=== PATIENT | male | born 1960 | race Caucasian/White ===

== ENCOUNTER 2020-03-27 08:25 | Outpatient (REF) | payer OTHER, SELFPAY ==
[2020-03-27 11:36] LABS: Estimated Average Glucose 154 mg/dL
[2020-03-27 12:06] LABS: Alanine Aminotransferase 20 U/L (0-40); Anion Gap 11 (12-20); Aspartate Amino Transferase 17 U/L (5-37); Blood Urea Nitrogen 12 mg/dL (9-16); Calcium 8.5 mg/dL (8.4-10.2); Carbon Dioxide 27 mmol/L (22-29); Chloride 106 mmol/L (96-108); Cholesterol 132 mg/dL; Estimated Glomerular Filt Rate > 60; Glucose Fasting 147 mg/dL (60-99); HDL Cholesterol 41 mg/dL; LDL Cholesterol Calculated 68 mg/dl; Potassium 4.3 mmol/l (3.3-5.1); Sodium 140 mmol/L (135-145); Triglycerides 119 mg/dL
== END 2020-03-27 08:26 | disposition home or self-care (01) ==
LOC: HO.HMGCLDS 08:25
PROVIDERS: PCP Internal Medicine; Visit Provider Internal Medicine
DX: E11.65 Type 2 diabetes mellitus with hyperglycemia (principal); E78.5 Hyperlipidemia, unspecified; I10 Essential (primary) hypertension
CPT/HCPCS: 80048; 80061; 83036; 84450; 84460

== ENCOUNTER 2020-11-11 09:07 | Outpatient (REF) | payer OTHER, SELFPAY ==
[2020-11-11 11:54] LABS: Alanine Aminotransferase 19 U/L (0-40); Anion Gap 13 (12-20); Aspartate Amino Transferase 18 U/L (5-37); Blood Urea Nitrogen 14 mg/dL (9-16); Calcium 8.2 mg/dL (8.4-10.2); Carbon Dioxide 24 mmol/L (22-29); Chloride 106 mmol/L (96-108); Cholesterol 118 mg/dL; Estimated Glomerular Filt Rate > 60; Glucose Fasting 118 mg/dL (60-99); HDL Cholesterol 41 mg/dL; LDL Cholesterol Calculated 63 mg/dl; Potassium 3.9 mmol/L (3.3-5.1); Sodium 139 mmol/L (135-145); Triglycerides 72 mg/dL
[2020-11-11 12:20] LABS: Estimated Average Glucose 151 mg/dL; Hemoglobin A1c % 6.9 %
== END 2020-11-11 09:08 | disposition home or self-care (01) ==
LOC: HO.HMGCLDS 09:07
PROVIDERS: PCP Internal Medicine; Visit Provider Internal Medicine
DX: E11.65 Type 2 diabetes mellitus with hyperglycemia (principal); E66.01 Morbid (severe) obesity due to excess calories; E78.5 Hyperlipidemia, unspecified; G47.33 Obstructive sleep apnea (adult) (pediatric); I10 Essential (primary) hypertension; I42.9 Cardiomyopathy, unspecified; M17.0 Bilateral primary osteoarthritis of knee; Z86.39 Personal history of other endocrine, nutritional and metabolic disease; Z99.89 Dependence on other enabling machines and devices
CPT/HCPCS: 36415; 80048; 80061; 83036; 84450; 84460

== ENCOUNTER 2020-11-22 11:16 | Outpatient (REF) | payer OTHER, SELFPAY ==
[2020-11-22 13:37] LABS: Prostate Specific Antigen 2.09 ng/mL (<0.05-4.0)
== END 2020-11-22 11:17 | disposition home or self-care (01) ==
LOC: HO.LAB 11:16
PROVIDERS: PCP Internal Medicine; Visit Provider Urology
DX: Z12.5 Encounter for screening for malignant neoplasm of prostate (principal); N40.1 Benign prostatic hyperplasia with lower urinary tract symptoms
CPT/HCPCS: 36415; 84153

== ENCOUNTER 2021-02-27 09:42 | Outpatient (REF) | payer OTHER, SELFPAY ==
[2021-02-27 11:40] LABS: Alanine Aminotransferase 15 U/L (0-40); Anion Gap 14 (12-20); Aspartate Amino Transferase 18 U/L (5-37); Blood Urea Nitrogen 12 mg/dL (9-16); Carbon Dioxide 25 mmol/L (22-29); Chloride 107 mmol/L (96-108); Cholesterol 132 mg/dL; Estimated Glomerular Filt Rate > 60; Glucose Fasting 115 mg/dL (60-99); HDL Cholesterol 41 mg/dL; LDL Cholesterol Calculated 72 mg/dl; Potassium 4.4 mmol/L (3.3-5.1); Sodium 142 mmol/L (135-145); Triglycerides 97 mg/dL
[2021-02-27 12:00] LABS: Estimated Average Glucose 148 mg/dL; Hemoglobin A1c % 6.8 %
[2021-02-27 12:02] LABS: Vitamin D 25-OH Total 16.6 ng/mL (>30)
== END 2021-02-27 09:43 | disposition home or self-care (01) ==
LOC: HO.HMGCLDS 09:42
PROVIDERS: PCP Internal Medicine; Visit Provider Internal Medicine
DX: E11.9 Type 2 diabetes mellitus without complications (principal); I10 Essential (primary) hypertension; I42.9 Cardiomyopathy, unspecified; E78.5 Hyperlipidemia, unspecified
CPT/HCPCS: 36415; 80048; 80061; 82306; 83036; 84450; 84460

== ENCOUNTER → 2021-07-24 08:42 | Outpatient (BNVA) | payer OTHER, SELFPAY | PROVIDERS: PCP Internal Medicine; Visit Provider Urology | DX: N40.1 Benign prostatic hyperplasia with lower urinary tract symptoms (principal); R97.20 Elevated prostate specific antigen [PSA] | CPT/HCPCS: 51798 ==

== ENCOUNTER 2021-11-24 08:43 | Outpatient (REF) | payer OTHER, SELFPAY ==
[2021-11-24 11:48] LABS: Alanine Aminotransferase 17 U/L (0-40); Anion Gap 14 (12-20); Aspartate Amino Transferase 13 U/L (5-37); Blood Urea Nitrogen 12 mg/dL (9-16); Calcium 8.8 mg/dL (8.4-10.2); Carbon Dioxide 25 mmol/L (22-29); Chloride 106 mmol/L (96-108); Cholesterol 115 mg/dL; Estimated Glomerular Filt Rate > 60; Glucose Fasting 155 mg/dL (60-99); HDL Cholesterol 34 mg/dL; LDL Cholesterol Calculated 64 mg/dl; Potassium 4.3 mmol/L (3.3-5.1); Sodium 141 mmol/L (135-145); Triglycerides 89 mg/dL
[2021-11-24 12:09] LABS: Creatinine Urine 171.42 mg/dL; Microalbum/Creatinine Ratio Ur 75.8 ug/mg cr
[2021-11-24 12:10] LABS: TSH reflex Free T4 2.29 uIU/mL (0.32-4.0); Vitamin D 25-OH Total 13.9 ng/mL (>30)
== END 2021-11-24 08:44 | disposition home or self-care (01) ==
LOC: HO.HMGCLDS 08:43
PROVIDERS: PCP Internal Medicine; Visit Provider Internal Medicine
DX: E66.01 Morbid (severe) obesity due to excess calories (principal); E78.5 Hyperlipidemia, unspecified; I10 Essential (primary) hypertension; E11.65 Type 2 diabetes mellitus with hyperglycemia
CPT/HCPCS: 36415; 80048; 80061; 82043; 82306; 84443; 84450; 84460

== ENCOUNTER 2021-12-26 06:40 | Day surgery (SDC) | payer OTHER, SELFPAY ==
[2021-11-10 09:52] VITALS: BMI 42.5
--- NOTE | 2021-12-24 12:41 | P.CONAN_ITS ---
Documented by User: Demi Alejo NP 12/25/21 12:01 HPI - Anesthesia Eval Consult details Narrative: 61yo M for Colonoscopy Follows [facility] - last seen 08/2020 without concerning symptoms and was cleared for orthopedic surgery [facility] Active Problems Active Problems: All Active Problems (Updated 12/05/21 @ 09:38 by Lakshmi Wyman MD) Elevated PSA (Acute) Trigger finger, right middle finger (Acute) Osteoarthritis of knees, bilateral (Acute) Cardiomyopathy (Acute) Dyslipidemia (Acute) GIN on CPAP (Acute) Essential hypertension (Acute) Morbid obesity (Acute) Diabetes mellitus with hyperglycemia, without long-term current use of insulin (Acute) Past Medical History Medical History Benign non-nodular prostatic hyperplasia with lower urinary tract symptoms History of COVID-19 Hx of thyroid nodule Nocturia Type 2 diabetes mellitus without complication, with no history of insulin use Family History Family History Father Diabetes mellitus Cancer of prostate Myocardial infarction Mother HTN (hypertension) Diabetes mellitus CAD (coronary artery disease) Paternal Grandfather Cancer of prostate Brother No problems noted. Brother No problems noted. Sister No problems noted. Sister No problems noted. Surgical History Surgical History History of lobectomy of thyroid Hx of colonoscopy Status post lateral meniscus repair Social History Social History Housing: House Alcohol intake: never Patient Tobacco Use Status: Never used Tobacco e-Cigarette/Vaping Use: Never Used Second Hand Smoke Exposure: No Use of substances other than those prescribed or required for medical reasons: No Are you DNR?: No Advance Directives: No Advance Directives Information Provided: Yes service: No Current occupational status: employed Current occupation: [employer] Current occupational exposures/hazards: Yes Cognitive needs: No Hearing needs: No Vision needs: No Meds Allergies Allergy/AdvReac Type Severity Reaction Status Date / Time erythromycin base Allergy Unknown DIARRHEA Verified 12/05/21 09:04 [ERYTHROMYCIN BASE] spironolactone [Aldactone] Allergy Unknown stomach Verified 12/05/21 09:04 upset dust, mold, grass Allergy Unknown sneezing Uncoded 12/05/21 09:04 Home Medications Medication Instructions Recorded Confirmed Last Taken Type carvedilol 25 mg tablet 25 mg PO BID 08/16/20 12/05/21 12/26/21 History sacubitril 97 mg-valsartan 103 mg 1 tab PO BID 08/16/20 12/05/21 12/26/21 History tablet aspirin 81 mg tablet,delayed 81 mg PO DAILY 11/14/20 12/05/21 12/19/21 History release (Adult Low Dose Aspirin) fexofenadine 60 mg capsule 180 mg PO DAILY 03/03/21 12/05/21 Unknown History dulaglutide 0.75 mg/0.5 mL 0.5 ml subcut QWEEK 12/26/21 12/26/21 12/20/21 History subcutaneous pen injector (Trulicity) Exam Exam Date and Time: December 24, 2021 1241 Height,Weight and Vital Signs: Height 5 ft 6.75 in Weight 122.47 kg Narrative Narrative: ECHO 09/2015 Upper normal LV size with mild conc LVH Moderate upper septal thickening LVEF 50-55% No regional WMA No doppler evidence of increased filling pressures Mild dilated LA Mild dilated RV with preserved systolic function No valvular dysfunction Assessment and Plan Assessment Anesthesia Assessment: Chart Reviewed Documented by User: Eren Rice MD 12/26/21 07:56 [facility] Past Medical History Medical History Benign non-nodular prostatic hyperplasia with lower urinary tract symptoms History of COVID-19 Hx of thyroid nodule Nocturia Type 2 diabetes mellitus without complication, with no history of insulin use Family History Family History Father Diabetes mellitus Cancer of prostate Myocardial infarction Mother HTN (hypertension) Diabetes mellitus CAD (coronary artery disease) Paternal Grandfather Cancer of prostate Brother No problems noted. Brother No problems noted. Sister No problems noted. Sister No problems noted. Family history of problems with anesthesia: No Surgical History Surgical History History of lobectomy of thyroid Hx of colonoscopy Status post lateral meniscus repair History of Problems with Anesthesia: No Social History Social History Housing: House Alcohol intake: never Patient Tobacco Use Status: Never used Tobacco e-Cigarette/Vaping Use: Never Used Second Hand Smoke Exposure: No Use of substances other than those prescribed or required for medical reasons: No Are you DNR?: No Advance Directives: No Advance Directives Information Provided: Yes service: No Current occupational status: employed Current occupation: [employer] Current occupational exposures/hazards: Yes Cognitive needs: No Hearing needs: No Vision needs: No Meds Allergies Allergy/AdvReac Type Severity Reaction Status Date / Time erythromycin base Allergy Unknown DIARRHEA Verified 12/05/21 09:04 [ERYTHROMYCIN BASE] spironolactone [Aldactone] Allergy Unknown stomach Verified 12/05/21 09:04 upset dust, mold, grass Allergy Unknown sneezing Uncoded 12/05/21 09:04 Home Medications Medication Instructions Recorded Confirmed Last Taken Type carvedilol 25 mg tablet 25 mg PO BID 08/16/20 12/05/21 12/26/21 History sacubitril 97 mg-valsartan 103 mg 1 tab PO BID 08/16/20 12/05/21 12/26/21 History tablet aspirin 81 mg tablet,delayed 81 mg PO DAILY 11/14/20 12/05/21 12/19/21 History release (Adult Low Dose Aspirin) fexofenadine 60 mg capsule 180 mg PO DAILY 03/03/21 12/05/21 Unknown History dulaglutide 0.75 mg/0.5 mL 0.5 ml subcut QWEEK 12/26/21 12/26/21 12/20/21 History subcutaneous pen injector (Trulicity) Exam Airway Mallampati Class: III TM Dist: >3cm Neck ROM: Full Assessment and Plan Assessment Anesthesia Assessment: Anesthesia Plan Discussed Final Anesthetic Review Family History of Problems with Anesthesia: No History of Problems with Anesthesia: No NPO: Yes ASA Class: III Final Preanesthetic Review: No Changes in Pt Med Stat, Meds/Allgs Chart Reviewed, Consent Obtained/Reviewed and Anes Risks/Benef Reviewed Patient Risk: Intermediate Procedure Risk: Low Anesthetic Plan Anesthetic Plan: MAC: Disposition: Standard PACU
[2021-12-26 07:00] VITALS: BP 161/92; PULSE 83; RESP 19; TEMP 36.4; O2SAT 95
[2021-12-26 07:10] LABS: Glucose, Whole Blood 119 mg/dL (60-115)
[2021-12-26] MEDS: Lactated Ringers 1,000 ML 50 ML IVCONT (07:23)
--- NOTE | 2021-12-26 08:11 | MHC.SHP ---
Pre-Procedural Eval Section A Date of Service: 12/26/21 Section B Chief Complaint: screening Details of Present Illness: see h&p no changes Relevant Family History (Specify if Yes): No Relevant Social History: None Present Medications: see Short Stay Collaborative assessment Medical History: No relevant PMH History of Previous Operations: No relevant previous surgery Allergies: Allergies Allergy/AdvReac Type Severity Reaction Status Date / Time erythromycin base Allergy Unknown DIARRHEA Verified 12/05/21 09:04 [ERYTHROMYCIN BASE] spironolactone [Aldactone] Allergy Unknown stomach Verified 12/05/21 09:04 upset dust, mold, grass Allergy Unknown sneezing Uncoded 12/05/21 09:04 Review of Systems Sugical H&P ROS: Negative: Constitution, Cardiovascular, Respiratory, Neurological, Psychiatric, Hem-Onc, Allergic/Immunologic, Gastrointestinal, Genitourinary, Musculoskeletal, Integumentary, Endocrine and Eyes/Ears/Nose/Throat Exam Surgical H&P Exam: Normal: HEENT, Normal: Heart, Normal: Lungs, Normal: Extremities, Normal: Abdomen, Normal: Skin and Normal: Neurological Plan I have reviewed the history and physical and performed a pertinent physical examination on my patient. No changes have occurred unless specified.
--- NOTE | 2021-12-26 08:48 | P.BOP_ITS ---
Brief Operative Note Date of Service: 12/26/21 Pre-op diagnosis: colonoscopy Post-op diagnosis: same (colon polyp) Procedure: colonoscopy Surgeon: Dirk Sylvester Anesthesia: MAC Was an Clinical Laboratory Service Teacher used for this Procedure?: No Estimated blood loss (mL): 2 Pathology: other Condition: stable Disposition: PACU
[2021-12-26 08:49] VITALS: BP 90/63; PULSE 84; RESP 14; TEMP 37.3; O2SAT 96
[2021-12-26 09:04] VITALS: BP 121/72; PULSE 78; RESP 18; TEMP 36.7; O2SAT 96
--- NOTE | 2021-12-26 11:06 | OP_ITS ---
SURGEON: Dirk Sylvester MD INDICATIONS: Colon cancer screening. PREOPERATIVE DIAGNOSIS: POSTOPERATIVE DIAGNOSIS: PROCEDURE PERFORMED: Colonoscopy to the terminal ileum with snare polypectomy. ESTIMATED BLOOD LOSS: COMPLICATIONS: ANESTHESIA: Monitored anesthesia care. ASSISTANTS: SPECIMENS: DESCRIPTION OF PROCEDURE: History and physical performed the risks and benefits of the procedure were explained to the patient. Informed consent was obtained. The patient was placed in the left lateral decubitus position. A digital rectal exam was performed and was found to be normal. The Olympus pediatric video colonoscope was introduced into the rectum and advanced to the cecum without difficulty. The cecum was identified by transillumination, palpation, and identification of the ileocecal valve. Examination was performed. The scope was removed. He tolerated the procedure well and was taken to recovery room in stable condition. FINDINGS: The terminal ileum was examined and appeared normal. The visualized colonic mucosa was normal. The quality of prep was good. At the proximal transverse colon, was a 6 mm polyp, which was removed with a snare and recovered via suction. No other polyps were identified. There was mild sigmoid diverticulosis. Retroflexed examination showed small internal hemorrhoids. IMPRESSION: Colon polyp. RECOMMENDATION: Follow up the biopsy results. MD APARNA Pastor/ACOSTA / [phone]
== END 2021-12-26 09:51 | disposition home or self-care (01) ==
PROVIDERS: PCP Internal Medicine; Visit Provider Internal Medicine Gastroenterology
PROC: 0DJD8ZZ Inspection of Lower Intestinal Tract, Via Natural or Artificial Opening Endoscopic (ICD-10-PCS; CPT 45378; principal; 2021-12-26 08:10)
DX: Z12.11 Encounter for screening for malignant neoplasm of colon (principal); D12.3 Benign neoplasm of transverse colon; K57.30 Diverticulosis of large intestine without perforation or abscess without bleeding; K64.8 Other hemorrhoids; I11.0 Hypertensive heart disease with heart failure; I50.9 Heart failure, unspecified; E78.00 Pure hypercholesterolemia, unspecified; M19.90 Unspecified osteoarthritis, unspecified site; G47.33 Obstructive sleep apnea (adult) (pediatric); E11.9 Type 2 diabetes mellitus without complications; E66.01 Morbid (severe) obesity due to excess calories; Z68.41 Body mass index [BMI] 40.0-44.9, adult; Z79.84 Long term (current) use of oral hypoglycemic drugs; Z79.82 Long term (current) use of aspirin; Z79.899 Other long term (current) drug therapy; Z88.1 Allergy status to other antibiotic agents; Z88.8 Allergy status to other drugs, medicaments and biological substances
CPT/HCPCS: 45385; 82947; 88305; J2370

== ENCOUNTER 2022-01-20 12:15 | Outpatient (REF) | payer OTHER, SELFPAY ==
[2022-01-20 14:30] LABS: Prostate Specific Antigen 1.71 ng/mL (<0.05-4.0)
== END 2022-01-20 12:16 | disposition home or self-care (01) ==
LOC: HO.HMGCLDS 12:15
PROVIDERS: PCP Internal Medicine; Visit Provider Urology
DX: Z12.5 Encounter for screening for malignant neoplasm of prostate (principal); N13.8 Other obstructive and reflux uropathy; N40.1 Benign prostatic hyperplasia with lower urinary tract symptoms
CPT/HCPCS: 36415; 84153

== ENCOUNTER 2022-03-07 09:17 | Outpatient (REF) | payer OTHER, SELFPAY ==
[2022-03-07 11:28] LABS: Estimated Average Glucose 157 mg/dL; Hemoglobin A1c % 7.1 %
[2022-03-07 11:46] LABS: Alanine Aminotransferase 23 U/L (0-40); Anion Gap 16 (12-20); Aspartate Amino Transferase 17 U/L (5-37); Blood Urea Nitrogen 14 mg/dL (9-16); Calcium 8.8 mg/dL (8.4-10.2); Carbon Dioxide 24 mmol/L (22-29); Chloride 106 mmol/L (96-108); Cholesterol 110 mg/dL; Estimated Glomerular Filt Rate > 60; Glucose Fasting 141 mg/dL (60-99); HDL Cholesterol 34 mg/dL; LDL Cholesterol Calculated 57 mg/dl; Potassium 4.1 mmol/L (3.3-5.1); Sodium 142 mmol/L (135-145); Triglycerides 99 mg/dL
== END 2022-03-07 09:18 | disposition home or self-care (01) ==
LOC: HO.HMGCLDS 09:17
PROVIDERS: PCP Internal Medicine; Visit Provider Internal Medicine
DX: E66.01 Morbid (severe) obesity due to excess calories (principal); E11.65 Type 2 diabetes mellitus with hyperglycemia; E78.5 Hyperlipidemia, unspecified; I10 Essential (primary) hypertension; I42.9 Cardiomyopathy, unspecified
CPT/HCPCS: 36415; 80048; 80061; 83036; 84450; 84460

== ENCOUNTER 2022-07-02 09:41 | Outpatient (REF) | payer OTHER, SELFPAY ==
[2022-07-02 11:43] LABS: Estimated Average Glucose 148 mg/dL; Hemoglobin A1c % 6.8 %
[2022-07-02 13:05] LABS: Alanine Aminotransferase 18 U/L (0-40); Anion Gap 12 (12-20); Aspartate Amino Transferase 16 U/L (5-37); Blood Urea Nitrogen 12 mg/dL (9-16); Calcium 9.1 mg/dL (8.4-10.2); Carbon Dioxide 27 mmol/L (22-29); Chloride 106 mmol/L (96-108); Cholesterol 117 mg/dL; Estimated Glomerular Filt Rate > 60; Glucose Fasting 129 mg/dL (60-99); HDL Cholesterol 38 mg/dL; LDL Cholesterol Calculated 60 mg/dl; Potassium 4.3 mmol/L (3.3-5.1); Sodium 141 mmol/L (135-145); Triglycerides 96 mg/dL
[2022-07-02 13:24] LABS: Vitamin D 25-OH Total 69.1 ng/mL (>30)
== END 2022-07-02 09:42 | disposition home or self-care (01) ==
LOC: HO.HMGCLDS 09:41
PROVIDERS: PCP Internal Medicine; Visit Provider Internal Medicine
DX: E11.65 Type 2 diabetes mellitus with hyperglycemia (principal); I10 Essential (primary) hypertension; E78.5 Hyperlipidemia, unspecified; E66.01 Morbid (severe) obesity due to excess calories; E55.9 Vitamin D deficiency, unspecified
CPT/HCPCS: 36415; 80048; 80061; 82306; 83036; 84450; 84460

== ENCOUNTER 2022-07-09 13:35 | Outpatient (AMB) | payer OTHER, SELFPAY ==
--- NOTE | 2022-07-09 13:38 | A.OFFPC_ITS ---
Vital Signs 07/09/22 13:39 Height 5 ft 6.75 in Weight 266 lb 6 oz BMI 42.0 BP 130/75 Blood Pressure Location Lt brachial Position Sitting Pulse 68 Pulse Source Pulse Oximeter Pulse Oximetry (%) 98 Oxygen Delivery Method Room Air Intake Visit Reasons: 4 month follow up Allergies erythromycin base [ERYTHROMYCIN BASE] Allergy (Unknown, Verified 03/10/23 13:00) DIARRHEA spironolactone [Aldactone] Allergy (Unknown, Verified 03/10/23 13:00) stomach upset dust, mold, grass Allergy (Unknown, Uncoded 03/10/23 13:00) sneezing Medication List - Last Reconciled 03/14/23 by Lakshmi Wyman MD amlodipine 10 mg PO DAILY aspirin (Adult Low Dose Aspirin) 81 mg PO DAILY atorvastatin 20 mg PO DAILY blood sugar diagnostic (FreeStyle Lite Strips) Check blood sugar twice a day before meals blood sugar diagnostic (FreeStyle Lite Strips) Check fasting glucose once a day before meals carvedilol 25 mg PO BID cyanocobalamin (vitamin B-12) Inject 1000 micrograms/mL intramuscularly every week for 4 weeks, then once a month thereafter dapagliflozin propanediol (Farxiga) 10 mg PO DAILY dulaglutide (Trulicity) 1.5 mg (0.5 mL) subcut QWEEK 3 months fexofenadine 180 mg PO DAILY finasteride 5 mg PO DAILY 90 days lancets check blood sugar twice a day AC metformin 1,000 mg PO BID sacubitril-valsartan 97-103 mg 1 tab PO BID tadalafil 5 mg PO DAILY 90 days Tobacco use date assessed: 07/09/22 Fall risk assessment: No Falls in past year HPI 4 month follow up HPI Details [age] type 2 diabetes mellitus, cardiomyopathy, hypertension, morbid obesity, dyslipidemia with obstructive sleep apnea on CPAP, here today for his follow-up. He has been compliant with taking his medications, with recent fasting labs showing good control of diabetes mellitus and cholesterol, blood pressure stable and controlled on present treatment. Patient however has been noticing tremors in his left hand about 8-12 mths ago which has been progressively getting worse, accompanied withoccasional difficulty with hand coordination, and states that his left hand tires easily .He denies any handwriting changes, dressing , eating, showering, no change in speech or drooling. [facility] Medical History (Updated 03/14/23 @ 18:42 by Lakshmi Wyman MD) Vitamin B12 deficiency Gait abnormality Tremor of left hand Type 2 diabetes mellitus without complication, with no history of insulin use Vitamin D deficiency History of COVID-19 Nocturia Benign non-nodular prostatic hyperplasia with lower urinary tract symptoms Elevated PSA Trigger finger, right middle finger Type 2 diabetes mellitus without complication, with no history of insulin use Osteoarthritis of knees, bilateral Cardiomyopathy Hx of thyroid nodule Dyslipidemia GIN on CPAP Essential hypertension Morbid obesity Diabetes mellitus with hyperglycemia, without long-term current use of insulin Surgical History Hx of colonoscopy History of lobectomy of thyroid Status post lateral meniscus repair Family History Father Diabetes mellitus Cancer of prostate Myocardial infarction Mother HTN (hypertension) Diabetes mellitus CAD (coronary artery disease) Paternal Grandfather Cancer of prostate Brother No problems noted. Brother No problems noted. Sister No problems noted. Sister No problems noted. Social History Housing: House Alcohol intake: never Patient Tobacco Use Status: Never used Tobacco e-Cigarette/Vaping Use: Never Used Second Hand Smoke Exposure: No service: Yes Current occupational status: employed Current occupation: [employer] Current occupational exposures/hazards: Yes Cognitive needs: No Hearing needs: No Vision needs: Yes Questionnaire PHQ-9 Over the last 2 weeks, how often have you been bothered by any of the following problems? 1. Little interest or pleasure in doing things: not at all 2. Feeling down, depressed, or hopeless: not at all 3. Trouble falling or staying asleep, or sleeping too much: not at all 4. Feeling tired or having little energy: several days 5. Poor appetite or overeating: not at all 6. Feeling bad about yourself - or that you are a failure or have let yourself or your family down: not at all 7. Trouble concentrating on things, such as reading the newspaper or watching television: not at all 8. Moving or speaking so slowly that other people could have noticed. Or the opposite - being so fidgety or restless that you have been moving around a lot more than usual: not at all 9. Thoughts that you would be better off or of hurting yourself in some way: not at all Total score: 1 Depression Screening Interpretation: Negative Source: Developed by Drs. Teo Smith, Mario Spain and colleagues, with an educational dion from [employer]. Thrive Questionnaire Date Thrive assessed: 07/09/22 I am a: Patient What is your living situation today?: I have a steady place to live Within the past 12 months, did the food you bought not last and you didn't have the money to get more?: Never true Within the past 12 months, did you worry whether your food would run out before you got money to buy more?: Never true Do you have trouble paying for medicines?: No Do you have trouble getting transportation to medical appointments?: No Do you have trouble paying your heating and electricity bill?: No Do you have trouble taking care of your child, family member or friend?: No Do you have trouble with day-to-day activities such as bathing, preparing meals, shopping, managing finances, etc.?: No Are you currently unemployed and looking for a job?: No Are you interested in more education?: No AUDIT C Alcohol Use Questionnaire (AUDIT-C) 1. How often do you have a drink containing alcohol?: Never 3. How often do you have six or more drinks on one occasion?: Never Total Score: 0 GM-7 AMB Questionnaire GM-7 Date GM - 7 assessed: 12/05/21 Source: Developed by Drs. Teo Smith, Mario Spain and colleagues, with an educational dion from [employer]. Review of Systems Const Reports as per HPI Eyes Details: Goes to [facility] eye care Denies change in vision ENT Details: Occasional difficulty with swallowing Reports hearing loss Card Denies chest pain, Denies rapid heart rate, Denies leg edema, Denies lightheadedness, Denies dyspnea and Reports dyspnea on exertion Resp Denies cough, Denies dyspnea and Reports dyspnea on exertion GI Reports as per HPI and Reports no additional complaints Reports urinary urgency Musc Reports arthralgias Neuro Reports as per HPI, Denies Sensory deficit (Neuro) and Reports tremor(s) Psych Reports no additional complaints Endo Reports no additional complaints Mick/Lymph Reports no additional complaints Physical exam (Primary Care) Vital Signs: Last Vital Signs Pulse 68 07/09/22 13:39 BP 130/75 07/09/22 13:39 Pulse Ox 98 07/09/22 13:39 Oxygen Delivery Method Room Air 07/09/22 13:39 BMI result Body Mass Index 42.0 Tobacco/Smoking Status: Tobacco use Status Tobacco use date assessed 07/09/22 07/09/22 13:43 Patient Tobacco Use Status Never used Tobacco 07/09/22 13:43 e-Cigarette/Vaping Use Never Used 07/09/22 13:43 PHQ-9: PHQ-9 Score PHQ-9: Total score 1 07/09/22 14:19 Depression Screening Interpretation: Negative Thrive Assessment: Date of Thrive Assessment Date Thrive assessed 07/09/22 07/09/22 13:45 Const General: comfortable, no acute distress and alert Nutritional Appearance: obese morbidly obese Orientation/consciousness: patient oriented x3 HENMT Face and sinus: Yes normal facial exam and Yes face symmetric Mouth: Normal oral and palatal mucosa present, oropharynx normal and moist mucous membranes Eyes General: appearance normal, both eyes and all related structures Neck Neck: Yes full ROM and Yes no lymphadenopathy Resp Effort & Inspection: normal respiratory effort and able to speak in complete sentences Auscultation: clear to auscultation bilaterally Cardio Rate: regular rate Rhythm: regular rhythm Heart sounds: S1 normal heart sound present and S2 normal heart sound present GI Inspection: Yes obesity Palpation (GI): Soft to palpation, nontender, no guarding and no pulsatile masses Auscultation: normal bowel sounds Skin General skin exam: no rashes or lesions noted Neuro General: patient oriented x3 Cognition (Neuro): normal cognition Gait exam (Neuro): Other gait observations present (Slow gait) Motor exam (neuro): 5/5 motor strength present throughout Sensory Exam: No Sensory deficit (Neuro) Extrem General: Yes normal to inspection, Yes full ROM and Yes no pedal edema Psych Appearance: well kempt Mental Status: mental status grossly normal Speech and movement: Normal speech and movement present Affect: normal affect Thought process: Normal thought process present Results Reviewed Results Reviewed: Laboratory Tests 07/02/22 09:45 Estimat Average Glucose 148 Hemoglobin A1c % 6.8 ENTERED: 07/02/[address]: ORDERED: Met Prof Fast, AST, ALT, Lipid Panel, Vitamin D 25-OH Test Result Flag Reference Site Sodium 141 135-145 mmol/L Potassium 4.3 3.3-5.1 mmol/L CL 106 96-108 mmol/L CO2 27 22-29 mmol/L Gap 12 12-20 BUN 12 9-16 mg/dL Creat 1.00 0.5-1.4 mg/dL EGFR > 60 NOTE: For -Palestinian individuals, multiply the result by 1.210. Chronic Kidney Disease: Estimated GFR < 60 mL/min/1.73m2 Severe Kidney Disease: Estimated GFR < 15 mL/min/1.73m2 FBS 129 H 60-99 mg/dL A fasting glucose of 126 mg/dl or greater on more than one occasion is considered diagnostic of diabetes. CA 9.1 8.4-10.2 mg/dL AST (GOT) 16 5-37 U/L ALT (GPT) 18 0-40 U/L Triglyceride 96 mg/dL Desirable Triglyceride: less than 150 mg/dL Borderline High Triglyceride 150-199 mg/dL High Triglyceride: 200-499 mg/dL Very High Triglyceride: greater than or equal to 5OO mg/dL Chol 117 mg/dL Desirable Cholesterol: less than 200 mg/dL Borderline High Cholesterol: 200-239 mg/dL High Cholesterol: greater than 239 mg/dL LDL Calculated 60 mg/dl Desirable LDL: less than 100 mg/dL Near Optimal/Above Optimal LDL: 110-129 mg/dL Borderline High LDL: 130-159 mg/dL High LDL: 160-189 mg/dL Very High LDL: greater than or equal to 190 mg/dL HDL 38 mg/dL Desirable HDL: greater than 40 mg/dL Note: This HDL assay may give artificially low results in patients with liver disease. Vit D 25-OH Tot 69.1 >30 ng/mL Health Based Reference Values* < 20 ng/mL Deficient 20-30 ng/mL Insufficient > 30 ng/mL Sufficient Assessment and Plan Assessment & Plan (1) Tremor of left hand: Code(s): R25.1 - Tremor, unspecified Plan: Neurology consult ordered (2) Dyslipidemia: Code(s): E78.5 - Hyperlipidemia, unspecified Plan: Reviewed recent fasting lipid profile with patient with levels within normal limits . Continue with atorvastatin 20 mg daily , in addition to adherence to low-cholesterol diet and regular exercise, at least 30 minutes 3 to 4 times a week. Advised patient to make healthy food choices, eat more fruits, vegetables, whole grains, wild caught fish and low-fat dairy. Limit amount of meat and fried or fatty food products, as well as processed foods and fast foods. Follow-up scheduled with repeat fasting lipid panel in 4 months. (3) Essential hypertension: Code(s): I10 - Essential (primary) hypertension Plan: Blood pressure at goal of less than 130/80. Continue with current medication. Reinforced importance of following a low sodium diet, getting regular exercise, and lowering stress levels. (4) Type 2 diabetes mellitus without complication, with no history of insulin use: Code(s): E11.9 - Type 2 diabetes mellitus without complications Plan: Recent lab results reviewed with patient, with sugar and hemoglobin A1c stable and at goal . Continue with metformin 1000 mg 1 tablet twice a day and Trulicity 1.5 mg weekly as well as Farxiga 10 mg daily continue to check fasting blood sugar at home, maintain log and bring to next appointment for review. Reinforced diabetic diet and regular exercise with patient. Counseled regarding importance of yearly diabetes retinopathy screening. Patient advised to inspect feet daily, for any signs of injury, callus or infection. Compliance with diet and regular exercise again stressed. Blood pressure goal is less than 130/80, goal LDL is less than 100 and goal hemoglobin A1c is less than 7% follow-up appointment made in---months, after fasting labs done. (5) Cardiomyopathy: Comment: Ff'd by [facility] Cardiology Code(s): I42.9 - Cardiomyopathy, unspecified Qualifiers: Cardiomyopathy type: unspecified Qualified Code(s): I42.9 - Cardiomyopathy, unspecified Plan: Continue on Entresto and carvedilol, followed by Cardiology at [facility] (6) GIN on CPAP: Code(s): G47.33 - Obstructive sleep apnea (adult) (pediatric); Z99.89 - Dependence on other enabling machines and devices Plan: Currently on CPAP Orders: Orders Basic Metabolic Panel Fasting 10/19/22 E55.9 - Vitamin D deficiency, unspecified, I42.9 - Cardiomyopathy, unspecified, E78.5 - Hyperlipidemia, unspecified, I10 - Essential (primary) hypertension, E66.01 - Morbid (severe) obesity due to excess calories, E11.9 - Type 2 diabetes mellitus without complications, R25.1 - Tremor, unspecified Aspartate Amino Transferase 10/19/22 E55.9 - Vitamin D deficiency, unspecified, I42.9 - Cardiomyopathy, unspecified, E78.5 - Hyperlipidemia, unspecified, I10 - Essential (primary) hypertension, E66.01 - Morbid (severe) obesity due to excess calories, E11.9 - Type 2 diabetes mellitus without complications, R25.1 - Tremor, unspecified Alanine Aminotransferase 10/19/22 E55.9 - Vitamin D deficiency, unspecified, I42.9 - Cardiomyopathy, unspecified, E78.5 - Hyperlipidemia, unspecified, I10 - Essential (primary) hypertension, E66.01 - Morbid (severe) obesity due to excess calories, E11.9 - Type 2 diabetes mellitus without complications, R25.1 - Tremor, unspecified Microalbumin, Random (w Creat) 10/19/22 E55.9 - Vitamin D deficiency, unspecified, I42.9 - Cardiomyopathy, unspecified, E78.5 - Hyperlipidemia, unspecified, I10 - Essential (primary) hypertension, E66.01 - Morbid (severe) obesity due to excess calories, E11.9 - Type 2 diabetes mellitus without complications, R25.1 - Tremor, unspecified TSH reflex Free T4 10/19/22 E55.9 - Vitamin D deficiency, unspecified, I42.9 - Cardiomyopathy, unspecified, E78.5 - Hyperlipidemia, unspecified, I10 - Essential (primary) hypertension, E66.01 - Morbid (severe) obesity due to excess calories, E11.9 - Type 2 diabetes mellitus without complications, R25.1 - Tremor, unspecified Vitamin D 25-OH Total 10/19/22 E55.9 - Vitamin D deficiency, unspecified, I42.9 - Cardiomyopathy, unspecified, E78.5 - Hyperlipidemia, unspecified, I10 - Essential (primary) hypertension, E66.01 - Morbid (severe) obesity due to excess calories, E11.9 - Type 2 diabetes mellitus without complications, R25.1 - Tremor, unspecified Hemoglobin A1c 10/19/22 E55.9 - Vitamin D deficiency, unspecified, I42.9 - Cardiomyopathy, unspecified, E78.5 - Hyperlipidemia, unspecified, I10 - Essential (primary) hypertension, E66.01 - Morbid (severe) obesity due to excess calories, E11.9 - Type 2 diabetes mellitus without complications, R25.1 - Tremor, unspecified Lipid Panel 10/19/22 E55.9 - Vitamin D deficiency, unspecified, I42.9 - Cardiomyopathy, unspecified, E78.5 - Hyperlipidemia, unspecified, I10 - Essential (primary) hypertension, E66.01 - Morbid (severe) obesity due to excess calories, E11.9 - Type 2 diabetes mellitus without complications, R25.1 - Tremor, unspecified Vitamin B12 and Folate 10/19/22 E55.9 - Vitamin D deficiency, unspecified, I42.9 - Cardiomyopathy, unspecified, E78.5 - Hyperlipidemia, unspecified, I10 - Essential (primary) hypertension, E66.01 - Morbid (severe) obesity due to excess calories, E11.9 - Type 2 diabetes mellitus without complications, R25.1 - Tremor, unspecified Referrals Neurology Referral R25.1 - Tremor, unspecified Coding Level of Care Code Est Pt Level 4 (03653) Diagnoses Tremor of left hand R25.1 Dyslipidemia E78.5 Essential hypertension I10 Type 2 diabetes mellitus without complication, with no history of insulin use E11.9 Cardiomyopathy, unspecified type I42.9 Cardiomyopathy type: unspecified GIN on CPAP G47.33; Z99.89
[2022-07-09 13:39] VITALS: BP 130/75; PULSE 68; O2SAT 98; BMI 42.0
== END 2022-07-09 14:35 | disposition home or self-care (01) ==
LOC: HO.HMGC 13:35
PROVIDERS: PCP Internal Medicine; Visit Provider Internal Medicine
DX: I10 Essential (primary) hypertension (principal); E11.9 Type 2 diabetes mellitus without complications; I42.9 Cardiomyopathy, unspecified; R25.1 Tremor, unspecified; E78.5 Hyperlipidemia, unspecified; G47.33 Obstructive sleep apnea (adult) (pediatric); Z99.89 Dependence on other enabling machines and devices
CPT/HCPCS: 99214

== ENCOUNTER → 2022-07-31 10:49 | Outpatient (BNVA) | payer OTHER, SELFPAY | PROVIDERS: PCP Internal Medicine; Visit Provider Psychiatry & Neurology Neurology | DX: Z13.89 Encounter for screening for other disorder (principal) ==

== ENCOUNTER 2022-08-20 18:43 | Outpatient (REF) | payer OTHER, SELFPAY ==
--- NOTE | ~2022-08-20 | MR_ITS ---
EXAMINATION: MR BRAIN WITHOUT CONTRAST CLINICAL INFORMATION: Left hand weakness, headaches, decreased hearing, balance issues COMPARISON: None. TECHNIQUE: MRI of the brain was obtained using routine sequences without contrast. FINDINGS: No acute infarct. No acute intracranial hemorrhage or extra-axial fluid collection. Mild generalized parenchymal volume loss. Scattered T2 hyperintense foci in the subcortical and periventricular white matter are nonspecific but most suggestive of mild chronic microangiopathy. No mass lesion, mass effect, or herniation pattern. Normal intracranial arterial and dural venous sinus flow voids. Normal appearance of the midline structures. The orbits are grossly unremarkable. Trace mucosal disease within the ethmoid air cells and left maxillary alveolar recess. Small left and trace right mastoid effusions. Normal marrow signal. Retrodental ligamentous thickening. MR/MR head/brain wo con IMPRESSION: 1. No acute intracranial findings. 2. Mild chronic microangiopathy and generalized parenchymal volume loss.
== END 2022-08-20 18:44 | disposition home or self-care (01) ==
LOC: HO.MRI 18:43
PROVIDERS: PCP Internal Medicine; Visit Provider Psychiatry & Neurology Neurology
DX: R29.898 Other symptoms and signs involving the musculoskeletal system (principal); R25.8 Other abnormal involuntary movements; R25.1 Tremor, unspecified
CPT/HCPCS: 70551

== ENCOUNTER 2022-09-15 10:30 | Outpatient (RCR) | payer OTHER, SELFPAY ==
--- NOTE | 2022-08-27 14:55 | MHC.OT.EP ---
[address] [phone] Occupational Therapy Plan of Care Patient Name: Albert Becerra Date of Evaluation: 08/27/22 Diagnosis: Tremor of left hand Pain Location: None reported Assessment: Albert is a 62 y/o male newly diagnosed with Parkinsons disorder, referred to OT for management of L hand tremor and decreased coordination. Pt. reports gradual worsening of L hand function, with it reportedly feeling lazy or not working correctly . He reports decreased initiation and is having difficulty with fine motor tasks at work. Pt was educated in role of OT, POC, and goals. Due to work schedule, pt. is requesting 1x/wk. Treatment will focus on education, gross/fine motor exercises for improving left hand tremor to increase ease and IND with daily tasks. Frequency and Duration: The patient will be seen 1x/wk for 6 weeks Short Term Goals: IND with gross/fine motor HEP Improve L hand FMC as evidenced by 5 sec improvement on FDT IND with necessary modifications to increase IND for woodworking Pt will independently utilize tremor reduction strategies for improvement in work tasks Blade Balancer Goals: Same as above Treatment Plan: Therapeutic Exercise Therapeutic Activity Home Exercise Program Neuro Re-ed Patient Education ADL Training Electronically Signed By: Cortney Chi MS OTR/L Please Sign and return to therapist. Thank you once again for your referral.
--- NOTE | 2022-09-15 11:24 | MHC.OT.DC ---
[address] [phone] F: [phone] Occupational Therapy Discharge Note Patient Name: Albert Becerra Provider: Amirah Tompkins Diagnosis: Tremor of left hand Date of Evaluation: 08/27/22 Date of Discharge: 09/15/22 Treatments to Date: 4 Discharge Status: Achieved Goals Improved Function Independent with HEP Discharge Summary: Albert has done very well in OT and met all goals set on admission. Pt. reports a noticeable reduction in intention tremors (especially after completing hand/digit exercises prior to activity) and has been able to be more mindful of L UE movements. He reports incorporating the left hand more into daily tasks as well. 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 Pt demonstrates understanding of fine motor coordination exercises for home as well as t-band exercises for general posture and UE strengthening. At time, pt. is IND with HEP and in agreement with discharge. Electronically Signed By: Cortney Chi MS OTR/L Reviewed/agree with student documentation: Therapist: Please Sign and return to therapist, thank you for your referral.
== END 2022-09-16 15:36 | disposition home or self-care (01) ==
LOC: HO.OT 10:30
PROVIDERS: PCP Internal Medicine; Visit Provider Psychiatry & Neurology Neurology
DX: R25.8 Other abnormal involuntary movements (principal); R25.1 Tremor, unspecified; R29.898 Other symptoms and signs involving the musculoskeletal system
CPT/HCPCS: 97110; 97165

== ENCOUNTER 2022-10-12 06:57 | Outpatient (REF) | payer OTHER, SELFPAY ==
[2022-10-12 11:46] LABS: Estimated Average Glucose 146 mg/dL; Hemoglobin A1c % 6.7 %
[2022-10-12 12:19] LABS: Creatinine Urine 138.24 mg/dL; Microalbum/Creatinine Ratio Ur 66.5 ug/mg cr
[2022-10-12 12:25] LABS: Alanine Aminotransferase 18 U/L (0-40); Anion Gap 13 (12-20); Aspartate Amino Transferase 16 U/L (5-37); Blood Urea Nitrogen 14 mg/dL (9-16); Carbon Dioxide 26 mmol/L (22-29); Chloride 109 mmol/L (96-108); Cholesterol 111 mg/dL; Estimated Glomerular Filt Rate > 60; Glucose Fasting 126 mg/dL (60-99); HDL Cholesterol 34 mg/dL; LDL Cholesterol Calculated 53 mg/dl; Potassium 4.3 mmol/L (3.3-5.1); Sodium 144 mmol/L (135-145); Triglycerides 124 mg/dL
[2022-10-12 12:48] LABS: Folate 10.8 ng/mL (> or = 4.0); TSH reflex Free T4 2.66 uIU/mL (0.32-4.0); Vitamin B12 < 148 pg/mL (200-900); Vitamin D 25-OH Total 52.9 ng/mL (>30)
== END 2022-10-12 06:58 | disposition home or self-care (01) ==
LOC: HO.HMGCLDS 06:57
PROVIDERS: PCP Internal Medicine; Visit Provider Internal Medicine
DX: E11.9 Type 2 diabetes mellitus without complications (principal); E55.9 Vitamin D deficiency, unspecified; I42.9 Cardiomyopathy, unspecified; E78.5 Hyperlipidemia, unspecified; I10 Essential (primary) hypertension; E66.01 Morbid (severe) obesity due to excess calories; R25.1 Tremor, unspecified
CPT/HCPCS: 36415; 80048; 80061; 82043; 82306; 82607; 82746; 83036; 84443; 84450; 84460

== ENCOUNTER → 2022-10-26 07:21 | Outpatient (BNVA) | payer OTHER, SELFPAY | PROVIDERS: PCP Internal Medicine; Visit Provider Psychiatry & Neurology Neurology ==

== ENCOUNTER 2022-11-11 17:00 | Outpatient (RCR) | payer OTHER, SELFPAY ==
--- NOTE | 2022-10-19 16:04 | MHC.PT.EP ---
[facility] [place] Office [place] Office [place] Office [address] Clyde Martinez [address] [phone] F: [phone] F: [phone] F: [phone] F: [phone] Physical Therapy Plan of Care Date of Evaluation: Date of Surgery: n/a Diagnosis: gait abnormality, cogwheel rigidity Assessment: Patient is a 62 year old male presenting to PT with gait abnormality and cogwheel rigidity. Pt reports onset of pain began about 2 years ago due to insidious onset but contribution from athritis. He presents today with impairments in pain, balance, gait mechanics, LE strength. 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 Clinical presentation today is most consistent with signs and sx associated with balance and gait impairments and pt will benefit from skilled PT 2 week x 4 weeks to address the following problems and impairments noted upon evaluation: pain, balance, gait mechanics, LE strength. These problems limit the patient with the following functional activities: ambulating, stair negotiation, work, transfers, ADLs. The prescribed treatment plan of care is medically necessary. Co-morbidities of DM, cardiomyopathy, HTN, L hand tremor were identified and taken into considerations of plan of care. Pt was educated on HEP, role of PT, prognosis, POC. Frequency and Duration: The patient will be seen 2 x week x 4 weeks Short Term Goals: Pt will demonstrate improved LE strength to 5/5 in 2 weeks. 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 Pt will demonstrate ability to ambulate with improved awareness of eccentric DF control and arm swing in 2 weeks. Photograph Printer Goals: Pt will demonstrate improved LEFI score by 9 points in 4 weeks for improved functional mobility. Pt will demonstrate improved TUG score by 3 seconds in 4 weeks for decreased risk of falls. Pt will demonstrate improved DGI score by 2 points in 4 weeks for decreased risk of falls. Treatment Plan: Modalities to reduce pain, spasms and effusion. Manual therapy to restore motion and function. Therapeutic exercise to improve strength and flexibility. Neuromuscular re-education for posture and balance. Therapeutic activities to return to functional activities of daily living. Electronically signed by: Michelle Renteria, PT, DPT, ATC Please sign and return to therapist. Thank you for your referral.
--- NOTE | 2022-11-11 17:53 | MHC.PT.DC ---
[facility] [place] Office [place] Office [place] Office [address] Clyde Martinez [address] [phone] F: [phone] F: [phone] F: [phone] F: [phone] Physical Therapy Discharge Report Diagnosis: gait abnormality, cogwheel rigidity Date of Surgery: n/a Date of Evaluation: 10/19/22 Date of Discharge: 11/11/22 Treatments to Date: 8 Cancellations to Date: 0 No Shows to Date: 0 Discharge Status: Achieved Goals Improved Function Independent with HEP Discharge Summary: : Pt has made good progress since start of care. He states he is noticing improvements in his function allowing him to have improved gait. He does still however lack some foot clearance on L vs R which he is aware of and knows to focus on. He has made good progress towards his goals at this time as well. At this point we have maximized benefits of PT. He is independent and compliant with his HEP and understands he should continue with this. He is getting a knee replacement in the fall as well. Electronically signed by: Michelle Renteria, PT, DPT, ATC Please sign and return to therapist. Thank you for your referral.
== END 2022-11-11 17:54 | disposition home or self-care (01) ==
LOC: HO.PTCHIC 17:00
PROVIDERS: PCP Internal Medicine; Visit Provider Psychiatry & Neurology Neurology
DX: R25.8 Other abnormal involuntary movements (principal); R26.9 Unspecified abnormalities of gait and mobility; R29.898 Other symptoms and signs involving the musculoskeletal system
CPT/HCPCS: 97110; 97162; 97530

== ENCOUNTER 2023-01-15 07:49 | Outpatient (REF) | payer OTHER, SELFPAY ==
[2023-01-15 11:27] LABS: MANUAL DIFF FLAG NO
[2023-01-15 11:35] LABS: Basophils Percent Auto 0.4 % (0-2); Eosinophils Absolute Auto 0.3 X10*3/uL (0.0-0.4); Eosinophils Percent Auto 4.3 % (0-4); Hematocrit 43.8 % (42.0-52.0); Hemoglobin 14.1 g/dl (14.0-18.0); Imm Gran Abs Auto 0.03 X10*3/uL (0.00-0.03); Imm Gran Pct Auto 0.4 % (0.0-0.4); Lymphocytes Absolute Auto 1.9 X10*3/uL (1.2-4.9); Lymphocytes Percent Auto 25.9 % (20-40); Mean Corpuscular HGB Conc 32.2 g/dl (31.0-36.0); Mean Corpuscular Hemoglobin 27.5 pg (27.0-33.0); Mean Corpuscular Volume 85.4 fL (80.0-98.0); Mean Platelet Volume 8.8 fL (9.4-12.4); Monocytes Absolute Auto 0.6 X10*3/uL (0.1-1.2); Monocytes Percent Auto 8.6 % (2-11); Neutrophils Absolute Auto 4.4 x10*3/uL (2.0-8.3); Neutrophils Percent Auto 60.4 % (45-73); Platelet Count 270 X10*3/uL (160-400); Red Blood Count 5.13 X10*6/uL (4.60-5.80); Red Cell Distribution Width 13.2 % (11.0-16.0); White Blood Count 7.3 X10*3/uL (4.8-10.8)
[2023-01-15 11:39] LABS: Estimated Average Glucose 128 mg/dL; Hemoglobin A1c % 6.1 %
[2023-01-15 12:11] LABS: Prostate Specific Antigen 1.29 ng/mL (<0.05-4.0)
[2023-01-15 12:12] LABS: Alanine Aminotransferase 18 U/L (0-40); Anion Gap 17 (12-20); Aspartate Amino Transferase 15 U/L (5-37); Blood Urea Nitrogen 15 mg/dL (9-16); Calcium 9.2 mg/dL (8.4-10.2); Carbon Dioxide 20 mmol/L (22-29); Chloride 107 mmol/L (96-108); Cholesterol 111 mg/dL; Estimated Glomerular Filt Rate > 60; Glucose Fasting 120 mg/dL (60-99); HDL Cholesterol 36 mg/dL; LDL Cholesterol Calculated 57 mg/dl; Potassium 3.8 mmol/L (3.3-5.1); Sodium 140 mmol/L (135-145); Triglycerides 91 mg/dL
[2023-01-15 12:24] LABS: Folate 8.8 ng/mL (> or = 4.0); Vitamin B12 597 pg/mL (200-900)
== END 2023-01-15 07:50 | disposition home or self-care (01) ==
LOC: HO.HMGCLDS 07:49
PROVIDERS: Absent Provider Urology; PCP Internal Medicine; Visit Provider Internal Medicine
DX: E11.9 Type 2 diabetes mellitus without complications (principal); E78.5 Hyperlipidemia, unspecified; I10 Essential (primary) hypertension; E66.01 Morbid (severe) obesity due to excess calories; E53.8 Deficiency of other specified B group vitamins; N13.8 Other obstructive and reflux uropathy; N40.1 Benign prostatic hyperplasia with lower urinary tract symptoms; R97.20 Elevated prostate specific antigen [PSA]; Z12.5 Encounter for screening for malignant neoplasm of prostate
CPT/HCPCS: 36415; 80048; 80061; 82607; 82746; 83036; 84153; 84450; 84460; 85025

== ENCOUNTER 2023-01-22 09:14 | Outpatient (AMB) | payer OTHER, SELFPAY ==
--- NOTE | 2023-01-22 09:22 | A.OFFPC_ITS ---
Vital Signs 01/22/23 09:26 Height 5 ft 6 in Weight 256 lb BMI 41.3 BP 138/70 Blood Pressure Location Lt brachial Position Sitting Pulse 80 Pulse Source Pulse Oximeter Pulse Oximetry (%) 94 Oxygen Delivery Method Room Air Intake Visit Reasons: Annual PE Intake Note: Pt is here today for his PE Allergies erythromycin base [ERYTHROMYCIN BASE] Allergy (Unknown, Verified 01/24/23 23:23) DIARRHEA spironolactone [Aldactone] Allergy (Unknown, Verified 01/24/23 23:23) stomach upset dust, mold, grass Allergy (Unknown, Uncoded 01/24/23 23:23) sneezing Medication List - Last Reconciled 01/24/23 by Lakshmi Wyman MD amlodipine 10 mg PO DAILY aspirin (Adult Low Dose Aspirin) 81 mg PO DAILY atorvastatin 20 mg PO DAILY blood sugar diagnostic (FreeStyle Lite Strips) Check blood sugar twice a day before meals blood sugar diagnostic (FreeStyle Lite Strips) Check fasting glucose once a day before meals carvedilol 25 mg PO BID cyanocobalamin (vitamin B-12) Inject 1000 micrograms/mL intramuscularly every week for 4 weeks, then once a month thereafter dapagliflozin propanediol (Farxiga) 10 mg PO DAILY dulaglutide (Trulicity) 1.5 mg (0.5 mL) subcut QWEEK 3 months fexofenadine 180 mg PO DAILY finasteride 5 mg PO DAILY 90 days lancets check blood sugar twice a day AC metformin 1,000 mg PO BID sacubitril-valsartan 97-103 mg 1 tab PO BID Tobacco use date assessed: 01/22/23 Dental Screening Dental Screen Date: 01/22/23 Did you have a dental visit in the last 12 months?: Yes Did you have a dental problem in the last 6 months where you did not have access to dental care?: Yes Was dental information given to patient?: Patient has dentist HPI Annual PE HPI Details 62-year-old male with 80s mellitus, benign prostatic hyperplasia, dyslipidemia, hypertension, with history of cardiomyopathy followed by [facility] cardiology, has obstructive sleep apnea on CPAP, and early Parkinson's disease, osteoarthritis in both knees and morbid obesity, here today for his physical exam. 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 He is scheduled to have total knee arthroplasty later this year with [facility]. He is up-to-date with all his vaccinations and his screening colonoscopy , and sees urology for his BPH. [facility] Medical History (Updated 01/22/23 @ 10:17 by Lakshmi Wyman MD) Benign non-nodular prostatic hyperplasia with lower urinary tract symptoms Cardiomyopathy Diabetes mellitus with hyperglycemia, without long-term current use of insulin Dyslipidemia Elevated PSA Essential hypertension Gait abnormality History of COVID-19 Hx of thyroid nodule Morbid obesity Nocturia GIN on CPAP Osteoarthritis of knees, bilateral Parkinsons disease Tremor of left hand Trigger finger, right middle finger Type 2 diabetes mellitus without complication, with no history of insulin use Type 2 diabetes mellitus without complication, with no history of insulin use Vitamin B12 deficiency Vitamin D deficiency Surgical History History of lobectomy of thyroid Hx of colonoscopy Status post lateral meniscus repair Family History Father Diabetes mellitus Cancer of prostate Myocardial infarction Mother HTN (hypertension) Diabetes mellitus CAD (coronary artery disease) Paternal Grandfather Cancer of prostate Brother No problems noted. Brother No problems noted. Sister No problems noted. Sister No problems noted. Social History Housing: House Alcohol intake: never Patient Tobacco Use Status: Never used Tobacco e-Cigarette/Vaping Use: Never Used Second Hand Smoke Exposure: No service: Yes Current occupational status: employed Current occupation: [employer] Current occupational exposures/hazards: Yes Cognitive needs: No Hearing needs: No Vision needs: Yes Questionnaire PHQ-9 Over the last 2 weeks, how often have you been bothered by any of the following problems? 1. Little interest or pleasure in doing things: several days 2. Feeling down, depressed, or hopeless: not at all 3. Trouble falling or staying asleep, or sleeping too much: several days 4. Feeling tired or having little energy: several days 5. Poor appetite or overeating: not at all 6. Feeling bad about yourself - or that you are a failure or have let yourself or your family down: not at all 7. Trouble concentrating on things, such as reading the newspaper or watching television: not at all 8. Moving or speaking so slowly that other people could have noticed. Or the opposite - being so fidgety or restless that you have been moving around a lot more than usual: not at all 9. Thoughts that you would be better off or of hurting yourself in some way: not at all Total score: 3 Depression Screening Interpretation: Negative 42911 - PHQ-9 Billing: Yes Source: Developed by Drs. Teo Smith, Parris Verdugo, Mario Shipley and colleagues, with an educational dion from [employer]. Thrive Questionnaire Date Thrive assessed: 01/22/23 I am a: Patient What is your living situation today?: I have a steady place to live Within the past 12 months, did the food you bought not last and you didn't have the money to get more?: Never true Within the past 12 months, did you worry whether your food would run out before you got money to buy more?: Never true Do you have trouble paying for medicines?: No Do you have trouble getting transportation to medical appointments?: No Do you have trouble paying your heating and electricity bill?: No Do you have trouble taking care of your child, family member or friend?: No Do you have trouble with day-to-day activities such as bathing, preparing meals, shopping, managing finances, etc.?: No Are you currently unemployed and looking for a job?: No Are you interested in more education?: No AUDIT C Alcohol Use Questionnaire (AUDIT-C) 1. How often do you have a drink containing alcohol?: Never Total Score: 0 GM-7 AMB Questionnaire GM-7 Date GM - 7 assessed: 01/22/23 Feeling nervous, anxious, or on edge: 0 = Not at all Not being able to stop or control worryin = Not at all Worrying too much about different things: 0 = Not at all Trouble relaxin = Not at all Being so restless that it is hard to sit still: 0 = Not at all Becoming easily annoyed or irritable: 1 = Several days Feeling afraid as if something awful might happen: 0 = Not at all Total GM-7 score (0-4 normal; 5-9 mild; 10-14 moderate; 15-21 severe): 1 Source: Developed by Drs. Teo Smith, Parris Verdugo, Mario Shipley and colleagues, with an educational dion from [employer] GM-7 Assessment Billing GM-7 Assessment Tool: GM-7 Assessment 90360 Review of Systems Const Reports snoring and Reports weight loss Eyes Reports blurry vision ENT Details: Decrease in hearing Denies dizziness Card Denies chest pain, Denies rapid heart rate, Denies irregular heart rhythm, Denies leg edema, Denies lightheadedness, Denies dyspnea and Reports dyspnea on exertion (With moderate exertion, unchanged) Resp Denies cough, Denies dyspnea, Reports dyspnea on exertion (With moderate exertion, unchanged) and Reports snoring GI Reports no additional complaints Reports urinary urgency Musc Reports abnormal gait and Reports arthralgias Skin/Breast Denies pruritus, Denies lesions and Denies rash Neuro Reports abnormal gait, Denies dizziness, Denies convulsions, Denies Sensory deficit (Neuro) and Reports tremor(s) Psych Reports no additional complaints Endo Reports no additional complaints Mick/Lymph Reports no additional complaints Aller/Immun Reports no additional complaints Physical exam (Primary Care) Vital Signs: Last Vital Signs Pulse 80 01/22/23 09:26 BP 138/70 01/22/23 09:26 Pulse Ox 94 01/22/23 09:26 Oxygen Delivery Method Room Air 01/22/23 09:26 BMI result Body Mass Index 41.3 BMI Assessment/Plan discussion: High BMI High, discussed plan: lifestyle, weight reduction, dietary and physical activity Tobacco/Smoking Status: Tobacco use Status Tobacco use date assessed 01/22/23 01/22/23 09:25 Patient Tobacco Use Status Never used Tobacco 01/22/23 09:25 e-Cigarette/Vaping Use Never Used 01/22/23 09:25 PHQ-9: PHQ-9 Score PHQ-9: Total score 3 01/24/23 23:35 Depression Screening Interpretation: Negative Thrive Assessment: Date of Thrive Assessment Date Thrive assessed 01/22/23 01/22/23 10:37 Advance Care Planning discussion: Completed/Scanned Date of discussion: 01/22/23 Who was present: Patient Forms completed: Health Care Proxy (Form given to patient will complete once discussed with chosen healthcare proxy) and MOLST Time spent: 16-45 minutes Actual minutes spent: 16 Const General: comfortable, no acute distress, awake and Physically active Nutritional Appearance: obese morbidly obese Orientation/consciousness: patient oriented x3 HENMT Face and sinus: Yes normal facial exam and Yes face symmetric Mouth: Normal oral and palatal mucosa present, oropharynx normal and moist mucous membranes Eyes General: appearance normal, both eyes and all related structures Neck Neck: Yes full ROM and Yes no lymphadenopathy Resp Effort & Inspection: normal respiratory effort and able to speak in complete sentences Auscultation: clear to auscultation bilaterally Cardio Rate: regular rate Rhythm: regular rhythm Heart sounds: S1 normal heart sound present and S2 normal heart sound present GI Inspection: Yes obesity Palpation (GI): Soft to palpation, nontender, no guarding and no pulsatile masses Auscultation: normal bowel sounds General: Yes no CVA tenderness Back/Spine/Pelvis Back: no CVA tenderness and No back tenderness Skin General skin exam: no rashes or lesions noted Neuro General: patient oriented x3 Cognition (Neuro): normal cognition Gait exam (Neuro): Shuffling gait present Motor exam (neuro): 5/5 motor strength present throughout Sensory Exam: No Sensory deficit (Neuro) Extrem General: Yes normal to inspection, Yes full ROM, Yes no pedal edema and Yes normal gait Psych Appearance: grossly normal and well kempt Mental Status: mental status grossly normal Speech and movement: Normal speech and movement present Affect: normal affect Attitude: cooperative Results Reviewed Results Reviewed: RUN: 01/24/23 4344 PAGE 1 [facility] [address] [place] [id number] Occupational Therapist'S Assistant: Rangel Gallegos M.D. Specimen Inquiry Name: HernanAlbert Age/Sex: 62/M : 1960 Unit#: [id number] Attend Dr: Lakshmi Wyman MD Re01/15/23 Status: DEP REF Location: [facility] Disch: SPEC : [id number] ROCHELLE: 01/15/23 STATUS: COMP REQ : [id number] RECD: 01/15/[address] [facility] [address]: Lakshmi Wyman MD COMP: 01/15/23 ENTERED: 01/15/[address] [facility] [address]: ORDERED: CBC Auto Diff Test Result Flag Reference Site WBC 7.3 4.8-10.8 X10*3/uL RBC 5.13 4.60-5.80 X10*6/uL HGB 14.1 14.0-18.0 g/dl HCT 43.8 42.0-52.0 % MCV 85.4 80.0-98.0 fL MCH 27.5 27.0-33.0 pg MCHC 32.2 31.0-36.0 g/dl RDW 13.2 11.0-16.0 % PLT 270 160-400 X10*3/uL ENTERED: 01/15/[address] [facility] [address]: ORDERED: Met Prof Fast, AST, ALT, Lipid Panel Test Result Flag Reference Site Sodium 140 135-145 mmol/L Potassium 3.8 3.3-5.1 mmol/L CL 107 96-108 mmol/L CO2 20 L 22-29 mmol/L Gap 17 12-20 BUN 15 9-16 mg/dL Creat 0.99 0.5-1.4 mg/dL EGFR > 60 NOTE: For -[place] individuals, multiply the result by 1.210. Chronic Kidney Disease: Estimated GFR < 60 mL/min/1.73m2 Severe Kidney Disease: Estimated GFR < 15 mL/min/1.73m2 FBS 120 H 60-99 mg/dL A fasting glucose from 100-125 mg/dl is considered impaired (pre-diabetes). CA 9.2 8.4-10.2 mg/dL AST (GOT) 15 5-37 U/L ALT (GPT) 18 0-40 U/L Triglyceride 91 mg/dL Desirable Triglyceride: less than 150 mg/dL Borderline High Triglyceride 150-199 mg/dL High Triglyceride: 200-499 mg/dL Very High Triglyceride: greater than or equal to 5OO mg/dL Chol 111 mg/dL Desirable Cholesterol: less than 200 mg/dL Borderline High Cholesterol: 200-239 mg/dL High Cholesterol: greater than 239 mg/dL LDL Calculated 57 mg/dl Desirable LDL: less than 100 mg/dL Near Optimal/Above Optimal LDL: 110-129 mg/dL Borderline High LDL: 130-159 mg/dL High LDL: 160-189 mg/dL Very High LDL: greater than or equal to 190 mg/dL HDL 36 mg/dL Desirable HDL: greater than 40 mg/dL Laboratory Tests 01/15/23 08:00 Estimat Average Glucose 128 Hemoglobin A1c % 6.1 Assessment and Plan Assessment & Plan (1) Type 2 diabetes mellitus without complication, with no history of insulin use: Code(s): E11.9 - Type 2 diabetes mellitus without complications Plan: controlled on present medications , continued on metformin , Trulicity and Farxiga. Due for his his diabetes retinopathy screening, and up-to-date with his vaccinations (2) Screening for diabetic retinopathy: Code(s): Z13.5 - Encounter for screening for eye and ear disorders Plan: Ophthalmology consult ordered (3) Dyslipidemia: Code(s): E78.5 - Hyperlipidemia, unspecified Plan: Reviewed recent fasting lipid profile with patient with levels within normal limits . Continue with atorvastatin 20 mg daily , in addition to adherence to low-cholesterol diet and regular exercise, at least 30 minutes 3 to 4 times a week. Advised patient to make healthy food choices, eat more fruits, vegetables, whole grains, wild caught fish and low-fat dairy. Limit amount of meat and fried or fatty food products, as well as processed foods and fast foods. Follow-up scheduled with repeat fasting lipid panel in 05/10/2023 (4) Essential hypertension: Code(s): I10 - Essential (primary) hypertension Plan: Blood pressure at goal of less than 130/80. Continue with current medication. Reinforced importance of following a low sodium diet, getting regular exercise, and lowering stress levels. (5) Morbid obesity: Code(s): E66.01 - Morbid (severe) obesity due to excess calories Plan: Discussed need to increase activity and wt reduction. Recommended focusing on improving your health instead of dieting. : Eat Mediterranean diet, limit foods high in fat, sugar, and calories, eat slowly, pay attention to portion sizes, plan your meals ahead of time, start regular physical activity 150 minutes of moderate intensity exercise or 90 minutes/week of vigorous exercise and increase water intake. (6) Parkinsons disease: Comment: sees dr Amirah Tompkins, going to therapy , helping Code(s): G20 - Parkinson's disease Plan Currently receiving physical therapy followed by Neurology Orders: Orders Hemoglobin A1c 04/21/23 E11.9 - Type 2 diabetes mellitus without complications, E66.01 - Morbid (severe) obesity due to excess calories, E78.5 - Hyperlipidemia, unspecified, I10 - Essential (primary) hypertension Lipid Panel 04/21/23 E11.9 - Type 2 diabetes mellitus without complications, E66.01 - Morbid (severe) obesity due to excess calories, E78.5 - Hyperlipidemia, unspecified, I10 - Essential (primary) hypertension Aspartate Amino Transferase 04/21/23 E11.9 - Type 2 diabetes mellitus without complications, E66.01 - Morbid (severe) obesity due to excess calories, E78.5 - Hyperlipidemia, unspecified, I10 - Essential (primary) hypertension Alanine Aminotransferase 04/21/23 E11.9 - Type 2 diabetes mellitus without complications, E66.01 - Morbid (severe) obesity due to excess calories, E78.5 - Hyperlipidemia, unspecified, I10 - Essential (primary) hypertension Basic Metabolic Panel Fasting 04/21/23 E11.9 - Type 2 diabetes mellitus without complications, E66.01 - Morbid (severe) obesity due to excess calories, E78.5 - Hyperlipidemia, unspecified, I10 - Essential (primary) hypertension Referrals Ophthalmology Referral E11.9 - Type 2 diabetes mellitus without complications, Z13.5 - Encounter for screening for eye and ear disorders Coding Level of Care Code Est Pt Prev Care 40-64y(33985) Diagnoses Type 2 diabetes mellitus without complication, with no history of insulin use E11.9 Screening for diabetic retinopathy Z13.5 Dyslipidemia E78.5 Essential hypertension I10 Morbid obesity E66.01 Parkinsons disease G20 Additional Codes GM-7 Assessment Billing - GM-7 Assessment Tool: GM-7 Assessment 00506 ([id number]) Vital Signs *Quality* - Advance Care Planning discussion: Completed/Scanned ([id number]) Vital Signs *Quality* - Time spent: 16-45 minutes ([id number])
[2023-01-22 09:26] VITALS: BP 138/70; PULSE 80; O2SAT 94; BMI 41.3
== END 2023-01-22 13:14 | disposition home or self-care (01) ==
PROVIDERS: Visit Provider Internal Medicine
DX: Z00.00 Encounter for general adult medical examination without abnormal findings (principal); E11.69 Type 2 diabetes mellitus with other specified complication; I10 Essential (primary) hypertension; E66.01 Morbid (severe) obesity due to excess calories; G20 Parkinson's disease; Z68.41 Body mass index [BMI] 40.0-44.9, adult; Z13.5 Encounter for screening for eye and ear disorders; E78.5 Hyperlipidemia, unspecified
CPT/HCPCS: 99396; 99497

== ENCOUNTER 2023-02-02 10:33 | Outpatient (AMB) | payer OTHER, SELFPAY ==
--- NOTE | 2023-02-02 10:55 | A.OFFVIS_ITS ---
Intake Intake Visit Reasons: 1Y PSA/PVR(set) Intake Note: Patient is present for Follow Up PSA/PVR Urology Med: Finasteride, Antibiotic Allergy: Erythromycin Blood Thinner: Aspirin [facility]: [facility] PVR: 55ML Allergies erythromycin base [ERYTHROMYCIN BASE] Allergy (Unknown, Verified 02/02/23 10:56) DIARRHEA spironolactone [Aldactone] Allergy (Unknown, Verified 02/02/23 10:56) stomach upset dust, mold, grass Allergy (Unknown, Uncoded 02/02/23 10:56) sneezing Medication List - Last Reconciled 02/02/23 by Suhail Chacko MD amlodipine 10 mg PO DAILY aspirin (Adult Low Dose Aspirin) 81 mg PO DAILY atorvastatin 20 mg PO DAILY blood sugar diagnostic (FreeStyle Lite Strips) Check blood sugar twice a day before meals blood sugar diagnostic (FreeStyle Lite Strips) Check fasting glucose once a day before meals carvedilol 25 mg PO BID cyanocobalamin (vitamin B-12) Inject 1000 micrograms/mL intramuscularly every week for 4 weeks, then once a month thereafter dapagliflozin propanediol (Farxiga) 10 mg PO DAILY dulaglutide (Trulicity) 1.5 mg (0.5 mL) subcut QWEEK 3 months fexofenadine 180 mg PO DAILY finasteride 5 mg PO DAILY 90 days lancets check blood sugar twice a day AC metformin 1,000 mg PO BID sacubitril-valsartan 97-103 mg 1 tab PO BID tadalafil 5 mg PO DAILY 90 days HPI HPI Comments History of Present Illness Details Mr Becerra is a very pleasant male. He is a patient of Dr Wyman. He is seen in the office today for the following urologic conditions. - lower urinary tract symptoms Telemedicine evaluation 15 minute consultation [employer] shonda [employer] attempted PSA down to 1.3 - may cut back to every other day Improved HbA1c 6.1 with Trulicity New onset Parkinson's Urinary urge Discussed tadalafil Trial 5 mg daily Elevated PSA/Abnormal ANTONIO:? Currently stable PSA Continue good response to finasteride He presents for ?further evaluation of elevated PSA ?- biopsy negative 2015 - PSA responded well to finasteride..? Current management is?medication with 5AR.? Laboratory investigations include?a total PSA evaluation ?December 2011 2.1, ?Jan 2016 5.4, ?August 2016 4.4 ?05/07 4.2/14%, 11/05 4.7 11%, 06/07 3.6,?12/07 3.0,?12/08 1.7, 12/09 2.1, 02/09 1.7, 01/10 1.3 ? Imaging investigations include? a transrectal ultrasound ?Yes ? Date ?03/2016 ? Prostate Volume ?50 ? Individualized Prostate Cancer Risk Calculator?Family history of CaP ?Father and Grandfather - father in 60's ?5-10% high risk on PCPT 12/06.? A TRUS biopsy? has ?been performed and is negative 05/06 ? PSA at biopsy ?5 ? His current IPSS? IPSS Score ?0 ? Overall symptoms are?mild.? Associated conditions? diabetes ?Yes ? dyslipidemia ?Yes ? dysuria ?No ? erectile dysfunction ?Yes ? Therapeutic plan will be?continue finasteride [facility] Medical History Benign non-nodular prostatic hyperplasia with lower urinary tract symptoms Cardiomyopathy Diabetes mellitus with hyperglycemia, without long-term current use of insulin Dyslipidemia Elevated PSA Essential hypertension Gait abnormality History of COVID-19 Hx of thyroid nodule Morbid obesity Nocturia GIN on CPAP Osteoarthritis of knees, bilateral Parkinsons disease Tremor of left hand Trigger finger, right middle finger Type 2 diabetes mellitus without complication, with no history of insulin use Type 2 diabetes mellitus without complication, with no history of insulin use Vitamin B12 deficiency Vitamin D deficiency Surgical History History of lobectomy of thyroid Hx of colonoscopy Status post lateral meniscus repair Family History Father Diabetes mellitus Cancer of prostate Myocardial infarction Mother HTN (hypertension) Diabetes mellitus CAD (coronary artery disease) Paternal Grandfather Cancer of prostate Brother No problems noted. Brother No problems noted. Sister No problems noted. Sister No problems noted. Social History Housing: House Alcohol intake: never Patient Tobacco Use Status: Never used Tobacco e-Cigarette/Vaping Use: Never Used Second Hand Smoke Exposure: No service: Yes Current occupational status: employed Current occupation: [employer] Current occupational exposures/hazards: Yes Cognitive needs: No Hearing needs: No Vision needs: Yes Review of Systems Const Denies chills and Denies fever(s) Card Reports no additional complaints and Denies syncope Resp Denies cough GI Denies abdominal pain and Denies heartburn Reports as per HPI and Denies change in libido Neuro Denies syncope Psych Denies change in libido Endo Denies change in libido Physical Exam Const General: cooperative, healthy appearing, comfortable and no acute distress Orientation/consciousness: patient oriented x3 HEENT Face and sinus: Yes normal facial exam Mouth: moist mucous membranes Neck Neck: Yes normal visual inspection, Yes full ROM and Yes trachea midline Chest Chest palpation & inspection: normal inspection of the chest Resp Effort & Inspection: normal respiratory effort, able to speak in complete sentences and no respiratory distress GI Inspection: Yes normal to inspection Back/Spine/Pelvis Cervical Spine: normal cervical lordosis Thoracic/Lumbar Spine: thoracic and lumbar spine normal to inspection Skin General skin exam: no rashes or lesions noted Neuro General: patient oriented x3, gait normal, tone normal and moves all extremities Extrem General: Yes normal to inspection and Yes capillary refill normal Office Procedures Post Void Residual Post Residual Void Post Void Residual (PVR): 55 [id number] Void Residual by ultrasound Results AMB Urinalysis, Automated UA Leukoctes 0 Darell/uL Last Edit by SOPHIE Nur on 02/02/23 11:03 UA Nitrite Negative Last Edit by SOPHIE Nur on 02/02/23 11:03 UA Urobilinogen 0.2 mg/dL Last Edit by Magdalena Jensen, RMA on 02/02/23 11:0 3 UA Protein 0 mg/dL Last Edit by Magdalena Jensen, RMA on 02/02/23 11:03 UA pH 6.0 Last Edit by Magdalena Jensen, RMA on 02/02/23 11:03 UA Blood 0 Eliel/uL Last Edit by Magdalena Jensen, RMA on 02/02/23 11:03 UA Specific [place] 1.010 Last Edit by Magdalena Jensen, RMA on 02/02/23 11: 03 UA Ketone Negative Last Edit by Magdalena Jensen, RMA on 02/02/23 11:03 UA Bilirubin 0 mg/dL Last Edit by Magdalena Jensen, RMA on 02/02/23 11:03 UA Glucose 500 mg/dL Last Edit by Magdalena Jensen, RMA on 02/02/23 11:03 Results Reviewed Results Reviewed: Laboratory Last Values Urine pH (Auto) 6.0 02/02/23 10:35 Specific [place] (Auto) 1.010 02/02/23 10:35 Urine Protein (Auto) 0 mg/dL 02/02/23 10:35 Glucose (UA)(Auto) 500 mg/dL 02/02/23 10:35 Urine Ketones (Auto) Negative 02/02/23 10:35 Urine Blood (Auto) 0 Eliel/uL 02/02/23 10:35 Urine Nitrite (Auto) Negative 02/02/23 10:35 Urine Bilirubin (Auto) 0 mg/dL 02/02/23 10:35 Urine Urobilinogen (Auto) 0.2 mg/dL 02/02/23 10:35 Leukocyte Esterase (Auto) 0 Darell/uL 02/02/23 10:35 Assessment & Plan Assessment & Plan (1) Urinary urgency: Code(s): R39.15 - Urgency of urination (2) Elevated PSA: Code(s): R97.20 - Elevated prostate specific antigen [PSA] (3) Bladder outlet obstruction: Code(s): N32.0 - Bladder-neck obstruction Plan Start tadalafil Orders: Orders AMB Urinalysis Automated Today Z13.9 - Encounter for screening, unspecified AMB Post Void Residual by ultrasound Today N40.1 - Benign prostatic hyperplasia with lower urinary tract symptoms Medications: New tadalafil Daily medication 5 mg PO DAILY 90 tabs 0RF Urinary urge 90 days R39.15 - Urgency of urination Patient Instructions: Imaging studies, laboratory and physical exam results were discussed and revie wed in detail. No major barriers to patient understanding were identified. An opportunity to ask questions regarding the treatment plan was provided. All questions were answered. The patient expressed understanding and agreement with the above treatment plan. The patient is aware they should contact our office by phone for worsening of their current condition or the appearance of new urologic symptoms. Compliance is encouraged with any medications and followup testing that is ordered. It is a privilege to participate in the urologic care of your patient. If you have any questions or concerns regarding treatment for the above conditions, or other urologic issues, please do not hesitate to contact me. The office telephone contact is [phone]. This note is constructed using voice recognition software. While every effort has been made to ensure accuracy residential designer errors may have been included. Yours sincerely, Dr Suhail Chacko MD, [facility] - Urology Providers of Expert, Compassionate Care for the Genitourinary System Coding Level of Care Code Est Pt Level 4 (01374) Diagnoses Urinary urgency R39.15 Elevated PSA R97.20 Bladder outlet obstruction N32.0 CPT Codes Post Residual Void - PVR CPT Code: 92925-[id number] Void Residual by ultrasound ([id number])
== END 2023-02-02 11:14 | disposition home or self-care (01) ==
PROVIDERS: Visit Provider Urology
DX: R39.15 Urgency of urination (principal); R97.20 Elevated prostate specific antigen [PSA]; N32.0 Bladder-neck obstruction
CPT/HCPCS: 99214

== ENCOUNTER → 2023-02-02 10:33 | Outpatient (BNVA) | payer OTHER, SELFPAY | PROVIDERS: Visit Provider Urology | DX: N40.1 Benign prostatic hyperplasia with lower urinary tract symptoms (principal); N13.8 Other obstructive and reflux uropathy; R39.15 Urgency of urination; R97.20 Elevated prostate specific antigen [PSA]; Z79.82 Long term (current) use of aspirin; Z79.85 Long-term (current) use of injectable non-insulin antidiabetic drugs; Z79.899 Other long term (current) drug therapy | CPT/HCPCS: 51798; 81003 ==

== ENCOUNTER 2023-03-10 11:47 | Outpatient (AMB) | payer OTHER, SELFPAY ==
--- NOTE | 2023-03-10 12:27 | A.OFFPC_ITS ---
Vital Signs 03/10/23 12:34 Height 56 ft Weight 259 lb BMI 0.4 BP 136/70 Blood Pressure Location Rt brachial Position Sitting Pulse 76 Pulse Source Pulse Oximeter Pulse Oximetry (%) 98 Oxygen Delivery Method Room Air Intake Visit Reasons: Right total Knee replacement-03/24 Intake Note: Pt is here today for his pre-op Rt knee replacement 03/24/23 Dr. Abarca Allergies erythromycin base [ERYTHROMYCIN BASE] Allergy (Unknown, Verified 03/10/23 13:00) DIARRHEA spironolactone [Aldactone] Allergy (Unknown, Verified 03/10/23 13:00) stomach upset dust, mold, grass Allergy (Unknown, Uncoded 03/10/23 13:00) sneezing Medication List - Last Reconciled 03/10/23 by Lakshmi Wyman MD amlodipine 10 mg PO DAILY aspirin (Adult Low Dose Aspirin) 81 mg PO DAILY atorvastatin 20 mg PO DAILY blood sugar diagnostic (FreeStyle Lite Strips) Check blood sugar twice a day before meals blood sugar diagnostic (FreeStyle Lite Strips) Check fasting glucose once a day before meals carvedilol 25 mg PO BID cyanocobalamin (vitamin B-12) Inject 1000 micrograms/mL intramuscularly every week for 4 weeks, then once a month thereafter dapagliflozin propanediol (Farxiga) 10 mg PO DAILY dulaglutide (Trulicity) 1.5 mg (0.5 mL) subcut QWEEK 3 months fexofenadine 180 mg PO DAILY finasteride 5 mg PO DAILY 90 days lancets check blood sugar twice a day AC metformin 1,000 mg PO BID sacubitril-valsartan 97-103 mg 1 tab PO BID tadalafil 5 mg PO DAILY 90 days Tobacco use date assessed: 03/10/23 Dental Screening Dental Screen Date: 03/10/23 Did you have a dental visit in the last 12 months?: Yes Did you have a dental problem in the last 6 months where you did not have access to dental care?: Yes Was dental information given to patient?: Patient has dentist HPI Right total Knee replacement-03/24 HPI Details 62-year-old male with diabetes mellitus, hypertension, dyslipidemia, obstructive sleep apnea on CPAP, morbid obesity and osteoarthritis in both knees, Parkinson's disease, with history of cardiomyopathy, followed by [facility] cardiology, here today for preoperative evaluation for right total knee replacement scheduled for 03/24/[address] Pastrana. He has been feeling well, with no new complaints at present time. His blood sugar, lipids and blood pressure are stable and controlled on present treatment. [facility] Medical History (Updated 03/15/23 @ 02:26 by Lakshmi Wyman MD) Parkinsons disease Vitamin B12 deficiency Gait abnormality Tremor of left hand Type 2 diabetes mellitus without complication, with no history of insulin use Vitamin D deficiency History of COVID-19 Nocturia Benign non-nodular prostatic hyperplasia with lower urinary tract symptoms Elevated PSA Trigger finger, right middle finger Type 2 diabetes mellitus without complication, with no history of insulin use Osteoarthritis of knees, bilateral Cardiomyopathy Hx of thyroid nodule Dyslipidemia GIN on CPAP Essential hypertension Morbid obesity Diabetes mellitus with hyperglycemia, without long-term current use of insulin Surgical History Hx of colonoscopy History of lobectomy of thyroid Status post lateral meniscus repair Family History Father Diabetes mellitus Cancer of prostate Myocardial infarction Mother HTN (hypertension) Diabetes mellitus CAD (coronary artery disease) Paternal Grandfather Cancer of prostate Brother No problems noted. Brother No problems noted. Sister No problems noted. Sister No problems noted. Social History Housing: House Alcohol intake: never Patient Tobacco Use Status: Never used Tobacco e-Cigarette/Vaping Use: Never Used Second Hand Smoke Exposure: No service: Yes Current occupational status: employed Current occupation: [employer] Current occupational exposures/hazards: Yes Cognitive needs: No Hearing needs: No Vision needs: Yes Questionnaire Thrive Questionnaire Date Thrive assessed: 01/22/23 GM-7 AMB Questionnaire GM-7 Date GM - 7 assessed: 01/22/23 Source: Developed by Drs. Teo Smith, Parris Verdugo, Mario Shipley and colleagues, with an educational dion from [employer]. Review of Systems Const Reports no additional complaints and Denies fatigue Eyes Denies change in vision ENT Details: Decrease in hearing Reports no additional complaints Card Denies chest pain, Denies rapid heart rate, Denies irregular heart rhythm, Denies leg edema, Denies lightheadedness, Denies dyspnea and Denies dyspnea on exertion Resp Denies cough, Denies excessive phlegm production, Denies dyspnea and Denies dysp mukul on exertion GI Denies abdominal pain, Denies melena, Denies hematochezia, Denies change in bowel habits and Denies heartburn Reports no additional complaints Musc Reports abnormal gait and Reports arthralgias (In knees, right more than the left) Skin/Breast Denies pruritus, Denies lesions and Denies rash Neuro Reports abnormal gait, Denies convulsions, Denies Sensory deficit (Neuro) and Reports tremor(s) Psych Reports no additional complaints Endo Reports no additional complaints and Denies fatigue Mick/Lymph Reports no additional complaints Aller/Immun Reports no additional complaints Physical exam (Primary Care) Vital Signs: Last Vital Signs Pulse 76 03/10/23 12:34 BP 136/70 03/10/23 12:34 Pulse Ox 98 03/10/23 12:34 Oxygen Delivery Method Room Air 03/10/23 12:34 BMI result Body Mass Index 0.4 BMI Assessment/Plan discussion: High BMI High, discussed plan: lifestyle, weight reduction, dietary and physical activity Tobacco/Smoking Status: Tobacco use Status Tobacco use date assessed 03/10/23 03/10/23 12:43 Patient Tobacco Use Status Never used Tobacco 03/10/23 12:29 e-Cigarette/Vaping Use Never Used 03/10/23 12:29 Thrive Assessment: Date of Thrive Assessment Date Thrive assessed 01/22/23 03/10/23 12:29 Const General: comfortable, no acute distress, awake and Physically active Nutritional Appearance: obese morbidly obese Orientation/consciousness: patient oriented x3 HENMT Face and sinus: Yes normal facial exam and Yes face symmetric Mouth: Normal oral and palatal mucosa present, oropharynx normal and moist mucous membranes Eyes General: appearance normal, both eyes and all related structures Neck Neck: Yes full ROM and Yes no lymphadenopathy Resp Effort & Inspection: normal respiratory effort and able to speak in complete sentences Auscultation: clear to auscultation bilaterally Cardio Rate: regular rate Rhythm: regular rhythm Heart sounds: S1 normal heart sound present and S2 normal heart sound present GI Inspection: Yes obesity Palpation (GI): Soft to palpation, nontender, no guarding and no pulsatile masses Auscultation: normal bowel sounds General: Yes no CVA tenderness Back/Spine/Pelvis Back: no CVA tenderness and No back tenderness Skin General skin exam: no rashes or lesions noted Neuro General: patient oriented x3 Cognition (Neuro): normal cognition Gait exam (Neuro): Shuffling gait present Motor exam (neuro): 5/5 motor strength present throughout Sensory Exam: No Sensory deficit (Neuro) Extrem General: Yes normal to inspection, Yes full ROM and Yes no pedal edema Psych Appearance: grossly normal and well kempt Mental Status: mental status grossly normal Speech and movement: Normal speech and movement present Affect: normal affect Attitude: cooperative Results Reviewed Results Reviewed: Laboratory Tests 03/11/23 09:27 Estimat Average Glucose 134 Hemoglobin A1c % 6.3 H Name: Albert Becerra Age/Sex: 62/M : 1960 Unit#: [id number] Attend Dr: Lakshmi Wyman MD Re03/11/23 Status: DEP REF Location: [facility] Disch: SPEC : [id number] ROCHELLE: 03/11/23 STATUS: COMP REQ : [id number] RECD: 03/11/[address]: Lakshmi Wyman MD COMP: 03/11/234 ENTERED: 03/11/[address]: ORDERED: Met Prof Fast, AST, ALT, Lipid Panel Test Result Flag Reference Site Sodium 142 135-145 mmol/L Potassium 4.1 3.3-5.1 mmol/L CL 108 96-108 mmol/L CO2 25 22-29 mmol/L Gap 13 12-20 BUN 11 9-16 mg/dL Creat 1.07 0.5-1.4 mg/dL EGFR > 60 NOTE: For -Slovak individuals, multiply the result by 1.210. Chronic Kidney Disease: Estimated GFR < 60 mL /min/1.73m2 Severe Kidney Disease: Estimated GFR < 15 mL/min/1.73m2 FBS 108 H 60-99 mg/dL A fasting glucose from 100-125 mg/dl is considered impaired (pre-diabetes). CA 9.0 8.4-10.2 mg/dL AST (GOT) 13 5-37 U/L ALT (GPT) 16 0-40 U/L Triglyceride 119 <150 mg/dL Desirable Triglyceride: less than 150 mg/dL Borderline High Triglyceride 150-199 mg/dL High Triglyceride: 200-499 mg/dL Very High Triglyceride: greater than or equal to 5OO mg/dL Cholesterol 113 <200 mg/dL Desirable Cholesterol: less than 200 mg/dL Borderline High Cholesterol: 200-239 mg/dL High Cholesterol: greater than 239 mg/dL LDL Calculated 50 <100 mg/dL Desirable LDL: less than 100 mg/dL Near Optimal/Above Optimal LDL: 110-129 mg/dL Borderline High LDL: 130-159 mg/dL High LDL: 160-189 mg/dL Very High LDL: greater than or equal to 190 mg/dL HDL 40 L >40 mg/dL Desirable HDL: greater than 40 mg/dL Assessment and Plan Assessment & Plan (1) Preoperative examination: Code(s): Z01.818 - Encounter for other preprocedural examination Plan: 62 year old male here for pre-op clearance for right total knee replacement scheduled for 03/24/[address] Pastrana . He has diabetes mellitus, dyslipidemia, obstructive sleep apnea on CPAP, cardiomyopathy, currently stable and controlled on present treatment. He was recently diagnosed with Parkinson's disease. He has no cardiac or pulmonary complaints, physical exam today was unremarkable . Patient to obtain cardiology clearance for proposed surgery from [facility] cardiology. Patient to hod aspirin and metformin at least 5 days prior to surgery. (2) Type 2 diabetes mellitus without complication, with no history of insulin use: Code(s): E11.9 - Type 2 diabetes mellitus without complications Plan: Recent lab results reviewed with patient, with sugar and hemoglobin A1c stable and at goal . Patient advised to hold metformin at least 5 days prior to proposed surgery, and hold Farxiga on day of surgery, (3) Cardiomyopathy: Comment: Ff'd by [facility] Cardiology Code(s): I42.9 - Cardiomyopathy, unspecified Qualifiers: Cardiomyopathy type: unspecified Qualified Code(s): I42.9 - Cardiomyopathy, unspecified Plan: Patient to obtain clearance from Cardiology for upcoming right total knee replacement scheduled for March 24 (4) Dyslipidemia: Code(s): E78.5 - Hyperlipidemia, unspecified Plan: Lipids stable controlled on current atorvastatin 20 mg daily (5) GIN on CPAP: Code(s): G47.33 - Obstructive sleep apnea (adult) (pediatric); Z99.89 - Dependence on other enabling machines and devices Plan: Compliant with CPAP (6) Benign non-nodular prostatic hyperplasia with lower urinary tract symptoms: Code(s): N40.1 - Benign prostatic hyperplasia with lower urinary tract symptoms Plan: Currently on finasteride 5 mg daily, to hold on day of surgery (7) Parkinsons disease: Comment: sees dr Amirah Tompkins, going to therapy , helping Code(s): G20 - Parkinson's disease (8) Osteoarthritis of knees, bilateral: Comment: sees Dr Pastrana in [place] scheduled for TKR in 03/2023 Code(s): M17.0 - Bilateral primary osteoarthritis of knee Qualifiers: Osteoarthritis type: primary Qualified Code(s): M17.0 - Bilateral primary osteoarthritis of knee (9) Essential hypertension: Code(s): I10 - Essential (primary) hypertension Plan: Continue with current medication. Reinforced importance of following a low sodium diet, getting regular exercise, and lowering stress levels. (10) Morbid obesity: Code(s): E66.01 - Morbid (severe) obesity due to excess calories Plan: Continue adherence to healthy eating habits, portion control, stay active get regular exercise. (11) Parkinsons disease: Code(s): G20 - Parkinson's disease Plan: Followed by Neurology Coding Level of Care Code Est Pt Level 4 (08398) Diagnoses Preoperative examination Z01.818 Type 2 diabetes mellitus without complication, with no history of insulin use E11.9 Cardiomyopathy, unspecified type I42.9 Cardiomyopathy type: unspecified Dyslipidemia E78.5 GIN on CPAP G47.33; Z99.89 Benign non-nodular prostatic hyperplasia with lower urinary tract symptoms N40.1 Parkinsons disease G20 Primary osteoarthritis of both knees M17.0 Osteoarthritis type: primary Essential hypertension I10 Morbid obesity E66.01
[2023-03-10 12:34] VITALS: BP 136/70; PULSE 76; O2SAT 98
== END 2023-03-10 14:01 | disposition home or self-care (01) ==
PROVIDERS: Visit Provider Internal Medicine
DX: E11.9 Type 2 diabetes mellitus without complications (principal); I10 Essential (primary) hypertension; I42.9 Cardiomyopathy, unspecified; Z01.818 Encounter for other preprocedural examination; G20 Parkinson's disease; E66.01 Morbid (severe) obesity due to excess calories; E78.5 Hyperlipidemia, unspecified; G47.33 Obstructive sleep apnea (adult) (pediatric); Z99.89 Dependence on other enabling machines and devices; N40.1 Benign prostatic hyperplasia with lower urinary tract symptoms; M17.0 Bilateral primary osteoarthritis of knee
CPT/HCPCS: 99214

== ENCOUNTER 2023-03-11 09:16 | Outpatient (REF) | payer OTHER, SELFPAY ==
[2023-03-11 12:20] LABS: Estimated Average Glucose 134 mg/dL; Hemoglobin A1c % 6.3 % (<6.0)
[2023-03-11 12:44] LABS: Alanine Aminotransferase 16 U/L (0-40); Anion Gap 13 (12-20); Aspartate Amino Transferase 13 U/L (5-37); Blood Urea Nitrogen 11 mg/dL (9-16); Carbon Dioxide 25 mmol/L (22-29); Chloride 108 mmol/L (96-108); Cholesterol 113 mg/dL (<200); Estimated Glomerular Filt Rate > 60; Glucose Fasting 108 mg/dL (60-99); HDL Cholesterol 40 mg/dL (>40); LDL Cholesterol Calculated 50 mg/dL (<100); Potassium 4.1 mmol/L (3.3-5.1); Sodium 142 mmol/L (135-145); Triglycerides 119 mg/dL (<150)
== END 2023-03-11 09:17 | disposition home or self-care (01) ==
LOC: HO.HMGCLDS 09:16
PROVIDERS: PCP Internal Medicine; Visit Provider Internal Medicine
DX: E11.9 Type 2 diabetes mellitus without complications (principal); E78.5 Hyperlipidemia, unspecified; I10 Essential (primary) hypertension; E66.01 Morbid (severe) obesity due to excess calories
CPT/HCPCS: 36415; 80048; 80061; 83036; 84450; 84460

== ENCOUNTER 2023-04-28 07:19 | Outpatient (AMB) | payer OTHER, SELFPAY ==
--- NOTE | 2023-04-28 07:30 | MHC.OFFVIS ---
Intake Vital Signs 04/28/23 07:36 Weight 251 lb BP 138/82 Blood Pressure Location Rt brachial Position Sitting Pulse 86 Pulse Source Pulse Oximeter Pulse Oximetry (%) 96 Oxygen Delivery Method Room Air Intake Visit Reasons: 6m fup Tremors -Conf t/ CW Intake Note: F/U Tremors [employer] Required: No Allergies erythromycin base [ERYTHROMYCIN BASE] Allergy (Unknown, Verified 04/28/23 07:30) DIARRHEA spironolactone [Aldactone] Allergy (Unknown, Verified 04/28/23 07:30) stomach upset dust, mold, grass Allergy (Unknown, Uncoded 04/28/23 07:30) sneezing HPI HPI Comments History of Present Illness Details 62y/o right handed male comes here for follow up of Parkinsons. His FELIX scan was abnormal with bilateral decreased uptake .He feels hsi tremors are the same .he had right knee replacement 5 weeks ago and is on PT. He also has Vit B 12 deficiency and was started on that. Past Histor-He started noticing tremors in his left hand in 2020 He denies any handwriting changes, dressing , eating, showering but feels his left hand tires quickly.He reports poor balance for 2-3 years.He had 2 falls - when he stands and bends forward he feels like his body cannot stop shifting forward. No change in speech or drooling. He has occasional swallowing issues.He has sleep apnea on CPAP.No sleep talking or acting out in his sleep. No memory issues. He denies depression or anxiety. No family history of tremors He denies head or neck injury. No exposure to neuroleptics. He denies constipation. [facility] Medical History (Updated 04/28/23 @ 08:02 by Amirah Tompkins MD) Parkinson's disease without dyskinesia or fluctuating manifestations Parkinsons disease Vitamin B12 deficiency Gait abnormality Tremor of left hand Type 2 diabetes mellitus without complication, with no history of insulin use Vitamin D deficiency History of COVID-19 Nocturia Benign non-nodular prostatic hyperplasia with lower urinary tract symptoms Elevated PSA Trigger finger, right middle finger Type 2 diabetes mellitus without complication, with no history of insulin use Osteoarthritis of knees, bilateral Cardiomyopathy Hx of thyroid nodule Dyslipidemia GIN on CPAP Essential hypertension Morbid obesity Diabetes mellitus with hyperglycemia, without long-term current use of insulin Surgical History H/O total knee replacement Hx of colonoscopy History of lobectomy of thyroid Status post lateral meniscus repair Family History Father Diabetes mellitus Cancer of prostate Myocardial infarction Mother HTN (hypertension) Diabetes mellitus CAD (coronary artery disease) Paternal Grandfather Cancer of prostate Brother No problems noted. Brother No problems noted. Sister No problems noted. Sister No problems noted. Social History Housing: House Alcohol intake: never Patient Tobacco Use Status: Never used Tobacco e-Cigarette/Vaping Use: Never Used Second Hand Smoke Exposure: No Use of substances other than those prescribed or required for medical reasons: No service: Yes Current occupational status: employed Current occupation: [employer] Current occupational exposures/hazards: Yes Cognitive needs: No Hearing needs: No Vision needs: Yes Physical Exam Vital Signs: Last Vital Signs Pulse 86 04/28/23 07:36 BP 138/82 04/28/23 07:36 Pulse Ox 96 04/28/23 07:36 Oxygen Delivery Method Room Air 04/28/23 07:36 Const General: cooperative, healthy appearing and comfortable Nutritional Appearance: obese Orientation/consciousness: patient oriented x3 HEENT Head: Yes normal to inspection and Yes normocephalic Eyes Pupils: Equal, round and reactive pupils present Neuro Other: decreased facial expression and blink No tremors today Gait - slow , mild decreased arm swings L>R Left UE cogwheel rigidity 1 + FFM and foot taps decreased eloisa L>R General: patient oriented x3 and moves all extremities Cranial nerves: Yes Facial sensation intact/muscles of mastication intact, Yes Equal, round and reactive pupils present, Yes Bilaterally intact EOM present, Yes Nystagmus not present, Yes Normal facial strength present, Yes Midline tongue present and Yes Symmetric palate elevation present Cognition (Neuro): normal cognition Motor exam (neuro): 5/5 motor strength present throughout Psych Appearance: grossly normal Assessment & Plan Assessment & Plan (1) Parkinson's disease without dyskinesia or fluctuating manifestations: Code(s): G20.A1 - Parkinson's disease without dyskinesia, without mention of fluctuations (2) Vitamin B12 deficiency: Code(s): E53.8 - Deficiency of other specified B group vitamins (3) Gait abnormality: Code(s): R26.9 - Unspecified abnormalities of gait and mobility Plan Discussed FELIX scan results and various medications available for parkinsons disease. Declines medications for now Continue aspirin 81mg qd Vit B 12 supplementation Coding Level of Care Code Est Pt Level 4 (17774) Diagnoses Parkinson's disease without dyskinesia or fluctuating manifestations G20.A1 Vitamin B12 deficiency E53.8 Gait abnormality R26.9
[2023-04-28 07:36] VITALS: BP 138/82; PULSE 86; O2SAT 96
== END 2023-04-28 08:06 | disposition home or self-care (01) ==
PROVIDERS: Visit Provider Psychiatry & Neurology Neurology
DX: G20.A1 Parkinson's disease without dyskinesia, without mention of fluctuations (principal); E53.8 Deficiency of other specified B group vitamins; R26.9 Unspecified abnormalities of gait and mobility
CPT/HCPCS: 99214

== ENCOUNTER → 2023-04-28 07:19 | Outpatient (BNVA) | payer OTHER, SELFPAY | PROVIDERS: Visit Provider Psychiatry & Neurology Neurology | DX: E53.8 Deficiency of other specified B group vitamins (principal); R26.9 Unspecified abnormalities of gait and mobility ==

== ENCOUNTER 2023-05-04 13:42 | Outpatient (AMB) | payer OTHER, SELFPAY ==
--- NOTE | 2023-05-04 14:40 | MHC.OFFVIS ---
Intake Intake Visit Reasons: Med review- follow up Allergies erythromycin base [ERYTHROMYCIN BASE] Allergy (Unknown, Verified 05/04/23 13:41) DIARRHEA spironolactone [Aldactone] Allergy (Unknown, Verified 05/04/23 13:41) stomach upset dust, mold, grass Allergy (Unknown, Uncoded 05/04/23 13:41) sneezing Medication List - Last Reconciled 05/04/23 by Suhail Chacko MD amlodipine 10 mg PO DAILY aspirin (Adult Low Dose Aspirin) 81 mg PO DAILY atorvastatin 20 mg PO DAILY blood sugar diagnostic (FreeStyle Lite Strips) Check blood sugar twice a day before meals blood sugar diagnostic (FreeStyle Lite Strips) Check fasting glucose once a day before meals blood-glucose meter (Accu-Chek Guide Glucose Meter) As directed carvedilol 25 mg PO BID cyanocobalamin (vitamin B-12) Inject 1000 micrograms/mL intramuscularly every week for 4 weeks, then once a month thereafter dapagliflozin propanediol (Farxiga) 10 mg PO DAILY dulaglutide (Trulicity) 1.5 mg (0.5 mL) subcut QWEEK 3 months fexofenadine 180 mg PO DAILY finasteride 5 mg PO DAILY 90 days lancets check blood sugar twice a day AC metformin 1,000 mg PO BID sacubitril-valsartan 97-103 mg 1 tab PO BID tadalafil 5 mg PO DAILY 90 days HPI HPI Comments History of Present Illness Details Mr Becerra is a very pleasant male. He is a patient of Dr Wyman. He is seen in the office today for the following urologic conditions. - lower urinary tract symptoms - elevated PSA Telemedicine evaluation 15 minute consultation [employer] Video attempted Significant improvement with urgency and frequency using tadalafil Medication refilled Six month follow-up with PVR Elevated PSA/Abnormal ANTONIO:? Currently stable PSA Continue good response to finasteride He presents for ?further evaluation of elevated PSA ?- biopsy negative 2015 - PSA responded well to finasteride..? Current management is?medication with 5AR.? Laboratory investigations include?a total PSA evaluation ?December 2011 2.1, ?Jan 2016 5.4, ?August 2016 4.4 ?05/07 4.2/14%, 11/05 4.7 11%, 06/07 3.6,?12/07 3.0,?12/08 1.7, 12/09 2.1, 02/09 1.7, 01/10 1.3 ? Imaging investigations include? a transrectal ultrasound ?Yes ? Date ?03/2016 ? Prostate Volume ?50 ? Individualized Prostate Cancer Risk Calculator?Family history of CaP ?Father and Grandfather - father in 60's ?5-10% high risk on PCPT 12/06.? A TRUS biopsy? has ?been performed and is negative 05/06 ? PSA at biopsy ?5 ? His current IPSS? IPSS Score ?0 ? Overall symptoms are?mild.? Associated conditions? diabetes ?Yes ? dyslipidemia ?Yes ? dysuria ?No ? erectile dysfunction ?Yes ? Therapeutic plan will be?continue finasteride [facility] Medical History (Updated 05/04/23 @ 14:45 by Suhail Chacko MD) Parkinson's disease without dyskinesia or fluctuating manifestations Parkinsons disease Vitamin B12 deficiency Gait abnormality Tremor of left hand Type 2 diabetes mellitus without complication, with no history of insulin use Vitamin D deficiency History of COVID-19 Nocturia Benign non-nodular prostatic hyperplasia with lower urinary tract symptoms Elevated PSA Trigger finger, right middle finger Type 2 diabetes mellitus without complication, with no history of insulin use Osteoarthritis of knees, bilateral Cardiomyopathy Hx of thyroid nodule Dyslipidemia GIN on CPAP Essential hypertension Morbid obesity Diabetes mellitus with hyperglycemia, without long-term current use of insulin Surgical History H/O total knee replacement Hx of colonoscopy History of lobectomy of thyroid Status post lateral meniscus repair Family History Father Diabetes mellitus Cancer of prostate Myocardial infarction Mother HTN (hypertension) Diabetes mellitus CAD (coronary artery disease) Paternal Grandfather Cancer of prostate Brother No problems noted. Brother No problems noted. Sister No problems noted. Sister No problems noted. Social History Housing: House Alcohol intake: never Patient Tobacco Use Status: Never used Tobacco e-Cigarette/Vaping Use: Never Used Second Hand Smoke Exposure: No service: Yes Current occupational status: employed Current occupation: [employer] Current occupational exposures/hazards: Yes Cognitive needs: No Hearing needs: No Vision needs: Yes Review of Systems Const All systems reviewed & are unremarkable except as noted in HPI and below Reports no additional complaints Resp Reports no additional complaints GI Reports no additional complaints Reports as per HPI Musc Reports no additional complaints Physical Exam Telemedicine evaluation Appropriate responses Regular breathing rate and rhythm HEENT Head: Yes normal to inspection Ears: hearing grossly normal bilaterally Eyes General: appearance normal, both eyes and all related structures Neck Neck: Yes normal visual inspection Chest Chest palpation & inspection: normal inspection of the chest Resp Effort & Inspection: normal respiratory effort and able to speak in complete sentences Assessment & Plan Assessment & Plan (1) Overactive bladder: Code(s): N32.81 - Overactive bladder Plan Six month follow-up Medications: Refilled tadalafil Daily medication 5 mg PO DAILY 90 tabs 1RF Urinary urge 90 days R39.15 - Urgency of urination Patient Instructions: Imaging studies, laboratory and physical exam results were discussed and reviewed in detail. No major barriers to patient understanding were identified. An opportunity to ask questions regarding the treatment plan was provided. All questions were answered. The patient expressed understanding and agreement with the above treatment plan. The patient is aware they should contact our office by phone for worsening of their current condition or the appearance of new urologic symptoms. Compliance is encouraged with any medications and followup testing that is ordered. It is a privilege to participate in the urologic care of your patient. If you have any questions or concerns regarding treatment for the above conditions, or other urologic issues, please do not hesitate to contact me. The office telephone contact is [phone]. This note is constructed using voice recognition software. While every effort has been made to ensure accuracy serology technician errors may have been included. Yours sincerely, Dr Suhail Chacko MD, [facility] - Urology Providers of Expert, Compassionate Care for the Genitourinary System Telehealth Telehealth Location of provider rendering services: practice address Location of patient: address on file Patient Identification confirmed using: Name, : Yes Telehealth method: video Patient verbally consented to treatment: Yes Patient verbally consented to billing insurance company: Yes Patient informed of any privacy concerns related to visit: Yes Coding Level of Care Code Tele Est Pt Level 3 (28726) Diagnoses Overactive bladder N32.81
== END 2023-05-04 14:45 ==
LOC: HO.HUSH 13:42
PROVIDERS: PCP Internal Medicine; Visit Provider Urology
DX: N32.81 Overactive bladder (principal)
CPT/HCPCS: 99213

== ENCOUNTER → 2023-05-04 13:42 | Outpatient (BNVA) | payer OTHER, SELFPAY | PROVIDERS: PCP Internal Medicine; Visit Provider Urology ==

== ENCOUNTER 2023-05-25 08:05 | Outpatient (REF) | payer OTHER, SELFPAY ==
[2023-05-25 11:46] LABS: Estimated Average Glucose 120 mg/dL; Hemoglobin A1c % 5.8 % (<6.0)
[2023-05-25 12:17] LABS: Alanine Aminotransferase 17 U/L (0-40); Albumin Level 4.3 g/dL (3.5-5.0); Alkaline Phosphatase 49 U/L (39-117); Anion Gap 14 (12-20); Aspartate Amino Transferase 16 U/L (5-37); Bilirubin Total 0.5 mg/dL (0.0-1.0); Blood Urea Nitrogen 15 mg/dL (9-16); Calcium 9.1 mg/dL (8.4-10.2); Carbon Dioxide 24 mmol/L (22-29); Chloride 106 mmol/L (96-108); Cholesterol 120 mg/dL (<200); Estimated Glomerular Filt Rate > 60; Glucose Fasting 103 mg/dL (60-99); HDL Cholesterol 37 mg/dL (>40); LDL Cholesterol Calculated 47 mg/dL (<100); Potassium 3.9 mmol/L (3.3-5.1); Sodium 140 mmol/L (135-145); Total Protein 6.7 g/dL (6.5-8.0); Triglycerides 182 mg/dL (<150)
== END 2023-05-25 08:06 | disposition home or self-care (01) ==
LOC: HO.HMGCLDS 08:05
PROVIDERS: PCP Internal Medicine; Visit Provider Internal Medicine
DX: E11.9 Type 2 diabetes mellitus without complications (principal); I42.9 Cardiomyopathy, unspecified; E78.5 Hyperlipidemia, unspecified; I10 Essential (primary) hypertension; E66.01 Morbid (severe) obesity due to excess calories
CPT/HCPCS: 36415; 80053; 80061; 83036

== ENCOUNTER 2023-05-27 11:00 | Outpatient (RCR) | payer OTHER, SELFPAY | END 2023-05-27 11:59 | disposition home or self-care (01) | LOC: HO.PTCHIC 11:00 | PROVIDERS: PCP Internal Medicine; Visit Provider Orthopaedic Surgery | DX: M17.31 Unilateral post-traumatic osteoarthritis, right knee (principal) | CPT/HCPCS: 97110; 97140; 97161; 97530 ==

== ENCOUNTER 2023-05-27 14:32 | Outpatient (AMB) | payer OTHER, SELFPAY ==
[2023-05-27 14:34] VITALS: BP 124/72; PULSE 83; O2SAT 97; BMI 41.8
--- NOTE | 2023-05-27 14:34 | MHC.PC.OV ---
Vital Signs 05/27/23 14:34 Height 5 ft 6 in Weight 259 lb 2 oz BMI 41.8 BP 124/72 Blood Pressure Location Rt brachial Position Sitting Pulse 83 Pulse Source Pulse Oximeter Pulse Oximetry (%) 97 Oxygen Delivery Method Room Air Intake Visit Reasons: 4 mo follow up Intake Note: Patient is here today for 4 month follow up Allergies erythromycin base [ERYTHROMYCIN BASE] Allergy (Unknown, Verified 05/28/23 04:36) DIARRHEA spironolactone [Aldactone] Allergy (Unknown, Verified 05/28/23 04:36) stomach upset dust, mold, grass Allergy (Unknown, Uncoded 05/28/23 04:36) sneezing Medication List - Last Reconciled 05/28/23 by Lakshmi Wyman MD amlodipine 10 mg PO DAILY aspirin (Adult Low Dose Aspirin) 81 mg PO DAILY atorvastatin 20 mg PO DAILY blood sugar diagnostic (FreeStyle Lite Strips) Check blood sugar twice a day before meals blood sugar diagnostic (FreeStyle Lite Strips) Check fasting glucose once a day before meals blood-glucose meter (Accu-Chek Guide Glucose Meter) As directed carvedilol 25 mg PO BID celecoxib mg PO BID cyanocobalamin (vitamin B-12) Inject 1000 micrograms/mL intramuscularly every week for 4 weeks, then once a month thereafter dapagliflozin propanediol (Farxiga) 10 mg PO DAILY dulaglutide (Trulicity) 1.5 mg (0.5 mL) subcut QWEEK 3 months fexofenadine 180 mg PO DAILY finasteride 5 mg PO DAILY 90 days lancets check blood sugar twice a day AC metformin 1,000 mg PO BID sacubitril-valsartan 97-103 mg 1 tab PO BID tadalafil 5 mg PO DAILY 90 days Tobacco use date assessed: 05/27/23 Fall risk assessment: No Falls in past year Last assessed Fall Risk: 05/27/23 Dental Screening Dental Screen Date: 05/27/23 Did you have a dental visit in the last 12 months?: Yes Did you have a dental problem in the last 6 months where you did not have access to dental care?: No Was dental information given to patient?: Patient has dentist HPI 4 mo follow up HPI Details Old male with diabetes mellitus, dyslipidemia, hypertension, Parkinson's disease, osteoarthritis knees, history of cardiomyopathy, obstructive sleep apnea on CPAP and morbid obesity, here today for his follow-up. He had the right total knee arthroplasty done 03/24/2023 with good results. He has been compliant with taking his medications and has been getting home PT for his right knee, now ambulatory without assistance. Diabetes mellitus well controlled with a hemoglobin A1c at 5.8 and lipids are also stable and at goal with an LDL cholesterol at 47. [facility] History Vitamin B12 deficiency Parkinson's disease without dyskinesia or fluctuating manifestations Parkinsons disease Gait abnormality Tremor of left hand Type 2 diabetes mellitus without complication, with no history of insulin use Vitamin D deficiency History of COVID-19 Nocturia Benign non-nodular prostatic hyperplasia with lower urinary tract symptoms Elevated PSA Trigger finger, right middle finger Type 2 diabetes mellitus without complication, with no history of insulin use Osteoarthritis of knees, bilateral Cardiomyopathy Hx of thyroid nodule Dyslipidemia GIN on CPAP Essential hypertension Morbid obesity Diabetes mellitus with hyperglycemia, without long-term current use of insulin Surgical History H/O total knee replacement Hx of colonoscopy History of lobectomy of thyroid Status post lateral meniscus repair Family History Father Diabetes mellitus Cancer of prostate Myocardial infarction Mother HTN (hypertension) Diabetes mellitus CAD (coronary artery disease) Paternal Grandfather Cancer of prostate Brother No problems noted. Brother No problems noted. Sister No problems noted. Sister No problems noted. Social History Housing: House Alcohol intake: never Patient Tobacco Use Status: Never used Tobacco e-Cigarette/Vaping Use: Never Used Second Hand Smoke Exposure: No service: Yes Current occupational status: employed Current occupation: formerly [employer] Current occupational exposures/hazards: Yes Cognitive needs: No Hearing needs: No Vision needs: Yes Questionnaire Thrive Questionnaire Date Thrive assessed: 01/22/23 AUDIT C Alcohol Use Questionnaire (AUDIT-C) 1. How often do you have a drink containing alcohol?: Never 3. How often do you have six or more drinks on one occasion?: Never Total Score: 0 Score Reviewed/Action Taken: Yes GM-7 AMB Questionnaire GM-7 Date GM - 7 assessed: 01/22/23 Source: Developed by Drs. Teo Smith, Parris Verdugo, Mario Shipley and colleagues, with an educational dion from [employer]. Review of Systems Const Reports no additional complaints and Denies fatigue Eyes Denies change in vision ENT Details: Decrease in hearing Reports no additional complaints, Reports nasal congestion and Reports post nasal drip Card Denies chest pain, Denies rapid heart rate, Denies irregular heart rhythm, Denies leg edema, Denies lightheadedness, Denies dyspnea and Denies dyspnea on exertion Resp Denies cough, Denies excessive phlegm production, Denies dyspnea and Denies dyspnea on exertion GI Denies abdominal pain, Denies melena, Denies hematochezia, Denies change in bowel habits and Denies heartburn Reports no additional complaints Musc Reports abnormal gait (Slow gait), Denies arthralgias, Denies joint swelling, Denies limited range of motion and Denies stiffness Skin/Breast Denies pruritus, Denies lesions and Denies rash Neuro Reports abnormal gait (Slow gait), Denies convulsions, Denies Sensory deficit (Neuro) and Reports tremor(s) Psych Reports no additional complaints Endo Reports no additional complaints and Denies fatigue Mick/Lymph Reports no additional complaints Aller/Immun Reports no additional complaints Physical exam (Primary Care) Vital Signs: Last Vital Signs Pulse 83 05/27/23 14:34 BP 124/72 05/27/23 14:34 Pulse Ox 97 05/27/23 14:34 Oxygen Delivery Method Room Air 05/27/23 14:34 BMI result Body Mass Index 41.8 BMI Assessment/Plan discussion: High BMI High, discussed plan: lifestyle, weight reduction, dietary and physical activity Tobacco/Smoking Status: Tobacco use Status Tobacco use date assessed 05/27/23 05/27/23 14:39 Patient Tobacco Use Status Never used Tobacco 05/27/23 14:39 e-Cigarette/Vaping Use Never Used 05/27/23 14:39 Thrive Assessment: Date of Thrive Assessment Date Thrive assessed 01/22/23 05/27/23 14:39 Const General: comfortable, no acute distress, awake and Physically active Nutritional Appearance: obese morbidly obese Orientation/consciousness: patient oriented x3 HENMT Face and sinus: Yes normal facial exam and Yes face symmetric Mouth: Normal oral and palatal mucosa present, oropharynx normal and moist mucous membranes Eyes General: appearance normal, both eyes and all related structures Neck Neck: Yes full ROM and Yes no lymphadenopathy Resp Effort & Inspection: normal respiratory effort and able to speak in complete sentences Auscultation: clear to auscultation bilaterally Cardio Rate: regular rate Rhythm: regular rhythm Heart sounds: S1 normal heart sound present and S2 normal heart sound present GI Inspection: Yes obesity Palpation (GI): Soft to palpation, nontender, no guarding and no pulsatile masses Auscultation: normal bowel sounds General: Yes no CVA tenderness Back/Spine/Pelvis Back: no CVA tenderness and No back tenderness Skin General skin exam: no rashes or lesions noted Neuro General: patient oriented x3 Cognition (Neuro): normal cognition Gait exam (Neuro): Other gait observations present (Slow gait) Motor exam (neuro): 5/5 motor strength present throughout Sensory Exam: No Sensory deficit (Neuro) Extrem General: Yes normal to inspection, Yes full ROM and Yes no pedal edema Psych Appearance: grossly normal and well kempt Mental Status: mental status grossly normal Speech and movement: Normal speech and movement present Affect: normal affect Attitude: cooperative Results Reviewed Results Reviewed: Name: Albert Becerra Age/Sex: 63/M : 1960 Unit#: [id number] Attend Dr: Lakshmi Wyman MD Re05/25/23 Status: DEP REF Location: [facility] Disch: SPEC : [id number] [place]: 05/25/23 STATUS: COMP REQ : [id number] RECD: 05/25/[address]: Lakshmi Wyman MD COMP: 05/25/23 ENTERED: 05/25/[address]: ORDERED: CMP Fast, Lipid Panel Test Result Flag Reference Site Sodium 140 135-145 mmol/L Potassium 3.9 3.3-5.1 mmol/L CL 106 96-108 mmol/L CO2 24 22-29 mmol/L Gap 14 12-20 BUN 15 9-16 mg/dL Creat 0.94 0.5-1.4 mg/dL EGFR > 60 NOTE: For -[place] individuals, multiply the result by 1.210. Chronic Kidney Disease: Estimated GFR < 60 mL/min/1.73m2 Severe Kidney Disease: Estimated GFR < 15 mL/min/1.73m2 FBS 103 H 60-99 mg/dL A fasting glucose from 100-125 mg/dl is considered impaired (pre-diabetes). CA 9.1 8.4-10.2 mg/dL Total Bili 0.5 0.0-1.0 mg/dL AST (GOT) 16 5-37 U/L ALT (GPT) 17 0-40 U/L Protein, Total 6.7 6.5-8.0 g/dL Alb 4.3 3.5-5.0 g/dL Triglyceride 182 H <150 mg/dL Desirable Triglyceride: less than 150 mg/dL Borderline High Triglyceride 150-199 mg/dL High Triglyceride: 200-499 mg/dL Very High Triglyceride: greater than or equal to 5OO mg/dL Cholesterol 120 <200 mg/dL Desirable Cholesterol: less than 200 mg/dL Borderline High Cholesterol: 200-239 mg/dL High Cholesterol: greater than 239 mg/dL LDL Calculated 47 <100 mg/dL Desirable LDL: less than 100 mg/dL Near Optimal/Above Optimal LDL: 110-129 mg/dL Borderline High LDL: 130-159 mg/dL High LDL: 160-189 mg/dL Very High LDL: greater than or equal to 190 mg/dL HDL 37 L >40 mg/dL Desirable HDL: greater than 40 mg/dL Note: This HDL assay may give artificially low results in patients with liver disease. Alk Phos 49 39-117 U/L Laboratory Tests 05/25/23 08:13 Estimat Average Glucose 120 Hemoglobin A1c % 5.8 Assessment and Plan Assessment & Plan (1) Type 2 diabetes mellitus without complication, with no history of insulin use: Code(s): E11.9 - Type 2 diabetes mellitus without complications Plan: Recent lab results reviewed with patient, with sugar and hemoglobin A1c stable and at goal. Continue with Farxiga 10 mg daily, Trulicity 1.5 mg weekly, and metformin a 1000 mg twice a day, continue to check fasting blood sugar at home, maintain log and bring to next appointment for review. Reinforced diabetic diet and regular exercise with patient. Counseled regarding importance of yearly diabetes retinopathy screening, currently up-to-date. Patient advised to inspect feet daily, for any signs of injury, callus or infection. Compliance with diet and regular exercise again stressed. Blood pressure goal is less than 130/80, goal LDL is less than 100 and goal hemoglobin A1c is less than 7% follow-up appointment made in-4--months, after fasting labs done. (2) Dyslipidemia: Code(s): E78.5 - Hyperlipidemia, unspecified Plan: Reviewed recent fasting lipid profile with patient with levels at goal except for low HDL cholesterol . Continue with atorvastatin 20 mg daily , in addition to adherence to low-cholesterol diet and regular exercise, at least 30 minutes 3 to 4 times a week. Advised patient to make healthy food choices, eat more fruits, vegetables, whole grains, wild caught fish and low-fat dairy. Limit amount of meat and fried or fatty food products, as well as processed foods and fast foods. Follow-up scheduled with repeat fasting lipid panel in 4 months. (3) Essential hypertension: Code(s): I10 - Essential (primary) hypertension Plan: Blood pressure at goal of less than 130/80. Continue with current medication. Reinforced importance of following a low sodium diet, getting regular exercise, and lowering stress levels. (4) Vitamin B12 deficiency: Code(s): E53.8 - Deficiency of other specified B group vitamins (5) Post-nasal drainage: Code(s): R09.82 - Postnasal drip Plan: Try taking Claritin or Zyrtec at night. (6) Parkinson's disease without dyskinesia or fluctuating manifestations: Code(s): G20.A1 - Parkinson's disease without dyskinesia, without mention of fluctuations Plan: Currently followed by Dr. Tompkins, minimal symptoms, patient declines starting any medication at present time Orders: Orders Lipid Panel 09/20/23 E11.9 - Type 2 diabetes mellitus without complications, E53.8 - Deficiency of other specified B group vitamins, E66.01 - Morbid (severe) obesity due to excess calories, E78.5 - Hyperlipidemia, unspecified, I10 - Essential (primary) hypertension Vitamin D 25-OH Total 09/20/23 E11.9 - Type 2 diabetes mellitus without complications, E53.8 - Deficiency of other specified B group vitamins, E66.01 - Morbid (severe) obesity due to excess calories, E78.5 - Hyperlipidemia, unspecified, I10 - Essential (primary) hypertension Vitamin B12 and Folate 09/20/23 E11.9 - Type 2 diabetes mellitus without complications, E53.8 - Deficiency of other specified B group vitamins, E66.01 - Morbid (severe) obesity due to excess calories, E78.5 - Hyperlipidemia, unspecified, I10 - Essential (primary) hypertension Complete Blood Count Auto Diff 09/20/23 E11.9 - Type 2 diabetes mellitus without complications, E53.8 - Deficiency of other specified B group vitamins, E66.01 - Morbid (severe) obesity due to excess calories, E78.5 - Hyperlipidemia, unspecified, I10 - Essential (primary) hypertension Comprehensive [place]. Panel Fast 09/20/23 E11.9 - Type 2 diabetes mellitus without complications, E53.8 - Deficiency of other specified B group vitamins, E66.01 - Morbid (severe) obesity due to excess calories, E78.5 - Hyperlipidemia, unspecified, I10 - Essential (primary) hypertension Hemoglobin A1c 09/20/23 E11.9 - Type 2 diabetes mellitus without complications, E53.8 - Deficiency of other specified B group vitamins, E66.01 - Morbid (severe) obesity due to excess calories, E78.5 - Hyperlipidemia, unspecified, I10 - Essential (primary) hypertension Microalbumin, Random (w Creat) 09/20/23 E11.9 - Type 2 diabetes mellitus without complications, E53.8 - Deficiency of other specified B group vitamins, E66.01 - Morbid (severe) obesity due to excess calories, E78.5 - Hyperlipidemia, unspecified, I10 - Essential (primary) hypertension Coding Level of Care Code Est Pt Level 4 (12284) Diagnoses Type 2 diabetes mellitus without complication, with no history of insulin use E11.9 Dyslipidemia E78.5 Essential hypertension I10 Vitamin B12 deficiency E53.8 Post-nasal drainage R09.82 Parkinson's disease without dyskinesia or fluctuating manifestations G20.A1
== END 2023-05-27 15:27 | disposition home or self-care (01) ==
PROVIDERS: PCP Internal Medicine; Visit Provider Internal Medicine
DX: E11.9 Type 2 diabetes mellitus without complications (principal); E78.5 Hyperlipidemia, unspecified; I10 Essential (primary) hypertension; E53.8 Deficiency of other specified B group vitamins; R09.82 Postnasal drip; G20.A1 Parkinson's disease without dyskinesia, without mention of fluctuations
CPT/HCPCS: 99214

== ENCOUNTER 2023-09-22 10:30 | Outpatient (REF) | payer MEDICARE, SELFPAY ==
[2023-09-22 13:26] LABS: MANUAL DIFF FLAG NO
[2023-09-22 13:39] LABS: Basophils Absolute Auto 0.1 X10*3/uL (0.0-0.2); Basophils Percent Auto 0.8 % (0-2); Eosinophils Absolute Auto 0.2 X10*3/uL (0.0-0.4); Eosinophils Percent Auto 3.6 % (0-4); Hematocrit 46.1 % (42.0-52.0); Hemoglobin 15.1 g/dl (14.0-18.0); Imm Gran Abs Auto 0.03 X10*3/uL (0.00-0.03); Imm Gran Pct Auto 0.5 % (0.0-0.4); Lymphocytes Absolute Auto 1.8 X10*3/uL (1.2-4.9); Lymphocytes Percent Auto 26.9 % (20-40); Mean Corpuscular HGB Conc 32.8 g/dl (31.0-36.0); Mean Corpuscular Hemoglobin 27.7 pg (27.0-33.0); Mean Corpuscular Volume 84.4 fL (80.0-98.0); Mean Platelet Volume 8.8 fL (9.4-12.4); Monocytes Absolute Auto 0.7 X10*3/uL (0.1-1.2); Monocytes Percent Auto 9.9 % (2-11); Neutrophils Absolute Auto 3.8 x10*3/uL (2.0-8.3); Neutrophils Percent Auto 58.3 % (45-73); Platelet Count 258 X10*3/uL (160-400); Red Blood Count 5.46 X10*6/uL (4.60-5.80); Red Cell Distribution Width 14.6 % (11.0-16.0); White Blood Count 6.6 X10*3/uL (4.8-10.8)
[2023-09-22 13:52] LABS: Estimated Average Glucose 128 mg/dL; Hemoglobin A1c % 6.1 % (<6.0)
[2023-09-22 14:24] LABS: Folate 6.9 ng/mL (> or = 4.0); Vitamin B12 166 pg/mL (200-900)
[2023-09-22 14:24] LABS: Creatinine Urine 75.01 mg/dL; Microalbum/Creatinine Ratio Ur 39.9 ug/mg cr (<30)
[2023-09-22 14:31] LABS: Alanine Aminotransferase 14 U/L (0-40); Albumin Level 4.3 g/dL (3.5-5.0); Alkaline Phosphatase 56 U/L (39-117); Anion Gap 12 (12-20); Aspartate Amino Transferase 15 U/L (5-37); Bilirubin Total 0.6 mg/dL (0.0-1.0); Blood Urea Nitrogen 13 mg/dL (9-16); Calcium 9.2 mg/dL (8.4-10.2); Carbon Dioxide 26 mmol/L (22-29); Chloride 109 mmol/L (96-108); Cholesterol 111 mg/dL (<200); Estimated Glomerular Filt Rate > 60; Glucose Fasting 113 mg/dL (60-99); HDL Cholesterol 39 mg/dL (>40); LDL Cholesterol Calculated 39 mg/dL (<100); Potassium 4.1 mmol/L (3.3-5.1); Sodium 143 mmol/L (135-145); Total Protein 6.9 g/dL (6.5-8.0); Triglycerides 167 mg/dL (<150)
[2023-09-22 14:35] LABS: Vitamin D 25-OH Total 61.6 ng/mL (>30)
== END 2023-09-22 10:31 | disposition home or self-care (01) ==
LOC: HO.HMGCLDS 10:30
PROVIDERS: PCP Internal Medicine; Visit Provider Internal Medicine
DX: E11.9 Type 2 diabetes mellitus without complications (principal); E78.5 Hyperlipidemia, unspecified; I10 Essential (primary) hypertension; E66.01 Morbid (severe) obesity due to excess calories; E53.9 Vitamin B deficiency, unspecified
CPT/HCPCS: 36415; 80053; 80061; 82043; 82306; 82570; 82607; 82746; 83036; 85025

== ENCOUNTER 2023-09-27 11:37 | Outpatient (AMB) | payer OTHER, SELFPAY ==
--- NOTE | 2023-09-27 11:52 | MHC.PC.OV ---
Vital Signs 09/27/23 11:54 Height 5 ft 6 in Weight 267 lb BMI 43.1 BP 114/60 Blood Pressure Location Lt brachial Position Sitting Pulse 86 Pulse Source Pulse Oximeter Pulse Oximetry (%) 95 Oxygen Delivery Method Room Air Intake Visit Reasons: 4 mo follow up DM, Lipids, HTN Intake Note: Pt is here today for his 4 mo. f/u DM , lipids and HTN Allergies erythromycin base [ERYTHROMYCIN BASE] Allergy (Unknown, Verified 09/27/23 12:53) DIARRHEA spironolactone [Aldactone] Allergy (Unknown, Verified 09/27/23 12:53) stomach upset dust, mold, grass Allergy (Unknown, Uncoded 09/27/23 12:53) sneezing Medication List - Last Reconciled 09/27/23 by Lakshmi Wyman MD amlodipine 10 mg PO DAILY aspirin (Adult Low Dose Aspirin) 81 mg PO DAILY atorvastatin 20 mg PO DAILY carvedilol 25 mg PO BID celecoxib mg PO BID cyanocobalamin (vitamin B-12) Inject 1000 micrograms/mL intramuscularly every week for 4 weeks, then once a month thereafter dapagliflozin propanediol (Farxiga) 10 mg PO DAILY dulaglutide (Trulicity) 1.5 mg (0.5 mL) subcut QWEEK 3 months finasteride 5 mg PO DAILY 90 days mecobalamin (vitamin B12) 1,000 mcg PO DAILY metformin 1,000 mg PO BID OneTouch Delica Plus Lancet (lancets) Test blood sugar once a day NS OneTouch Verio Flex meter (blood-glucose meter) As directed NS OneTouch Verio test strips (blood sugar diagnostic) test blood sugar once a day NS sacubitril-valsartan 97-103 mg 1 tab PO BID tadalafil 5 mg PO DAILY 90 days Tobacco use date assessed: 09/27/23 Fall risk assessment: 1 Fall in past year Last assessed Fall Risk: 09/27/23 Dental Screening Dental Screen Date: 09/27/23 Did you have a dental visit in the last 12 months?: Yes Did you have a dental problem in the last 6 months where you did not have access to dental care?: Yes Was dental information given to patient?: Patient has dentist HPI 4 mo follow up DM, Lipids, HTN HPI Details 63-year-old male with history of diabetes mellitus, hypertension, hyperlipidemia, history of Parkinson's disease and cardiomyopathy, obstructive sleep apnea on CPAP, here today for his follow-up. He has been feeling well, compliant with his medications and diet, but admits to not getting as much exercise as he was doing in the past, as he is now retired. He is up-to-date with his diabetes retinopathy screening, sees [facility], and sees Dr. Rizzo for his yearly diabetes foot exam. [facility] Medical History Vitamin B12 deficiency Parkinson's disease without dyskinesia or fluctuating manifestations Parkinsons disease Gait abnormality Tremor of left hand Type 2 diabetes mellitus without complication, with no history of insulin use Vitamin D deficiency History of COVID-19 Nocturia Benign non-nodular prostatic hyperplasia with lower urinary tract symptoms Elevated PSA Trigger finger, right middle finger Type 2 diabetes mellitus without complication, with no history of insulin use Osteoarthritis of knees, bilateral Cardiomyopathy Hx of thyroid nodule Dyslipidemia GIN on CPAP Essential hypertension Morbid obesity Diabetes mellitus with hyperglycemia, without long-term current use of insulin Surgical History H/O total knee replacement Hx of colonoscopy History of lobectomy of thyroid Status post lateral meniscus repair Family History Father Diabetes mellitus Cancer of prostate Myocardial infarction Mother HTN (hypertension) Diabetes mellitus CAD (coronary artery disease) Paternal Grandfather Cancer of prostate Brother No problems noted. Brother No problems noted. Sister No problems noted. Sister No problems noted. Social History Housing: House Alcohol intake: never Patient Tobacco Use Status: Never used Tobacco e-Cigarette/Vaping Use: Never Used Second Hand Smoke Exposure: No service: Yes Current occupational status: retired Current occupation: [employer] Current occupational exposures/hazards: Yes Cognitive needs: No Hearing needs: No Vision needs: Yes Questionnaire PHQ-9 Over the last 2 weeks, how often have you been bothered by any of the following problems? 1. Little interest or pleasure in doing things: not at all 2. Feeling down, depressed, or hopeless: not at all 3. Trouble falling or staying asleep, or sleeping too much: not at all 4. Feeling tired or having little energy: several days 5. Poor appetite or overeating: not at all 6. Feeling bad about yourself - or that you are a failure or have let yourself or your family down: not at all 7. Trouble concentrating on things, such as reading the newspaper or watching television: not at all 8. Moving or speaking so slowly that other people could have noticed. Or the opposite - being so fidgety or restless that you have been moving around a lot more than usual: not at all 9. Thoughts that you would be better off or of hurting yourself in some way: not at all Total score: 1 Depression Screening Interpretation: Negative Depression Screening Done: Yes 54606 - PHQ-9 Billing: Yes Source: Developed by Drs. Teo Smith, Parris Verdugo, Mario Shipley and colleagues, with an educational dion from [employer]. Thrive Questionnaire Date Thrive assessed: 09/27/23 I am a: Patient What is your living situation today?: I have a steady place to live Within the past 12 months, did the food you bought not last and you didn't have the money to get more?: Never true Within the past 12 months, did you worry whether your food would run out before you got money to buy more?: Never true Do you have trouble paying for medicines?: No Do you have trouble getting transportation to medical appointments?: No Do you have trouble paying your heating and electricity bill?: No Do you have trouble taking care of your child, family member or friend?: No Do you have trouble with day-to-day activities such as bathing, preparing meals, shopping, managing finances, etc.?: No Are you currently unemployed and looking for a job?: No Are you interested in more education?: No THRIVE Score: 0 AUDIT C Alcohol Use Questionnaire (AUDIT-C) 1. How often do you have a drink containing alcohol?: Monthly or less 2. How many drinks containing alcohol do you have on a typical day when you are drinking?: 1 or 2 3. How often do you have six or more drinks on one occasion?: Never Total Score: 1 GM-7 AMB Questionnaire GM-7 Date GM - 7 assessed: 09/27/23 Feeling nervous, anxious, or on edge: 0 = Not at all Not being able to stop or control worryin = Not at all Worrying too much about different things: 0 = Not at all Trouble relaxin = Not at all Being so restless that it is hard to sit still: 0 = Not at all Becoming easily annoyed or irritable: 1 = Several days Feeling afraid as if something awful might happen: 0 = Not at all Total GM-7 score (0-4 normal; 5-9 mild; 10-14 moderate; 15-21 severe): 1 Source: Developed by Drs. Teo Smith, Parris Verdugo, Mario Shipley and colleagues, with an educational dion from [employer]. GM-7 Assessment Billing GM-7 Assessment Tool: GM-7 Assessment 11126 Review of Systems Const Reports no additional complaints Eyes Denies change in vision ENT Details: Decrease in hearing Reports no additional complaints Card Denies chest pain, Denies rapid heart rate, Denies irregular heart rhythm, Denies leg edema, Denies lightheadedness, Denies dyspnea and Denies dyspnea on exertion Resp Denies cough, Denies excessive phlegm production, Denies dyspnea and Denies dyspnea on exertion GI Denies abdominal pain, Denies melena, Denies hematochezia, Denies change in bowel habits and Denies heartburn Reports no additional complaints Musc Reports abnormal gait (Slow gait), Denies arthralgias, Denies joint swelling, Denies limited range of motion and Denies stiffness Skin/Breast Denies pruritus, Denies lesions and Denies rash Neuro Reports abnormal gait (Slow gait), Denies convulsions, Denies Sensory deficit (Neuro) and Reports tremor(s) Psych Reports no additional complaints Endo Reports no additional complaints Mick/Lymph Reports no additional complaints Aller/Immun Reports no additional complaints Physical exam (Primary Care) Vital Signs: Last Vital Signs Pulse 86 09/27/23 11:54 BP 114/60 09/27/23 11:54 Pulse Ox 95 09/27/23 11:54 Oxygen Delivery Method Room Air 09/27/23 11:54 BMI result Body Mass Index 43.1 BMI Assessment/Plan discussion: High BMI High, discussed plan: lifestyle, weight reduction, dietary and physical activity Tobacco/Smoking Status: Tobacco use Status Tobacco use date assessed 09/27/23 09/27/23 11:58 Patient Tobacco Use Status Never used Tobacco 09/27/23 11:53 e-Cigarette/Vaping Use Never Used 09/27/23 11:53 PHQ-9: PHQ-9 Score PHQ-9: Total score 1 09/27/23 12:23 Depression Screening Interpretation: Negative Thrive Assessment: Date of Thrive Assessment Date Thrive assessed 01/22/23 09/27/23 11:53 Const General: comfortable, no acute distress and Physically active Nutritional Appearance: obese morbidly obese Orientation/consciousness: patient oriented x3 HENMT Face and sinus: Yes normal facial exam and Yes face symmetric Mouth: Normal oral and palatal mucosa present, oropharynx normal and moist mucous membranes Eyes General: appearance normal, both eyes and all related structures Neck Neck: Yes full ROM and Yes no lymphadenopathy Resp Effort & Inspection: normal respiratory effort and able to speak in complete sentences Auscultation: clear to auscultation bilaterally Cardio Rate: regular rate Rhythm: regular rhythm Heart sounds: S1 normal heart sound present and S2 normal heart sound present GI Inspection: Yes obesity Palpation (GI): Soft to palpation, nontender, no guarding and no pulsatile masses Auscultation: normal bowel sounds General: Yes no CVA tenderness Back/Spine/Pelvis Back: no CVA tenderness and No back tenderness Skin General skin exam: no rashes or lesions noted Neuro General: patient oriented x3 Cognition (Neuro): normal cognition Gait exam (Neuro): Other gait observations present (Slow gait) Motor exam (neuro): 5/5 motor strength present throughout Sensory Exam: No Sensory deficit (Neuro) Extrem General: Yes normal to inspection, Yes full ROM and Yes no pedal edema Psych Appearance: grossly normal and well kempt Mental Status: mental status grossly normal Speech and movement: Normal speech and movement present Affect: normal affect Attitude: cooperative Immunizations pneumoc 20-ángel conj-dip cr(PF) 0.5 mL IM syringe Performing Provider: Lakshmi Wyman MD Performing Location: [facility] [place] [facility] Administered by: SOPHIE Juárez on 09/27/23 12:54 Dose Route Admin Location Dispensed Lot Number Expiration Date NDC Rn Anesthetist 0.5 mL IM Right Deltoid 0.5 mL [id number] 09/18/24 4114-3797-16 WYETH/PFIZER VIS Given Date VIS Provided VIS Publication Date 09/27/23 Single Vaccine 21 Eligibility Eligibility Date Funding Source Not VFC Eligible 09/27/23 Private Results Reviewed Results Reviewed: cct#: [id number] Unit#: [id number] Attend Dr: Lakshmi Wyman MD Re09/22/23 Status: DEP REF Location: [facility] Disch: SPEC : [id number] ROCHELLE: 09/22/23 STATUS: COMP REQ : [id number] RECD: 09/22/23-[address]: Lakshmi Wyman MD COMP: 09/22/23 ENTERED: 09/22/[address] [facility] [address]: ORDERED: CBC Auto Diff Test Result Flag Reference WBC 6.6 4.8-10.8 X10*3/uL RBC 5.46 4.60-5.80 X10*6/uL HGB 15.1 14.0-18.0 g/dl HCT 46.1 42.0-52.0 % MCV 84.4 80.0-98.0 fL MCH 27.7 27.0-33.0 pg MCHC 32.8 31.0-36.0 g/dl RDW 14.6 11.0-16.0 % PLT 258 160-400 X10*3/uL MPV 8.8 L 9.4-12.4 fL Neut Pct Auto 58.3 45-73 % ImGran Pct Auto 0.5 H 0.0-0.4 % Lymp Pct Auto 26.9 20-40 % [place] Pct Auto 9.9 2-11 % Eos Pct Auto 3.6 0-4 % Baso Pct Auto 0.8 0-2 % NRBC Pct Auto 0.0 0.0-0.2 /100WBC ANC Neut Abs # 3.8 2.0-8.3 x10*3/uL ImGran Abs Auto 0.03 0.00-0.03 X10*3/uL Lymph Abs Auto 1.8 1.2-4.9 X10*3/uL [place] Abs Auto 0.7 0.1-1.2 X10*3/uL Eos Abs Auto 0.2 0.0-0.4 X10*3/uL Baso Abs Auto 0.1 0.0-0.2 X10*3/uL NRBC Abs Auto 0.000 0.0-0.012 X10*3/uL Name: Albert Becerra Age/Sex: 63/M : 1960 Unit#: [id number] Attend Dr: Lakshmi Wyman MD Re09/22/23 Status: DEP REF Location: [facility] Disch: SPEC : [id number] ROCHELLE: 09/22/23 STATUS: COMP REQ : [id number] RECD: 09/22/[address]: Lakshmi Wyman MD COMP: 09/22/23 ENTERED: 09/22/[address]: ORDERED: CMP Fast, Lipid Panel, Vitamin D 25-OH Test Result Flag Reference Sodium 143 135-145 mmol/L Potassium 4.1 3.3-5.1 mmol/L CL 109 H 96-108 mmol/L CO2 26 22-29 mmol/L Gap 12 12-20 BUN 13 9-16 mg/dL Creat 1.10 0.5-1.4 mg/dL EGFR > 60 NOTE: For -[place] individuals, multiply the result by 1.210. Chronic Kidney Disease: Estimated GFR < 60 mL/min/1.73m2 Severe Kidney Disease: Estimated GFR < 15 mL/min/1.73m2 FBS 113 H 60-99 mg/dL A fasting glucose from 100-125 mg/dl is considered impaired (pre-diabetes). CA 9.2 8.4-10.2 mg/dL Total Bili 0.6 0.0-1.0 mg/dL AST (GOT) 15 5-37 U/L ALT (GPT) 14 0-40 U/L Protein, Total 6.9 6.5-8.0 g/dL Alb 4.3 3.5-5.0 g/dL Triglyceride 167 H <150 mg/dL Desirable Triglyceride: less than 150 mg/dL Borderline High Triglyceride 150-199 mg/dL High Triglyceride: 200-499 mg/dL Very High Triglyceride: greater than or equal to 5OO mg/dL Cholesterol 111 <200 mg/dL Desirable Cholesterol: less than 200 mg/dL Borderline High Cholesterol: 200-239 mg/dL High Cholesterol: greater than 239 mg/dL LDL Calculated 39 <100 mg/dL Desirable LDL: less than 100 mg/dL Near Optimal/Above Optimal LDL: 110-129 mg/dL Borderline High LDL: 130-159 mg/dL High LDL: 160-189 mg/dL Very High LDL: greater than or equal to 190 mg/dL HDL 39 L >40 mg/dL Desirable HDL: greater than 40 mg/dL Note: This HDL assay may give artificially low results in patients with liver disease. Alk Phos 56 39-117 U/L Vit D 25-OH Tot 61.6 >30 ng/mL Health Based Reference Values* < 20 ng/mL Deficient 20-30 ng/mL Insufficient > 30 ng/mL Sufficient SPEC : [id number] ROCHELLE: 09/22/23 STATUS: COMP REQ : [id number] RECD: 09/22/[address]: Lakshmi Wyman MD COMP: 09/22/23 ENTERED: 09/22/[address] [facility] [address]: ORDERED: Hgb A1c Test Result Flag Reference A1c % 6.1 H <6.0 % Hemoglobin A1C Reference Range Adults: 4.8 - 6.0 % Non diabetic: < 6.0 % Goal: < 7.0 % Additional Action Suggested: > 8.0 % Assessment and Plan Assessment & Plan (1) Essential hypertension: Code(s): I10 - Essential (primary) hypertension Plan: Blood pressure at goal of less than 130/80. Continue with current medication. Reinforced importance of following a low sodium diet, getting regular exercise, and lowering stress levels. (2) Dyslipidemia: Code(s): E78.5 - Hyperlipidemia, unspecified Plan: Reviewed recent fasting lipid profile with patient with levels at goal except for slightly elevated triglycerides . Continue atorvastatin 20 mg daily , in addition to adherence to low-cholesterol diet and regular exercise, at least 30 minutes 3 to 4 times a week. Advised patient to make healthy food choices, eat more fruits, vegetables, whole grains, wild caught fish and low-fat dairy. Limit amount of meat and fried or fatty food products, as well as processed foods and fast foods. Follow-up scheduled with repeat fasting lipid panel in January 2024 (3) Type 2 diabetes mellitus without complication, with no history of insulin use: Code(s): E11.9 - Type 2 diabetes mellitus without complications Plan: Recent lab results reviewed with patient, with sugar and hemoglobin A1c stable and at goal . Continue with metformin, Trulicity and Farxiga, continue to check fasting blood sugar at home, maintain log and bring to next appointment for review. Reinforced diabetic diet and regular exercise with patient. He is up-to-date with his yearly diabetes retinopathy screening, sees [facility]. Up-to-date with his diabetes foot exam, sees Dr. Rizzo. . Patient advised to inspect feet daily, for any signs of injury, callus or infection. Compliance with diet and regular exercise again stressed. Blood pressure goal is less than 130/80, goal LDL is less than 100 and goal hemoglobin A1c is less than 7% follow-up appointment made in--01/2024, after fasting labs done. Prevnar 20 given, reminded to get his Shingrix vaccination (4) Vitamin B12 deficiency: Code(s): E53.8 - Deficiency of other specified B group vitamins Plan: Vitamin B12 level again deficient as noted on recent labs done. Will try him 1st on oral vitamin B12 supplements at least a 1000 mcg once a day, recheck another vitamin B12 level in January 2024 Orders: Orders Vitamin D 25-OH Total 01/20/24 E11.9 - Type 2 diabetes mellitus without complications, E53.8 - Deficiency of other specified B group vitamins, E66.01 - Morbid (severe) obesity due to excess calories, E78.5 - Hyperlipidemia, unspecified, I10 - Essential (primary) hypertension Vitamin B12 and Folate 01/20/24 E11.9 - Type 2 diabetes mellitus without complications, E53.8 - Deficiency of other specified B group vitamins, E66.01 - Morbid (severe) obesity due to excess calories, E78.5 - Hyperlipidemia, unspecified, I10 - Essential (primary) hypertension Alanine Aminotransferase 01/20/24 E11.9 - Type 2 diabetes mellitus without complications, E53.8 - Deficiency of other specified B group vitamins, E66.01 - Morbid (severe) obesity due to excess calories, E78.5 - Hyperlipidemia, unspecified, I10 - Essential (primary) hypertension Aspartate Amino Transferase 01/20/24 E11.9 - Type 2 diabetes mellitus without complications, E53.8 - Deficiency of other specified B group vitamins, E66.01 - Morbid (severe) obesity due to excess calories, E78.5 - Hyperlipidemia, unspecified, I10 - Essential (primary) hypertension Basic Metabolic Panel Fasting 01/20/24 E11.9 - Type 2 diabetes mellitus without complications, E53.8 - Deficiency of other specified B group vitamins, E66.01 - Morbid (severe) obesity due to excess calories, E78.5 - Hyperlipidemia, unspecified, I10 - Essential (primary) hypertension Pneumococcal 20 Immunization Today Z23 - Encounter for immunization Lipid Panel 01/20/24 E11.9 - Type 2 diabetes mellitus without complications, E53.8 - Deficiency of other specified B group vitamins, E66.01 - Morbid (severe) obesity due to excess calories, E78.5 - Hyperlipidemia, unspecified, I10 - Essential (primary) hypertension Hemoglobin A1c 01/20/24 E11.9 - Type 2 diabetes mellitus without complications, E53.8 - Deficiency of other specified B group vitamins, E66.01 - Morbid (severe) obesity due to excess calories, E78.5 - Hyperlipidemia, unspecified, I10 - Essential (primary) hypertension Medications: New mecobalamin (vitamin B12) 1,000 mcg PO DAILY 90 tabs 0RF E53.8 - Deficiency of other specified B group vitamins Refilled atorvastatin 20 mg PO DAILY 90 tabs 3RF dulaglutide (Trulicity) 1.5 mg (0.5 mL) subcut QWEEK 3 months 6 mL 1RF E11.65 - Type 2 diabetes mellitus with hyperglycemia metformin 1,000 mg PO BID 180 tabs 3RF Coding Level of Care Code Est Pt Level 4 (28596) Diagnoses Essential hypertension I10 Dyslipidemia E78.5 Type 2 diabetes mellitus without complication, with no history of insulin use E11.9 Vitamin B12 deficiency E53.8 Additional Codes GM-7 Assessment Billing - GM-7 Assessment Tool: GM-7 Assessment 31529 ([id number])
[2023-09-27 11:54] VITALS: BP 114/60; PULSE 86; O2SAT 95; BMI 43.1
== END 2023-09-27 16:06 | disposition home or self-care (01) ==
PROVIDERS: PCP Internal Medicine; Visit Provider Internal Medicine
DX: I10 Essential (primary) hypertension (principal); E78.5 Hyperlipidemia, unspecified; E11.9 Type 2 diabetes mellitus without complications; E53.8 Deficiency of other specified B group vitamins; Z23 Encounter for immunization
CPT/HCPCS: 90471; 90677; 99214

== ENCOUNTER 2023-10-27 07:22 | Outpatient (AMB) | payer MEDICARE, SELFPAY ==
--- NOTE | 2023-10-27 07:29 | MHC.OFFVIS ---
Vital Signs 10/27/23 07:30 Height 5 ft 6 in Weight 267 lb BMI 43.1 BP 142/76 H Blood Pressure Location Rt brachial Position Sitting Respiration 16 Pulse 88 Pulse Source Pulse Oximeter Pulse Oximetry (%) 98 Oxygen Delivery Method Room Air Intake Visit Reasons: 6m fup Tremors LVM w/address Intake Note: Pt presents for a 6 month follow up for gait abnormality. Pt reports sx are worsening. Tube Cleaning Operator Required: No Allergies erythromycin base [ERYTHROMYCIN BASE] Allergy (Unknown, Verified 10/27/23 07:30) DIARRHEA spironolactone [Aldactone] Allergy (Unknown, Verified 10/27/23 07:30) stomach upset dust, mold, grass Allergy (Unknown, Uncoded 10/27/23 07:30) sneezing Medication List - Last Reconciled 10/27/23 by Amirah Tompkins MD amlodipine 10 mg PO DAILY aspirin (Adult Low Dose Aspirin) 81 mg PO DAILY atorvastatin 20 mg PO DAILY carvedilol 25 mg PO BID celecoxib mg PO BID cyanocobalamin (vitamin B-12) Inject 1000 micrograms/mL intramuscularly every week for 4 weeks, then once a month thereafter dapagliflozin propanediol (Farxiga) 10 mg PO DAILY dulaglutide (Trulicity) 1.5 mg (0.5 mL) subcut QWEEK 3 months finasteride 5 mg PO DAILY 90 days mecobalamin (vitamin B12) 1,000 mcg PO DAILY metformin 1,000 mg PO BID OneTouch Delica Plus Lancet (lancets) Test blood sugar once a day NS OneTouch Verio Flex meter (blood-glucose meter) As directed NS OneTouch Verio test strips (blood sugar diagnostic) test blood sugar once a day NS sacubitril-valsartan 97-103 mg 1 tab PO BID tadalafil 5 mg PO DAILY 90 days HPI Comments Details: 63y/o right handed male comes here for follow up of Parkinsons. His FELIX scan was abnormal with bilateral decreased uptake .He feels his left hand tremors have worsened. He has left shoulder tightness. His REM behavior has worsened . He feels his balance is worse. He also has Vit B 12 deficiency and was started on that. he is independent in all his ADLS. Mood is OK. No panic attacks or depression Bowel movements are good Cognition - Ok mild short term issues No hallucinations Past History-He started noticing tremors in his left hand in 2020 He denies any handwriting changes, dressing , eating, showering but feels his left hand tires quickly.He reports poor balance for 2-3 years.He had 2 falls - when he stands and bends forward he feels like his body cannot stop shifting forward. No change in speech or drooling. He has occasional swallowing issues.He has sleep apnea on CPAP.No sleep talking or acting out in his sleep. No memory issues. He denies depression or anxiety. No family history of tremors He denies head or neck injury. No exposure to neuroleptics. He denies constipation. [facility] Medical History Vitamin B12 deficiency Parkinson's disease without dyskinesia or fluctuating manifestations Parkinsons disease Gait abnormality Tremor of left hand Type 2 diabetes mellitus without complication, with no history of insulin use Vitamin D deficiency History of COVID-19 Nocturia Benign non-nodular prostatic hyperplasia with lower urinary tract symptoms Elevated PSA Trigger finger, right middle finger Type 2 diabetes mellitus without complication, with no history of insulin use Osteoarthritis of knees, bilateral Cardiomyopathy Hx of thyroid nodule Dyslipidemia GIN on CPAP Essential hypertension Morbid obesity Diabetes mellitus with hyperglycemia, without long-term current use of insulin Surgical History H/O total knee replacement Hx of colonoscopy History of lobectomy of thyroid Status post lateral meniscus repair Family History Father Diabetes mellitus Cancer of prostate Myocardial infarction Mother HTN (hypertension) Diabetes mellitus CAD (coronary artery disease) Paternal Grandfather Cancer of prostate Brother No problems noted. Brother No problems noted. Sister No problems noted. Sister No problems noted. Social History Housing: House Alcohol intake: never Patient Tobacco Use Status: Never used Tobacco e-Cigarette/Vaping Use: Never Used Second Hand Smoke Exposure: No service: Yes Current occupational status: retired Current occupation: [employer] Current occupational exposures/hazards: Yes Cognitive needs: No Hearing needs: No Vision needs: Yes Physical Exam Vital Signs: Last Vital Signs Pulse 88 10/27/23 07:30 Resp 16 10/27/23 07:30 BP 142/76 H 10/27/23 07:30 Pulse Ox 98 10/27/23 07:30 Oxygen Delivery Method Room Air 10/27/23 07:30 BMI result Body Mass Index 43.1 Const General: cooperative, healthy appearing and comfortable Nutritional Appearance: obese Orientation/consciousness: patient oriented x3 HEENT Head: Yes normal to inspection and Yes normocephalic Eyes Pupils: Equal, round and reactive pupils present Neuro Other: moderate decreased facial expression and blink Intermittent left hand rest tremors today Gait - slow , mild decreased arm swings L>R Left UE cogwheel rigidity 1 + FFM and foot taps decreased eloisa L>R General: patient oriented x3 and moves all extremities Cranial nerves: Yes Facial sensation intact/muscles of mastication intact, Yes Equal, round and reactive pupils present, Yes Bilaterally intact EOM present, Yes Nystagmus not present, Yes Normal facial strength present, Yes Midline tongue present and Yes Symmetric palate elevation present Cognition (Neuro): normal cognition Motor exam (neuro): 5/5 motor strength present throughout Psych Appearance: grossly normal Assessment & Plan Assessment & Plan (1) Parkinson's disease without dyskinesia or fluctuating manifestations: Code(s): G20.A1 - Parkinson's disease without dyskinesia, without mention of fluctuations Category: Medical (2) Vitamin B12 deficiency: Code(s): E53.8 - Deficiency of other specified B group vitamins Category: Medical (3) Gait abnormality: Code(s): R26.9 - Unspecified abnormalities of gait and mobility Category: Medical Plan Discussed FELIX scan results and various medications available for parkinsons disease. will trial him on rasagiline 1mg qd PT for gait training Melatonin 3mg qhs Continue aspirin 81mg qd Vit B 12 supplementation Orders: Orders PT Evaluation and Treatment Today G20.A1 - Parkinson's disease without dyskinesia, without mention of fluctuations Medications: New rasagiline 1 mg PO DAILY 30 tabs 6RF melatonin 3 mg PO BEDTIME 30 caps 6RF sleep Coding Level of Care Code Est Pt Level 4 (32377) Complex EM visit Add On G2211 Diagnoses Parkinson's disease without dyskinesia or fluctuating manifestations G20.A1 Vitamin B12 deficiency E53.8 Gait abnormality R26.9
[2023-10-27 07:30] VITALS: BP 142/76; PULSE 88; RESP 16; O2SAT 98; BMI 43.1
== END 2023-10-27 07:56 | disposition home or self-care (01) ==
PROVIDERS: PCP Internal Medicine; Visit Provider Psychiatry & Neurology Neurology
DX: G20.A1 Parkinson's disease without dyskinesia, without mention of fluctuations (principal); E53.8 Deficiency of other specified B group vitamins; R26.9 Unspecified abnormalities of gait and mobility
CPT/HCPCS: 99214; G2211

== ENCOUNTER → 2023-10-27 07:22 | Outpatient (BNVA) | payer OTHER, SELFPAY | PROVIDERS: PCP Internal Medicine; Visit Provider Psychiatry & Neurology Neurology | DX: G20.A1 Parkinson's disease without dyskinesia, without mention of fluctuations (principal); R26.9 Unspecified abnormalities of gait and mobility; E53.8 Deficiency of other specified B group vitamins; Z79.82 Long term (current) use of aspirin | CPT/HCPCS: 99212 ==

== ENCOUNTER 2023-11-16 09:56 | Outpatient (AMB) | payer MEDICARE, SELFPAY ==
--- NOTE | 2023-11-16 10:15 | A.OFFVIS_ITS ---
Intake Visit Reasons: 6m/PVR Intake Note: Patient is present for Follow Up PVR Urology Med: Finasteride, Antibiotic Allergy: Erythromycin Blood Thinner: Aspirin [facility]acy: [facility] PVR: 33 ML Motor Builder Assembler Required: No Accompanied by: Self / Same As Patient Allergies erythromycin base [ERYTHROMYCIN BASE] Allergy (Unknown, Verified 11/16/23 10:16) DIARRHEA spironolactone [Aldactone] Allergy (Unknown, Verified 11/16/23 10:16) stomach upset dust, mold, grass Allergy (Unknown, Uncoded 11/16/23 10:16) sneezing Medication List - Last Reconciled 11/16/23 by Suhail Chacko MD amlodipine 10 mg PO DAILY aspirin (Adult Low Dose Aspirin) 81 mg PO DAILY atorvastatin 20 mg PO DAILY carvedilol 25 mg PO BID celecoxib mg PO BID cyanocobalamin (vitamin B-12) Inject 1000 micrograms/mL intramuscularly every week for 4 weeks, then once a month thereafter dapagliflozin propanediol (Farxiga) 10 mg PO DAILY dulaglutide (Trulicity) 1.5 mg (0.5 mL) subcut QWEEK 3 months finasteride 5 mg PO DAILY 90 days mecobalamin (vitamin B12) 1,000 mcg PO DAILY melatonin 3 mg PO BEDTIME metformin 1,000 mg PO BID OneTouch Delica Plus Lancet (lancets) Test blood sugar once a day NS OneTouch Verio Flex meter (blood-glucose meter) As directed NS OneTouch Verio test strips (blood sugar diagnostic) test blood sugar once a day NS rasagiline 1 mg PO DAILY sacubitril-valsartan 97-103 mg 1 tab PO BID tadalafil 5 mg PO DAILY 90 days HPI Comments Details: Mr Becerra is a very pleasant male. He is a patient of Dr Wyman. He is seen in the office today for the following urologic conditions. - lower urinary tract symptoms - elevated PSA Six-month follow-up PVR 35 cc Combination finasteride and tadalafil Significant improvement with urgency and frequency using tadalafil Elevated PSA/Abnormal ANTONIO:? Currently stable PSA Continue good response to finasteride He presents for ?further evaluation of elevated PSA ?- biopsy negative 2016 - PSA responded well to finasteride..? Current management is?medication with 5AR.? Laboratory investigations include?a total PSA evaluation ?December 2011 2.1, ?Jan 2016 5.4, ?August 2016 4.4 ?05/07 4.2/14%, 11/05 4.7 11%, 06/07 3.6,?12/07 3.0,?12/08 1.7, 12/09 2.1, 02/09 1.7, 01/10 1.3 ? Imaging investigations include? a transrectal ultrasound ?Yes ? Date ?03/2016 ? Prostate Volume ?50 ? Individualized Prostate Cancer Risk Calculator?Family history of CaP ?Father and Grandfather - father in 60's ?5-10% high risk on PCPT 12/06.? A TRUS biopsy? has ?been performed and is negative 05/06 ? PSA at biopsy ?5 ? His current IPSS? IPSS Score ?0 ? Overall symptoms are?mild.? Associated conditions? diabetes ?Yes ? dyslipidemia ?Yes ? dysuria ?No ? erectile dysfunction ?Yes ? Therapeutic plan will be?continue finasteride [facility] Medical History Vitamin B12 deficiency Parkinson's disease without dyskinesia or fluctuating manifestations Parkinsons disease Gait abnormality Tremor of left hand Type 2 diabetes mellitus without complication, with no history of insulin use Vitamin D deficiency History of COVID-19 Nocturia Benign non-nodular prostatic hyperplasia with lower urinary tract symptoms Elevated PSA Trigger finger, right middle finger Type 2 diabetes mellitus without complication, with no history of insulin use Osteoarthritis of knees, bilateral Cardiomyopathy Hx of thyroid nodule Dyslipidemia GIN on CPAP Essential hypertension Morbid obesity Diabetes mellitus with hyperglycemia, without long-term current use of insulin Surgical History H/O total knee replacement Hx of colonoscopy History of lobectomy of thyroid Status post lateral meniscus repair Family History Father Diabetes mellitus Cancer of prostate Myocardial infarction Mother HTN (hypertension) Diabetes mellitus CAD (coronary artery disease) Paternal Grandfather Cancer of prostate Brother No problems noted. Brother No problems noted. Sister No problems noted. Sister No problems noted. Social History Housing: House Alcohol intake: never Patient Tobacco Use Status: Never used Tobacco e-Cigarette/Vaping Use: Never Used Second Hand Smoke Exposure: No service: Yes Current occupational status: retired Current occupation: [employer] Current occupational exposures/hazards: Yes Cognitive needs: No Hearing needs: No Vision needs: Yes Review of Systems Const Denies chills and Denies fever(s) Card Reports no additional complaints and Denies syncope Resp Denies cough GI Denies abdominal pain and Denies heartburn Reports as per HPI and Denies change in libido Neuro Denies syncope Psych Denies change in libido Endo Denies change in libido Physical Exam Const General: cooperative, healthy appearing, comfortable and no acute distress Orientation/consciousness: patient oriented x3 HEENT Face and sinus: Yes normal facial exam Mouth: moist mucous membranes Neck Neck: Yes normal visual inspection, Yes full ROM and Yes trachea midline Chest Chest palpation & inspection: normal inspection of the chest Resp Effort & Inspection: normal respiratory effort, able to speak in complete sentences and no respiratory distress GI Inspection: Yes normal to inspection Back/Spine/Pelvis Cervical Spine: normal cervical lordosis Thoracic/Lumbar Spine: thoracic and lumbar spine normal to inspection Skin General skin exam: no rashes or lesions noted Neuro General: patient oriented x3, gait normal, tone normal and moves all extremities Extrem General: Yes normal to inspection and Yes capillary refill normal Office Procedures Post Void Residual Post Residual Void Post Void Residual (PVR): 33 [id number] Void Residual by ultrasound Assessment & Plan Assessment & Plan (1) Overactive bladder: Code(s): N32.81 - Overactive bladder Category: Medical (2) Elevated PSA: Code(s): R97.20 - Elevated prostate specific antigen [PSA] Category: Medical Plan Six-month follow-up PVR Orders: Orders AMB Post Void Residual by ultrasound 11/16/23 N39.8 - Other specified disorders of urinary system Medications: Refilled tadalafil Daily medication 5 mg PO DAILY 90 tabs 1RF Urinary urge 90 days R39.15 - Urgency of urination Patient Instructions: Imaging studies, laboratory and physical exam results were discussed and reviewed in detail. No major barriers to patient understanding were identified. An opportunity to ask questions regarding the treatment plan was provided. All questions were answered. The patient expressed understanding and agreement with the above treatment plan. The patient is aware they should contact our office by phone for worsening of their current condition or the appearance of new urologic symptoms. Compliance is encouraged with any medications and followup testing that is ordered. It is a privilege to participate in the urologic care of your patient. If you have any questions or concerns regarding treatment for the above conditions, or other urologic issues, please do not hesitate to contact me. The office telephone contact is [phone]. This note is constructed using voice recognition software. While every effort has been made to ensure accuracy jet blade polisher errors may have been included. Yours sincerely, Dr Suhail Chacko MD, [facility] Providers of Expert, Compassionate Care for the Genitourinary System Coding Level of Care Code Est Pt Level 3 (56290) Diagnoses Overactive bladder N32.81 Elevated PSA R97.20 CPT Codes Post Residual Void - PVR CPT Code: 80223-Qiju Void Residual by ultrasound ([id number])
== END 2023-11-16 10:35 | disposition home or self-care (01) ==
PROVIDERS: PCP Internal Medicine; Visit Provider Urology
DX: N32.81 Overactive bladder (principal); R97.20 Elevated prostate specific antigen [PSA]
CPT/HCPCS: 99213

== ENCOUNTER → 2023-11-16 09:56 | Outpatient (BNVA) | payer MEDICARE, SELFPAY | PROVIDERS: PCP Internal Medicine; Visit Provider Urology | DX: N32.81 Overactive bladder (principal); R97.20 Elevated prostate specific antigen [PSA] | CPT/HCPCS: 51798; 99212 ==

== ENCOUNTER 2024-01-24 10:42 | Outpatient (REF) | payer MEDICARE, SELFPAY ==
[2024-01-24 13:50] LABS: Alanine Aminotransferase 15 U/L (0-40); Anion Gap 13 (12-20); Aspartate Amino Transferase 13 U/L (5-37); Blood Urea Nitrogen 13 mg/dL (9-16); Calcium 8.7 mg/dL (8.4-10.2); Carbon Dioxide 23 mmol/L (22-29); Chloride 108 mmol/L (96-108); Cholesterol 105 mg/dL (<200); Estimated Glomerular Filt Rate > 60; Glucose Fasting 109 mg/dL (60-99); HDL Cholesterol 34 mg/dL (>40); LDL Cholesterol Calculated 44 mg/dL (<100); Potassium 3.8 mmol/L (3.3-5.1); Sodium 140 mmol/L (135-145); Triglycerides 135 mg/dL (<150)
[2024-01-24 14:07] LABS: Vitamin D 25-OH Total 64.9 ng/mL (>30)
[2024-01-24 14:19] LABS: Folate 7.1 ng/mL (> or = 4.0); Vitamin B12 274 pg/mL (200-900)
[2024-01-24 14:30] LABS: Estimated Average Glucose 123 mg/dL; Hemoglobin A1c % 5.9 % (<6.0)
== END 2024-01-24 10:43 | disposition home or self-care (01) ==
LOC: HO.HMGCLDS 10:42
PROVIDERS: PCP Internal Medicine; Visit Provider Internal Medicine
DX: E53.8 Deficiency of other specified B group vitamins (principal); E11.9 Type 2 diabetes mellitus without complications; E78.5 Hyperlipidemia, unspecified; I10 Essential (primary) hypertension; E66.01 Morbid (severe) obesity due to excess calories
CPT/HCPCS: 36415; 80048; 80061; 82306; 82607; 82746; 83036; 84450; 84460

== ENCOUNTER 2024-01-27 10:47 | Outpatient (AMB) | payer MEDICARE, SELFPAY ==
[2024-01-27 11:09] VITALS: BP 124/84; PULSE 81; O2SAT 95; BMI 42.4
--- NOTE | 2024-01-27 11:09 | MHC.PC.OV ---
Vital Signs 01/27/24 11:09 Height 5 ft 6 in Weight 262 lb 8 oz BMI 42.4 BP 124/84 Blood Pressure Location Lt brachial Position Sitting Pulse 81 Pulse Source Pulse Oximeter Pulse Oximetry (%) 95 Oxygen Delivery Method Room Air Intake Visit Reasons: Annual PE Intake Note: Patient us here today for his annual physical. Last colonoscopy 12/26/2021 Allergies erythromycin base [ERYTHROMYCIN BASE] Allergy (Unknown, Verified 01/27/24 11:51) DIARRHEA spironolactone [Aldactone] Allergy (Unknown, Verified 01/27/24 11:51) stomach upset dust, mold, grass Allergy (Unknown, Uncoded 01/27/24 11:51) sneezing Medication List - Last Reconciled 01/27/24 by Lakshmi Wyman MD amlodipine 10 mg PO DAILY aspirin (Adult Low Dose Aspirin) 81 mg PO DAILY atorvastatin 20 mg PO DAILY carvedilol 25 mg PO BID celecoxib mg PO BID dapagliflozin propanediol (Farxiga) 10 mg PO DAILY finasteride 5 mg PO DAILY 90 days mecobalamin (vitamin B12) 1,000 mcg PO DAILY melatonin 3 mg PO BEDTIME metformin 1,000 mg PO BID OneTouch Delica Plus Lancet (lancets) Test blood sugar once a day NS OneTouch Verio Flex meter (blood-glucose meter) As directed NS OneTouch Verio test strips (blood sugar diagnostic) test blood sugar once a day NS rasagiline 1 mg PO DAILY sacubitril-valsartan 97-103 mg 1 tab PO BID tadalafil 5 mg PO DAILY 90 days Trulicity (dulaglutide) 1.5 mg (0.5 mL) subcut QWEEK 1 month NS Tobacco use date assessed: 01/27/24 Fall risk assessment: No Falls in past year Last assessed Fall Risk: 01/27/24 Dental Screening Dental Screen Date: 01/27/24 Did you have a dental visit in the last 12 months?: No Did you have a dental problem in the last 6 months where you did not have access to dental care?: No Was dental information given to patient?: Patient has dentist HPI Annual PE HPI Details 63-year-old male here today for physical exam. . He is up-to-date with his screening colonoscopy last done [address] Sylvester with tubular adenoma removed, repeat due again in 2026. He is currently followed by Urology for benign prostatic hyperplasia and overactive bladder. He has diabetes mellitus, stable and controlled on present treatment. Has Parkinson's disease, followed by Dr. Tompkins, now with resting tremors and gait instability, started on rasagiline 1 mg daily last 11/08/2023 and was referred for physical therapy for gait training but patient states that he never received an appointment Hypertension stable controlled on present treatment, currently on amlodipine and carvedilol. Takes atorvastatin 20 mg daily for his hyperlipidemia which is well controlled He is up-to-date with his diabetes retinopathy screening, goes [facility] in [place] with no retinopathy seen per patient [facility] Medical History (Updated 01/27/24 @ 12:02 by Lakshmi Wyman MD) Annual visit for general adult medical examination with abnormal findings Vitamin B12 deficiency Parkinson's disease without dyskinesia or fluctuating manifestations Parkinsons disease Gait abnormality Tremor of left hand Type 2 diabetes mellitus without complication, with no history of insulin use Vitamin D deficiency History of COVID-19 Nocturia Benign non-nodular prostatic hyperplasia with lower urinary tract symptoms Elevated PSA Trigger finger, right middle finger Type 2 diabetes mellitus without complication, with no history of insulin use Osteoarthritis of knees, bilateral Cardiomyopathy Hx of thyroid nodule Dyslipidemia GIN on CPAP Essential hypertension Morbid obesity Diabetes mellitus with hyperglycemia, without long-term current use of insulin Surgical History H/O total knee replacement Hx of colonoscopy History of lobectomy of thyroid Status post lateral meniscus repair Family History Father Diabetes mellitus Cancer of prostate Myocardial infarction Mother HTN (hypertension) Diabetes mellitus CAD (coronary artery disease) Paternal Grandfather Cancer of prostate Brother No problems noted. Brother No problems noted. Sister No problems noted. Sister No problems noted. Social History Housing: House Alcohol intake: never Patient Tobacco Use Status: Never used Tobacco e-Cigarette/Vaping Use: Never Used Second Hand Smoke Exposure: No service: Yes Current occupational status: retired Current occupation: [employer] Current occupational exposures/hazards: Yes Cognitive needs: No Hearing needs: No Vision needs: Yes Questionnaire PHQ-9 Over the last 2 weeks, how often have you been bothered by any of the following problems? 1. Little interest or pleasure in doing things: several days 2. Feeling down, depressed, or hopeless: not at all 3. Trouble falling or staying asleep, or sleeping too much: several days 4. Feeling tired or having little energy: several days 5. Poor appetite or overeating: not at all 6. Feeling bad about yourself - or that you are a failure or have let yourself or your family down: not at all 7. Trouble concentrating on things, such as reading the newspaper or watching television: not at all 8. Moving or speaking so slowly that other people could have noticed. Or the opposite - being so fidgety or restless that you have been moving around a lot more than usual: not at all 9. Thoughts that you would be better off or of hurting yourself in some way: not at all Total score: 3 Depression Screening Interpretation: Negative Depression Screening Done: Yes [id number] - PHQ-9 Billing: Yes Source: Developed by Drs. Teo Smith, Parris Verdugo, Mario Shipely and colleagues, with an educational dion from [employer]. Thrive Questionnaire Date Thrive assessed: 01/27/24 I am a: Patient What is your living situation today?: I have a steady place to live Within the past 12 months, did the food you bought not last and you didn't have the money to get more?: Never true Within the past 12 months, did you worry whether your food would run out before you got money to buy more?: Never true Do you have trouble paying for medicines?: No Do you have trouble getting transportation to medical appointments?: No Do you have trouble paying your heating and electricity bill?: No Do you have trouble taking care of your child, family member or friend?: No Do you have trouble with day-to-day activities such as bathing, preparing meals, shopping, managing finances, etc.?: No Are you currently unemployed and looking for a job?: No Are you interested in more education?: No Please select the resources that you would like help with: Housing/Senior Living Currently or been in a relationship where the following occur: No concerns reported THRIVE Score: 0 AUDIT C Alcohol Use Questionnaire (AUDIT-C) 1. How often do you have a drink containing alcohol?: Never 3. How often do you have six or more drinks on one occasion?: Never Total Score: 0 Score Reviewed/Action Taken: Yes GM-7 AMB Questionnaire GM-7 Date GM - 7 assessed: 01/27/24 Feeling nervous, anxious, or on edge: 0 = Not at all Not being able to stop or control worryin = Not at all Worrying too much about different things: 0 = Not at all Trouble relaxin = Not at all Being so restless that it is hard to sit still: 0 = Not at all Becoming easily annoyed or irritable: 1 = Several days Feeling afraid as if something awful might happen: 0 = Not at all Total GM-7 score (0-4 normal; 5-9 mild; 10-14 moderate; 15-21 severe): 1 Source: Developed by Drs. Teo Smith, Parris Verdugo, Mario Shipley and colleagues, with an educational dion from [employer]. GM-7 Assessment Billing GM-7 Assessment Tool: GM-7 Assessment 87144 Review of Systems Const Reports no additional complaints Eyes Denies change in vision ENT Details: Decrease in hearing Reports no additional complaints Card Denies chest pain, Denies rapid heart rate, Denies irregular heart rhythm, Denies leg edema, Denies lightheadedness, Denies dyspnea and Denies dyspnea on exertion Resp Denies cough, Denies excessive phlegm production, Denies dyspnea and Denies dyspnea on exertion GI Denies abdominal pain, Denies melena, Denies hematochezia, Denies change in bowel habits and Denies heartburn Reports no additional complaints Musc Reports abnormal gait (Slow gait), Denies arthralgias, Denies joint swelling, Denies limited range of motion and Denies stiffness Skin/Breast Denies pruritus, Denies lesions and Denies rash Neuro Reports abnormal gait (Slow gait), Denies convulsions, Denies Sensory deficit (Neuro) and Reports tremor(s) Psych Reports no additional complaints Endo Reports no additional complaints Mick/Lymph Reports no additional complaints Aller/Immun Reports no additional complaints Physical exam (Primary Care) Vital Signs: Last Vital Signs Pulse 81 01/27/24 11:09 BP 124/84 01/27/24 11:09 Pulse Ox 95 01/27/24 11:09 Oxygen Delivery Method Room Air 01/27/24 11:09 BMI result Body Mass Index 42.4 BMI Assessment/Plan discussion: High BMI High, discussed plan: lifestyle, weight reduction, dietary and physical activity Tobacco/Smoking Status: Tobacco use Status Tobacco use date assessed 01/27/24 01/27/24 11:10 Patient Tobacco Use Status Never used Tobacco 01/27/24 11:10 e-Cigarette/Vaping Use Never Used 01/27/24 11:10 PHQ-9: PHQ-9 Score PHQ-9: Total score 3 01/27/24 11:50 Depression Screening Interpretation: Negative Thrive Assessment: Date of Thrive Assessment Date Thrive assessed 01/27/24 01/27/24 11:11 Currently or been in a relationship where the following occur: No concerns reported Const General: comfortable, no acute distress and Physically active Nutritional Appearance: obese morbidly obese Orientation/consciousness: patient oriented x3 HENMT Face and sinus: Yes normal facial exam and Yes face symmetric Mouth: Normal oral and palatal mucosa present, oropharynx normal and moist mucous membranes Eyes General: appearance normal, both eyes and all related structures Neck Neck: Yes full ROM and Yes no lymphadenopathy Resp Effort & Inspection: normal respiratory effort and able to speak in complete sentences Auscultation: clear to auscultation bilaterally Cardio Rate: regular rate Rhythm: regular rhythm Heart sounds: S1 normal heart sound present and S2 normal heart sound present GI Inspection: Yes obesity Palpation (GI): Soft to palpation, nontender, no guarding and no pulsatile masses Auscultation: normal bowel sounds General: Yes no CVA tenderness Back/Spine/Pelvis Back: no CVA tenderness and No back tenderness Skin General skin exam: no rashes or lesions noted Neuro Other: Positive intention tremors present in both hands General: patient oriented x3 Cognition (Neuro): normal cognition Gait exam (Neuro): Other gait observations present (Slow gait) Motor exam (neuro): 5/5 motor strength present throughout Sensory Exam: No Sensory deficit (Neuro) Extrem General: Yes normal to inspection, Yes full ROM and Yes no pedal edema Psych Appearance: grossly normal and well kempt Mental Status: mental status grossly normal Speech and movement: Normal speech and movement present Affect: normal affect Attitude: cooperative Assessment and Plan Assessment & Plan (1) Annual visit for general adult medical examination with abnormal findings: Code(s): Z00.01 - Encounter for general adult medical examination with abnormal findings Plan: Recent fasting labs reviewed with patient. Continue regular dental visit every 6 months and regular eye exams, currently up-to-date goes once a year. Take adequate calcium in diet and vitamin-D 3 at 2000 IU per cap once a day, in addition to weight-bearing exercises to help maintain good muscle tone and weight control. Up-to-date with his screening colonoscopy due again in 2026, date with his vaccinations but has not yet had Shingrix vaccination (2) Overactive bladder: Code(s): N32.81 - Overactive bladder Plan: Followed by Dr. Chacko currently on finasteride (3) Parkinson's disease without dyskinesia or fluctuating manifestations: Code(s): G20.A1 - Parkinson's disease without dyskinesia, without mention of fluctuations Plan: Followed by Neurology, started on rasagiline, he was referred to physical therapy last 11/08/2023 by neurologist, but patient states that he never received an appointment, advised to follow-up with Neurology regarding referral. (4) Type 2 diabetes mellitus without complication, with no history of insulin use: Code(s): E11.9 - Type 2 diabetes mellitus without complications Plan: Recent lab results reviewed with patient, with sugar and hemoglobin A1c stable and at goal . Continued on Trulicity 1.5 mg once weekly together with metformin a 1000 mg 1 tablet twice a day and Farxiga 10 mg daily continue to check fasting blood sugar at home, maintain log and bring to next appointment for review. Reinforced diabetic diet and regular exercise with patient. Counseled regarding importance of yearly diabetes retinopathy screening. Patient advised to inspect feet daily, for any signs of injury, callus or infection. Compliance with diet and regular exercise again stressed. Blood pressure goal is less than 130/80, goal LDL is less than 100 and goal hemoglobin A1c is less than 7% follow-up appointment made in--6-months, after fasting labs done. (5) Cardiomyopathy: Comment: Ff'd by [facility] Card[facility] Code(s): I42.9 - Cardiomyopathy, unspecified Qualifiers: Cardiomyopathy type: unspecified Qualified Code(s): I42.9 - Cardiomyopathy, unspecified Plan: Followed by cardiology, currently on carvedilol 25 mg 1 tablet twice a day, amlodipine 10 mg daily and aspirin 81 mg daily (6) Dyslipidemia: Code(s): E78.5 - Hyperlipidemia, unspecified Plan: Reviewed recent fasting lipid profile with patient with levels within normal . Continue atorvastatin 20 mg daily , in addition to adherence to low-cholesterol diet and regular exercise, at least 30 minutes 3 to 4 times a week. Advised patient to make healthy food choices, eat more fruits, vegetables, whole grains, wild caught fish and low-fat dairy. Limit amount of meat and fried or fatty food products, as well as processed foods and fast foods. Follow-up scheduled with repeat fasting lipid panel in 6 months. (7) GIN on CPAP: Code(s): G47.33 - Obstructive sleep apnea (adult) (pediatric); Z99.89 - Dependence on other enabling machines and devices Plan: Compliant with see (8) Essential hypertension: Code(s): I10 - Essential (primary) hypertension Plan: Blood pressure at goal of less than 130/80. Continue with current medication. Reinforced importance of following a low sodium diet, getting regular exercise, and lowering stress levels. (9) Morbid obesity: Code(s): E66.01 - Morbid (severe) obesity due to excess calories Plan: Recommended focusing on improving health instead of dieting. Mediterranean diet is a healthy diet that helps, limit food high in fat, sugar, and calories. Eat slowly, pay attention to portion sizes, plan your meals ahead of time, start regular physical activity, Keeping a food diary, tracking what you eat and your physical activity can help assess what improvements you can make. There are many health problems associated with being overweight/obese, so it is important to improve your diet and exercise. There are medications and surgical options available, but Lifestyle changes are the 1st step. Orders: Orders Microalbumin, Random (w Creat) 07/22/24 E11.9 - Type 2 diabetes mellitus without complications, E78.5 - Hyperlipidemia, unspecified, I10 - Essential (primary) hypertension, I42.9 - Cardiomyopathy, unspecified Basic Metabolic Panel Fasting 07/22/24 E11.9 - Type 2 diabetes mellitus without complications, E78.5 - Hyperlipidemia, unspecified, I10 - Essential (primary) hypertension, I42.9 - Cardiomyopathy, unspecified Lipid Panel 07/22/24 E11.9 - Type 2 diabetes mellitus without complications, E78.5 - Hyperlipidemia, unspecified, I10 - Essential (primary) hypertension, I42.9 - Cardiomyopathy, unspecified Vitamin D 25-OH Total 07/22/24 E11.9 - Type 2 diabetes mellitus without complications, E78.5 - Hyperlipidemia, unspecified, I10 - Essential (primary) hypertension, I42.9 - Cardiomyopathy, unspecified Hemoglobin A1c 07/22/24 E11.9 - Type 2 diabetes mellitus without complications, E78.5 - Hyperlipidemia, unspecified, I10 - Essential (primary) hypertension, I42.9 - Cardiomyopathy, unspecified Alanine Aminotransferase 07/22/24 E11.9 - Type 2 diabetes mellitus without complications, E78.5 - Hyperlipidemia, unspecified, I10 - Essential (primary) hypertension, I42.9 - Cardiomyopathy, unspecified Aspartate Amino Transferase 07/22/24 E11.9 - Type 2 diabetes mellitus without complications, E78.5 - Hyperlipidemia, unspecified, I10 - Essential (primary) hypertension, I42.9 - Cardiomyopathy, unspecified Medications: Changed From dulaglutide (Trulicity) 1.5 mg (0.5 mL) subcut QWEEK 3 months 6 mL 1RF E11.65 - Type 2 diabetes mellitus with hyperglycemia To Trulicity (dulaglutide) 1.5 mg (0.5 mL) subcut QWEEK 1 month 2 mL 6RF NS E11.65 - Type 2 diabetes mellitus with hyperglycemia Coding Level of Care Code Est Pt Prev Care >65y(27406) Diagnoses Annual visit for general adult medical examination with abnormal findings Z00.01 Overactive bladder N32.81 Parkinson's disease without dyskinesia or fluctuating manifestations G20.A1 Type 2 diabetes mellitus without complication, with no history of insulin use E11.9 Cardiomyopathy, unspecified type I42.9 Cardiomyopathy type: unspecified Dyslipidemia E78.5 GIN on CPAP G47.33; Z99.89 Essential hypertension I10 Morbid obesity E66.01 Additional Codes GM-7 Assessment Billing - GM-7 Assessment Tool: GM-7 Assessment [id number] ([id number])
== END 2024-01-27 11:50 | disposition home or self-care (01) ==
PROVIDERS: PCP Internal Medicine; Visit Provider Internal Medicine
DX: Z00.00 Encounter for general adult medical examination without abnormal findings (principal); G20.A1 Parkinson's disease without dyskinesia, without mention of fluctuations; E11.9 Type 2 diabetes mellitus without complications; I42.9 Cardiomyopathy, unspecified; E66.01 Morbid (severe) obesity due to excess calories; N32.81 Overactive bladder; E78.5 Hyperlipidemia, unspecified; G47.33 Obstructive sleep apnea (adult) (pediatric); Z99.89 Dependence on other enabling machines and devices; I10 Essential (primary) hypertension
CPT/HCPCS: 99397

== ENCOUNTER 2024-04-06 10:00 | Outpatient (RCR) | payer MEDICARE, SELFPAY ==
--- NOTE | 2024-02-24 10:58 | MHC.PT.EP ---
[facility] [place] [facility] [place] [facility] [place] [facility] [address] Clyde Martinez [address] [phone] F: [phone] F: [phone] F: [phone] F: [phone] Physical Therapy Plan of Care Date of Evaluation: 02/24/24 Date of Surgery: Diagnosis: Unspecified abnormalities of gait and mobility Assessment: Patient is a 63 year old R handed male who presents with s/s consistent with unspecified abnormalities of gain and mobility. He does not work but does enjoy traveling and staying active. He does use a walking stick for prolonged ambulation. Patient past medical history includes heart failure, and R TKA among other co-morbidities. Current impairments include pain, posture, ROM, balance, strength, flexibility, gait mechanics, activity tolerance and functional mobility. Functional limitations include decreased ability to . Patient is motivated with good rehab potential. Skilled PT will address impairments and functional limitations in order to achieve goals. Frequency and Duration: The patient will be seen 2x/week for 5 weeks Short Term Goals: I with HEP - 2 week Min gastroc and HS tightness - 3 weeks Able to walk 10 minutes without needing rest - 3 weeks Intermediate Goals: DGI - 5 weeks LE strength 4+/5 grossly - 5 weeks SLB on foam > 20 seconds - 5 weeks No reported falls for > 1 month - 5 weeks Able to walk 15 minutes without needing rest - 5 weeks Treatment Plan: Modalities to reduce pain, spasms and effusion. Manual therapy to restore motion and function. Therapeutic exercise to improve strength and flexibility. Neuromuscular re-education for posture and balance. Therapeutic activities to return to functional activities of daily living. Electronically signed by: Dwayne Wang, PT Please sign and return to therapist. Thank you for your referral.
--- NOTE | 2024-07-27 13:55 | MHC.PT.DC ---
[facility] [place] Office [place] Office [place] Office [address] Clyde Martinez [address] [phone] F: [phone] F: [phone] F: [phone] F: [phone] Physical Therapy Discharge Report Diagnosis: Unspecified abnormalities of gait and mobility Date of Surgery: Date of Evaluation: 02/24/24 Date of Discharge: 04/08/24 Treatments to Date: 10 Cancellations to Date: No Shows to Date: Discharge Status: Improved Function Independent with HEP Discharge Summary: 04/06/24: pt progressing well with skilled PT. he has been compliant and motivated throughout. he has demonstrated improved activity tolerance, improved gait mechanics with improved heel strike and toeing off. He has improved hip strength, 4+/5 grossly on R, 4/5 on L. He notes more confidence and less apprehension in daily activities. We will plan to d/c to established HEP at this time. I will keep his chart open for 30 days in case of unforeseen challenges transitioning to HEP. 04/04/24: pt fatigued today. he was able to complete program with min s/s otherwise. we will discuss plan moving forward NV. 03/30/24: pt continues to respond well to current program. correcting for balance challenges with ankle strategy primarily with occasional hip strategy. continue to progress as tolerated. 03/28/24: Albert is progressing well with some fatigue noted but otherwise he has been progressing nicely with good balance and safety awareness with more complex movements. 03/24/24: pt challenged with slalom and fatigued at conclusion. progress as tolerated. 03/21/24: pt progressing. challenged today with increased fatigue noted. we have been progressing time/reps with balance activities. 03/16/24: pt progressing well with skilled PT. no adverse reactions from above program. we will progress NV. 03/14/24: responding well to current program. no adverse reactions. some fatigue noted. challenged with balance ex. 03/09/24: pt progressing well with skilled PT. responded well. updated HEP and issued bands. progress as tolerated Patient is a 63 year old R handed male who presents with s/s consistent with unspecified abnormalities of gain and mobility. He does not work but does enjoy traveling and staying active. He does use a walking stick for prolonged ambulation. Patient past medical history includes heart failure, and R TKA among other co-morbidities. Current impairments include pain, posture, ROM, balance, strength, flexibility, gait mechanics, activity tolerance and functional mobility. Functional limitations include decreased ability to . Patient is motivated with good rehab potential. Skilled PT will address impairments and functional limitations in order to achieve goals. Electronically signed by: Dwayne Wang, PT Please sign and return to therapist. Thank you for your referral.
== END 2024-07-27 13:56 | disposition home or self-care (01) ==
LOC: HO.PTCHIC 10:00
PROVIDERS: PCP Internal Medicine; Visit Provider Nurse Practitioner Family
DX: G20.A1 Parkinson's disease without dyskinesia, without mention of fluctuations (principal); R26.9 Unspecified abnormalities of gait and mobility
CPT/HCPCS: 97110; 97163; 97530

== ENCOUNTER 2024-07-07 09:02 | Outpatient (AMB) | payer MEDICARE, SELFPAY ==
--- NOTE | 2024-07-07 09:03 | A.OFFVIS_ITS ---
Intake Visit Reasons: 6m/PVR Intake Note: Patient is present for 6M/PVR Urology Medication:FINASTERIDE,TADALAFIL,VITAMIN B12 Antibiotic Allergy:ERTHROMYCIN Blood Thinner:APIXABAN Last PVR:33ML'S Todays PVR:36ML'S Manager Of Financial Required: No Allergies erythromycin base [ERYTHROMYCIN BASE] Allergy (Unknown, Verified 07/07/24 09:05) DIARRHEA spironolactone [Aldactone] Allergy (Unknown, Verified 07/07/24 09:05) stomach upset dust, mold, grass Allergy (Unknown, Uncoded 07/07/24 09:05) sneezing HPI Comments Details: Mr Becerra is a very pleasant male. He is a patient of Dr Wyman. He is seen in the office today for the following urologic conditions. - lower urinary tract symptoms - elevated PSA Six-month follow-up PVR 35 Combination finasteride and tadalafil Bladder stability continues Adequate urinary parameters Elevated PSA/Abnormal ANTONIO:? Currently stable PSA Continue good response to finasteride He presents for ?further evaluation of elevated PSA ?- biopsy negative 2015 - PSA responded well to finasteride..? Current management is?medication with 5AR.? Laboratory investigations include?a total PSA evaluation ?December 2011 2.1, ?Jan 2016 5.4, ?August 2016 4.4 ?05/07 4.2/14%, 11/05 4.7 11%, 06/07 3.6,?12/07 3.0,?12/08 1.7, 12/09 2.1, 02/09 1.7, 01/10 1.3 ? Imaging investigations include? a transrectal ultrasound ?Yes ? Date ?03/2016 ? Prostate Volume ?50 ? Individualized Prostate Cancer Risk Calculator?Family history of CaP ?Father and Grandfather - father in 60's ?5-10% high risk on PCPT 6/18.? A TRUS biopsy? has ?been performed and is negative 05/06 ? PSA at biopsy ?5 ? His current IPSS? IPSS Score ?0 ? Overall symptoms are?mild.? Associated conditions? diabetes ?Yes ? dyslipidemia ?Yes ? dysuria ?No ? erectile dysfunction ?Yes ? Therapeutic plan will be?continue finasteride [facility] Medical History (Updated 01/27/24 @ 12:02 by Lakshmi Wyman MD) Annual visit for general adult medical examination with abnormal findings Vitamin B12 deficiency Parkinson's disease without dyskinesia or fluctuating manifestations Parkinsons disease Gait abnormality Tremor of left hand Type 2 diabetes mellitus without complication, with no history of insulin use Vitamin D deficiency History of COVID-19 Nocturia Benign non-nodular prostatic hyperplasia with lower urinary tract symptoms Elevated PSA Trigger finger, right middle finger Type 2 diabetes mellitus without complication, with no history of insulin use Osteoarthritis of knees, bilateral Cardiomyopathy Hx of thyroid nodule Dyslipidemia GIN on CPAP Essential hypertension Morbid obesity Diabetes mellitus with hyperglycemia, without long-term current use of insulin Surgical History H/O total knee replacement Hx of colonoscopy History of lobectomy of thyroid Status post lateral meniscus repair Family History Father Diabetes mellitus Cancer of prostate Myocardial infarction Mother HTN (hypertension) Diabetes mellitus CAD (coronary artery disease) Paternal Grandfather Cancer of prostate Brother No problems noted. Brother No problems noted. Sister No problems noted. Sister No problems noted. Social History Housing: House Alcohol intake: never Patient Tobacco Use Status: Never used Tobacco e-Cigarette/Vaping Use: Never Used Second Hand Smoke Exposure: No service: Yes Current occupational status: retired Current occupation: [employer] Current occupational exposures/hazards: Yes Cognitive needs: No Hearing needs: No Vision needs: Yes Review of Systems Const Denies chills and Denies fever(s) Card Reports no additional complaints and Denies syncope Resp Denies cough GI Denies abdominal pain and Denies heartburn Reports as per HPI and Denies change in libido Neuro Denies syncope Psych Denies change in libido Endo Denies change in libido Physical Exam Const General: cooperative, healthy appearing, comfortable and no acute distress Orientation/consciousness: patient oriented x3 HEENT Face and sinus: Yes normal facial exam Mouth: moist mucous membranes Neck Neck: Yes normal visual inspection, Yes full ROM and Yes trachea midline Chest Chest palpation & inspection: normal inspection of the chest Resp Effort & Inspection: normal respiratory effort, able to speak in complete sentences and no respiratory distress GI Inspection: Yes normal to inspection Back/Spine/Pelvis Cervical Spine: normal cervical lordosis Thoracic/Lumbar Spine: thoracic and lumbar spine normal to inspection Skin General skin exam: no rashes or lesions noted Neuro General: patient oriented x3, gait normal, tone normal and moves all extremities Extrem General: Yes normal to inspection and Yes capillary refill normal Office Procedures Post Void Residual Post Residual Void Post Void Residual (PVR): 36 [id number] Void Residual by ultrasound Results AMB Urinalysis, Automated UA Leukoctes 0 Darell/uL Last Edit by KAROLINA Dias on 07/07/24 09:14 UA Nitrite Negative Last Edit by KAROLINA Dias on 07/07/24 09:14 UA Urobilinogen 0.2 mg/dL Last Edit by KAROLINA Dias on 07/07/24 09:1 4 UA Protein 0 mg/dL Last Edit by KAROLINA Dias on 07/07/24 09:14 UA pH 6.0 Last Edit by KAROLINA Dias on 07/07/24 09:14 UA Blood 0 Eliel/uL Last Edit by KAROLINA Dias on 07/07/24 09:14 UA Specific [place] 1.005 Last Edit by KAROLINA Dias on 07/07/24 09: 14 UA Ketone Negative Last Edit by KAROLINA Dias on 07/07/24 09:14 UA Bilirubin 0 mg/dL Last Edit by KAROLINA Dias on 07/07/24 09:14 UA Glucose 1000 mg/dL Last Edit by KAROLINA Dias on 07/07/24 09:14 Results Reviewed Results Reviewed: Laboratory Last Values Urine pH (Auto) 6.0 07/07/24 09:14 Specific [place] (Auto) 1.005 07/07/24 09:14 Urine Protein (Auto) 0 mg/dL 07/07/24 09:14 Glucose (UA)(Auto) 1000 mg/dL 07/07/24 09:14 Urine Ketones (Auto) Negative 07/07/24 09:14 Urine Blood (Auto) 0 Eliel/uL 07/07/24 09:14 Urine Nitrite (Auto) Negative 07/07/24 09:14 Urine Bilirubin (Auto) 0 mg/dL 07/07/24 09:14 Urine Urobilinogen (Auto) 0.2 mg/dL 07/07/24 09:14 Leukocyte Esterase (Auto) 0 Darell/uL 07/07/24 09:14 Assessment & Plan Assessment & Plan (1) Benign non-nodular prostatic hyperplasia with lower urinary tract symptoms: Code(s): N40.1 - Benign prostatic hyperplasia with lower urinary tract symptoms Category: Medical (2) Overactive bladder: Code(s): N32.81 - Overactive bladder Category: Medical Plan Six-month follow-up Orders: Orders AMB Urinalysis Automated Today Z13.9 - Encounter for screening, unspecified Medications: Refilled tadalafil Daily medication 5 mg PO DAILY 90 tabs 1RF Urinary urge 90 days R39.15 - Urgency of urination Patient Instructions: Imaging studies, laboratory and physical exam results were discussed and reviewed in detail. No major barriers to patient understanding were identified. An opportunity to ask questions regarding the treatment plan was provided. All questions were answered. The patient expressed understanding and agreement with the above treatment plan. The patient is aware they should contact our office by phone for worsening of their current condition or the appearance of new urologic symptoms. Compliance is encouraged with any medications and followup testing that is ordered. It is a privilege to participate in the urologic care of your patient. If you have any questions or concerns regarding treatment for the above conditions, or other urologic issues, please do not hesitate to contact me. The office telephone contact is [phone]. This note is constructed using voice recognition software. While every effort has been made to ensure accuracy carpet installation specialist errors may have been included. Yours sincerely, Dr Suhail Chacko MD, [facility] - Urology Providers of Expert, Compassionate Care for the Genitourinary System Coding Level of Care Code Est Pt Level 3 (41887) Diagnoses Benign non-nodular prostatic hyperplasia with lower urinary tract symptoms N40.1 Overactive bladder N32.81 CPT Codes Post Residual Void - PVR CPT Code: 16013-Hhix Void Residual by ultrasound ([id number])
== END 2024-07-07 10:15 | disposition home or self-care (01) ==
PROVIDERS: PCP Internal Medicine; Visit Provider Urology
DX: N40.1 Benign prostatic hyperplasia with lower urinary tract symptoms (principal); N32.81 Overactive bladder; Z13.9 Encounter for screening, unspecified
CPT/HCPCS: 99213

== ENCOUNTER → 2024-07-07 09:02 | Outpatient (BNVA) | payer MEDICARE, SELFPAY | PROVIDERS: PCP Internal Medicine; Visit Provider Urology | DX: N40.1 Benign prostatic hyperplasia with lower urinary tract symptoms (principal); N32.81 Overactive bladder | CPT/HCPCS: 51798; 81003; 99212 ==

== ENCOUNTER 2024-07-27 10:18 | Outpatient (REF) | payer MEDICARE, SELFPAY ==
[2024-07-27 13:19] LABS: Alanine Aminotransferase 16 U/L (0-40); Anion Gap 9 (12-20); Aspartate Amino Transferase 20 U/L (5-37); Blood Urea Nitrogen 12 mg/dL (9-16); Calcium 9.3 mg/dL (8.4-10.2); Carbon Dioxide 24 mmol/L (22-29); Chloride 108 mmol/L (96-108); Cholesterol 115 mg/dL (<200); Estimated Glomerular Filt Rate > 60; Glucose Fasting 109 mg/dL (60-99); HDL Cholesterol 40 mg/dL (>40); LDL Cholesterol Calculated 54 mg/dL (<100); Potassium 4.4 mmol/L (3.3-5.1); Sodium 137 mmol/L (135-145); Triglycerides 106 mg/dL (<150)
[2024-07-27 13:25] LABS: Estimated Average Glucose 128 mg/dL; Hemoglobin A1C 168.2704 umol/L; Hemoglobin A1c % 6.1 % (<6.0); Total Hemoglobin (HGBA1C) 3856.6319 umol/L
[2024-07-27 13:29] LABS: Creatinine Urine 40.12 mg/dL; Microalbum/Creatinine Ratio Ur 47.3 ug/mg cr (<30)
[2024-07-27 13:37] LABS: Vitamin D 25-OH Total 58.3 ng/mL (>30)
== END 2024-07-27 10:19 | disposition home or self-care (01) ==
LOC: HO.HMGCLDS 10:18
PROVIDERS: PCP Internal Medicine; Visit Provider Internal Medicine
DX: E11.9 Type 2 diabetes mellitus without complications (principal); I42.9 Cardiomyopathy, unspecified; E78.5 Hyperlipidemia, unspecified; I10 Essential (primary) hypertension
CPT/HCPCS: 36415; 80048; 80061; 82043; 82306; 82570; 83036; 84450; 84460

== ENCOUNTER 2024-07-31 11:31 | Outpatient (AMB) | payer MEDICARE, SELFPAY ==
[2024-07-31 11:36] VITALS: BP 135/80; PULSE 71; TEMP 36.7; O2SAT 96; BMI 42.0
--- NOTE | 2024-07-31 11:36 | A.OFFPC_ITS ---
Vital Signs 07/31/24 11:36 Height 5 ft 6 in Weight 260 lb BMI 42.0 BP 135/80 Blood Pressure Location Lt brachial Position Sitting Pulse 71 Pulse Source Pulse Oximeter Temp 98.0 F Temp Source Oral Pulse Oximetry (%) 96 Oxygen Delivery Method Room Air Intake Visit Reasons: 6 Mo Follow Up Intake Note: Pt is here today for his 6mo. f/u Allergies erythromycin base [ERYTHROMYCIN BASE] Allergy (Unknown, Verified 07/31/24 12:02) DIARRHEA spironolactone [Aldactone] Allergy (Unknown, Verified 07/31/24 12:02) stomach upset dust, mold, grass Allergy (Unknown, Uncoded 07/31/24 12:02) sneezing Medication List - Last Reconciled 07/31/24 by Lakshmi Wyman MD amlodipine 10 mg PO DAILY aspirin (Adult Low Dose Aspirin) 81 mg PO DAILY atorvastatin 20 mg PO DAILY carvedilol 25 mg PO BID celecoxib mg PO BID cyanocobalamin (vitamin B-12) 1,000 mcg PO DAILY dapagliflozin propanediol (Farxiga) 10 mg PO DAILY finasteride 5 mg PO DAILY 90 days melatonin 3 mg PO BEDTIME metformin 1,000 mg PO BID OneTouch Delica Plus Lancet (lancets) Test blood sugar once a day NS OneTouch Verio Flex meter (blood-glucose meter) As directed NS OneTouch Verio test strips (blood sugar diagnostic) test blood sugar once a day NS rasagiline 1 mg PO DAILY sacubitril-valsartan 97-103 mg 1 tab PO BID tadalafil 5 mg PO DAILY 90 days Trulicity (dulaglutide) 1.5 mg (0.5 mL) subcut QWEEK 1 month NS Tobacco use date assessed: 07/31/24 Fall risk assessment: 1 Fall in past year Last assessed Fall Risk: 07/31/24 Dental Screening Dental Screen Date: 07/31/24 Did you have a dental visit in the last 12 months?: No Did you have a dental problem in the last 6 months where you did not have access to dental care?: No Was dental information given to patient?: Patient has dentist HPI 6 Mo Follow Up HPI Details 64-year-old male with diabetes mellitus, hypertension, and dyslipidemia, here today for follow-up. Has been taking his medicines as directed, but admits to not being very compliant with his diet and has not been very active lately due to his Parkinson's. [facility] Medical History (Updated 07/31/24 @ 12:03 by Lakshmi Wyman MD) Annual visit for general adult medical examination with abnormal findings Vitamin B12 deficiency Parkinson's disease without dyskinesia or fluctuating manifestations Parkinsons disease Gait abnormality Tremor of left hand Type 2 diabetes mellitus without complication, with no history of insulin use Vitamin D deficiency History of COVID-19 Nocturia Benign non-nodular prostatic hyperplasia with lower urinary tract symptoms Elevated PSA Trigger finger, right middle finger Type 2 diabetes mellitus without complication, with no history of insulin use Osteoarthritis of knees, bilateral Cardiomyopathy Hx of thyroid nodule Dyslipidemia GIN on CPAP Essential hypertension Morbid obesity Diabetes mellitus with hyperglycemia, without long-term current use of insulin Surgical History H/O total knee replacement Hx of colonoscopy History of lobectomy of thyroid Status post lateral meniscus repair Family History Father Diabetes mellitus Cancer of prostate Myocardial infarction Mother HTN (hypertension) Diabetes mellitus CAD (coronary artery disease) Paternal Grandfather Cancer of prostate Brother No problems noted. Brother No problems noted. Sister No problems noted. Sister No problems noted. Social History Housing: House Alcohol intake: never Patient Tobacco Use Status: Never used Tobacco e-Cigarette/Vaping Use: Never Used Second Hand Smoke Exposure: No service: Yes Current occupational status: retired Current occupation: [employer] Current occupational exposures/hazards: Yes Cognitive needs: No Hearing needs: No Vision needs: Yes Questionnaire PHQ-9 Over the last 2 weeks, how often have you been bothered by any of the following problems? 1. Little interest or pleasure in doing things: not at all 2. Feeling down, depressed, or hopeless: not at all 3. Trouble falling or staying asleep, or sleeping too much: not at all 4. Feeling tired or having little energy: several days 5. Poor appetite or overeating: several days 6. Feeling bad about yourself - or that you are a failure or have let yourself or your family down: not at all 7. Trouble concentrating on things, such as reading the newspaper or watching television: not at all 8. Moving or speaking so slowly that other people could have noticed. Or the opposite - being so fidgety or restless that you have been moving around a lot more than usual: not at all 9. Thoughts that you would be better off or of hurting yourself in some way: not at all Total score: 2 Depression Screening Interpretation: Negative Depression Screening Done: Yes 58376 - PHQ-9 Billing: Yes Source: Developed by Drs. Teo Smith, Parris Verdugo, Mario Shipley and colleagues, with an educational dion from [employer]. Thrive Questionnaire Date Thrive assessed: 07/31/24 I am a: Patient What is your living situation today?: I have a steady place to live Within the past 12 months, did the food you bought not last and you didn't have the money to get more?: Never true Within the past 12 months, did you worry whether your food would run out before you got money to buy more?: Never true Do you have trouble paying for medicines?: No Do you have trouble getting transportation to medical appointments?: No Do you have trouble paying your heating and electricity bill?: No Do you have trouble taking care of your child, family member or friend?: No Do you have trouble with day-to-day activities such as bathing, preparing meals, shopping, managing finances, etc.?: No Are you currently unemployed and looking for a job?: No Are you interested in more education?: No Please select the resources that you would like help with: None Currently or been in a relationship where the following occur: No concerns reported THRIVE Score: 0 AUDIT C Alcohol Use Questionnaire (AUDIT-C) 1. How often do you have a drink containing alcohol?: Monthly or less 2. How many drinks containing alcohol do you have on a typical day when you are drinking?: 1 or 2 3. How often do you have six or more drinks on one occasion?: Never Total Score: 1 GM-7 AMB Questionnaire GM-7 Date GM - 7 assessed: 07/31/24 Feeling nervous, anxious, or on edge: 1 = Several days Not being able to stop or control worryin = Not at all Worrying too much about different things: 0 = Not at all Trouble relaxin = Not at all Being so restless that it is hard to sit still: 1 = Several days Becoming easily annoyed or irritable: 1 = Several days Feeling afraid as if something awful might happen: 0 = Not at all Total GM-7 score (0-4 normal; 5-9 mild; 10-14 moderate; 15-21 severe): 3 Source: Developed by Drs. Teo Smith, Parris Verdugo, Mario Shipley and colleagues, with an educational dion from [employer]. GM-7 Assessment Billing GM-7 Assessment Tool: GM-7 Assessment 65153 Review of Systems Const Denies chills and Denies fever(s) Eyes Denies change in vision ENT Reports no additional complaints Card Reports no additional complaints and Denies syncope Resp Denies cough GI Denies abdominal pain and Denies heartburn Reports as per HPI and Denies change in libido Musc Reports no additional complaints Skin/Breast Denies rash Neuro Denies syncope and Denies Sensory deficit (Neuro) Psych Denies change in libido Endo Denies change in libido Mick/Lymph Reports no additional complaints Aller/Immun Reports no additional complaints Physical exam (Primary Care) Vital Signs: Last Vital Signs Temp 98.0 F 07/31/24 11:36 Pulse 71 07/31/24 11:36 BP 135/80 07/31/24 11:36 Pulse Ox 96 07/31/24 11:36 Oxygen Delivery Method Room Air 07/31/24 11:36 BMI result Body Mass Index 42.0 BMI Assessment/Plan discussion: High BMI High, discussed plan: lifestyle, weight reduction, dietary and physical activity Tobacco/Smoking Status: Tobacco use Status Tobacco use date assessed 07/31/24 07/31/24 11:38 Patient Tobacco Use Status Never used Tobacco 07/31/24 11:38 e-Cigarette/Vaping Use Never Used 07/31/24 11:38 PHQ-9: PHQ-9 Score PHQ-9: Total score 3 07/31/24 12:10 Depression Screening Interpretation: Negative Thrive Assessment: Date of Thrive Assessment Date Thrive assessed 07/31/24 07/31/24 11:38 Currently or been in a relationship where the following occur: No concerns reported Const General: comfortable and no acute distress Nutritional Appearance: obese morbidly obese Orientation/consciousness: patient oriented x3 HENMT Face and sinus: Yes normal facial exam and Yes face symmetric Mouth: Normal oral and palatal mucosa present, oropharynx normal and moist mucous membranes Eyes General: appearance normal, both eyes and all related structures Neck Neck: Yes full ROM and Yes no lymphadenopathy Resp Effort & Inspection: normal respiratory effort and able to speak in complete sentences Auscultation: clear to auscultation bilaterally Cardio Rate: regular rate Rhythm: regular rhythm Heart sounds: S1 normal heart sound present and S2 normal heart sound present GI Inspection: Yes obesity Palpation (GI): Soft to palpation, nontender, no guarding and no pulsatile masses Auscultation: normal bowel sounds General: Yes no CVA tenderness Back/Spine/Pelvis Back: no CVA tenderness and No back tenderness Skin General skin exam: no rashes or lesions noted Neuro Other: Positive intention tremors present in both hands General: patient oriented x3 Cognition (Neuro): normal cognition Gait exam (Neuro): Other gait observations present (Slow gait) Motor exam (neuro): 5/5 motor strength present throughout Sensory Exam: No Sensory deficit (Neuro) Extrem General: Yes normal to inspection, Yes full ROM and Yes no pedal edema Psych Appearance: grossly normal and well kempt Mental Status: mental status grossly normal Speech and movement: Normal speech and movement present Affect: normal affect Attitude: cooperative Results Reviewed Results Reviewed: Name: Albert Becerra Age/Sex: 64/M : 1960 Unit#: [id number] Attend Dr: Lakshmi Wyman MD Re07/27/24 Status: DEP REF Location: [facility] Disch: SPEC : [id number] ROCHELLE: 07/27/24-1021 STATUS: COMP REQ : [id number] RECD: 07/27/24-[address]: Lakshmi Wyman MD COMP: 07/27/24 ENTERED: 07/27/24-[address]: ORDERED: Met Prof Fast, AST, ALT, Lipid Panel, Vitamin D 25-OH Test Result Flag Reference Sodium 137 135-145 mmol/L Potassium 4.4 3.3-5.1 mmol/L CL 108 96-108 mmol/L CO2 24 22-29 mmol/L Gap 9 L 12-20 BUN 12 9-16 mg/dL Creat 1.08 0.5-1.4 mg/dL eGFR > 60 Chronic Kidney Disease: Estimated GFR < 60 mL/min/1.73m2 Severe Kidney Disease: Estimated GFR < 15 mL/min/1.73m2 FBS 109 H 60-99 mg/dL A fasting glucose from 100-125 mg/dl is considered impaired (pre-diabetes). CA 9.3 # 8.4-10.2 mg/dL AST (GOT) 20 5-37 U/L ALT (GPT) 16 0-40 U/L Triglyceride 106 <150 mg/dL Desirable Triglyceride: less than 150 mg/dL Borderline High Triglyceride 150-199 mg/dL High Triglyceride: 200-499 mg/dL Very High Triglyceride: greater than or equal to 5OO mg/dL Cholesterol 115 <200 mg/dL Desirable Cholesterol: less than 200 mg/dL Borderline High Cholesterol: 200-239 mg/dL High Cholesterol: greater than 239 mg/dL LDL Calculated 54 <100 mg/dL Desirable LDL: less than 100 mg/dL Near Optimal/Above Optimal LDL: 110-129 mg/dL Borderline High LDL: 130-159 mg/dL High LDL: 160-189 mg/dL Very High LDL: greater than or equal to 190 mg/dL HDL 40 L >40 mg/dL Desirable HDL: greater than 40 mg/dL Note: This HDL assay may give artificially low results in patients with liver disease. Vit D 25-OH Tot 58.3 >30 ng/mL Health Based Reference Values* < 20 ng/mL Deficient 20-30 ng/mL Insufficient > 30 ng/mL Sufficient Laboratory Tests 07/27/24 10:22 Estimat Average Glucose 128 Hemoglobin A1c % 6.1 H Laboratory Tests 07/27/24 10:30 Urine Creatinine 40.12 Urine Microalbumin 19.0 Microalb/Creat Ratio 47.3 H Coding Level of Care Code Est Pt Level 4 (15297) Complex EM visit Add On G2211 Diagnoses Essential hypertension I10 Dyslipidemia E78.5 Type 2 diabetes mellitus without complication, with no history of insulin use E11.9 Additional Codes PHQ-9 - 78910 - PHQ-9 Billing: Yes ([id number]) GM-7 Assessment Billing - GM-7 Assessment Tool: GM-7 Assessment 67440 ([id number]) Assessment & Plan Assessment & Plan (1) Essential hypertension: Code(s): I10 - Essential (primary) hypertension Category: Medical Plan: Blood pressure at goal of less than 130/80. Continue with current medication. Reinforced importance of following a low sodium diet, getting regular exercise, and lowering stress levels. (2) Dyslipidemia: Code(s): E78.5 - Hyperlipidemia, unspecified Category: Medical Plan: Reviewed recent fasting lipid profile with patient with levels within normal limits . Continue atorvastatin 20 mg daily , in addition to adherence to low-cholesterol diet and regular exercise, at least 30 minutes 3 to 4 times a week. Advised patient to make healthy food choices, eat more fruits, vegetables, whole grains, wild caught fish and low-fat dairy. Limit amount of meat and fried or fatty food products, as well as processed foods and fast foods. Follow-up scheduled with repeat fasting lipid panel in 3 months. (3) Type 2 diabetes mellitus without complication, with no history of insulin use: Code(s): E11.9 - Type 2 diabetes mellitus without complications Category: Medical Plan: Diabetes mellitus stable controlled, with hemoglobin A1c at 6.1%. Continue with Farxiga mg daily and metformin a 1000 mg twice a day in addition to Trulicity 1.5 mg once a week. Orders: Orders Lipid Panel 10/19/24 E11.9 - Type 2 diabetes mellitus without complications, E78.5 - Hyperlipidemia, unspecified, I10 - Essential (primary) hypertension Basic Metabolic Panel Fasting 10/19/24 E11.9 - Type 2 diabetes mellitus without complications, E78.5 - Hyperlipidemia, unspecified, I10 - Essential (primary) hypertension Aspartate Amino Transferase 10/19/24 E11.9 - Type 2 diabetes mellitus without complications, E78.5 - Hyperlipidemia, unspecified, I10 - Essential (primary) hypertension Alanine Aminotransferase 10/19/24 E11.9 - Type 2 diabetes mellitus without complications, E78.5 - Hyperlipidemia, unspecified, I10 - Essential (primary) hypertension Hemoglobin A1c 10/19/24 E11.9 - Type 2 diabetes mellitus without complications, E78.5 - Hyperlipidemia, unspecified, I10 - Essential (primary) hypertension
--- OUTSIDE RECORDS SUMMARY | 2024-07-31 12:49 | XMS_ITS ---
Author Organization [facility] Address [address] [place] [address] Care Team Providers Care Web Content Writer Name Role Phone Garo CONDE, Lakshmi Kovacs Primary Care Provider Un available Nakul Rizzo Unavailable [phone] Allergies Allergen (clinical drug ingredient) Drug/Non Drug Allergy documented on EMR Reaction Allergy Type Onset Date Status spironolactone Aldactone Unknown Drug Allergy Ac tive erythromycin Erythromycin GI upset Drug Allergy A ctive REASON FOR VISIT At Risk Footcare, Painful Nail(s) aggrevated by shoes and causing difficulty standing/walking., ToeIrritation Medications Medication SIG (Take, Route, Frequency, Duration) Notes Start Date End Date Status Aspir-81 Active Proscar 5 MG 1 tablet Orally Once a day for 30 day(s) Active metFORMIN HCl 1000 MG 1 tablet with a me al Orally Once a day for 30 day(s) Active Atorvastatin Calcium 20 MG 1 tablet Orally Once a day for 30 day(s) Active Entresto 97-103 MG 1 tablet Orally Twic e a day for 30 day(s) Active Coreg 25 MG 1 tablet with food Orally Twice a day for 30 day(s) Active Tadalafil 5 MG 1 tablet as needed Orally Once a day for 30 day(s) Active Farxiga 10 MG 1 tablet Orally Once a day for 30 day(s) Active B12 monthly inj Active Melatonin Active Extra Depth Orthopedic Shoes (1 Pair) with Customized Heat Molded Multidensity Innersoles (3 Pair) as directed Dx: NIDDM (E11.9), Hammertoe Foot Deformity (M20.41,M20.42), Preulcerative Skin Lesion(s) (L85.1) 06/13/2024 Active Compression Stockings 20-30mm Hg 1 pair wear daily for 30 days Not-Taking Heather Not-Taking CeleBREX 200 MG 1 capsule with food Orally Twice a day Not-Taking Trulicity 1.5 MG/0.5ML as directed Subcutaneous Active Norvasc 10 MG 1 tablet Orally Once a day for 30 day(s) Active Social History Tobacco Use: Social History Observation Description Date Details (start date - stop date) Never Smoker NA - NA Tobacco Use/Smoking Question Answer Notes Are you a: nonsmoker Tobacco use other than smoking: Question Answer Notes Are you an other tobacco user? No Vital Signs Height 5ft6in in 06/13/2024 Weight 256 lbs 06/13/2024 BMI 41.31 kg/m2 06/13/2024 Blood pressure systolic 128 mm Hg 06/13/20 Blood pressure diastolic 80 mm Hg 024 Procedures Procedure Date Ordered Date Performed Result Body Sit e 69421-EDMNCKA NAIL, 6 OR MORE 06/13/2024 N/A Encounters Encounter Location Date Provider Diagnosis [facility] [address] [place] [address] 06/13/2024 Nakul Rizzo Tinea unguium B35.1 ; Other hammer toe(s) (acquired), right foot M20.41 ; Pain in right toe(s) M79.674 ; Pain in left toe(s) M79.675 ; Type 2 diabetes mellitus without complication E11.9 and Other hammer toe(s) (acquired), left foot M20.42 Assessments Encounter Date Diagnosis (ICD Code) Assessment Notes Treatment Notes Treatment Clinical Notes Section Notes 06/13/2024 Tinea unguium (ICD-10 - B35.1) 06/13/2024 Other hammer toe(s) (acquired), right foot (ICD-10 - M20.41) Patient Educated with: DIABETIC FOOT CARE INSTRUCTIONS.p df (DIABETIC FOOT CARE INSTRUCTIONS.p df) 06/13/2024 Pain in right toe(s) (ICD-10 - M79.674) 06/13/2024 Pain in left toe(s) (ICD-10 - M79.675) 06/13/2024 Type 2 diabetes mellitus without complication (ICD-10 - E11.9) 06/13/2024 Other hammer toe(s) (acquired), left foot (ICD-10 - M20.42) Plan Of Treatment Medication Medication Name Sig Start Date Stop Date Notes Extra Depth Orthopedic Shoes (1 Pair) with Customized Heat Molded Multidensity Innersoles (3 Pair) as directed Dx: NIDDM (E11.9), Hammertoe Foot Deformity (M20.41,M20.42), Preulcerative Skin Lesion(s) (L85.1) 06/13/2024 Treatment Notes Assessment Notes Other hammer toe(s) (acquired), right fo ot Patient Educated with: DIABETIC FOOT CARE INSTRUCTIONS.pdf (DIABETIC FOOT CARE INSTRUCTIONS.pdf) Pending Test Test Name Order Date [id number] NAIL, 6 OR MORE 06/13/2024 Next Appt Details Follow Up: prn, Reason: Provider Name:Nakul Rizzo , 09/15/2024 10:30:00 AM, [address] [place] [address], [id number], Procedure Notes * Category Sub-Category Detail Notes Debride Nail 6-10 Nail debridement Due to the cl inical pathology outlined in the exam findings, performance of this nail treatment is medically necessary as its management by an unskilled/untrained nonprofessional would put this patients foot and overall health at risk. Therefore, debridement to affected nail(s), as described in exam ( TA, T1, T2, T3, T4, T5, T6, T7, T8, T9), was performed exclusively by the physician of record to reduce/remove overall nail length, girth, thickness, subungual debris, and necrotic tissue, by manual and/or electrical means through the use of a nail nipper and/or dremel-type facing grinder, to a more viable healthy nail plate or bed tissue 6-10 nails in total. Silver nitrate was used for any petechial bleeding as necessary. Definitive antifungal treatment options, both pharmaceutical and surgical, have been reviewed and discussed with the patient. The patient solely prefers the use of intermittent/as needed professional debridement services for their nail condition and understands the need for additional periodic treatments to maintain effectiveness in symptomatic relief - Progress Notes * Shanthi BECERRAOB:1960 ( 64 yo M)Acc No.[id number]:06/13/2024 Progress Note Patient:?Albert BECERRA Provider:?Nakul Rizzo DPM :1960???Age:64 Y???Sex:Male [place]con e:06/13/2024 Address:[address] [place], [place] [id number] Pcp:Peyton Hirsch Subjective: * Chief Complaints: * ???At Risk FootcarePainful N ail(s) aggrevated by shoes and causing difficulty standing/walking.Toe Irritation * HPI: ???At Risk footcare:?Pt States Last PCP Visit:?Date?01/21/2024 ???Toe pain:?Location:?B/L feet.?Duration:?several years.?Course:?worse.?Aggravated by:?shoes, any pressure.?Treatments:?change in shoes.? * ROS:?General/Constitutional:?Nausea?denies.?Vomiting?denies.?Hunger Thirst?denies.?Loss appetite?denies.?Chills?denies.?Fatigue?denies.?Fever?denies.?Night Sweats?denies.?Unexplained weight loss?denies.?Unexplained weight gain?denies.?HEENTM:?Dentures?denies.?Dizziness?denies.?Glasses/contacts?admits.?Retinopathy?den ies.?Blurred/double vision?denies.?TMJ?denies.?Discharge/drainage?denies.?Implants?denies.?Sore throat?denies.?Dental implants?denies.?Hard of hearing ?denies.?Difficulty chewing/swallowing/speaking?denies.?Nose bleeds?denies.?Sore mouth?denies.?Respiratory:?On O xygen?denies.?Pneumonia/pleurisy?denies.?Bronchitis?denies.?Emphysema?denies.?Co ughing?denies.?Cough blood?denies.?Shortness of breath?denies.?Wheezing?denies.?Cardiovascular:?Pacemaker?denies.?MVP?denies.?WPW?denies.?CHF?admits.?Heart attack?denies.?Septal defect?denies.?Rapid beat?denies.?Chest pain ?denies.?Atrial Fib.?denies.?Murmur/Palpitations?denies.?Gastrointestinal:?Hemorrhoids?denies.?Stomach/Abdominal pain?denies.?Dark blood stool?denies.?Irritable bowel ?denies.?Constipation?denies.?Diarrhea?denies.?Hematology:?Swelling?admits.?Clots?denies.?Varicose Veins?denies.?Bruising?denies.?Bleeding problem?denies.?Genitourinary:?Blood urine?denies.?Frequent/Painfu/urination/bladder control?denies.?Kidney stones?denies.?Infection (UTI)?denies.?Nephropathy?denies.?sex trans dis (STD)?denies.?Prostate?admits.?Musculoskeletal:?Hammertoes?admits.?Bunions?denies.?Back Pain?denies.?Muscle Cramps/ Resting?denies.?Muscle cramps / walking?denies.?Generalized aches and pains?denies.?Weakness?denies.?Integ.:?Hsu?denies.?Scars?admits.?Corns/calluses?admits.?Ingrown nails?admits.?Painful nails?admits.?Open Sores?denies.?Rashes?denies.?Neurologic:?Difficulty sleeping?denies.?Brain disorder?denies.?Numbness?denies.?Balance t rouble?admits.?Confusion?denies.?Fainting/blackouts?denies.?Tingling?denies.?Piyush mors?admits.? * Medical History:? * Surgical History:?knee repla cement surgery, right 03/2023 * Hospitalization/Major Diagno stic Procedure:?Denies Past Hospitalization * Family History:?Mother: dece ased, kidney/liver disease, diagnosed with Family history of arthritis, Diabetic - NIDDM.?Father: , diagnosed with Other malignant neoplasm of unspecified site, Diabetic - NIDDM.?Maternal Grand Mother: kidney/liver disease.? * Social History:?Tobacco Use:?Tobacco Use/Smoking?Are you a:?nonsmoker ?Tobacco use other than smoking?Are you an other tobacco user??No * Medications:?TakingMelatonin B12 , Notes to Pharmacist: monthly injFarxiga 10 MG Tablet 1 tablet Orally Once a day Tadalafil 5 MG Tablet 1 tablet as needed Orally Once a day Coreg 25 MG Tablet 1 tablet with food Orally Twice a day Entresto 97- 103 MG Tablet 1 tablet Orally Twice a day Atorvastatin Calcium 20 MG Tablet 1 tablet Orally Once a day metFORMIN HCl 1000 MG Tablet 1 tablet with a meal Orally Once a day Proscar 5 MG Tablet 1 tablet Orally Once a day Aspir-81 Norvasc 10 MG Tablet 1 tablet Orally Once a day Trulicity 1.5 MG/0.5ML Solution Pen-injector as directed Subcutaneous Taking Melatonin Taking B12 , Notes to Pharmacist: monthly injTaking Farxiga 10 MG Tablet 1 tablet Orally Once a day Taking Tadalafil 5 MG Tablet 1 tablet as needed Orally Once a day Taking Coreg 25 MG Tablet 1 tablet with food Orally Twice a day Taking Entresto 97-103 MG Tablet 1 tablet Orally Twice a day Taking Atorvastatin Calcium 20 MG Tablet 1 tablet Orally Once a day Taking metFORMIN HCl 1000 MG Tablet 1 tablet with a meal Orally Once a day Taking Proscar 5 MG Tablet 1 tablet Orally Once a day Taking Aspir-81 Taking Norvasc 10 MG Tablet 1 tablet Orally Once a day Taking Trulicity 1.5 MG/0.5ML Solution Pen-injector as directed Subcutaneous Not-Taking/PRNCeleBREX 200 MG Capsule 1 capsule with food Orally Twice a day Heather Compression Stockings 20-30mm Hg closed toe- knee high 1 pair wear daily Medication List reviewed and reconciled with the patientNot-Taking/PRN CeleBREX 200 MG Capsule 1 capsule with food Orally Twice a day Not-Taking/PRN Heather Not-Taking/PRN Compression Stockings 20-30mm Hg closed toe- knee high 1 pair wear daily Medication List reviewed and reconciled with the patient * Allergies:?Erythromycin: GI upsetAldactoneyes[Allergies Verified] Objective: * Vitals:?Ht: 5ft6in, Wt:256, BMI:41.31, Shoe size: 106E, BP:128/80mm Hg, BS: 96, Ht-cm: 167.64 cm, Wt-k.12 kg. * ???Past Orders: ???Lab:HEMOGLOBIN A1C (GLYCO HEMOGLOBIN) (Order Date - 02/20/2024) (Collection Date & Time - 02/20/2024 09:55 AM) ? Value Reference Range ?TOTAL HEMOGLOBIN (HGBA1C) 5.8 * Examination: ???Nails: ?NAILS are:?Elongated, overgrown, dystrophic, lytic, greater than 3mm thick, discolored and friable with crumbly malodorous subungual debris, with pain on palpation, TA, T1, T2, T3, T4, T5, T6, T7, T8, T9.?Orthopedic: ?MUSCLE STRENGTH:?5/5 all groups in a symmetrical fashion, B/L.?GAIT ABNORMALITY:?unstable/unsteady relating occasional difficulty with balance.?FOOT MORPHOLOGY:?(-) Charcot collapse/destruction noted at [facility].?DIGITAL DEFORMITIES:?Digital contracture, PIPJ, 2-5 B/L, incompl-reducible to push-up test, no over, nor underlapping, with evidence of shoe producing skin irritation.?FOOTWEAR:?worn, OT were inspected and noted to be severely worn , in poor condition not giving proper support at the present time, shoe gear properties exacerbate patients foot/toe deformity.?General Examination: ?GENERAL APPEARANCE:?Reveals a pleasant, alert, well nourished, well- developed, well hydrated individual, who demonstrates proper attention to hygiene/body habitus, and is in no acute distress, Pt serves as own historian for office visit today.?ORIENTED:?person, place, and time.?FOOT EXAM:?Footwear Evaluation?Dermatologic: ?SKIN FINDINGS:?Skin exam reveals normal texture, elasticity, and turgor. There are no masses. The interspaces are clear, B/L, Skin exam reveals Keratotic lesion(s) located at , Medial plantar , IPJ , T5 , SUB MTH (s) , 1 , Right.?Vascular: ?DP PULSES (B):?1/4, B/L - probably due to edema.?PT PULSES (B):?0/4, B/L - probably due to edema.?CAPILLARY FILL TIME:?3 secs. per digit, B/L.?TROPHIC CONDITION-TEXTURE/ELASTICITY/TURGOR/HAIR GROWTH (B):?normal, B/L.?TEMPERTURE GRADIENT (C):?normal, warm to cool, proximal to distal, B/L, B/L.?PIGMENTATION:?normal, B/L.?EDEMA (C):?3/4 , pitting , without aching pain , B/L , Leg(s) , Ankle(s) , Feet.?Neurological: ?SENSORY:?Neurological exam reveals intact sensorium, pain sensation normal, vibration sensation intact, pinprick sensation is normal in the lower extremities, 5.07 monofilament test performed at plantar aspects of 5 varied sites per foot shows sensation, normal, B/L, Pt denies, anesthesia, burning, paresthesia, tingling, B/L.?Ophthalmology Referral: ?DIABETES EYE EXAM? Assessment: * Assessment: 1.?Other hammer toe(s) (acqu ired), right foot - M20.41???Specify :Chronic problem, Worse (4),Rx Management (4)???2.?Tinea unguium - B35.1 (Primary)???3.?Pain in right toe(s) - M79.674???4.?Pain in left toe(s) - M79.675???5.?Type 2 diabetes mellitus without complication - E11.9???6.?Other hammer toe(s) (acquired), left foot - M20.42???Specify :Chronic problem, Worse (4),Rx Management (4)??? Plan: * Treatment: 2.?Other hammer toe(s) (acqu ired), right foot? Start Extra Depth Orthopedic Shoes (1 Pair) with Customized Heat Molded Multidensity Innersoles (3 Pair), as directed, Dx: NIDDM (E11.9), Hammertoe Foot Deformity (M20.41,M20.42), Preulcerative Skin Lesion(s) (L85.1), 1, Refills 0.?? Notes: Patient Educated with: DIABETIC FOOT CARE INSTRUCTIONS.pdf (DIABETIC FOOT CARE INSTRUCTIONS.pdf)?? * Procedures:?Debride Nail 6-10:?Nail debridement?Due to the clinical pathology outlined in the exam findings, performance of this nail treatment is medically necessary as its management by an unskilled/untrained nonprofessional would put this patients foot and overall health at risk. Therefore, debridement to affected nail(s), as described in exam ( TA, T1, T2, T3, T4, T5, T6, T7, T8, T9), was performed exclusively by the physician of record to reduce/remove overall nail length, girth, thickness, subungual debris, and necrotic tissue, by manual and/or electrical means through the use of a nail nipper and/or dremel-type facing grinder, to a more viable healthy nail plate or bed tissue 6- 10 nails in total. Silver nitrate was used for any petechial bleeding as necessary. Definitive antifungal treatment options, both pharmaceutical and surgical, have been reviewed and discussed with the patient. The patient solely prefers the use of intermittent/as needed professional debridement services for their nail condition and understands the need for additional periodic treatments to maintain effectiveness in symptomatic relief - [id number].? * Procedure Codes:?21294 DEBRI DE NAIL, 6 OR MORE * Preventive Medicine:? ??Counseling:?Discussion:?-14: Office or other outpatient visit for the evaluation and management of an established patient, which required a medically appropriate history and/or examination and MODERATE level of DECISION MAKING for: 1 OR MORE CHRONIC PROBLEM(S) THATS WORSENING, 2 STABLE CHRONIC PROBLEMS, A NEWLY DIAGNOSED PROBLEM WITH UNCERTAIN PROGNOSIS, AN ACUTE COMPLICATED INJURY WITH MULTIPLE TREATMENT OPTIONS, OR AN ACUTE PROBLEM WITH ACCOMPANYING SYSTEMIC SYMPTOMS, THAT POSE(S) A MODERATE RISK OF MORBIDITY. THIS CONDITION MAY ALSO INCLUDE RX DRUG MANAGEMENT, OR A DECISON FOR MINOR SURGERY. The visit on the day of the encounter encompassed interpreting the data and educating the patient as to the nature of their condition, treatment options available according to their individual PMH, meds, allergies, and overall health/living conditions, as well as any potential risks or complications that may occur from a failure to adhere to, and participate in, the recommended course of therapy. The discussion included a complete verbal, and/or written explanation of the examination results, any x-rays taken, the proposed diagnosis, and outline of the treatment plan. A schedule for future care needs was also explained. The patient verbalized an understanding of the instructions at this time and agreed to be an active participant in their treatment. If the patient should think of any questions or concerns after the visit, I have encouraged the patient to call the office.?Digital Surgery:?Digital surgery was discussed with the patient, We elected to try conservative treatment at the present time, due to the patients medical history and increased asssociated post-operative risks.?Digital Treatment:?HT- I explained to the patient the possible etiologies of Hammertoes, including genetics/foot type/shoegear/activity level/exercise routine and the risks/benefits of all the different treatment options for their pain including: No treatment at all, Rest, Ice, New/supportive/wider/deeper Shoegear, Digital Padding/Strapping/Taping/Bracing/Gel protective sleeves, Foot/Ankle AFO Bracing, Stretching exercises, Deep Tissue Massage, Arch support/shoe inserts with splay metatarsal padding, and Custom orthoses. I insisted that any digital devices be removed daily and not worn overnight for safety. The patient is to carefully examine the toes daily for any skin irritation while using any splinting or padding device. The advantages and disadvantages of each option were discussed and the patients questions re: shoegear, padding, custom vs prefabricated inserts, activity level, and consistency in home treatment regimens for optimal success were answered to their verbally confirmed satisfaction.?Shoe Gear Counseling:?SHOE Rx - The patient was counseled in great detail on their muscoloskeletal foot and toe deformities which coincided with the dermatological presentations visualized on exam. We discussed how their deformities put the integrity of their feet at risk for potential pedal complications which makes the accomidative diabetic shoes and cutomizable inserts medically necessary. We discussed the different shoe and insert treatment types and options, as well as the important advantages for adhering to regularly wearing these accomidative devices daily. The patient was made aware of the fact that a failure to abide by these recommedations may be deleterious to their foot health as they are able to prevent many pedal complications such as skin irritation, skin ulceration, infection, and even loss of toe/foot/leg/or life. Time was also spent with the patient dispensing and discussing proper diabetic footcare techniques including daily skin moisturization, daily foot inspection for any interruption in skin integrity including open lesions, or sign of infection such as redness/malodor/drainage/swelling. Also discussed and recommended were procedures regarding daily shoe inspection for the presence of internal foreign bodies as well as any visualized irregular shoe or insert wear. Patient questions re: shoes, inserts, and self foot inspections were answered to their satisfaction as the patient verbally confirmed a full understanding of the above information. A Rx for Extra Depth Orthopedic Shoes with 3 pair of custom heat-molded inserts was dispensed.? ??Screening/Special Tests:?Fall Risk?Screening:?No falls in the past year ?FALLS: Screening for Future Fall Risk?Have you had any falls with injury in the past year??No * Follow Up:?prn * Images: * Sign off status: Completed true * Provider:?Nakul Rizzo DPM Date:?2023 Generated for [place] mustafa/Yadira/Reena on:?07/31/2024 12:49 PM EST History and Physical Notes * HPI (History of Present Illness) Category Sub-Category Detail Notes Category Not es Toe pain Location: B/L feet Duration: several years Course: worse Aggravated by: shoes, any pressure Treatments: change in shoes At Risk footcare Pt States Last PCP Visit: Date: 4 Examination Category Sub-Category Detail Notes Category Not es Neurological SENSORY: Neurological exa m reveals intact sensorium, pain sensation normal, vibration sensation intact, pinprick sensation is normal in the lower extremities, 5.07 monofilament test performed at plantar aspects of 5 varied sites per foot shows sensation, normal, B/L, Pt denies, anesthesia, burning, paresthesia, tingling, B/L Dermatologic SKIN FINDINGS: Skin exam reveal s normal texture, elasticity, and turgor. There are no masses. The interspaces are clear, B/L, Skin exam reveals Keratotic lesion(s) located at , Medial plantar , IPJ , T5 , SUB MTH (s) , 1 , Right Orthopedic GAIT ABNORMALITY: unstable/unste el relating occasional difficulty with balance FOOT MORPHOLOGY: (-) Charcot collapse /destruction noted at [facility] FOOTWEAR: worn, OT were inspec gonzalo and noted to be severely worn , in poor condition not giving proper support at the present time, shoe gear properties exacerbate patients foot/toe deformity DIGITAL DEFORMITIES: Digital contracture , PIPJ, 2-5 B/L, incompl-reducible to push-up test, no over, nor underlapping, with evidence of shoe producing skin irritation MUSCLE STRENGTH: 5/5 all groups in a symmetrical fashion, B/L General Examination GENERAL APPEARANCE: Reveals a pleasant, alert, well nourished, well-developed, well hydrated individual, who demonstrates proper attention to hygiene/body habitus, and is in no acute distress, Pt serves as own historian for office visit today FOOT EXAM: Lower Extremity Neurological Exa m performed:: Yes Date: 06/13/2024 ORIENTED: person, place, and t elda Footwear Evaluation Footwear Evaluation performe d:: Yes Ophthalmology Referral DIABETES EYE EXAM Procedure Perform ed:: Yes ?Date of Exam Performed: 01/27/2024 Diabetic Retinopathy Screening:: Yes Retinal Screening Performed:: Yes Findings of Diabetic Eye Exam:: no retin opathy Vascular DP PULSES (B): 1/4, B/L - probably due to edema PT PULSES (B): 0/4, B/L - probably due to edema CAPILLARY FILL TIME: 3 secs. per digit, B/L TEMPERTURE GRADIENT (C): normal, warm to cool, proximal to distal, B/L, B/L TROPHIC CONDITION-TEXTURE/ELASTICITY/TURGOR/HAIR GROWTH (B): normal, B/L EDEMA (C): 3/4 , pitting , with out aching pain , B/L , Leg(s) , Ankle(s) , Feet PIGMENTATION: normal, B/L Nails NAILS are: Elongated, overg rown, dystrophic, lytic, greater than 3mm thick, discolored and friable with crumbly malodorous subungual debris, with pain on palpation, TA, T1, T2, T3, T4, T5, T6, T7, T8, T9
--- OUTSIDE RECORDS SUMMARY | 2024-07-31 12:49 | XMS_ITS ---
Author Organization [facility] Address [address] [place] [address] Care Team Providers Care Ceramic Artist Name Role Phone Garo CONDE, Lakshmi Kovacs Primary Care Provider Un available Nakul Rizzo Unavailable [phone] Allergies Allergen (clinical drug ingredient) Drug/Non Drug Allergy documented on EMR Reaction Allergy Type Onset Date Status spironolactone Aldactone Unknown Drug Allergy Ac tive erythromycin Erythromycin GI upset Drug Allergy A ctive REASON FOR VISIT At Risk Footcare, Painful Nail(s) aggrevated by shoes and causing difficulty standing/walking., Ingrown Nail Medications Medication SIG (Take, Route, Frequency, Duration) Notes Start Date End Date Status Trulicity 1.5 MG/0.5ML as directed Subcutaneous Active Norvasc 10 MG 1 tablet Orally Once a day for 30 day(s) Active Heather Active Compression Stockings 20-30mm Hg 1 pair wear daily for 30 days Not-Taking Extra Depth Orthopedic Shoes (1 Pair) with Customized Heat Molded Multidensity Innersoles (3 Pair) as directed Dx: NIDDM (E11.9), Hammertoe Foot Deformity (M20.41,M20.42), Preulcerative Skin Lesion(s) (L85.1) 03/10/2023 Active Aspir-81 Active Proscar 5 MG 1 tablet Orally Once a day for 30 day(s) Active metFORMIN HCl 1000 MG 1 tablet with a me al Orally Once a day for 30 day(s) Active Atorvastatin Calcium 20 MG 1 tablet Orally Once a day for 30 day(s) Active Entresto 97-103 MG 1 tablet Orally Twic e a day for 30 day(s) Active B12 monthly inj Active CeleBREX 200 MG 1 capsule with food Orally Twice a day Active Farxiga 10 MG 1 tablet Orally Once a day for 30 day(s) Active Coreg [...] Question Answer Notes Are you a: nonsmoker Alcohol Screen Question Answer Notes Did you have a drink containing alcohol in the p ast year? No Points 0 Interpretation Negative Tobacco use other than smoking: Question Answer Notes Are you an other tobacco user? No Vital Signs Height 5ft 6in in 01/04/2024 Weight 256 lbs 01/04/2024 BMI 41.31 kg/m2 01/04/2024 Procedures Procedure Date Ordered Date Performed Result Body Sit e 25037-ILFZDWD NAIL, 6 OR MORE 01/04/2024 N/A 99939-Bisrhbgl Plate 01/04/2024 N/A Encounters Encounter Location Date Provider Diagnosis [facility] [place] [address] [place] [address] 01/04/2024 Nakul Rizzo Pain in right toe(s) M79.674 ; Tinea unguium B35.1 ; Pain in left toe(s) M79.675 ; Type 2 diabetes mellitus without complication E11.9 and Ingrown nail L60.0 Assessments Encounter Date Diagnosis (ICD Code) Assessment Notes Treatment Notes Treatment Clinical Notes Section Notes 01/04/2024 Pain in right toe(s) (ICD-10 - M79.674) 01/04/2024 Tinea unguium (ICD-10 - B35.1) 01/04/2024 Pain in left toe(s) (ICD-10 - M79.675) 01/04/2024 Type 2 diabetes mellitus without complication (ICD-10 - E11.9) 01/04/2024 Ingrown nail (ICD-10 - L60.0) Plan Of Treatment Pending Test Test Name Order Date [id number] NAIL, 6 OR MORE 01/04/2024 26870-Eokfaizi Plate 01/04/2024 Next Appt Details Follow Up: prn, Reason: Provider Name:Nakul Calle Matthias , 09/15/2024 10:30:00 AM, [address] [place], [address], Procedure Notes * Category Sub-Category Detail Notes Nail Avulsion Procedure A fine sterile e levator was placed between the eponychium, nail fold, and nail plate to separate the structures. A sterile nail splitter, and/or sterile 316 blade, was then used to longitudinally section the nail along its entire length through the eponychium to the area under the nail fold. The offending portion of nail was from the nail bed with a rolling action and then removed with a hemostat. No underlying bone was identified. There was minimal bleeding as hemostasis was achieved through the temporary use of either a digital tourniquet or the aforementioned local with epinephrine. A bacitracin sterile dressing was applied. Local wound aftercare instructions were discussed and dispensed. The patient was informed of both conservative and future surgical procedures to prevent recurrence. Tylenol or Motrin was recommended for pain or discomfort (70421) , DIABETES: Pt was advised as to the risk of delayed or nonhealing due to diabetes. Pt is to call the office with any questions, concerns, or complications Anesthesia 2cc of 1 percent Lid ocaine Plain local anesthesic utilizing aseptic technique Location Lateral nail border , TA Debride Nail 6-10 Nail debridement Nail debridem ent performed extensively to reduce/remove overall nail length, girth, thickness, subungual debris, and necrotic tissue, by manual and electrical means through the use of a nail nipper and/or dremel, to more viable healthy nail plate or bed tissue 1-5. Silver nitrate used for any petechial bleeding as necessary. Patient chooses, no pharmaceutical tx (98805) Progress Notes * Tiesha BECERRAnDOB:1960 ( 63 yo M)Acc No.[id number]:01/04/2024 Progress Note Patient:?Tiesha Becerran Provider:?Nakul Rizzo DPM :1960???Age:63 Y???Sex:Male Alcon e:01/04/2024 Address:[address] [place], [place] [address], [place] Pcp:Peyton Hirsch Subjective: * Chief Complaints: * ???At Risk FootcarePainful N ail(s) aggrevated by shoes and causing difficulty standing/walking.Ingrown Nail * HPI: ???At Risk footcare:?Pt States Last PCP Visit:?Date?09/20/2023 * ROS:?General/Constitutional:?Nausea?denies.?Vomiting?denies.?Hunger Thirst?denies.?Loss appetite?denies.?Chills?denies.?Fatigue?denies.?Fever?denies.?Night Sweats?denies.?Unexplained weight loss?denies.?Unexplained weight gain?denies.?HEENTM:?Dentures?denies.?Dizziness?denies.?Glasses/contacts?admits.?Retinopathy?de nies.?Blurred/double vision?denies.?TMJ?denies.?Discharge/drainage?denies.?Implants?denies.?Sore throat?denies.?Dental implants?denies.?Hard of hearing ?denies.?Difficulty chewing/swallowing/speaking?denies.?Nose bleeds?denies.?Sore mouth?denies.?Respiratory:?On Oxygen?denies.?Pneumonia/pleurisy?denies.?Bronchitis?denies.?Emphysema?denies.?C oughing?denies.?Cough blood?denies.?Shortness of breath?denies.?Wheezing?denies.?Cardiovascular:?Pacemaker?denies.?MVP?denies.?WPW?denies.?CHF?admits.?Heart attack?denies.?Septal defect?denies.?Rapid beat?denies.?Chest pain ?denies.?Atrial Fib.?denies.?Murmur/Palpitations?denies.?Gastrointestinal:?Hemorrhoids?denies.?Stomach/Abdominal pain?denies.?Dark blood stool?denies.?Irritable bowel ?denies.?Constipation?denies.?Diarrhea?denies.?Hematology:?Swelling?admits.?Clots?denies.?Varicose Veins?denies.?Bruising?denies.?Bleeding problem?denies.?Genitourinary:?Blood urine?denies.?Frequent/Painfu/urination/bladder control?denies.?Kidney stones?denies.?Infection (UTI)?denies.?Nephropathy?denies.?sex trans dis (STD)?denies.?Prostate?admits.?Musculoskeletal:?Hammertoes?admits.?Bunions?denies.?Back Pain?denies.?Muscle Cramps/ Resting?denies.?Muscle cramps / walking?denies.?Generalized aches and pains?denies.?Weakness?denies.?Integ.:?Hsu?denies.?Scars?admits.?Corns/calluses?admits.?Ingrown nails?admits.?Painful nails?admits.?Open Sores?denies.?Rashes?denies.?Neurologic:?Difficulty sleeping?denies.?Brain disorder?denies.?Numbness?denies.?Balance trouble?admits.?Confusion?denies.?Fainting/blackouts?denies.?Tingling?denies.?Tr emors?admits.? * Medical History:? * Surgical History:?knee repla cement surgery, right 03/2023 * Hospitalization/Major Diagno stic Procedure:?Denies Past Hospitalization * Family History:?Mother: dece ased, kidney/liver disease, diagnosed with Family history of arthritis, Diabetic - NIDDM.?Father: , diagnosed with Diabetic - NIDDM, Other malignant neoplasm of unspecified site.?Maternal Grand Mother: kidney/liver disease.? * Social History:?Tobacco Use:?Tobacco Use/Smoking?Are you a:?nonsmoker ?Tobacco use other than smoking?Are you an other tobacco user??No ???Drugs/Alcohol:?Drugs?Have you used drugs other than those for medical reasons in the past 12 months??No ?Alcohol Screen?Did you have a drink containing alcohol in the past year??No ?Points?0 ?Interpretation?Negative ???Miscellaneous:?Caffeine: yes. ?no Children. ?Exercise: yes, work. ?Marital status: single. 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 * Medications:?TakingCeleBREX 200 MG Capsule 1 capsule with food Orally Twice a dayB12 , Notes: monthly injFarxiga 10 MG Tablet 1 tablet Orally Once a dayTadalafil 5 MG Tablet 1 tablet as needed Orally Once a dayCoreg 25 MG Tablet 1 tablet with food Orally Twice a dayEntresto 97-103 MG Tablet 1 tablet Orally Twice a dayAtorvastatin Calcium 20 MG Tablet 1 tablet Orally Once a daymetFORMIN HCl 1000 MG Tablet 1 tablet with a meal Orally Once a dayProscar 5 MG Tablet 1 tablet Orally Once a dayAspir-81 Heather Norvasc 10 MG Tablet 1 tablet Orally Once a dayTrulicity 1.5 MG/0.5ML Solution Pen-injector as directed Subcutaneous Extra Depth Orthopedic Shoes (1 Pair) with Customized Heat Molded Multidensity Innersoles (3 Pair) as directed Dx: NIDDM (E11.9), Hammertoe Foot Deformity (M20.41,M20.42), Preulcerative Skin Lesion(s) (L85.1)Taking CeleBREX 200 MG Capsule 1 capsule with food Orally Twice a dayTaking B12 , Notes: monthly injTaking Farxiga 10 MG Tablet 1 tablet Orally Once a dayTaking Tadalafil 5 MG Tablet 1 tablet as needed Orally Once a dayTaking Coreg 25 MG Tablet 1 tablet with food Orally Twice a dayTaking Entresto 97-103 MG Tablet 1 tablet Orally Twice a dayTaking Atorvastatin Calcium 20 MG Tablet 1 tablet Orally Once a dayTaking metFORMIN HCl 1000 MG Tablet 1 tablet with a meal Orally Once a dayTaking Proscar 5 MG Tablet 1 tablet Orally Once a dayTaking Aspir-81 Taking Heather Taking Norvasc 10 MG Tablet 1 tablet Orally Once a dayTaking Trulicity 1.5 MG/0.5ML Solution Pen-injector as directed Subcutaneous Taking Extra Depth Orthopedic Shoes (1 Pair) with Customized Heat Molded Multidensity Innersoles (3 Pair) as directed Dx: NIDDM (E11.9), Hammertoe Foot Deformity (M20.41,M20.42), Preulcerative Skin Lesion(s) (L85.1)Not-Taking/PRNCompression Stockings 20-30mm Hg closed toe- knee high 1 pair wear dailyMedication List reviewed and reconciled with the patientNot-Taking/PRN Compression Stockings 20-30mm Hg closed toe- knee high 1 pair wear dailyMedication List reviewed and reconciled with the patient * Allergies:?Erythromycin: GI upsetAldactmaggy[Allergies Verified] Objective: * Vitals:?Ht: 5ft 6in, Wt:256, BMI:41.31, Shoe size:10 4E, BS:not taken. * ???Past Orders: ???Lab:HEMOGLOBIN A1C (GLYCO HEMOGLOBIN) (Order Date - 10/19/2023) (Collection Date - 09/20/2023) ? Value Reference Range ?HEMOGLOBIN A1C % (HH) 6.1 * Examination: ???Nails: ?NAILS are:?Elongated, overgrown, dystrophic, lytic, greater than 3mm thick, discolored and friable with crumbly malodorous subungual debris, with pain on palpation , 1-5 B/L.?Ingrown Nail: ?INSPECTION:?Reveals nail incurvation, pain on palpation, groove hypertrophy , Lateral nail border , TA , There is evidence of surrounding periungual tissue erythema.? Assessment: * Assessment: 1.?Tinea unguium - B35.1?2.? Pain in right toe(s) - M79.674?3.?Pain in left toe(s) - M79.675?4.?Type 2 diabetes mellitus without complication - E11.9?5.?Ingrown nail - L60.0, Lateral nail border , TA? Plan: * Treatment: 2.?Ingrown nail?Procedure: 96377-Pnkrruwe Plate * Procedures:?Debride Nail 6-10:?Nail debridement?Nail debridement performed extensively to reduce/remove overall nail length, girth, thickness, subungual debris, and necrotic tissue, by manual and electrical means through the use of a nail nipper and/or dremel, to more viable healthy nail plate or bed tissue 1-5. Silver nitrate used for any petechial bleeding as necessary. Patient chooses, no pharmaceutical tx (37803).?Nail Avulsion:?Location?Lateral nail border?,?TA.?Anesthesia?2cc of 1 percent Lidocaine Plain local anesthesic utilizing aseptic technique.?Procedure?A fine sterile elevator was placed between the eponychium, nail fold, and nail plate to separate the structures. A sterile nail splitter, and/or sterile 316 blade, was then used to longitudinally section the nail along its entire length through the eponychium to the area under the nail fold. The offending portion of nail was from the nail bed with a rolling action and then removed with a hemostat. No underlying bone was identified. There was minimal bleeding as hemostasis was achieved through the temporary use of either a digital tourniquet or the aforementioned local with epinephrine. A bacitracin sterile dressing was applied. Local wound aftercare instructions were discussed and dispensed. The patient was informed of both conservative and future surgical procedures to prevent recurrence. Tylenol or Motrin was recommended for pain or discomfort (03260) , DIABETES: Pt was advised as to the risk of delayed or nonhealing due to diabetes. Pt is to call the office with any questions, concerns, or complications.? * Procedure Codes:?67667 DEBRI DE NAIL, 6 OR MORE, Modifiers: XS 23106 Avulsion Plate, Modifiers: XS , TA * Follow Up:?prn * Images: * Sign off status: Completed Addendum: * ? true * Provider:?Nakul Rizzo DPM Date:?2023 Generated for [place] mustafa/Yadira/Reena on:?07/31/2024 12:49 PM EST History and Physical Notes * HPI (History of Present Illness) Category Sub-Category Detail Notes Category Not es At Risk footcare Pt States Last PCP Visit: Date: 4 Examination Category Sub-Category Detail Notes Category Not es Ingrown Nail INSPECTION: Reveals nail inc urvation, pain on palpation, groove hypertrophy , Lateral nail border , TA , There is evidence of surrounding periungual tissue erythema Nails NAILS are: Elongated, overg rown, dystrophic, lytic, greater than 3mm thick, discolored and friable with crumbly malodorous subungual debris, with pain on palpation , 1-5 B/L
--- OUTSIDE RECORDS SUMMARY | 2024-07-31 12:49 | XMS_ITS | Patient Health Record ---
Author Organization [facility] Address [address] [place] [address] Care Team Providers Care Industrial Technician Name Role Phone Garo CONDE, Lakshmi Kovacs Primary Care Provider Un available Nakul Rizzo Unavailable [phone] Allergies Allergen (clinical drug ingredient) Drug/Non Drug Allergy documented on EMR Reaction Allergy Type Onset Date Status spironolactone Aldactone Unknown Drug Allergy Ac tive erythromycin Erythromycin GI upset Drug Allergy A ctive Results Component Value Reference Range Notes HEMOGLOBIN A1C (GLYCOHEMOGLO BIN) Reviewed date:08/03/2023 12:56:27 PM Interpretation: Performing Lab: Notes/Report: HEMOGLOBIN A1C % (HH) 5.8 HEMOGLOBIN A1C (GLYCOHEMOGLO BIN) Reviewed date:06/13/2024 09:56:27 AM Interpretation: Performing Lab: Notes/Report: TOTAL HEMOGLOBIN (HGBA1C) 5.8 HEMOGLOBIN A1C (GLYCOHEMOGLO BIN) Reviewed date:10/19/2023 09:59:48 AM Interpretation: Performing Lab: Notes/Report: HEMOGLOBIN A1C % (HH) 6.1 Reason For Referral No Information Medications Medication SIG (Take, Route, Frequency, Duration) Notes Start Date End Date Status Norvasc 10 MG 1 tablet Orally Once a day for 30 day(s) Active Aspir-81 Active Proscar 5 MG 1 tablet Orally Once a day for 30 day(s) Active metFORMIN HCl 1000 MG 1 tablet with a me al Orally Once a day for 30 day(s) Active Atorvastatin Calcium 20 MG 1 tablet Orally Once a day for 30 day(s) Active Entresto 97-103 MG 1 tablet Orally Twic e a day for 30 day(s) Active Extra Depth Orthopedic Shoes (1 Pair) with Customized Heat Molded Multidensity Innersoles (3 Pair) as directed Dx: NIDDM (E11.9), Hammertoe Foot Deformity (M20.41,M20.42), Preulcerative Skin Lesion(s) (L85.1) 06/13/2024 Active Coreg 25 MG 1 tablet with food Orally Twice a day for 30 day(s) Active Tadalafil 5 MG 1 tablet as needed Orally Once a day for 30 day(s) Active Compression Stockings 20-30mm Hg 1 pair wear daily for 30 days Not-Taking Farxiga 10 MG 1 tablet Orally Once a day for 30 day(s) Active Heather Not-Taking B12 monthly inj Active CeleBREX 200 MG 1 capsule with food Orally Twice a day Not-Taking Melatonin Active Trulicity 1.5 MG/0.5ML as directed Subcutaneous Active Social History Tobacco Use: Social History Observation Description Date Details (start date - stop date) Never Smoker NA - NA Tobacco Use/Smoking Question Answer Notes Are you a: nonsmoker Alcohol Screen Question Answer Notes Did you have a drink contain ing alcohol in the past year? Yes How often did you have a dri nk containing alcohol in the past year? Monthly or less (1 point) Points 1 Interpretation Negative Tobacco use other than smoking: Question Answer Notes Are you an other tobacco user? No Problems Problem Type SNOMED Code ICD Code Onset Dates Problem Status W/U Status Risk Notes Problem Acquired hammer toe of right foot (028197315994569 5) Other hammer toe(s) (acquired), right foot (M20.41) Active confirmed Problem Acquired hammer toe of left foot (283213079553069 3) Other hammer toe(s) (acquired), left foot (M20.42) Active confirmed Problem Type 2 diabetes mellitus without complication (256537128) Type 2 diabetes mellitus without complication (E11.9) Active confirmed Vital Signs Blood pressure diastolic 80 mm Hg 06/13/2024 Height 5ft6in in 06/13/2024 Blood pressure systolic 128 mm Hg 06/13/2024 Weight 256 lbs 06/13/2024 BMI 41.31 kg/m2 06/13/2024 Procedures Procedure Date Ordered Date Performed Result Body Sit e 32472-XUDGJQQ NAIL, 6 OR MORE 08/03/2023 N/A 11447-GVLRBOO NAIL, 6 OR MORE 10/19/2023 N/A 43586-RXDWDNU NAIL, 6 OR MORE 01/04/2024 N/A 04153-Ymstqfsc Plate 01/04/2024 N/A 98026-DYGYSVY NAIL, 6 OR MORE 04/04/2024 N/A 76860-IEHRJEJ NAIL, 6 OR MORE 06/13/2024 N/A Encounters Encounter Location Date Provider Diagnosis [address] [address] 08/03/2023 Nakul Matthias Pain in right toe(s) M79.674 ; Tinea unguium B35.1 ; Pain in left toe(s) M79.675 ; Type 2 diabetes mellitus without complication E11.9 and Edema, lower extremity R60.[address] [address] 10/19/2023 Nakul Matthias Pain in right toe(s) M79.674 ; Tinea unguium B35.1 ; Pain in left toe(s) M79.675 and Type 2 diabetes mellitus without complication E11.[address] [address] 01/04/2024 Nakul Matthias Pain in right toe(s) M79.674 ; Tinea unguium B35.1 ; Pain in left toe(s) M79.675 ; Type 2 diabetes mellitus without complication E11.9 and Ingrown nail L60.[address] [address] 04/04/2024 Nakul Matthias Pain in right toe(s) M79.674 ; Tinea unguium B35.1 ; Pain in left toe(s) M79.675 and Type 2 diabetes mellitus without complication E11.[address] [address] 06/13/2024 Nakul Matthias Tinea unguium B35.1 ; Other hammer toe(s) (acquired), right foot M20.41 ; Pain in right toe(s) M79.674 ; Pain in left toe(s) M79.675 ; Type 2 diabetes mellitus without complication E11.9 and Other hammer toe(s) (acquired), left foot M20.42 Assessments Encounter Date Diagnosis (ICD Code) Assessment Notes Treatment Notes Treatment Clinical Notes Section Notes 08/03/2023 Tinea unguium (ICD-10 - B35.1) 08/03/2023 Pain in right toe(s) (ICD-10 - M79.674) 10/19/2023 Tinea unguium (ICD-10 - B35.1) 10/19/2023 Pain in right toe(s) (ICD-10 - M79.674) 01/04/2024 Tinea unguium (ICD-10 - B35.1) 01/04/2024 Pain in right toe(s) (ICD-10 - M79.674) 04/04/2024 Tinea unguium (ICD-10 - B35.1) 04/04/2024 Pain in right toe(s) (ICD-10 - M79.674) 06/13/2024 Other hammer toe(s) (acquired), right foot (ICD-10 - M20.41) Patient Educated with: DIABETIC FOOT CARE INSTRUCTIONS.p df (DIABETIC FOOT CARE INSTRUCTIONS.p df) 06/13/2024 Tinea unguium (ICD-10 - B35.1) 06/13/2024 Pain in right toe(s) (ICD-10 - M79.674) 04/04/2024 Pain in left toe(s) (ICD-10 - M79.675) 01/04/2024 Pain in left toe(s) (ICD-10 - M79.675) 10/19/2023 Pain in left toe(s) (ICD-10 - M79.675) 08/03/2023 Pain in left toe(s) (ICD-10 - M79.675) 08/03/2023 Type 2 diabetes mellitus without complication (ICD-10 - E11.9) 10/19/2023 Type 2 diabetes mellitus without complication (ICD-10 - E11.9) 06/13/2024 Pain in left toe(s) (ICD-10 - M79.675) 04/04/2024 Type 2 diabetes mellitus without complication (ICD-10 - E11.9) 01/04/2024 Type 2 diabetes mellitus without complication (ICD-10 - E11.9) 06/13/2024 Type 2 diabetes mellitus without complication (ICD-10 - E11.9) 01/04/2024 Ingrown nail (ICD-10 - L60.0) 08/03/2023 Edema, lower extremity (ICD-10 - R60.0) 06/13/2024 Other hammer toe(s) (acquired), left foot (ICD-10 - M20.42) Plan Of Treatment Pending Test Test Name Order Date 51952-WEFYRUT NAIL, 6 OR MORE 03/10/2023 80031-TVTQIAH NAIL, 6 OR MORE 05/18/2023 56473-GPGDIHY NAIL, 6 OR MORE 08/03/2023 24527-XOLOPGS NAIL, 6 OR MORE 10/19/2023 26190-UCMVSUQ NAIL, 6 OR MORE 01/04/2024 23430-FDWRJIC NAIL, 6 OR MORE 04/04/2024 19802-BGYGKBU NAIL, 6 OR MORE 06/13/2024 36902-Qsnrzebz Plate 01/04/2024 Next Appt Details Provider Name:Nakul Rizzo , 09/15/2024 10:30:00 AM, [address] [place] [address], [phone], Insurance Providers Payer Name Payer Address Payer Phone Subscriber Number Group Number Insured Name Patient Relationship to Insured Coverage Start Date Coverage End Date [employer] [address] [place] [phone] [id number] Albert Becerra Self - patient is the insured Medical (General) History Medical History History ICD Code Arthritis asthma Back,Hip,and Knee pain Broken bones Cataracts covid-19 Diabetic Heart disease High blood pressure Parkinsons disease Measles Mumps Chicken pox Sleep apnea CHF BPH Surgical History Surgery Date(Month/Year) knee replacement surgery, right 03/2023
--- OUTSIDE RECORDS SUMMARY | 2024-07-31 12:49 | XMS_ITS | Patient Health Record ---
Author Organization [facility] Address [address] [place] [address] Care Team Providers Care Tour Bus Driver/Guide Name Role Phone Garo CONDE, Lakshmi Primary Care Provider Dirk Crisostomo Jr Unavailable ALLERGIES Allergen (clinical drug ingredient) Drug/Non Drug Allergy documented on EMR Reaction Allergy Type Onset Date Status erythromycin Erythromycin Unknown Drug Allergy A ctive spironolactone Aldactone Unknown Drug Allergy Ac tive REASON FOR REFERRAL No Information MEDICATIONS Medication SIG (Take, Route, Frequency, Duration) Notes Start Date End Date Status MiraLax (colon prep) 17 GM/SCOOP mixed with Gatorade or Crystal Light Orally begin at 5:00 p.m. the day before the procedure for 1 day 10/03/2021 Active Proscar 5 MG 1 tablet Orally Once a day for 30 day(s) Active Aspirin Adult Low Dose 81 MG 1 tablet Orally Once a day for 30 day(s) Active glipiZIDE ER 5 MG Oral for 90 Active Atorvastatin Calcium 20 MG Oral for 90 Active Heather 180mg Active metFORMIN HCl 1000 MG 1 tablet with a me al Orally twice a day Active Entresto 97-103 MG Oral for 90 Active Carvedilol 25 MG Oral for 90 A ctive IMMUNIZATIONS Vaccine Route Administration Date Status Comme nts Influenza Unknown 03/11/2021 Administered SOCIAL HISTORY Sex Assigned At : Social History Observation Description Sex Assigned At Unknown PROBLEMS Problem Type ICD Code Onset Dates Problem Status W/U Status Risk SNOMED Code Notes Problem Hemorrhage of rectum and anus (569.3) Active confirmed Hemorrhage of rectum and anus (192903345) Problem Colon cancer screening (Z12.11) Active confirmed 621942962 Problem Encounter for other preprocedural examination (Z01.818) Active confirmed 539241353 Problem Long-term use of aspirin therapy (Z79.82) Active confirmed 506415951 PLAN OF TREATMENT Future Test Test Name Order Date COLONOSCOPY 08/07/2011 COLONOSCOPY 10/03/2021 Insurance Providers Payer Name Payer Address Payer Phone Subscriber Number Group Number Insured Name Patient Relationship to Insured Coverage Start Date Coverage End Date [facility] [address] [place] [phone] [id number] UVALDO AMEZCUA Self - patient is the insured MEDICAL (GENERAL) HISTORY Medical History History ICD Code hypertension diabetes mellitus elevated cholesterol environmental allergies degenerative joint disease GIN/CPAP congestive heart failure Elevated BMI Surgical History Surgery Date(Month/Year) knee surgery wisdom teeth extraction thyroid surgery
--- OUTSIDE RECORDS SUMMARY | 2024-07-31 12:49 | XMS_ITS ---
Author Organization [facility] Address [address] [place] [address] Care Team Providers Care Assembler Carbon Brushes Name Role Phone Garo CONDE, Lakshmi Kovacs Primary Care Provider Un available Nakul Rizzo Unavailable [phone] Allergies Allergen (clinical drug ingredient) Drug/Non Drug Allergy documented on EMR Reaction Allergy Type Onset Date Status spironolactone Aldactone Unknown Drug Allergy Ac tive erythromycin Erythromycin GI upset Drug Allergy A ctive REASON FOR VISIT At Risk Footcare, Painful Nail(s) aggrevated by shoes and causing difficulty standing/walking. Medications Medication SIG (Take, Route, Frequency, Duration) Notes Start Date End Date Status Compression Stockings 20-30mm Hg 1 pair wear daily for 30 days Not-Taking Extra Depth Orthopedic Shoes (1 Pair) with Customized Heat Molded Multidensity Innersoles (3 Pair) as directed Dx: NIDDM (E11.9), Hammertoe Foot Deformity (M20.41,M20.42), Preulcerative Skin Lesion(s) (L85.1) 03/10/2023 Active CeleBREX 200 MG 1 capsule with food Orally Twice a day Active Norvasc 10 MG 1 tablet Orally Once a day for 30 day(s) Active Trulicity 1.5 MG/0.5ML as directed Subcutaneous Active Aspir-81 Active Heather Not-Taking Atorvastatin Calcium 20 MG 1 tablet Orally Once a day for 30 day(s) Active metFORMIN HCl 1000 MG 1 tablet with a me al Orally Once a day for 30 day(s) Active Proscar 5 MG 1 tablet Orally Once a day for 30 day(s) Active Coreg 25 MG 1 tablet with food Orally Twice a day for 30 day(s) Active Farxiga 10 MG 1 tablet Orally Once a day for 30 day(s) Active Tadalafil 5 MG 1 tablet as needed Orally Once a day for 30 day(s) Active B12 monthly inj Active Entresto 97-103 MG 1 tablet Orally Twic e a day for 30 day(s) Active Social [...] No Vital Signs Height 5ft 6in in 04/04/2024 Weight 259 lbs 04/04/2024 BMI 41.8 kg/m2 04/04/2024 Blood pressure systolic 129 mm Hg 04/04/20 24 Blood pressure diastolic 73 mm Hg 024 Procedures Procedure Date Ordered Date Performed Result Body Sit e 20126-OKXKEFS NAIL, 6 OR MORE 04/04/2024 N/A Encounters Encounter Location Date Provider Diagnosis [facility] [address] [address] 04/04/2024 Nakul Matthias Pain in right toe(s) M79.674 ; Tinea unguium B35.1 ; Pain in left toe(s) M79.675 and Type 2 diabetes mellitus without complication E11.9 Assessments Encounter Date Diagnosis (ICD Code) Assessment Notes Treatment Notes Treatment Clinical Notes Section Notes 04/04/2024 Pain in right toe(s) (ICD-10 - M79.674) 04/04/2024 Tinea unguium (ICD-10 - B35.1) 04/04/2024 Pain in left toe(s) (ICD-10 - M79.675) 04/04/2024 Type 2 diabetes mellitus without complication (ICD-10 - E11.9) Plan Of Treatment Pending Test Test Name Order Date 02926-HAHBXGV NAIL, 6 OR MORE 04/04/2024 Next Appt Details Follow Up: prn, Reason: Provider Name:Nakul Rizzo , 09/15/2024 10:30:00 AM, [address] [place], [address], Procedure Notes * Category Sub-Category Detail Notes Debride Nail 6-10 Nail debridement Performance o f this nail treatment by a nonprofessional would put this patients foot and overall health at risk. Therefore, nail debridement was performed extensively to reduce/remove overall nail length, girth, thickness, subungual debris, and necrotic tissue, by manual and/or electrical means through the use of a nail nipper and/or dremel-type grinder set up operator gear tool, to a more viable healthy nail plate or bed tissue 6-10. Silver nitrate used for any petechial bleeding as necessary. Definitive antifungal treatment options have been reviewed and discussed with the patient. The patient chooses, no pharmaceutical tx - 6[address]12 Progress Notes * Shanthi BECERRAOB:1960 ( 64 yo M)Acc No.[id number]:04/04/2024 Progress Note Patient:?Tiesha Becerran Provider:?Nakul Rizzo DPM :1960???Age:64 Y???Sex:Male Alcon e:04/04/2024 Address:[address] [place], [place] [id number] Pcp:Peyton Hirsch Subjective: * Chief Complaints: * ???At Risk FootcarePainful N ail(s) aggrevated by shoes and causing difficulty standing/walking. * HPI: ???At Risk footcare:?Pt States Last [...] a drink containing alcohol in the past year??Yes ?How often did you have a drink containing alcohol in the past year??Monthly or less (1 point) ?Points?1 ?Interpretation?Negative ???Miscellaneous:?Caffeine: yes, 2-3 cups per day decafe. ?no Children. ?Exercise: yes, work. ?Marital status: single. 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 * Medications:?TakingCeleBREX 200 MG Capsule 1 capsule [...] Tablet 1 tablet Orally Once a dayAspir-81 Norvasc 10 MG Tablet 1 tablet Orally [...] tablet Orally Once a dayTaking Aspir-81 Taking Norvasc 10 MG Tablet 1 tablet Orally Once a dayTaking Trulicity 1.5 MG/0.5ML Solution Pen-injector as directed Subcutaneous Taking Extra Depth Orthopedic Shoes (1 Pair) with Customized Heat Molded Multidensity Innersoles (3 Pair) as directed Dx: NIDDM (E11.9), Hammertoe Foot Deformity (M20.41,M20.42), Preulcerative Skin Lesion(s) (L85.1)Not-Taking/PRNAllegra Compression Stockings 20-30mm Hg closed toe- knee high 1 pair wear dailyMedication List reviewed and reconciled with the patientNot- Taking/PRN Heather Not-Taking/PRN Compression Stockings 20-30mm Hg closed toe- knee high 1 pair wear dailyMedication List reviewed and reconciled with the patient * Allergies:?Erythromycin: GI upsetAldactoneyes[Allergies Verified] Objective: * Vitals:?Ht: 5ft 6in, Wt:259, BMI:41.8, Shoe size: 10 6E, BP:129/73 mm Hg, BS: not taken, Ht-cm: 167.64 cm, Wt-k.48 kg. * ???Past Orders: ???Lab:HEMOGLOBIN A1C (GLYCO HEMOGLOBIN) (Order Date - 10/19/2023) (Collection Date - 09/20/2023) ? Value Reference Range ?HEMOGLOBIN A1C % (HH) 6.1 * Examination: ???Nails: ?NAILS are:?Elongated, overgrown, dystrophic, lytic, greater than 3mm thick, discolored and friable with crumbly malodorous subungual debris, with pain on palpation , 1-5 B/L.? Assessment: * Assessment: 1.?Tinea unguium - B35.1?2.? Pain in right toe(s) - M79.674?3.?Pain in left toe(s) - M79.675?4.?Type 2 diabetes mellitus without complication - E11.9? Plan: * Treatment: * Procedures:?Debride Nail 6-10:?Nail debridement?Performance of this nail treatment by a nonprofessional would put this patients foot and overall health at risk. Therefore, nail debridement was performed extensively to reduce/remove overall nail length, girth, thickness, subungual debris, and necrotic tissue, by manual and/or electrical means through the use of a nail nipper and/or dremel-type grinder set up operator gear tool, to a more viable healthy nail plate or bed tissue 6-10. Silver nitrate used for any petechial bleeding as necessary. Definitive antifungal treatment options have been reviewed and discussed with the patient. The patient chooses, no pharmaceutical tx - 61477.? * Procedure Codes:?49887 LVI DE NAIL, 6 OR MORE * Follow Up:?prn * Images: * Sign off status: Completed true * Provider:?Nakul Rizzo DPM Date:?2023 Generated for [place] mustafa/Yadira/Reena on:?07/31/2024 12:48 PM EST History and Physical Notes * HPI (History of Present Illness) Category Sub-Category Detail Notes Category Not es At Risk footcare Pt States Last PCP Visit: Date: 4 Examination Category Sub-Category Detail Notes Category Not es Nails NAILS are: Elongated, overg rown, dystrophic, lytic, greater than 3mm thick, discolored and friable with crumbly malodorous subungual debris, with pain on palpation , 1-5 B/L
== END 2024-07-31 12:58 | disposition home or self-care (01) ==
PROVIDERS: PCP Internal Medicine; Visit Provider Internal Medicine
DX: I10 Essential (primary) hypertension (principal); E78.5 Hyperlipidemia, unspecified; E11.9 Type 2 diabetes mellitus without complications

== ENCOUNTER → 2024-07-31 11:31 | Outpatient (BNVA) | payer MEDICARE, SELFPAY | PROVIDERS: PCP Internal Medicine; Visit Provider Internal Medicine | DX: I10 Essential (primary) hypertension (principal); E11.9 Type 2 diabetes mellitus without complications; E78.5 Hyperlipidemia, unspecified | CPT/HCPCS: 96127; 99212 ==

== ENCOUNTER 2024-08-15 08:47 | Outpatient (AMB) | payer MEDICARE, SELFPAY ==
--- NOTE | 2024-08-15 09:00 | MHC.OFFVIS ---
Vital Signs 08/15/24 09:01 Height 5 ft 6 in Weight 260 lb BMI 42.0 BP 144/72 H Blood Pressure Location Rt brachial Position Sitting Pulse 86 Pulse Source Pulse Oximeter Pulse Oximetry (%) 97 Oxygen Delivery Method Room Air Intake Visit Reasons: follow up Tremors Intake Note: Patient following up for tremors. PT note from 07/27/24 scanned into patient's chart. Allergies erythromycin base [ERYTHROMYCIN BASE] Allergy (Unknown, Verified 08/15/24 09:04) DIARRHEA spironolactone [Aldactone] Allergy (Unknown, Verified 08/15/24 09:04) stomach upset dust, mold, grass Allergy (Unknown, Uncoded 08/15/24 09:04) sneezing HPI Comments Details: 64y/o right handed male comes here for follow up of Parkinsons. His FELIX scan was abnormal with bilateral decreased uptake .He feels his left hand tremors have worsened. He is on rasagiline and is doing well, noticed only a mild worsening. He has left shoulder tightness. His REM behavior disorder- vivid dreams, not aware of screaming . he lives alone.. He feels his balance is Ok now . He had 1 fall on ice 2weeks ago- near fall He also has Vit B 12 deficiency and is on supplements. He is independent in all his ADLS. Mood is OK. No panic attacks or depression Bowel movements are good Cognition - Ok mild short term issues No hallucinations He did PT last summer and is still exercising. Past History-He started noticing tremors in his left hand in 2020 He denies any handwriting changes, dressing , eating, showering but feels his left hand tires quickly.He reports poor balance for 2-3 years.He had 2 falls - when he stands and bends forward he feels like his body cannot stop shifting forward. No change in speech or drooling. He has occasional swallowing issues.He has sleep apnea on CPAP.No sleep talking or acting out in his sleep. No memory issues. He denies depression or anxiety. No family history of tremors He denies head or neck injury. No exposure to neuroleptics. He denies constipation. [facility] Medical History Annual visit for general adult medical examination with abnormal findings Vitamin B12 deficiency Parkinson's disease without dyskinesia or fluctuating manifestations Parkinsons disease Gait abnormality Tremor of left hand Type 2 diabetes mellitus without complication, with no history of insulin use Vitamin D deficiency History of COVID-19 Nocturia Benign non-nodular prostatic hyperplasia with lower urinary tract symptoms Elevated PSA Trigger finger, right middle finger Type 2 diabetes mellitus without complication, with no history of insulin use Osteoarthritis of knees, bilateral Cardiomyopathy Hx of thyroid nodule Dyslipidemia GIN on CPAP Essential hypertension Morbid obesity Diabetes mellitus with hyperglycemia, without long-term current use of insulin Surgical History H/O total knee replacement Hx of colonoscopy History of lobectomy of thyroid Status post lateral meniscus repair Family History Father Diabetes mellitus Cancer of prostate Myocardial infarction Mother HTN (hypertension) Diabetes mellitus CAD (coronary artery disease) Paternal Grandfather Cancer of prostate Brother No problems noted. Brother No problems noted. Sister No problems noted. Sister No problems noted. Social History Housing: House Alcohol intake: never Patient Tobacco Use Status: Never used Tobacco e-Cigarette/Vaping Use: Never Used Second Hand Smoke Exposure: No service: Yes Current occupational status: retired Current occupation: [employer] Current occupational exposures/hazards: Yes Cognitive needs: No Hearing needs: No Vision needs: Yes Physical Exam Vital Signs: Last Vital Signs Pulse 86 08/15/24 09:01 BP 144/72 H 08/15/24 09:01 Pulse Ox 97 08/15/24 09:01 Oxygen Delivery Method Room Air 08/15/24 09:01 BMI result Body Mass Index 42.0 Const General: cooperative, healthy appearing and comfortable Nutritional Appearance: obese Orientation/consciousness: patient oriented x3 HEENT Head: Yes normal to inspection and Yes normocephalic Eyes Pupils: Equal, round and reactive pupils present Neuro Other: moderate decreased facial expression and blink Intermittent left hand rest tremors today Gait - slow , mild decreased arm swings L>R Left UE cogwheel rigidity 1 + FFM and foot taps decreased eloisa L>R General: patient oriented x3 and moves all extremities Cranial nerves: Yes Facial sensation intact/muscles of mastication intact, Yes Equal, round and reactive pupils present, Yes Bilaterally intact EOM present, Yes Nystagmus not present, Yes Normal facial strength present, Yes Midline tongue present and Yes Symmetric palate elevation present Cognition (Neuro): normal cognition Motor exam (neuro): 5/5 motor strength present throughout Psych Appearance: grossly normal Assessment & Plan Assessment & Plan (1) Parkinson's disease without dyskinesia or fluctuating manifestations: Code(s): G20.A1 - Parkinson's disease without dyskinesia, without mention of fluctuations Category: Medical (2) Vitamin B12 deficiency: Code(s): E53.8 - Deficiency of other specified B group vitamins Category: Medical (3) Gait abnormality: Code(s): R26.9 - Unspecified abnormalities of gait and mobility Category: Medical Plan Discussed FELIX scan results and various medications available for parkinsons disease. Continue rasagiline 1mg qd Continue CPAP Continue exercises Melatonin 3mg qhs Continue aspirin 81mg qd Vit B 12 supplementation Coding Level of Care Code Est Pt Level 4 (94423) Complex EM visit Add On G2211 Diagnoses Parkinson's disease without dyskinesia or fluctuating manifestations G20.A1 Vitamin B12 deficiency E53.8 Gait abnormality R26.9
[2024-08-15 09:01] VITALS: BP 144/72; PULSE 86; O2SAT 97; BMI 42.0
--- OUTSIDE RECORDS SUMMARY | 2024-08-15 09:25 | XMS_ITS ---
Author Organization [facility] Address [address] [place] [address] Care Team Providers Care Job Placement Officer Name Role Phone Garo CONDE, Lakshmi Kovacs Primary Care Provider Un available Nakul Rizzo Unavailable [phone] Allergies Allergen (clinical drug ingredient) Drug/Non Drug [...] Ordered Date Performed Result Body Sit e 57107-WRRXDHA NAIL, 6 OR MORE 06/13/2024 N/A Encounters Encounter Location Date Provider Diagnosis [facility] [place] [address] [place] [address] 06/13/2024 Nakul Rizzo Tinea unguium B35.1 ; [...] INSTRUCTIONS.pdf) Pending Test Test Name Order Date 22473-UVVXAAR NAIL, 6 OR MORE 06/13/2024 Next Appt Details Follow Up: prn, Reason: Provider Name:Nakul Rizzo , 09/15/2024 10:30:00 AM, [address] [place] [address], [address], Procedure Notes * Category Sub-Category Detail Notes [...] of a nail nipper and/or dremel-type grinder operator external tool, to a more viable healthy nail [...] * Shanthi BECERRAOB:1960 ( 64 yo M)Acc No.[id number]:06/13/2024 Progress Note Patient:?Albert BECERRA Provider:?Nakul Rizzo DPM :1960???Age:64 Y???Sex:Male Alcon e:06/13/2024 Address:[address] [place], [place] [phone] Pcp:Peyton Hirsch Subjective: * Chief Complaints: * [...] of a nail nipper and/or dremel-type grinder operator external tool, to a more viable healthy nail [...] to maintain effectiveness in symptomatic relief - 08431.? * Procedure Codes:?30337 DEBRI DE NAIL, 6 OR MORE * [...] Rizzo DPM Date:?2023 Generated for [place] mustafa/Yadira/Reena on:?08/15/2024 09:25 AM EST History and Physical Notes * HPI [...]
--- OUTSIDE RECORDS SUMMARY | 2024-08-15 09:25 | XMS_ITS | Patient Health Record ---
Author Organization [facility] Address [address] [place] [address] Care Team Providers Care Business Rules Developer Name Role Phone Garo CONDE, Lakshmi Primary [...] Active confirmed Hemorrhage of rectum and anus (551479191) Problem Colon cancer screening (Z12.11) Active confirmed 121706142 Problem Encounter for other preprocedural examination (Z01.818) Active confirmed 682468239 Problem Long-term use of aspirin therapy (Z79.82) Active confirmed 656441456 PLAN OF TREATMENT Future Test Test Name Order Date COLONOSCOPY 08/07/2011 COLONOSCOPY 10/03/2021 Insurance Providers Payer Name Payer Address Payer Phone Subscriber Number Group Number Insured Name Patient Relationship to Insured Coverage Start Date Coverage End Date [facility] [address] [place] [phone] [id number] UVALDO AMEZCUA Self - patient is the insured MEDICAL (GENERAL) HISTORY Medical History History ICD Code hypertension diabetes mellitus elevated cholesterol environmental allergies degenerative joint disease GIN/CPAP congestive heart failure Elevated BMI Surgical History Surgery Date(Month/Year) knee surgery wisdom teeth extraction thyroid surgery
--- OUTSIDE RECORDS SUMMARY | 2024-08-15 09:25 | XMS_ITS ---
Author Organization [facility] Address [address] [place] [address] Care Team Providers Care American Studies Professor Name Role Phone Garo CONDE, Lakshmi Kovacs Primary Care Provider Un available Nakul Rizzo Unavailable [phone] Allergies Allergen (clinical drug ingredient) Drug/Non Drug [...] Ordered Date Performed Result Body Sit e 43947-SOVYCVJ NAIL, 6 OR MORE 04/04/2024 N/A Encounters Encounter Location Date Provider Diagnosis [facility] [address] [address] 04/04/2024 Nakul Matthias Pain in right toe(s) [...] Treatment Pending Test Test Name Order Date [id number] NAIL, 6 OR MORE 04/04/2024 Next Appt Details Follow Up: prn, Reason: Provider Name:Nakul Rizzo , 09/15/2024 10:30:00 AM, [address] [place], [address], Procedure Notes * Category Sub-Category Detail Notes [...] of a nail nipper and/or dremel-type grinder lap, to a more viable healthy nail plate or bed tissue 6-10. Silver nitrate used for any petechial bleeding as necessary. Definitive antifungal treatment options have been reviewed and discussed with the patient. The patient chooses, no pharmaceutical tx - 60744 Progress Notes * Shanthi BECERRAOB:1960 ( 64 yo M)Acc No.[id number]:04/04/2024 Progress Note Patient:?Tiesha Becerran Provider:?Nakul Rizzo DPM :1960???Age:64 Y???Sex:Male Alcon e:04/04/2024 Address:[address] [place], [place] [address] Pcp:Peyton Hirsch Subjective: * Chief Complaints: * [...] yes, work. ?Marital status: single. 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 * Medications:?TakingCeleBREX 200 MG Capsule 1 [...] of a nail nipper and/or dremel-type grinder lap, to a more viable healthy nail plate or bed tissue 6-10. Silver nitrate used for any petechial bleeding as necessary. Definitive antifungal treatment options have been reviewed and discussed with the patient. The patient chooses, no pharmaceutical tx - 16772.? * Procedure Codes:?58400 LVI DE NAIL, 6 OR MORE * [...]
--- OUTSIDE RECORDS SUMMARY | 2024-08-15 09:25 | XMS_ITS | Patient Health Record ---
Author Organization [facility] Address [address] [place] [address] Care Team Providers Care District Service Manager Name Role Phone Garo CONDE, Lakshmi Kovacs Primary Care Provider Un available Nakul Rizzo Unavailable [phone] Allergies Allergen (clinical drug ingredient) Drug/Non Drug Allergy documented on EMR Reaction Allergy Type Onset Date Status spironolactone Aldactone Unknown Drug Allergy Ac tive erythromycin Erythromycin GI upset Drug Allergy A ctive Results Component Value Reference Range Notes HEMOGLOBIN A1C (GLYCOHEMOGLO BIN) Reviewed date:10/19/2023 09:59:48 AM Interpretation: Performing Lab: Notes/Report: HEMOGLOBIN A1C % (HH) 6.1 HEMOGLOBIN A1C (GLYCOHEMOGLO BIN) Reviewed date:06/13/2024 09:56:27 AM Interpretation: Performing Lab: Notes/Report: TOTAL HEMOGLOBIN (HGBA1C) 5.8 Reason For Referral No Information Medications Medication [...] Problem Acquired hammer toe of right foot (867002463851162 5) Other hammer toe(s) (acquired), right foot (M20.41) Active confirmed Problem Acquired hammer toe of left foot (862178131779166 3) Other hammer toe(s) (acquired), left foot (M20.42) Active confirmed Problem Type 2 diabetes mellitus without complication (378544134) Type 2 diabetes mellitus without complication (E11.9) Active confirmed Vital Signs Blood pressure diastolic 80 mm Hg 06/13/2024 Height 5ft6in in 06/13/2024 Blood pressure systolic 128 mm Hg 06/13/2024 Weight 256 lbs 06/13/2024 BMI 41.31 kg/m2 06/13/2024 Procedures Procedure Date Ordered Date Performed Result Body Sit e 77037-JVQVHIB NAIL, 6 OR MORE 10/19/2023 N/A 19950-PTBJPRN NAIL, 6 OR MORE 01/04/2024 N/A 71250-Hftihejt Plate 01/04/2024 N/A 09545-MZNEVVY NAIL, 6 OR MORE 04/04/2024 N/A 18878-SELRIMN NAIL, 6 OR MORE 06/13/2024 N/A Encounters Encounter Location Date Provider Diagnosis [address] [address] 10/19/2023 Nakul Matthias Pain in right toe(s) M79.674 ; Tinea unguium B35.1 ; Pain in left toe(s) M79.675 and Type 2 diabetes mellitus without complication E11.[address] [address] 01/04/2024 Nakul Matthias Pain in right toe(s) M79.674 ; Tinea unguium B35.1 ; Pain in left toe(s) M79.675 ; Type 2 diabetes mellitus without complication E11.9 and Ingrown nail L60.[address] [address] 04/04/2024 Nakul Matthias Pain in right toe(s) M79.674 ; Tinea unguium B35.1 ; Pain in left toe(s) M79.675 and Type 2 diabetes mellitus without complication E11.[address] [address] 06/13/2024 Nakul Matthias Tinea unguium B35.1 ; Other hammer toe(s) (acquired), right foot M20.41 ; Pain in right toe(s) M79.674 ; Pain in left toe(s) M79.675 ; Type 2 diabetes mellitus without complication E11.9 and Other hammer toe(s) (acquired), left foot M20.42 Assessments Encounter Date Diagnosis (ICD Code) Assessment Notes Treatment Notes Treatment Clinical Notes Section Notes 10/19/2023 Tinea unguium (ICD-10 - B35.1) 10/19/2023 [...] in left toe(s) (ICD-10 - M79.675) 10/19/2023 Type 2 diabetes mellitus without complication (ICD-10 - E11.9) 06/13/2024 Pain in left toe(s) (ICD-10 - M79.675) 04/04/2024 Type 2 diabetes mellitus without complication (ICD-10 - E11.9) 01/04/2024 Type 2 diabetes mellitus without complication (ICD-10 - E11.9) 06/13/2024 Type 2 diabetes mellitus without complication (ICD-10 - E11.9) 01/04/2024 Ingrown nail (ICD-10 - L60.0) 06/13/2024 Other hammer toe(s) (acquired), left foot (ICD-10 - M20.42) Plan Of Treatment Pending Test Test Name Order Date 42753-EFQWQXV NAIL, 6 OR MORE 03/10/2023 61674-CUDAFBA NAIL, 6 OR MORE 05/18/2023 23315-AFBZHFF NAIL, 6 OR MORE 10/19/2023 22680-HUCISLX NAIL, 6 OR MORE 01/04/2024 74225-GJRDADJ NAIL, 6 OR MORE 04/04/2024 86769-TQZBNKP NAIL, 6 OR MORE 06/13/2024 52346-EHYHHGR NAIL, 6 OR MORE 08/03/2023 91307-Rlfrhmmd Plate 01/04/2024 Next Appt Details Provider Name:Nakul Rizzo , 09/15/2024 10:30:00 AM, [address] [place], [address], Insurance Providers Payer Name Payer Address Payer Phone Subscriber Number Group Number Insured Name Patient Relationship to Insured Coverage Start Date Coverage End Date [employer] [address] [place] [phone] [id number] Albert Becerra Self - patient is the insured Medical (General) History Medical History History ICD Code Arthritis asthma Back,Hip,and Knee pain Broken bones Cataracts covid-19 Diabetic Heart disease High blood pressure Parkinsons disease Measles Mumps Chicken pox Sleep apnea CHF BPH Surgical History Surgery Date(Month/Year) knee replacement surgery, right 03/2023
--- OUTSIDE RECORDS SUMMARY | 2024-08-15 09:25 | XMS_ITS ---
Author Organization [facility] Address [address] [place] [address] Care Team Providers Care Joss House Keeper Name Role Phone Garo CONDE, Lakshmi Kovacs Primary Care Provider Un available Nakul Rizzo Unavailable [phone] Allergies Allergen (clinical drug ingredient) Drug/Non Drug [...] Ordered Date Performed Result Body Sit e 94614-DUBDZIG NAIL, 6 OR MORE 01/04/2024 N/A 03215-Hcwtsrfp Plate 01/04/2024 N/A Encounters Encounter Location Date Provider Diagnosis [facility] [place] [address] [place] [address] 01/04/2024 Nakul Rizzo Pain in right toe(s) [...] Treatment Pending Test Test Name Order Date 71126-JEBIRXE NAIL, 6 OR MORE 01/04/2024 14977-Ujavlkvw Plate 01/04/2024 Next Appt Details Follow Up: prn, Reason: Provider Name:Nakul Calle Matthias , 09/15/2024 10:30:00 AM, [address] [place], [address], Procedure Notes * Category Sub-Category Detail Notes [...] Motrin was recommended for pain or discomfort (42852) , DIABETES: Pt was advised as to [...] as necessary. Patient chooses, no pharmaceutical tx (25897) Progress Notes * Tiesha BECERRAnDOB:1960 ( 63 yo M)Acc No.[id number]:01/04/2024 Progress Note Patient:?Tiesha Becerran Provider:?Nakul Rizzo DPM :1960???Age:63 Y???Sex:Male Alcon e:01/04/2024 Address:[address] [place], [place] [address], [id number] Pcp:Peyton Hirsch Subjective: * Chief Complaints: * [...] yes, work. ?Marital status: single. 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 * Medications:?TakingCeleBREX 200 MG Capsule 1 capsule [...] , TA? Plan: * Treatment: 2.?Ingrown nail?Procedure: 09721-Haskjmhg Plate * Procedures:?Debride Nail 6-10:?Nail debridement?Nail debridement performed extensively to reduce/remove overall nail length, girth, thickness, subungual debris, and necrotic tissue, by manual and electrical means through the use of a nail nipper and/or dremel, to more viable healthy nail plate or bed tissue 1-5. Silver nitrate used for any petechial bleeding as necessary. Patient chooses, no pharmaceutical tx (73808).?Nail Avulsion:?Location?Lateral nail border?,?TA.?Anesthesia?2cc of 1 percent Lidocaine [...] Motrin was recommended for pain or discomfort (04323) , DIABETES: Pt was advised as to the risk of delayed or nonhealing due to diabetes. Pt is to call the office with any questions, concerns, or complications.? * Procedure Codes:?83112 DEBRI DE NAIL, 6 OR MORE, Modifiers: XS 29112 Avulsion Plate, Modifiers: XS , TA * [...]
== END 2024-08-15 09:19 | disposition home or self-care (01) ==
PROVIDERS: PCP Internal Medicine; Visit Provider Psychiatry & Neurology Neurology
DX: G20.A1 Parkinson's disease without dyskinesia, without mention of fluctuations (principal); E53.8 Deficiency of other specified B group vitamins; R26.9 Unspecified abnormalities of gait and mobility
CPT/HCPCS: 99214; G2211

== ENCOUNTER → 2024-08-15 08:47 | Outpatient (BNVA) | payer MEDICARE, SELFPAY | PROVIDERS: PCP Internal Medicine; Visit Provider Psychiatry & Neurology Neurology | DX: G20.A1 Parkinson's disease without dyskinesia, without mention of fluctuations (principal); E53.8 Deficiency of other specified B group vitamins; R26.9 Unspecified abnormalities of gait and mobility | CPT/HCPCS: 99212 ==

== ENCOUNTER 2024-10-31 09:35 | Outpatient (REF) | payer MEDICARE, SELFPAY ==
--- OUTSIDE RECORDS SUMMARY | 2024-10-31 10:14 | XMS_ITS | Patient Health Record ---
Author Organization [facility] Address [address] [place] [address] Care Team Providers Care Assistant Professor Nurse Education Name Role Phone Garo CONDE, Lakshmi Primary Care Provider Dirk Crisostomo Jr Unavailable Allergies Allergen (clinical drug ingredient) Drug/Non Drug Allergy documented on EMR Reaction Allergy Type Onset Date Status erythromycin Erythromycin Unknown Drug Allergy A ctive spironolactone Aldactone Unknown Drug Allergy Ac tive Reason For Referral No Information Medications Medication [...] 25 MG Oral for 90 A ctive Immunizations Vaccine Route Administration Date Status Comme nts Influenza Unknown 03/11/2021 Administered Problems Problem Type SNOMED Code ICD Code Onset Dates Problem Status W/U Status Risk Notes Problem Hemorrhage of rectum and anus (524678346) Hemorrhage of rectum and anus (569.3) Active confirmed Problem 221372387 Colon cancer screening (Z12.11) Active confirmed Problem 586868183 Encounter for other preprocedural examination (Z01.818) Active confirmed Problem 809701939 Long-term use of aspirin therapy (Z79.82) Active confirmed Plan Of Treatment Future Test Test Name Order Date COLONOSCOPY 08/07/2011 COLONOSCOPY 10/03/2021 Insurance Providers Payer Name Payer Address Payer Phone Subscriber Number Group Number Insured Name Patient Relationship to Insured Coverage Start Date Coverage End Date [facility] [address] [place] [address] [id number] UVALDO AMEZCUA Self - patient is the insured Medical (General) History Medical History History ICD Code hypertension diabetes mellitus elevated cholesterol environmental allergies degenerative joint disease GIN/CPAP congestive heart failure Elevated BMI Surgical History Surgery Date(Month/Year) knee surgery wisdom teeth extraction thyroid surgery
--- OUTSIDE RECORDS SUMMARY | 2024-10-31 10:14 | XMS_ITS ---
Author Organization [facility] Address [address] [place] [address] Care Team Providers Care Die Engraver Name Role Phone Garo CONDE, Lakshmi Kovacs Primary Care Provider Un available Nakul Rizzo Unavailable [phone] Allergies Allergen (clinical drug ingredient) Drug/Non Drug [...] Ordered Date Performed Result Body Sit e 64529-IILYABN NAIL, 6 OR MORE 04/04/2024 N/A Encounters Encounter Location Date Provider Diagnosis [facility] [address] [address] 04/04/2024 Nakul Matthias Pain in right toe(s) [...] Treatment Pending Test Test Name Order Date [id number]-[id number] NAIL, 6 OR MORE 04/04/2024 Next Appt Details Follow Up: prn, Reason: Provider Name:Nakul Rizzo , 12/19/2024 11:00:00 AM, [address] [place] [address], [phone], Procedure Notes * Category Sub-Category Detail Notes Debride Nail 6-10 Nail debridement Performance o f this nail treatment by a nonprofessional would put this patients foot and overall health at risk. Therefore, nail debridement was performed extensively to reduce/remove overall nail length, girth, thickness, subungual debris, and necrotic tissue, by manual and/or electrical means through the use of a nail nipper and/or dremel-type air grinder, to a more viable healthy nail plate or bed tissue 6-10. Silver nitrate used for any petechial bleeding as necessary. Definitive antifungal treatment options have been reviewed and discussed with the patient. The patient chooses, no pharmaceutical tx - 56579 Progress Notes * Shanthi BECERRAOB:1960 ( 64 yo M)Acc No.[id number]:04/04/2024 Progress Note Patient:?Tiesha Becerran Provider:?Nakul Rizzo DPM :1960???Age:64 Y???Sex:Male Alcon e:04/04/2024 Address:[address] [place], [place] [address] Pcp:Peyton Hirsch Subjective: * Chief Complaints: * [...] yes, work. ?Marital status: single. 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 * Medications:?TakingCeleBREX 200 MG Capsule 1 [...] use of a nail nipper and/or dremel-type air grinder, to a more viable healthy nail plate or bed tissue 6-10. Silver nitrate used for any petechial bleeding as necessary. Definitive antifungal treatment options have been reviewed and discussed with the patient. The patient chooses, no pharmaceutical tx - 99604.? * Procedure Codes:?57111 LVI DE NAIL, 6 OR MORE * Follow Up:?prn * Images: * Sign off status: Completed true * Provider:?Nakul Rizzo DPM Date:?2023 Generated for [place] mustafa/Yadira/Reena on:?10/31/2024 10:14 AM EDT History and Physical Notes * HPI (History [...]
--- OUTSIDE RECORDS SUMMARY | 2024-10-31 10:15 | XMS_ITS ---
Author Organization [facility] Address [address] [place] [address] Care Team Providers Care Customer Experience Consultant Name Role Phone Garo CONDE, Lakshmi Kovacs Primary Care Provider Un available Nakul Rizzo Unavailable [phone] Allergies Allergen (clinical drug ingredient) Drug/Non Drug Allergy documented on EMR Reaction Allergy Type Onset Date Status spironolactone Aldactone Unknown Drug Allergy Ac tive erythromycin Erythromycin GI upset Drug Allergy A ctive REASON FOR VISIT At Risk Footcare, Painful Nail(s) aggrevated by shoes and causing difficulty standing/walking., ToeIrritation Medications Medication SIG (Take, Route, Frequency, Duration) Notes Start Date End Date Status Extra Depth Orthopedic Shoes (1 Pair) with Customized Heat Molded Multidensity Innersoles (3 Pair) as directed Dx: NIDDM (E11.9), Hammertoe Foot Deformity (M20.41,M20.42), Preulcerative Skin Lesion(s) (L85.1) Active Compression Stockings 20-30mm Hg 1 pair wear daily for 30 days Not-Taking Heather Not-Taking Melatonin Active Rasagiline Mesylate Active Norvasc 10 MG 1 tablet Orally Once a day for 30 day(s) Active Aspir-81 Active Proscar 5 MG 1 tablet Orally Once a day for 30 day(s) Active CeleBREX 200 MG 1 capsule with food Orally Twice a day Not-Taking Trulicity 1.5 MG/0.5ML as directed Subcutaneous Active metFORMIN HCl 1000 MG 1 tablet [...] 30 day(s) Active B12 monthly inj Active Social History Tobacco Use: Social History Observation Description Date Details (start date - stop date) Never Smoker NA - NA Tobacco use other than smoking: Question Answer Notes Are you an other tobacco user? No Tobacco Control (Standard) Question Answer Notes Tobacco use: Nonsmoker Additional Findings: Tobacco non-user Current no nsmoker AUDIT-C (Standard) Question Answer Notes Did you have a drink containing alcohol in the p ast year? No Points 0 Interpretation Negative Vital Signs Height 5ft6in in 09/15/2024 Weight 256 lbs 09/15/2024 BMI 41.31 kg/m2 09/15/2024 Blood pressure systolic 128 mm Hg 09/16/19 25 Blood pressure diastolic 70 mm Hg 025 Procedures Procedure Date Ordered Date Performed Result Body Sit e 24285-YNVJJAD NAIL, 6 OR MORE 09/15/2024 N/A Encounters Encounter Location Date Provider Diagnosis [facility] [place] [address] [place] [address] 09/15/2024 Nakul Rizzo Tinea unguium B35.1 ; Other hammer toe(s) (acquired), right foot M20.41 ; Pain in right toe(s) M79.674 ; Pain in left toe(s) M79.675 ; Type 2 diabetes mellitus without complication E11.9 and Other hammer toe(s) (acquired), left foot M20.42 Assessments Encounter Date Diagnosis (ICD Code) Assessment Notes Treatment Notes Treatment Clinical Notes Section Notes 09/15/2024 Tinea unguium (ICD-10 - B35.1) 09/15/2024 Other hammer toe(s) (acquired), right foot (ICD-10 - M20.41) Patient Educated with: DIABETIC FOOT CARE INSTRUCTIONS.p df (DIABETIC FOOT CARE INSTRUCTIONS.p df) 09/15/2024 Pain in right toe(s) (ICD-10 - M79.674) 09/15/2024 Pain in left toe(s) (ICD-10 - M79.675) 09/15/2024 Type 2 diabetes mellitus without complication (ICD-10 - E11.9) 09/15/2024 Other hammer toe(s) (acquired), left foot (ICD-10 - M20.42) Plan Of Treatment Medication Medication Name Sig Start Date Stop Date Notes Extra Depth Orthopedic Shoes (1 Pair) with Customized Heat Molded Multidensity Innersoles (3 Pair) as directed Dx: NIDDM (E11.9), Hammertoe Foot Deformity (M20.41,M20.42), Preulcerative Skin Lesion(s) (L85.1) Treatment Notes Assessment Notes Other hammer toe(s) (acquired), right fo ot Patient Educated with: DIABETIC FOOT CARE INSTRUCTIONS.pdf (DIABETIC FOOT CARE INSTRUCTIONS.pdf) Pending Test Test Name Order Date 77683-NRTALAR NAIL, 6 OR MORE 09/15/2024 Next Appt Details Follow Up: prn, Reason: Provider Name:Nakul Rizzo , 12/19/2024 11:00:00 AM, [address] [place] [address], [phone], Procedure Notes * Category Sub-Category Detail Notes [...] T3, T4, T5, T6, T7, T8, T9 ), was performed exclusively by the physician of record to reduce/remove overall nail length, girth, thickness, subungual debris, and necrotic tissue, by manual and/or electrical means through the use of a nail nipper and/or dremel-type sausage grinder, to a more viable healthy nail [...] to maintain effectiveness in symptomatic relief - 86516 Progress Notes * Shanthi BECERRAOB:1960 ( 64 yo M)Acc No.[id number]:09/15/2024 Progress Note Patient:Albert WERNER Provider:?Nakul Rizzo DPM :1960???Age:64 Y???Sex:Male Alcon e:09/15/2024 Address:[address] [place], [place] [address] Pcp:Peyton Hirsch Subjective: * Chief Complaints: * ???At Risk FootcarePainful N ail(s) aggrevated by shoes and causing difficulty standing/walking.Toe Irritation * HPI: ???At Risk footcare:?Pt States Last PCP Visit:?Date?06/26/2024 ???Toe pain:?Location:?B/L feet.?Duration:?several years.?Course:?worse.?Aggravated by:?shoes, any pressure.?Treatments:?change [...] History:?Mother: dece ased, kidney/liver disease, diagnosed with Diabetic - NIDDM, Family history of arthritis.?Father: , diagnosed with Other malignant neoplasm of unspecified site, Diabetic - NIDDM.?Maternal Grand Mother: kidney/liver disease.? * Social History:?Tobacco Use:?Tobacco use other than smoking?Are you an other tobacco user??No ?Tobacco Control (Standard)?Tobacco use:?Nonsmoker ?Additional Findings: Tobacco non-user?Current nonsmoker ???Drugs/Alcohol:?Drugs?Have you used drugs other than those for medical reasons in the past 12 months??No ???Miscellaneous:?Caffeine: yes, 2-3 cups per day decafe. ?Children: no. ?Exercise: yes, work. ?Marital status: single. 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 ???Drug/Alcohol:?AUDIT-C (Standard)?Did you have a drink containing alcohol in the past year??No ?Points?0 ?Interpretation?Negative * Medications:?TakingRasagilin e Mesylate Melatonin B12 , Notes to Pharmacist: monthly injFarxiga 10 MG Tablet 1 tablet Orally Once a day Tadalafil 5 MG Tablet 1 tablet as needed Orally Once a day Coreg 25 MG Tablet 1 tablet with food Orally Twice a day Entresto 97-103 MG Tablet 1 tablet Orally Twice a day Atorvastatin Calcium 20 MG Tablet 1 tablet Orally Once a day metFORMIN HCl 1000 MG Tablet 1 tablet with a meal Orally Once a day Proscar 5 MG Tablet 1 tablet Orally Once a day Aspir-81 Norvasc 10 MG Tablet 1 tablet Orally Once a day Trulicity 1.5 MG/0.5ML Solution Pen- injector as directed Subcutaneous Extra Depth Orthopedic Shoes (1 Pair) with Customized Heat Molded Multidensity Innersoles (3 Pair) as directed Dx: NIDDM (E11.9), Hammertoe Foot Deformity (M20.41,M20.42), Preulcerative Skin Lesion(s) (L85.1) Taking Rasagiline Mesylate Taking Melatonin Taking B12 , Notes to [...] Foot Deformity (M20.41,M20.42), Preulcerative Skin Lesion(s) (L85.1) Not-Taking/PRNCeleBREX 200 MG Capsule 1 capsule with [...] * Allergies:?Erythromycin: GI upsetAldactoneyes[Allergies Verified] Objective: * Vitals:?Ht:5ft6in, Wt:256, B NM:41.31, Shoe size:10 4E, BP:128/70mm Hg, BS:110, Ht-cm: 167.64 cm, Wt-k.12 kg. * ???Past Orders: ???Lab:HEMOGLOBIN A1C (GLYCO HEMOGLOBIN) (Order Date - 06/23/2024) (Collection Date & Time - 09/15/2024 11:14 AM) ? Value Reference Range ?HEMOGLOBIN A1C % (HH) 6.1 * Examination: ???Ophthalmology Referral: ?DIABETES EYE EXAM?Procedure Performed:?Yes ?Date of Exam Performed?06/28/2024 ?Diabetic Retinopathy Screening:?Yes ?Retinal Screening Performed:?Yes ?Findings of Diabetic Eye Exam:?no retinopathy?Nails: ?NAILS are:?Elongated, overgrown, dystrophic, lytic, greater than [...] underlapping, with evidence of shoe producing skin irritation.?SHOE GEAR:?worn, OT were inspected and noted to be severely worn , in poor condition not giving proper support at the present time, shoe gear properties exacerbate patients foot/toe deformity.?Dermatologic: ?SKIN FINDINGS:?Skin exam reveals normal texture, elasticity, [...] B/L, Pt denies, anesthesia, burning, paresthesia, tingling, B/L.?General Examination: ?GENERAL APPEARANCE:?Reveals a pleasant, alert, well nourished, well- developed, well hydrated individual, who demonstrates proper attention to hygiene/body habitus, and is in no acute distress, Pt serves as own historian for office visit today.?ORIENTED:?person, place, and time.?FOOT EXAM:?Lower Extremity Neurological Exam performed:?Yes ?Visual exam of foot performed:?Yes ?Date?09/15/2024 ?Footwear Evaluation?Footwear Evaluation performed:?Yes??? Assessment: * Assessment: 1.?Other hammer toe(s) (acqu [...] T3, T4, T5, T6, T7, T8, T9 ), was performed exclusively by the physician of record to reduce/remove overall nail length, girth, thickness, subungual debris, and necrotic tissue, by manual and/or electrical means through the use of a nail nipper and/or dremel-type sausage grinder, to a more viable healthy nail [...] to maintain effectiveness in symptomatic relief - 16894.? * Procedure Codes:?69424 DEBRI DE NAIL, 6 OR MORE * [...] have encouraged the patient to call the office.?Diabetic Footcare:?The patient was advised against future self nail/callus care due to inherent risks for infection, loss of limb/life given diabetic.?Digital Surgery:?Digital surgery was discussed with the patient, [...] status: Completed true * Provider:?Nakul Rizzo DPM Date:?2024 Generated for [place] mustafa/Yadira/Reena on:?10/31/2024 10:14 AM EDT History and Physical Notes * HPI (History of Present Illness) Category Sub-Category Detail Notes Category Not es Toe pain Location: B/L feet Duration: several years Course: worse Aggravated by: shoes, any pressure Treatments: change in shoes At Risk footcare Pt States Last PCP Visit: Date: 5 Examination Category Sub-Category Detail Notes Category Not [...] (-) Charcot collapse /destruction noted at [facility] FOOTWEAR EVALUATION: worn, OT were inspe cted and noted to be severely worn , [...] Lower Extremity Neurological Exa m performed:: Yes Visual exam of foot performed:: Yes Date: 09/15/2024 ORIENTED: person, place, and t elda Footwear Evaluation Footwear Evaluation performe d:: Yes Ophthalmology Referral DIABETES EYE EXAM Procedure Perform ed:: Yes ?Date of Exam Performed: 06/28/2024 Diabetic Retinopathy Screening:: Yes Retinal Screening Performed:: [...]
--- OUTSIDE RECORDS SUMMARY | 2024-10-31 10:15 | XMS_ITS | Patient Health Record ---
Author Organization [facility] Address [address] [place] [address] Care Team Providers Care Agricultural Research Technologist Name Role Phone Garo CONDE, Lakshmi Kovacs Primary Care Provider Un available Nakul Rizzo Unavailable [phone] Allergies Allergen (clinical drug ingredient) Drug/Non Drug Allergy documented on EMR Reaction Allergy Type Onset Date Status spironolactone Aldactone Unknown Drug Allergy Ac tive erythromycin Erythromycin GI upset Drug Allergy A ctive Results Component Value Reference Range Notes HEMOGLOBIN A1C (GLYCOHEMOGLO BIN) Reviewed date:06/13/2024 09:56:27 AM Interpretation: Performing Lab: Notes/Report: TOTAL HEMOGLOBIN (HGBA1C) 5.8 HEMOGLOBIN A1C (GLYCOHEMOGLO BIN) Reviewed date:09/15/2024 11:14:35 AM Interpretation: Performing Lab: Notes/Report: HEMOGLOBIN A1C % (HH) 6.1 Reason For Referral No Information Medications Medication SIG (Take, Route, Frequency, Duration) Notes Start Date End Date Status Farxiga 10 MG 1 tablet Orally Once a day for 30 day(s) Active CeleBREX 200 MG 1 capsule with food Orally Twice a day Not-Taking B12 monthly inj Active Melatonin Active Rasagiline Mesylate Active Norvasc 10 MG 1 tablet Orally Once a day for 30 day(s) Active Aspir-81 Active Proscar 5 MG 1 tablet Orally Once a day for 30 day(s) Active metFORMIN HCl 1000 MG 1 tablet with a me al Orally Once a day for 30 day(s) Active Extra Depth Orthopedic Shoes (1 Pair) with Customized Heat Molded Multidensity Innersoles (3 Pair) as directed Dx: NIDDM (E11.9), Hammertoe Foot Deformity (M20.41,M20.42), Preulcerative Skin Lesion(s) (L85.1) Active Atorvastatin Calcium 20 MG 1 tablet Orally Once a day for 30 day(s) Active Entresto 97-103 MG 1 tablet Orally Twic e a day for 30 day(s) Active Coreg 25 MG 1 tablet with food Orally Twice a day for 30 day(s) Active Compression Stockings 20-30mm Hg 1 pair wear daily for 30 days Not-Taking Tadalafil 5 MG 1 tablet as needed Orally Once a day for 30 day(s) Active Heather Not-Taking Trulicity 1.5 MG/0.5ML as directed Subcutaneous [...] ast year? No Points 0 Interpretation Negative Problems Problem Type SNOMED Code ICD Code Onset Dates Problem Status W/U Status Risk Notes Problem Acquired hammer toe of right foot (339230598680670 5) Other hammer toe(s) (acquired), right foot (M20.41) Active confirmed Problem Acquired hammer toe of left foot (091082406537876 3) Other hammer toe(s) (acquired), left foot (M20.42) Active confirmed Problem Type 2 diabetes mellitus without complication (098779753) Type 2 diabetes mellitus without complication (E11.9) Active confirmed Vital Signs Blood pressure diastolic 70 mm Hg 09/15/2024 Height 5ft6in in 09/15/2024 Blood pressure systolic 128 mm Hg 09/15/2024 Weight 256 lbs 09/15/2024 BMI 41.31 kg/m2 09/15/2024 Procedures Procedure Date Ordered Date Performed Result Body Sit e 79899-WPGSITW NAIL, 6 OR MORE 01/04/2024 N/A 50502-Cycfcxim Plate 01/04/2024 N/A 90964-KLRKTBY NAIL, 6 OR MORE 04/04/2024 N/A 51561-AGWZZUO NAIL, 6 OR MORE 06/13/2024 N/A 61513-BWTPLRP NAIL, 6 OR MORE 09/15/2024 N/A Encounters Encounter Location Date Provider Diagnosis [address] [address] 01/04/2024 Nakul Matthias Pain in right toe(s) M79.674 ; Tinea unguium B35.1 ; Pain in left toe(s) M79.675 ; Type 2 diabetes mellitus without complication E11.9 and Ingrown nail L60.[address] [address] 04/04/2024 Nakul Matthias Pain in right toe(s) M79.674 ; Tinea unguium B35.1 ; Pain in left toe(s) M79.675 and Type 2 diabetes mellitus without complication E11.[address] [address] 06/13/2024 Nakul Matthias Tinea unguium B35.1 ; Other hammer toe(s) (acquired), right foot M20.41 ; Pain in right toe(s) M79.674 ; Pain in left toe(s) M79.675 ; Type 2 diabetes mellitus without complication E11.9 and Other hammer toe(s) (acquired), left foot M20.[address] [address] 09/15/2024 Nakul Matthias Tinea unguium B35.1 ; Other hammer toe(s) (acquired), right foot M20.41 ; Pain in right toe(s) M79.674 ; Pain in left toe(s) M79.675 ; Type 2 diabetes mellitus without complication E11.9 and Other hammer toe(s) (acquired), left foot M20.42 Assessments Encounter Date Diagnosis (ICD Code) Assessment Notes Treatment Notes Treatment Clinical Notes Section Notes 01/04/2024 Tinea unguium (ICD-10 - B35.1) 01/04/2024 Pain in right toe(s) (ICD-10 - M79.674) 04/04/2024 Tinea unguium (ICD-10 - B35.1) 04/04/2024 Pain in right toe(s) (ICD-10 - M79.674) 06/13/2024 Other hammer toe(s) (acquired), right foot (ICD-10 - M20.41) Patient Educated with: DIABETIC FOOT CARE INSTRUCTIONS.p df (DIABETIC FOOT CARE INSTRUCTIONS.p df) 06/13/2024 Tinea unguium (ICD-10 - B35.1) 09/15/2024 Other hammer toe(s) (acquired), right foot (ICD-10 - M20.41) Patient Educated with: DIABETIC FOOT CARE INSTRUCTIONS.p df (DIABETIC FOOT CARE INSTRUCTIONS.p df) 09/15/2024 Tinea unguium (ICD-10 - B35.1) 09/15/2024 Pain in right toe(s) (ICD-10 - M79.674) 06/13/2024 Pain in right toe(s) (ICD-10 - M79.674) 04/04/2024 Pain in left toe(s) (ICD-10 - M79.675) 01/04/2024 Pain in left toe(s) (ICD-10 - M79.675) 06/13/2024 Pain in left toe(s) (ICD-10 - M79.675) 04/04/2024 Type 2 diabetes mellitus without complication (ICD-10 - E11.9) 01/04/2024 Type 2 diabetes mellitus without complication (ICD-10 - E11.9) 09/15/2024 Pain in left toe(s) (ICD-10 - M79.675) 09/15/2024 Type 2 diabetes mellitus without complication (ICD-10 - E11.9) 06/13/2024 Type 2 diabetes mellitus without complication (ICD-10 - E11.9) 01/04/2024 Ingrown nail (ICD-10 - L60.0) 06/13/2024 Other hammer toe(s) (acquired), left foot (ICD-10 - M20.42) 09/15/2024 Other hammer toe(s) (acquired), left foot (ICD-10 - M20.42) Plan Of Treatment Pending Test Test Name Order Date 69634-QNONOGN NAIL, 6 OR MORE 03/10/2023 29715-KCIYEPH NAIL, 6 OR MORE 05/18/2023 41245-RNLBMZY NAIL, 6 OR MORE 08/03/2023 87764-FYTHESY NAIL, 6 OR MORE 10/19/2023 19269-IDSYUOK NAIL, 6 OR MORE 01/04/2024 75999-KIYXYJF NAIL, 6 OR MORE 04/04/2024 75542-UXLEMOU NAIL, 6 OR MORE 06/13/2024 44734-IJQNKHC NAIL, 6 OR MORE 09/15/2024 97405-Mpbskvwh Plate 01/04/2024 Next Appt Details Provider Name:Nakul Rizzo , 12/19/2024 11:00:00 AM, [address] [place] [address], [phone], Insurance Providers Payer Name Payer Address Payer Phone Subscriber Number Group Number Insured Name Patient Relationship to Insured Coverage Start Date Coverage End Date [employer] [address] [place] [phone] [id number] Albert Becerra Self - patient is the insured Medical (General) History Medical History History ICD Code Arthritis asthma Back,Hip,and Knee pain Broken bones Cataracts covid-19 Diabetic Heart disease High blood pressure Parkinsons disease Measles Mumps Chicken pox Sleep apnea CHF BPH Surgical History Surgery Date(Month/Year) knee replacement surgery, right 03/2023
--- OUTSIDE RECORDS SUMMARY | 2024-10-31 10:15 | XMS_ITS ---
Author Organization [facility] Address [address] [place] [address] Care Team Providers Care Geospatial Engineer Name Role Phone Garo CONDE, Lakshmi Kovacs Primary Care Provider Un available Nakul Rizzo Unavailable [phone] Allergies Allergen (clinical drug ingredient) Drug/Non Drug [...] Ordered Date Performed Result Body Sit e 08358-IVHVPFA NAIL, 6 OR MORE 06/13/2024 N/A Encounters Encounter Location Date Provider Diagnosis [facility] [address] [place] [address] 06/13/2024 Nakul Rizzo Tinea unguium B35.1 ; [...] INSTRUCTIONS.pdf) Pending Test Test Name Order Date 83434-MASICNA NAIL, 6 OR MORE 06/13/2024 Next Appt Details Follow Up: prn, Reason: Provider Name:Nakul Rizzo , 12/19/2024 11:00:00 AM, [address] [place] [address], [phone], Procedure Notes * Category Sub-Category Detail Notes [...] use of a nail nipper and/or dremel-type surface grinder, to a more viable healthy nail [...] * Shanthi BECERRAOB:1960 ( 64 yo M)Acc No.[id number]:06/13/2024 Progress Note Patient:?Albert BECERRA Provider:?Nakul Rizzo DPM :1960???Age:64 Y???Sex:Male Alcon e:06/13/2024 Address:[address] [place], [place] [id number] Pcp:Peyton Hirsch Subjective: * Chief Complaints: * [...] and time.?FOOT EXAM:?Lower Extremity Neurological Exam performed:?Yes ?Date?06/13/2024 ?Footwear Evaluation?Footwear Evaluation performed:?Yes?Dermatologic: ?SKIN FINDINGS:?Skin exam reveals normal texture, elasticity, [...] burning, paresthesia, tingling, B/L.?Ophthalmology Referral: ?DIABETES EYE EXAM?Procedure Performed:?Yes ?Date of Exam Performed?01/27/2024 ?Diabetic Retinopathy Screening:?Yes ?Retinal Screening Performed:?Yes ?Findings of Diabetic Eye Exam:?no retinopathy??? Assessment: * Assessment: 1.?Other hammer toe(s) (acqu [...] use of a nail nipper and/or dremel-type surface grinder, to a more viable healthy nail [...] to maintain effectiveness in symptomatic relief - 84951.? * Procedure Codes:?12627 DEBRI DE NAIL, 6 OR MORE * [...] Provider:?Nakul Rizzo DPM Date:?2023 Generated for [place] mustafa/Yadira/eTefrainsmitting on:?10/31/2024 10:14 AM EDT History and Physical [...]
[2024-10-31 13:50] LABS: Alanine Aminotransferase 15 U/L (0-40); Anion Gap 17 (12-20); Aspartate Amino Transferase 26 U/L (5-37); Blood Urea Nitrogen 13 mg/dL (9-16); Calcium 9.1 mg/dL (8.4-10.2); Carbon Dioxide 22 mmol/L (22-29); Chloride 106 mmol/L (96-108); Cholesterol 105 mg/dL (<200); Estimated Glomerular Filt Rate > 60; Glucose Fasting 99 mg/dL (60-99); HDL Cholesterol 37 mg/dL (>40); LDL Cholesterol Calculated 49 mg/dL (<100); Potassium 4.1 mmol/L (3.3-5.1); Sodium 141 mmol/L (135-145); Triglycerides 98 mg/dL (<150)
[2024-10-31 14:57] LABS: Estimated Average Glucose 128 mg/dL; Hemoglobin A1C 166.4986 umol/L; Hemoglobin A1c % 6.1 % (<6.0); Total Hemoglobin (HGBA1C) 3814.1273 umol/L
== END 2024-10-31 09:36 | disposition home or self-care (01) ==
LOC: HO.HMGCLDS 09:35
PROVIDERS: PCP Internal Medicine; Visit Provider Internal Medicine
DX: E11.9 Type 2 diabetes mellitus without complications (principal); E78.5 Hyperlipidemia, unspecified; I10 Essential (primary) hypertension
CPT/HCPCS: 36415; 80048; 80061; 83036; 84450; 84460

== ENCOUNTER 2024-11-02 09:00 | Outpatient (AMB) | payer MEDICARE, SELFPAY ==
--- OUTSIDE RECORDS SUMMARY | 2024-11-02 09:31 | XMS_ITS | Patient Health Record ---
Author Organization [facility] Address [address] [place] [address] Care Team Providers Care Color Expert Name Role Phone Garo CONDE, Lakshmi Kovacs Primary Care Provider Un available Nakul Rizzo Unavailable [phone] Allergies Allergen (clinical drug ingredient) Drug/Non Drug [...] Problem Acquired hammer toe of right foot (740370819779306 5) Other hammer toe(s) (acquired), right foot (M20.41) Active confirmed Problem Acquired hammer toe of left foot (886731197132331 3) Other hammer toe(s) (acquired), left foot (M20.42) Active confirmed Problem Type 2 diabetes mellitus without complication (798037288) Type 2 diabetes mellitus without complication (E11.9) Active confirmed Vital Signs Blood pressure diastolic 70 mm Hg 09/15/2024 Height 5ft6in in 09/15/2024 Blood pressure systolic 128 mm Hg 09/15/2024 Weight 256 lbs 09/15/2024 BMI 41.31 kg/m2 09/15/2024 Procedures Procedure Date Ordered Date Performed Result Body Sit e 26251-KDGNVFL NAIL, 6 OR MORE 01/04/2024 N/A 72232-Paehscxk Plate 01/04/2024 N/A 42348-VNZSBYJ NAIL, 6 OR MORE 04/04/2024 N/A 23587-YGQRZGK NAIL, 6 OR MORE 06/13/2024 N/A 31748-SRGANFM NAIL, 6 OR MORE 09/15/2024 N/A Encounters Encounter Location Date Provider Diagnosis [address] [address] 01/04/2024 Nakul Matthias Pain in right toe(s) M79.674 ; Tinea unguium B35.1 ; Pain in left toe(s) M79.675 ; Type 2 diabetes mellitus without complication E11.9 and Ingrown nail L60.[address] [address] 04/04/2024 Nakul Matthias Pain in right toe(s) M79.674 ; Tinea unguium B35.1 ; Pain in left toe(s) M79.675 and Type 2 diabetes mellitus without complication E11.[address] [address] 06/13/2024 Nakul Matthias Tinea unguium B35.1 ; Other hammer toe(s) (acquired), right foot M20.41 ; Pain in right toe(s) M79.674 ; Pain in left toe(s) M79.675 ; Type 2 diabetes mellitus without complication E11.9 and Other hammer toe(s) (acquired), left foot M20.[address] [address] 09/15/2024 Nakul Matthias Tinea unguium B35.1 ; [...] Treatment Pending Test Test Name Order Date 57814-UZRUENA NAIL, 6 OR MORE 03/10/2023 80866-JKNKBKQ NAIL, 6 OR MORE 05/18/2023 33626-UWPQFLT NAIL, 6 OR MORE 08/03/2023 97739-VADWSJA NAIL, 6 OR MORE 10/19/2023 19296-WICOQSL NAIL, 6 OR MORE 01/04/2024 89622-XTFUETQ NAIL, 6 OR MORE 04/04/2024 47706-UJPKQOJ NAIL, 6 OR MORE 06/13/2024 02311-QMUKYCF NAIL, 6 OR MORE 09/15/2024 51943-Xbmzbjih Plate 01/04/2024 Next Appt Details Provider Name:Nakul Rizzo , 12/19/2024 11:00:00 AM, [address] [place] [address], [phone], Insurance Providers Payer Name Payer Address Payer Phone Subscriber Number Group Number Insured Name Patient Relationship to Insured Coverage Start Date Coverage End Date [employer] [address] [place] [address] [id number] Albert Becerra Self - patient is the insured Medical (General) History Medical History History ICD Code Arthritis asthma Back,Hip,and Knee pain Broken bones Cataracts covid-19 Diabetic Heart disease High blood pressure Parkinsons disease Measles Mumps Chicken pox Sleep apnea CHF BPH Surgical History Surgery Date(Month/Year) knee replacement surgery, right 03/2023
--- OUTSIDE RECORDS SUMMARY | 2024-11-02 09:31 | XMS_ITS ---
Author Organization [facility] Address [address] [place] [address] Care Team Providers Care Dean Of Graduate Studies Name Role Phone Garo CONDE, Lakshmi Kovacs Primary Care Provider Un available Nakul Rizzo Unavailable [phone] Allergies Allergen (clinical drug ingredient) Drug/Non Drug [...] Ordered Date Performed Result Body Sit e 15182-MQICSJY NAIL, 6 OR MORE 09/15/2024 N/A Encounters Encounter Location Date Provider Diagnosis [facility] [address] [place] [address] 09/15/2024 Nakul Rizzo Tinea unguium B35.1 ; [...] INSTRUCTIONS.pdf) Pending Test Test Name Order Date 83392-NIILVAH NAIL, 6 OR MORE 09/15/2024 Next Appt Details Follow Up: prn, Reason: Provider Name:Nakul Rizzo , 12/19/2024 11:00:00 AM, [address] [place] [address], [phone], Procedure Notes * Category Sub-Category Detail [...] to maintain effectiveness in symptomatic relief - 28460 Progress Notes * Shanthi BECERRAOB:1960 ( 64 yo M)Acc No.[id number]:09/15/2024 Progress Note Patient:Albert WERNER Provider:?Nakul Rizzo DPM :1960???Age:64 Y???Sex:Male Alcon e:09/15/2024 Address:[address] [place], [place] [id number] Pcp:Peyton Hirsch Subjective: * Chief Complaints: * [...] yes, work. ?Marital status: single. 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 ???Drug/Alcohol:?AUDIT-C (Standard)?Did you have a drink [...] upsetAldactoneyes[Allergies Verified] Objective: * Vitals:?Ht:5ft6in, Wt:256, B PA:41.31, Shoe size:10 4E, BP:128/70mm Hg, BS:110, Ht-cm: [...] to maintain effectiveness in symptomatic relief - 86274.? * Procedure Codes:?41041 DEBRI DE NAIL, 6 OR MORE * [...] Rizzo DPM Date:?2024 Generated for [place] mustafa/Yadira/Reena on:?11/02/2024 09:31 AM EDT History and Physical Notes * [...]
--- OUTSIDE RECORDS SUMMARY | 2024-11-02 09:31 | XMS_ITS | Patient Health Record ---
Author Organization [facility] Address [address] [place] [address] Care Team Providers Care Sports Internship Name Role Phone Garo CONDE, Lakshmi Primary Care Provider Dirk Crisostomo Jr Unavailable [phone] Allergies Allergen (clinical drug ingredient) Drug/Non Drug [...] rectum and anus (569.3) Active confirmed Problem 507216904 Colon cancer screening (Z12.11) Active confirmed Problem 464202411 Encounter for other preprocedural examination (Z01.818) Active confirmed Problem 895923775 Long-term use of aspirin therapy (Z79.82) Active confirmed Plan Of Treatment Future Test Test Name Order Date COLONOSCOPY 08/07/2011 COLONOSCOPY 10/03/2021 Insurance Providers Payer Name Payer Address Payer Phone Subscriber Number Group Number Insured Name Patient Relationship to Insured Coverage Start Date Coverage End Date [facility] [address] [place] [phone] [id number] UVALDO AMEZCUA Self - patient is the insured Medical (General) History Medical History History ICD Code hypertension diabetes mellitus elevated cholesterol environmental allergies degenerative joint disease GIN/CPAP congestive heart failure Elevated BMI Surgical History Surgery Date(Month/Year) knee surgery wisdom teeth extraction thyroid surgery
--- OUTSIDE RECORDS SUMMARY | 2024-11-02 09:31 | XMS_ITS ---
Author Organization [facility] Address [address] [place] [address] Care Team Providers Care Wage Adjuster Name Role Phone Garo CONDE, Lakshmi Kovacs Primary Care Provider Un available Nakul Rizzo Unavailable [phone] Allergies Allergen (clinical drug ingredient) Drug/Non Drug [...] Ordered Date Performed Result Body Sit e 40207-CCEIAMP NAIL, 6 OR MORE 06/13/2024 N/A Encounters Encounter Location Date Provider Diagnosis [facility] [address] [place] [address] 06/13/2024 Nakul Rizzo Tinea unguium B35.1 ; [...] INSTRUCTIONS.pdf) Pending Test Test Name Order Date 96487-UJKCFNX NAIL, 6 OR MORE 06/13/2024 Next Appt Details Follow Up: prn, Reason: Provider Name:Nakul Rizzo , 12/19/2024 11:00:00 AM, [address] [place] [address], [phone], Procedure Notes * Category Sub-Category Detail Notes [...] use of a nail nipper and/or dremel-type tap grinder, to a more viable healthy nail [...] * Shanthi BECERRAOB:1960 ( 64 yo M)Acc No.[id number]:06/13/2024 Progress Note Patient:?Albert BECERRA Provider:?Nakul Rizzo DPM :1960???Age:64 Y???Sex:Male Alcon e:06/13/2024 Address:[address] [place], [place] [id number] Pcp:Peyton Hirsch Subjective: * Chief Complaints: * [...] use of a nail nipper and/or dremel-type tap grinder, to a more viable healthy nail [...] to maintain effectiveness in symptomatic relief - 34344.? * Procedure Codes:?60236 DEBRI DE NAIL, 6 OR MORE * [...] Provider:?Nakul Rizzo DPM Date:?2023 Generated for [place] mustafa/Yadira/Ana Cristinasmitting on:?11/02/2024 09:31 AM EDT History and Physical [...]
--- OUTSIDE RECORDS SUMMARY | 2024-11-02 09:31 | XMS_ITS ---
Author Organization [facility] Address [address] [place] [address] Care Team Providers Care Chief Strategy Officer Name Role Phone Garo CONDE, Lakshmi Kovacs Primary Care Provider Un available Nakul Rizzo Unavailable [phone] Allergies Allergen (clinical drug ingredient) Drug/Non Drug [...] Ordered Date Performed Result Body Sit e 66060-LZFDWYY NAIL, 6 OR MORE 04/04/2024 N/A Encounters Encounter Location Date Provider Diagnosis [facility] [address] [address] 04/04/2024 Nakul Matthias Pain in right toe(s) [...] Treatment Pending Test Test Name Order Date 04242-MSLFTLX NAIL, 6 OR MORE 04/04/2024 Next Appt Details Follow Up: prn, Reason: Provider Name:Nakul Rizzo , 12/19/2024 11:00:00 AM, [address] [place] [address], [phone], Procedure Notes * Category Sub-Category Detail Notes [...] a nail nipper and/or dremel-type grinder operator surface tool, to a more viable healthy nail plate or bed tissue 6-10. Silver nitrate used for any petechial bleeding as necessary. Definitive antifungal treatment options have been reviewed and discussed with the patient. The patient chooses, no pharmaceutical tx - [address]10 Progress Notes * Shanthi BECERRAOB:1960 ( 64 yo M)Acc No.[id number]:04/04/2024 Progress Note Patient:?Tiesha Becerran Provider:?Nakul Rizzo DPM :1960???Age:64 Y???Sex:Male Alcon e:04/04/2024 Address:[address] [place], [place] [phone] Pcp:Peyton Hirsch Subjective: * Chief Complaints: * [...] yes, work. ?Marital status: single. 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 * Medications:?TakingCeleBREX 200 MG Capsule 1 [...] a nail nipper and/or dremel-type grinder operator surface tool, to a more viable healthy nail plate or bed tissue 6-10. Silver nitrate used for any petechial bleeding as necessary. Definitive antifungal treatment options have been reviewed and discussed with the patient. The patient chooses, no pharmaceutical tx - 92713.? * Procedure Codes:?38641 LVI DE NAIL, 6 OR MORE * Follow Up:?prn * Images: * Sign off status: Completed true * Provider:?Nakul Rizzo DPM Date:?2023 Generated for [place] mustafa/Yadira/Reena on:?11/02/2024 09:31 AM [...]
--- NOTE | 2024-11-02 09:33 | MHC.PC.OV ---
Vital Signs 11/02/24 09:35 Height 5 ft 6 in Weight 259 lb BMI 41.8 BP 104/60 Blood Pressure Location Rt brachial Position Sitting Respiration 16 Pulse 82 Pulse Source Pulse Oximeter Temp 98.3 F Temp Source Oral Pulse Oximetry (%) 96 Oxygen Delivery Method Room Air Intake Visit Reasons: 3m follow up Intake Note: Pt is here today for his 3mo. f/u Allergies erythromycin base [ERYTHROMYCIN BASE] Allergy (Unknown, Verified 11/02/24 10:03) DIARRHEA spironolactone [Aldactone] Allergy (Unknown, Verified 11/02/24 10:03) stomach upset dust, mold, grass Allergy (Unknown, Uncoded 11/02/24 10:03) sneezing Medication List - Last Reconciled 11/02/24 by Lakshmi Wyman MD amlodipine 10 mg PO DAILY aspirin (Adult Low Dose Aspirin) 81 mg PO DAILY atorvastatin 20 mg PO DAILY carvedilol 25 mg PO BID cyanocobalamin (vitamin B-12) 1,000 mcg PO DAILY dapagliflozin propanediol (Farxiga) 10 mg PO DAILY finasteride 5 mg PO DAILY 90 days melatonin 3 mg PO BEDTIME metformin 1,000 mg PO BID OneTouch Delica Plus Lancet (lancets) Test blood sugar once a day NS OneTouch Verio Flex meter (blood-glucose meter) As directed NS OneTouch Verio test strips (blood sugar diagnostic) test blood sugar once a day NS rasagiline 1 mg PO DAILY sacubitril-valsartan 97-103 mg 1 tab PO BID tadalafil 5 mg PO DAILY 90 days Trulicity (dulaglutide) 1.5 mg (0.5 mL) subcut QWEEK 1 month NS Tobacco use date assessed: 11/02/24 Fall risk assessment: 1 Fall in past year Last assessed Fall Risk: 11/02/24 Dental Screening Dental Screen Date: 11/02/24 Did you have a dental visit in the last 12 months?: No Did you have a dental problem in the last 6 months where you did not have access to dental care?: No Was dental information given to patient?: No HPI 3m follow up HPI Details 64-year-old male with history of Parkinson's disease, here today for follow-up on his diabetes mellitus and dyslipidemia. Compliant with taking his medications, tries to follow recommended diet but unable to exercise much due to gait instability. [facility] Medical History (Updated 11/13/24 @ 17:20 by Lakshmi Wyman MD) Diabetes mellitus with microalbuminuria, without long-term current use of insulin History of cardiomyopathy Seasonal and perennial allergic rhinitis Annual visit for general adult medical examination with abnormal findings Vitamin B12 deficiency Parkinson's disease without dyskinesia or fluctuating manifestations Parkinsons disease Gait abnormality Tremor of left hand Type 2 diabetes mellitus without complication, with no history of insulin use Vitamin D deficiency History of COVID-19 Nocturia Benign non-nodular prostatic hyperplasia with lower urinary tract symptoms Elevated PSA Trigger finger, right middle finger Type 2 diabetes mellitus without complication, with no history of insulin use Osteoarthritis of knees, bilateral Cardiomyopathy Hx of thyroid nodule Dyslipidemia GIN on CPAP Essential hypertension Morbid obesity Diabetes mellitus with hyperglycemia, without long-term current use of insulin Surgical History H/O total knee replacement Hx of colonoscopy History of lobectomy of thyroid Status post lateral meniscus repair Family History Father Diabetes mellitus Cancer of prostate Myocardial infarction Mother HTN (hypertension) Diabetes mellitus CAD (coronary artery disease) Paternal Grandfather Cancer of prostate Brother No problems noted. Brother No problems noted. Sister No problems noted. Sister No problems noted. Social History Housing: House Alcohol intake: never Patient Tobacco Use Status: Never used Tobacco e-Cigarette/Vaping Use: Never Used Second Hand Smoke Exposure: No service: Yes Current occupational status: retired Current occupation: [employer] Current occupational exposures/hazards: Yes Cognitive needs: No Hearing needs: No Vision needs: Yes Questionnaire PHQ-9 Over the last 2 weeks, how often have you been bothered by any of the following problems? Depression Screening Interpretation: Negative Depression Screening Done: Yes Source: Developed by Drs. Teo Smith, Parris Verdugo, Mario Shipley and colleagues, with an educational dion from [employer]. Thrive Questionnaire Date Thrive assessed: 07/25/24 I am a: Patient What is your living situation today?: I have a steady place to live Within the past 12 months, did the food you bought not last and you didn't have the money to get more?: Never true Within the past 12 months, did you worry whether your food would run out before you got money to buy more?: Never true Do you have trouble paying for medicines?: No Do you have trouble getting transportation to medical appointments?: No Do you have trouble paying your heating and electricity bill?: No Do you have trouble taking care of your child, family member or friend?: No Do you have trouble with day-to-day activities such as bathing, preparing meals, shopping, managing finances, etc.?: No Are you currently unemployed and looking for a job?: No Are you interested in more education?: No Please select the resources that you would like help with: None Currently or been in a relationship where the following occur: No concerns reported THRIVE Score: 0 GM-7 AMB Questionnaire GM-7 Date GM - 7 assessed: 07/31/24 Source: Developed by Drs. Teo Smith, Parris Verdugo, Mario Shipley and colleagues, with an educational dion from [employer]. Review of Systems Const Denies chills and Denies fever(s) Eyes Denies change in vision ENT Reports nasal congestion Card Reports no additional complaints and Denies syncope Resp Denies cough GI Denies abdominal pain and Denies heartburn Reports as per HPI and Denies change in libido Musc Reports no additional complaints Skin/Breast Denies rash Neuro Denies syncope and Denies Sensory deficit (Neuro) Psych Denies change in libido Endo Denies change in libido Mick/Lymph Reports no additional complaints Aller/Immun Reports seasonal rhinorrhea Physical exam (Primary Care) Vital Signs: Last Vital Signs Temp 98.3 F 11/02/24 09:35 Pulse 82 11/02/24 09:35 Resp 16 11/02/24 09:35 BP 104/60 11/02/24 09:35 Pulse Ox 96 11/02/24 09:35 Oxygen Delivery Method Room Air 11/02/24 09:35 BMI result Body Mass Index 41.8 BMI Assessment/Plan discussion: High BMI High, discussed plan: lifestyle, weight reduction, dietary and physical activity Tobacco/Smoking Status: Tobacco use Status Tobacco use date assessed 11/02/24 11/02/24 09:39 Patient Tobacco Use Status Never used Tobacco 11/02/24 09:34 e-Cigarette/Vaping Use Never Used 11/02/24 09:34 Depression Screening Interpretation: Negative Thrive Assessment: Date of Thrive Assessment Date Thrive assessed 07/25/24 11/02/24 09:34 Currently or been in a relationship where the following occur: No concerns reported Const General: comfortable and no acute distress Nutritional Appearance: obese morbidly obese Orientation/consciousness: patient oriented x3 HENMT Face and sinus: Yes normal facial exam and Yes face symmetric Mouth: Normal oral and palatal mucosa present, oropharynx normal and moist mucous membranes Eyes General: appearance normal, both eyes and all related structures Neck Neck: Yes full ROM and Yes no lymphadenopathy Resp Effort & Inspection: normal respiratory effort and able to speak in complete sentences Auscultation: clear to auscultation bilaterally Cardio Rate: regular rate Rhythm: regular rhythm Heart sounds: S1 normal heart sound present and S2 normal heart sound present GI Inspection: Yes obesity Palpation (GI): Soft to palpation, nontender, no guarding and no pulsatile masses Auscultation: normal bowel sounds General: Yes no CVA tenderness Back/Spine/Pelvis Back: no CVA tenderness and No back tenderness Skin General skin exam: no rashes or lesions noted Neuro Other: Positive intention tremors present in both hands General: patient oriented x3 Cognition (Neuro): normal cognition Gait exam (Neuro): Other gait observations present (Slow gait) Motor exam (neuro): 5/5 motor strength present throughout Sensory Exam: No Sensory deficit (Neuro) Extrem General: Yes normal to inspection, Yes full ROM and Yes no pedal edema Psych Appearance: grossly normal and well kempt Mental Status: mental status grossly normal Speech and movement: Normal speech and movement present Affect: normal affect Attitude: cooperative Results Reviewed Results Reviewed: Name: Albert Becerra Age/Sex: 64/M : 1960 Unit#: [id number] Attend Dr: Lakshmi Wyman MD Re10/31/24 Status: DEP [facility] Disch: SPEC : [id number] ROCHELLE: 10/31/24 STATUS: COMP REQ : [id number] RECD: 10/31/24-[address]: Lakshmi Wyman MD COMP: 10/31/24-1350 ENTERED: 10/31/2452 [facility] DR: ORDERED: Met Prof Fast, AST, ALT, Lipid Panel Test Result Flag Reference Sodium 141 135-145 mmol/L Potassium 4.1 3.3-5.1 mmol/L CL 106 96-108 mmol/L CO2 22 22-29 mmol/L Gap 17 12-20 BUN 13 9-16 mg/dL Creat 1.01 0.5-1.4 mg/dL eGFR > 60 Chronic Kidney Disease: Estimated GFR < 60 mL/min/1.73m2 Severe Kidney Disease: Estimated GFR < 15 mL/min/1.73m2 FBS 99 60-99 mg/dL CA 9.1 8.4-10.2 mg/dL AST (GOT) 26 5-37 U/L ALT (GPT) 15 0-40 U/L Triglyceride 98 <150 mg/dL Desirable Triglyceride: less than 150 mg/dL Borderline High Triglyceride 150-199 mg/dL High Triglyceride: 200-499 mg/dL Very High Triglyceride: greater than or equal to 5OO mg/dL Cholesterol 105 <200 mg/dL Desirable Cholesterol: less than 200 mg/dL Borderline High Cholesterol: 200-239 mg/dL High Cholesterol: greater than 239 mg/dL LDL Calculated 49 <100 mg/dL Desirable LDL: less than 100 mg/dL Near Optimal/Above Optimal LDL: 110-129 mg/dL Borderline High LDL: 130-159 mg/dL High LDL: 160-189 mg/dL Very High LDL: greater than or equal to 190 mg/dL HDL 37 L >40 mg/dL Desirable HDL: greater than 40 mg/dL Note: This HDL assay may give artificially low results in patients with liver disease. Coding Level of Care Code Est Pt Level 4 (00809) Complex EM visit Add On G2211 Diagnoses Diabetes mellitus with microalbuminuria, without long-term current use of insulin E11.29; R80.9 Seasonal and perennial allergic rhinitis J30.89; J30.2 History of cardiomyopathy Z86.79 Essential hypertension I10 Parkinson's disease without dyskinesia or fluctuating manifestations G20.A1 Dyslipidemia E78.5 GIN on CPAP G47.33; Z99.89 Assessment & Plan Assessment & Plan (1) Diabetes mellitus with microalbuminuria, without long-term current use of insulin: Code(s): E11.29 - Type 2 diabetes mellitus with other diabetic kidney complication; R80.9 - Proteinuria, unspecified Category: Medical Plan: Recent lab results reviewed with patient, with sugar and hemoglobin A1c stable and at goal continue to check fasting blood sugar at home, maintain log and bring to next appointment for review. Continue Trulicity 1.5 mg once a week, in addition to metformin a 1000 mg 1 tablet twice a day and Farxiga 10 mg daily. Reinforced diabetic diet and regular exercise with patient. Counseled regarding importance of yearly diabetes retinopathy screening. Patient advised to inspect feet daily, for any signs of injury, callus or infection. Compliance with diet and regular exercise again stressed. Blood pressure goal is less than 130/80, goal LDL is less than 100 and goal hemoglobin A1c is less than 7% follow-up appointment made in-3--months, after fasting labs done. (2) Seasonal and perennial allergic rhinitis: Code(s): J30.89 - Other allergic rhinitis; J30.2 - Other seasonal allergic rhinitis Category: Medical Plan: on Azelastine nasal spray (3) History of cardiomyopathy: Code(s): Z86.79 - Personal history of other diseases of the circulatory system Category: Medical Plan: Currently on sacubitril-valsartan 97-103 mg 1 tablet twice a day and carvedilol 25 mg 1 tablet twice a day, amlodipine 10 mg daily, followed by cardiology (4) Essential hypertension: Code(s): I10 - Essential (primary) hypertension Category: Medical Plan: Blood pressure at goal of less than 130/80. Continue with current medication. Reinforced importance of following a low sodium diet, getting regular exercise, and lowering stress levels. (5) Parkinson's disease without dyskinesia or fluctuating manifestations: Code(s): G20.A1 - Parkinson's disease without dyskinesia, without mention of fluctuations Category: Medical Plan: Followed by Neurology currently on rasagiline 1 mg daily (6) Dyslipidemia: Code(s): E78.5 - Hyperlipidemia, unspecified Category: Medical Plan: Continue atorvastatin 20 mg daily. Repeat fasting lipid panel in 3 months (7) GIN on CPAP: Code(s): G47.33 - Obstructive sleep apnea (adult) (pediatric); Z99.89 - Dependence on other enabling machines and devices Category: Medical Plan: Compliant with CPAP Medications: New azelastine administer into each nostril 1 spray intranasal BID 30 mL 4RF J30.89 - Other allergic rhinitis, J30.2 - Other seasonal allergic rhinitis Changed From metformin 1,000 mg PO BID 180 tabs 3RF To metformin 1,000 mg PO BID 180 tabs 3RF
[2024-11-02 09:35] VITALS: BP 104/60; PULSE 82; RESP 16; TEMP 36.8; O2SAT 96; BMI 41.8
== END 2024-11-02 10:20 | disposition home or self-care (01) ==
LOC: HO.HMCC 09:01
PROVIDERS: PCP Internal Medicine; Visit Provider Internal Medicine
DX: E11.29 Type 2 diabetes mellitus with other diabetic kidney complication (principal); G20.A1 Parkinson's disease without dyskinesia, without mention of fluctuations; R80.9 Proteinuria, unspecified; J30.89 Other allergic rhinitis; J30.2 Other seasonal allergic rhinitis; Z86.79 Personal history of other diseases of the circulatory system; I10 Essential (primary) hypertension; E78.5 Hyperlipidemia, unspecified; G47.33 Obstructive sleep apnea (adult) (pediatric); Z99.89 Dependence on other enabling machines and devices

== ENCOUNTER → 2024-11-02 09:00 | Outpatient (BNVA) | payer MEDICARE, SELFPAY | PROVIDERS: PCP Internal Medicine; Visit Provider Internal Medicine | DX: G20.A1 Parkinson's disease without dyskinesia, without mention of fluctuations (principal); E11.9 Type 2 diabetes mellitus without complications; E78.5 Hyperlipidemia, unspecified; E11.29 Type 2 diabetes mellitus with other diabetic kidney complication; R80.9 Proteinuria, unspecified; J30.2 Other seasonal allergic rhinitis; I10 Essential (primary) hypertension; G47.33 Obstructive sleep apnea (adult) (pediatric); Z99.89 Dependence on other enabling machines and devices; Z86.79 Personal history of other diseases of the circulatory system; Z79.899 Other long term (current) drug therapy | CPT/HCPCS: 99212 ==

== ENCOUNTER 2024-12-25 11:39 | Outpatient (REF) | payer MEDICARE, SELFPAY ==
--- OUTSIDE RECORDS SUMMARY | 2024-12-25 12:33 | XMS_ITS | Patient Health Record ---
Author Organization [facility] Address [address] [place] [id number] Care Team Providers Care Scientific Specialist Name Role Phone Garo CONDE, Lakshmi Primary [...] Notes Problem Hemorrhage of rectum and anus (463859666) Hemorrhage of rectum and anus (569.3) Active confirmed Problem [id number] Colon cancer screening (Z12.11) Active confirmed Problem [id number] Encounter for other preprocedural examination (Z01.818) Active confirmed Problem [id number] Long-term use of aspirin therapy (Z79.82) Active confirmed Plan Of Treatment Future Test Test Name Order Date COLONOSCOPY 08/07/2011 COLONOSCOPY 10/03/2021 Insurance Providers Payer Name Payer Address Payer Phone Subscriber Number Group Number Insured Name Patient Relationship to Insured Coverage Start Date Coverage End Date [facility] [address] [place] [phone] [id number] UVALDO AMEZCUA Self - patient is the insured Medical (General) History Medical History History ICD Code hypertension diabetes mellitus elevated cholesterol environmental allergies degenerative joint disease IGN/CPAP congestive heart failure Elevated BMI Surgical History Surgery Date(Month/Year) knee surgery wisdom teeth extraction thyroid surgery
--- OUTSIDE RECORDS SUMMARY | 2024-12-25 12:33 | XMS_ITS | Patient Health Record ---
Author Organization [facility] Address [address] [place] [address] Care Team Providers Care Drafter Tool Design Name Role Phone Garo CONDE, Lakshmi Kovacs Primary Care Provider Un available Nakul Rizzo Unavailable [phone] Allergies Allergen (clinical drug ingredient) Drug/Non Drug [...] 5 MG 1 tablet Orally Once a day; Duration: 30 day(s) Active Melatonin Active Trulicity 1.5 MG/0.5ML as directed Subcutaneous Active Rasagiline Mesylate Active Norvasc 10 MG 1 tablet Orally Once a day; Duration: 30 day(s) Active Farxiga 10 MG 1 tablet Orally Once a day; Duration: 30 day(s) Active CeleBREX 200 MG 1 capsule with food Orally Twice a day Not-Taking B12 monthly inj Active Extra Depth Orthopedic Shoes (1 Pair) with Customized Heat Molded Multidensity Innersoles (3 Pair) as directed Dx: NIDDM (E11.9), Hammertoe Foot Deformity (M20.41,M20.42), Preulcerative Skin Lesion(s) (L85.1) Active Coreg 25 MG 1 tablet with food Orally Twice a day; Duration: 30 day(s) Active Compression Stockings 20-30mm Hg 1 pair wear daily; Duration: 30 days Not-Taking Tadalafil 5 MG 1 tablet as needed Orally Once a day; Duration: 30 day(s) Active Heather Not-Taking Atorvastatin Calcium 20 MG 1 tablet Orally Once a day; Duration: 30 day(s) Active Entresto 97-103 MG 1 tablet Orally Twic e a day; Duration: 30 day(s) Active metFORMIN HCl 1000 MG 1 tablet with a me al Orally Once a day; Duration: 30 day(s) Active Immunizations Vaccine Route Administration Date Status Comme nts Influenza Unknown 03/21/2024 Administered Social History Tobacco Use: Social History Observation [...] Problem Acquired hammer toe of right foot (382681352890 9105) Other hammer toe(s) (acquired), right foot (M20.41) Active confirmed Problem Acquired hammer toe of left foot (066171546635 9103) Other hammer toe(s) (acquired), left foot (M20.42) Active confirmed Problem Type 2 diabetes mellitus without complication (E11.9) Active confirmed Vital Signs Blood pressure diastolic 65 mm Hg 12/19/2024 Height 5ft6in in 12/19/2024 Blood pressure systolic 126 mm Hg 12/19/2024 Weight 256 lbs 12/19/2024 BMI 41.31 kg/m2 12/19/2024 Procedures Procedure Date Ordered Date Performed Result Body Sit e 40631-PRFQQON NAIL, 6 OR MORE 01/04/2024 N/A 60691-Fbczthco Plate 01/04/2024 N/A 24461-XDRGIFJ NAIL, 6 OR MORE 04/04/2024 N/A 62963-QACZXYP NAIL, 6 OR MORE 06/13/2024 N/A 85488-OBZVYSS NAIL, 6 OR MORE 09/15/2024 N/A 16874-IFLISGZ NAIL, 6 OR MORE 12/19/2024 N/A Encounters Encounter Location Date Provider Diagnosis [address] [phone] 01/04/2024 Nakul Matthias Pain in right toe(s) M79.674 ; Tinea unguium B35.1 ; Pain in left toe(s) M79.675 ; Type 2 diabetes mellitus without complication E11.9 and Ingrown nail L60.[address] [address] 04/04/2024 Nakul Matthias Pain in right toe(s) M79.674 ; Tinea unguium B35.1 ; Pain in left toe(s) M79.675 and Type 2 diabetes mellitus without complication E11.[address] [address] 06/13/2024 Nakul Matthias Tinea unguium B35.1 ; Other hammer toe(s) (acquired), right foot M20.41 ; Pain in right toe(s) M79.674 ; Pain in left toe(s) M79.675 ; Type 2 diabetes mellitus without complication E11.9 and Other hammer toe(s) (acquired), left foot M20.[address] [address] 09/15/2024 Nakul Matthias Tinea unguium B35.1 ; Other hammer toe(s) (acquired), right foot M20.41 ; Pain in right toe(s) M79.674 ; Pain in left toe(s) M79.675 ; Type 2 diabetes mellitus without complication E11.9 and Other hammer toe(s) (acquired), left foot M20.[address] [address] 12/19/2024 Nakul Rizzo Tinea unguium B35.1 ; Other [...] df) 09/15/2024 Tinea unguium (ICD-10 - B35.1) 12/19/2024 Other hammer toe(s) (acquired), right foot (ICD-10 - M20.41) 12/19/2024 Tinea unguium (ICD-10 - B35.1) 12/19/2024 Pain in right toe(s) (ICD-10 - M79.674) 09/15/2024 Pain in right toe(s) (ICD-10 - M79.674) 06/13/2024 Pain in right toe(s) (ICD-10 - M79.674) 04/04/2024 Pain in left toe(s) (ICD-10 - M79.675) 01/04/2024 Pain in left toe(s) (ICD-10 - M79.675) 06/13/2024 Pain in left toe(s) (ICD-10 - M79.675) 04/04/2024 Type 2 diabetes mellitus without complication (ICD-10 - E11.9) 09/15/2024 Pain in left toe(s) (ICD-10 - M79.675) 12/19/2024 Pain in left toe(s) (ICD-10 - M79.675) 01/04/2024 Type 2 diabetes mellitus without complication (ICD-10 - E11.9) 12/19/2024 Type 2 diabetes mellitus without complication (ICD-10 - E11.9) 09/15/2024 Type 2 diabetes mellitus without complication (ICD-10 - E11.9) 06/13/2024 Type 2 diabetes mellitus without complication (ICD-10 - E11.9) 01/04/2024 Ingrown nail (ICD-10 - L60.0) 06/13/2024 Other hammer toe(s) (acquired), left foot (ICD-10 - M20.42) 12/19/2024 Other hammer toe(s) (acquired), left foot (ICD-10 - M20.42) 09/15/2024 Other hammer toe(s) (acquired), left foot (ICD-10 - M20.42) Plan Of Treatment Pending Test Test Name Order Date 22505-IAHWPYU NAIL, 6 OR MORE 03/10/2023 63314-QWJRQSV NAIL, 6 OR MORE 05/18/2023 19077-SRPUUOH NAIL, 6 OR MORE 08/03/2023 81421-GDJUEGR NAIL, 6 OR MORE 10/19/2023 24156-UUTMKQP NAIL, 6 OR MORE 01/04/2024 30996-GJMOSND NAIL, 6 OR MORE 04/04/2024 56786-HFBVCCV NAIL, 6 OR MORE 06/13/2024 02483-YERNCME NAIL, 6 OR MORE 09/15/2024 08881-RWGJFUX NAIL, 6 OR MORE 12/19/2024 73962-Qomelojs Plate 01/04/2024 Next Appt Details Provider Name:Nakul Rizzo , 03/27/2025 11:00:00 AM, [address] [place] [address], [place], [address], Insurance Providers Payer Name Payer Address Payer Phone Subscriber Number Group Number Insured Name Patient Relationship to Insured Coverage Start Date Coverage End Date [employer] [address] [place] [phone] [id number] Albert Becerra Self - patient is the insured Medical (General) History Medical History History ICD Code Arthritis asthma Back,Hip,and Knee pain Broken bones Cataracts covid-19 Diabetic Heart disease High blood pressure Parkinsons disease Measles Mumps Chicken pox Sleep apnea CHF BPH Surgical History Surgery Date(Month/Year) knee replacement surgery, right 03/2023
[2024-12-25 14:26] LABS: Prostate Specific Antigen 2.39 ng/mL (<0.05-4.0)
== END 2024-12-25 11:40 | disposition home or self-care (01) ==
LOC: HO.HMGCLDS 11:39
PROVIDERS: PCP Internal Medicine; Visit Provider Urology
DX: R97.20 Elevated prostate specific antigen [PSA] (principal); Z12.5 Encounter for screening for malignant neoplasm of prostate
CPT/HCPCS: 36415; 84153

== ENCOUNTER 2025-01-05 10:17 | Outpatient (AMB) | payer MEDICARE, SELFPAY ==
--- NOTE | 2025-01-05 10:32 | A.OFFVIS_ITS ---
Intake Visit Reasons: 6m/PSA/PVR Intake Note: Patient is present for 6Mo follow up for BPH and OAB Urology Medication:FINASTERIDE,TADALAFIL Antibiotic Allergy:ERTHROMYCIN Blood Thinner:Asprin Todays PVR:74ML'S Formation Fracturing Operator Required: No Accompanied by: Self / Same As Patient Allergies erythromycin base (ERYTHROMYCIN BASE) Allergy (Unknown, Verified 01/05/25 10:34) DIARRHEA spironolactone (Aldactone) Allergy (Unknown, Verified 01/05/25 10:34) stomach upset dust, mold, grass Allergy (Unknown, Uncoded 11/02/24 10:03) sneezing HPI Comments Details: Mr Hernan is a very pleasant male. He is a patient of Dr Wyman. He is seen in the office today for the following urologic conditions. - lower urinary tract symptoms - elevated PSA Six-month follow-up PVR 75 Combination finasteride and tadalafil Bladder stability continues Adequate urinary parameters PSA normal range Six-month follow-up tele UA 3+ glucose on Farxiga Lower urinary tract symptoms Parkinson's Urinary urgency Good control with tadalafil Elevated PSA/Abnormal ANTONIO:? Currently stable PSA Continue good response to finasteride He presents for ?further evaluation of elevated PSA ?- biopsy negative 2015 - PSA responded well to finasteride..? Current management is?medication with 5AR.? Laboratory investigations include?a total PSA evaluation ?December 2011 2.1, ?Jan 2016 5.4, ?August 2016 4.4 ?05/07 4.2/14%, 11/05 4.7 11%, 06/07 3.6,?12/07 3.0,?12/08 1.7, 12/09 2.1, 02/09 1.7, 01/10 1.3, 01/12 2.4 ? Imaging investigations include? a transrectal ultrasound ?Yes ? Date ?03/2016 ? Prostate Volume ?50 ? Individualized Prostate Cancer Risk Calculator?Family history of CaP ?Father and Grandfather - father in 60's ?5-10% high risk on PCPT 12/06.? A TRUS biopsy? has ?been performed and is negative 05/06 ? PSA at biopsy ?5 ? His current IPSS? IPSS Score ?0 ? Overall symptoms are?mild.? Associated conditions? diabetes ?Yes ? dyslipidemia ?Yes ? dysuria ?No ? erectile dysfunction ?Yes ? Therapeutic plan will be?continue finasteride PFSH Medical History (Updated 11/13/24 @ 17:20 by Lakshmi Wyman MD) Diabetes mellitus with microalbuminuria, without long-term current use of insulin History of cardiomyopathy Seasonal and perennial allergic rhinitis Annual visit for general adult medical examination with abnormal findings Vitamin B12 deficiency Parkinson's disease without dyskinesia or fluctuating manifestations Parkinsons disease Gait abnormality Tremor of left hand Type 2 diabetes mellitus without complication, with no history of insulin use Vitamin D deficiency History of COVID-19 Nocturia Benign non-nodular prostatic hyperplasia with lower urinary tract symptoms Elevated PSA Trigger finger, right middle finger Type 2 diabetes mellitus without complication, with no history of insulin use Osteoarthritis of knees, bilateral Cardiomyopathy Hx of thyroid nodule Dyslipidemia GIN on CPAP Essential hypertension Morbid obesity Diabetes mellitus with hyperglycemia, without long-term current use of insulin Surgical History H/O total knee replacement Hx of colonoscopy History of lobectomy of thyroid Status post lateral meniscus repair Family History Father Diabetes mellitus Cancer of prostate Myocardial infarction Mother HTN (hypertension) Diabetes mellitus CAD (coronary artery disease) Paternal Grandfather Cancer of prostate Brother No problems noted. Brother No problems noted. Sister No problems noted. Sister No problems noted. Social History Housing: House Alcohol intake: never Patient Tobacco Use Status: Never used Tobacco e-Cigarette/Vaping Use: Never Used Second Hand Smoke Exposure: No service: Yes Current occupational status: retired Current occupation: [employer] Current occupational exposures/hazards: Yes Cognitive needs: No Hearing needs: No Vision needs: Yes Review of Systems Const Denies chills and Denies fever(s) Card Reports no additional complaints and Denies syncope Resp Denies cough GI Denies abdominal pain and Denies heartburn Reports as per HPI and Denies change in libido Neuro Denies syncope Psych Denies change in libido Endo Denies change in libido Physical Exam Const General: cooperative, healthy appearing, comfortable and no acute distress Orientation/consciousness: patient oriented x3 HEENT Face and sinus: Yes normal facial exam Mouth: moist mucous membranes Neck Neck: Yes normal visual inspection, Yes full ROM and Yes trachea midline Chest Chest palpation & inspection: normal inspection of the chest Resp Effort & Inspection: normal respiratory effort, able to speak in complete sentences and no respiratory distress GI Inspection: Yes normal to inspection Back/Spine/Pelvis Cervical Spine: normal cervical lordosis Thoracic/Lumbar Spine: thoracic and lumbar spine normal to inspection Skin General skin exam: no rashes or lesions noted Neuro General: patient oriented x3, gait normal, tone normal and moves all extremities Extrem General: Yes normal to inspection and Yes capillary refill normal Assessment & Plan Assessment & Plan (1) Benign non-nodular prostatic hyperplasia with lower urinary tract symptoms: Code(s): N40.1 - Benign prostatic hyperplasia with lower urinary tract symptoms Category: Medical (2) Overactive bladder: Code(s): N32.81 - Overactive bladder Category: Medical (3) Elevated PSA: Code(s): R97.20 - Elevated prostate specific antigen [PSA] Category: Medical Plan Six-month follow-up tele Medications: Refilled tadalafil Daily medication 5 mg PO DAILY 90 tabs 1RF Urinary urge 90 days R39.15 - Urgency of urination finasteride 5 mg PO DAILY 90 tabs 3RF 90 days R97.20 - Elevated prostate specific antigen [PSA] Patient Instructions: This note is constructed using voice recognition software. While every effort has been made to ensure accuracy labor relations consultant errors may have been included. Imaging studies, laboratory and physical exam results were discussed and reviewed in detail. No major barriers to patient understanding were identified. An opportunity to ask questions regarding the treatment plan was provided. All questions were answered. The patient expressed understanding and agreement with the above treatment plan. The patient is aware they should contact our office by phone for worsening of their current condition or the appearance of new urologic symptoms. Compliance is encouraged with any medications and followup testing that is ordered. It is a privilege to participate in the urologic care of your patient. If you have any questions or concerns regarding treatment for the above conditions, or other urologic issues, please do not hesitate to contact me. The office telephone contact is [phone]. Sincerely, Dr Suhail Chacko MD, [facility] - Urology Compassionate Specialist Care for the Genitourinary System Coding Level of Care Code Est Pt Level 3 (28497) Complex EM visit Add On G2211 Diagnoses Benign non-nodular prostatic hyperplasia with lower urinary tract symptoms N40.1 Overactive bladder N32.81 Elevated PSA R97.20
--- OUTSIDE RECORDS SUMMARY | 2025-01-05 10:36 | XMS_ITS | Patient Health Record ---
Author Organization [facility] Address [address] [place] [address] Care Team Providers Care Boatwright Name Role Phone Garo CONDE, Lakshmi Primary Care Provider Dirk Crisostomo Jr Unavailable [phone] Allergies Allergen (clinical drug ingredient) Drug/Non Drug [...] Notes Problem Hemorrhage of rectum and anus (906190541) Hemorrhage of rectum and anus (569.3) Active confirmed Problem [id number] Colon cancer screening (Z12.11) Active confirmed Problem [id number] Encounter for other preprocedural examination (Z01.818) Active confirmed Problem 930022251 Long-term use of aspirin therapy (Z79.82) Active confirmed Plan Of Treatment Future Test Test Name Order Date COLONOSCOPY 08/07/2011 COLONOSCOPY 10/03/2021 Insurance Providers Payer Name Payer Address Payer Phone Subscriber Number Group Number Insured Name Patient Relationship to Insured Coverage Start Date Coverage End Date [facility] [address] [place] [address] [id number] UVALDO AMEZCUA Self - patient is the insured Medical (General) History Medical History History ICD Code hypertension diabetes mellitus elevated cholesterol environmental allergies degenerative joint disease GIN/CPAP congestive heart failure Elevated BMI Surgical History Surgery Date(Month/Year) knee surgery wisdom teeth extraction thyroid surgery
--- OUTSIDE RECORDS SUMMARY | 2025-01-05 10:36 | XMS_ITS | Patient Health Record ---
Author Organization [facility] Address [address] [place] [address] Care Team Providers Care Kiosk Sales Representative Name Role Phone Garo CONDE, Lakshmi Kovacs Primary Care Provider Un available Nakul Rizzo Unavailable [phone] Allergies Allergen (clinical drug ingredient) Drug/Non Drug [...] Problem Acquired hammer toe of right foot (600783075491 9105) Other hammer toe(s) (acquired), right foot (M20.41) Active confirmed Problem Acquired hammer toe of left foot ([id number] 9103) Other hammer toe(s) (acquired), left foot (M20.42) Active confirmed Problem Type 2 diabetes mellitus without complication (E11.9) Active confirmed Vital Signs Blood pressure diastolic 65 mm Hg 12/19/2024 Height 5ft6in in 12/19/2024 Blood pressure systolic 126 mm Hg 12/19/2024 Weight 256 lbs 12/19/2024 BMI 41.31 kg/m2 12/19/2024 Procedures Procedure Date Ordered Date Performed Result Body Sit e 47092-TTHHMED NAIL, 6 OR MORE 04/04/2024 N/A 90789-IRARNOW NAIL, 6 OR MORE 06/13/2024 N/A 44206-NZMAUEL NAIL, 6 OR MORE 09/15/2024 N/A 17449-[id number] NAIL, 6 OR MORE 12/19/2024 N/A Encounters Encounter Location Date Provider Diagnosis [address] [address] 04/04/2024 Nakul Matthias Pain in right toe(s) M79.674 ; Tinea unguium B35.1 ; Pain in left toe(s) M79.675 and Type 2 diabetes mellitus without complication E11.[address] [address] 06/13/2024 Nakul Matthias Tinea unguium B35.1 ; Other hammer toe(s) (acquired), right foot M20.41 ; Pain in right toe(s) M79.674 ; Pain in left toe(s) M79.675 ; Type 2 diabetes mellitus without complication E11.9 and Other hammer toe(s) (acquired), left foot M20.[address] [address] 09/15/2024 Nakul Matthias Tinea unguium B35.1 ; Other hammer toe(s) (acquired), right foot M20.41 ; Pain in right toe(s) M79.674 ; Pain in left toe(s) M79.675 ; Type 2 diabetes mellitus without complication E11.9 and Other hammer toe(s) (acquired), left foot M20.[address] [address] 12/19/2024 Nakul Matthias Tinea unguium B35.1 ; Other hammer toe(s) (acquired), right foot M20.41 ; Pain in right toe(s) M79.674 ; Pain in left toe(s) M79.675 ; Type 2 diabetes mellitus without complication E11.9 and Other hammer toe(s) (acquired), left foot M20.42 Assessments Encounter Date Diagnosis (ICD Code) Assessment Notes Treatment Notes Treatment Clinical Notes Section Notes 04/04/2024 Tinea unguium (ICD-10 - B35.1) 04/04/2024 [...] in left toe(s) (ICD-10 - M79.675) 12/19/2024 Type 2 diabetes mellitus without complication [...] Treatment Pending Test Test Name Order Date [id number] NAIL, 6 OR MORE 03/10/2023 [id number] NAIL, 6 OR MORE 05/18/2023 57155-DOPJPGG NAIL, 6 OR MORE 08/03/2023 42438-SATRSKF NAIL, 6 OR MORE 10/19/2023 [id number] NAIL, 6 OR MORE 01/04/2024 97370-[id number] NAIL, 6 OR MORE 04/04/2024 37593-[id number] NAIL, 6 OR MORE 06/13/2024 75815-IFVRTSK NAIL, 6 OR MORE 09/15/2024 [id number] NAIL, 6 OR MORE 12/19/2024 [id number]-Izstzwxs Plate 01/04/2024 Next Appt Details Provider Name:Nakul Rizzo , 03/27/2025 11:00:00 AM, [address] [place] [address], [id number], Insurance Providers Payer Name Payer Address Payer Phone Subscriber Number Group Number Insured Name Patient Relationship to Insured Coverage Start Date Coverage End Date [employer] [address] [place] [phone] [id number] Albert Becerra Self - patient is the insured Medical (General) History Medical History History ICD Code Arthritis asthma Back,Hip,and Knee pain Broken bones Cataracts covid-19 Diabetic Heart disease High blood pressure Parkinsons disease Measles Mumps Chicken pox Sleep apnea CHF BPH Surgical History Surgery Date(Month/Year) knee replacement surgery, right 03/2023
--- OUTSIDE RECORDS SUMMARY | 2025-01-05 10:36 | XMS_ITS | Clinical Summary ---
Author Organization [facility] Address [address] [address] Phone Care Team Providers Care Hand Method Lasting Machine Operator Name Role Phone Unavailable Primary Care Provider Unavailabl e Allergies Active Allergy Reactions Criticality Noted Date Comments Erythromycin Low 03/29/2023 Spironolactone Low 03/29/2023 Medications acetaminophen (TYLENOL) 500 MG tablet Take 1,000 mg by mouth every 8 (eight) hours as needed for pain (specific location in comments) (R knee). 3 Active aspirin 81 MG EC tablet Take 81 mg by mouth daily. 3 Active cefadroxil (DURICEF) 500 MG capsule Take 500 mg by mouth 2 (two) times a day. 3 Active Lactobacillus acidophilus 10 billion cell Cap Take 1 capsule by mouth daily. 3 Active ondansetron (ZOFRAN-ODT) 8 MG disintegrating tablet Take 8 mg by mouth every 8 (eight) hours as needed for nausea. 3 Active pantoprazole (PROTONIX) 40 MG tablet Take 40 mg by mouth daily. before breakfast 3 Active SENNOSIDES ORAL Take 2 tablets by mouth daily. at bedtime 3 Active traMADoL (ULTRAM) 50 mg tablet Take 50 mg by mouth every 6 (six) hours as needed for pain (specific location in comments) (moderate pain R knee). 3 Active atorvastatin (LIPITOR) 20 MG tablet Take 20 mg by mouth daily. at bedtime 3 Active carvedilol (COREG) 25 MG tablet Take 25 mg by mouth 2 (two) times a day with meals. take with food 3 Active cyanocobalamin (VITAMIN B-12) 1,000 mcg/mL injection Inject 1,000 mcg into the muscle every 30 (thirty) days. 3 Active dapagliflozin propanediol (FARXIGA) 10 mg tablet Take 10 mg by mouth daily. Active dulaglutide (TRULICITY) 1.5 mg/0.5 mL subcutaneous injection Inject 1.5 mg under the skin every 7 days. Active fexofenadine (FAIZAN ALLERGY) 180 MG tablet Take 180 mg by mouth daily. Active finasteride (PROSCAR) 5 mg tablet Take 5 mg by mouth daily. Active sacubitriL-valsart an (ENTRESTO) 97-103 mg per tablet Take 1 tablet by mouth 2 (two) times a day. Active tadalafiL (CIALIS) 5 MG tablet Take 5 mg by mouth daily. Active amLODIPine (NORVASC) 10 MG tablet Take 10 mg by mouth daily. Active metFORMIN (GLUCOPHAGE) 1000 MG tablet Take 1,000 mg by mouth 2 (two) times a day with meals. 3 Active Social History Tobacco Use Types Packs/Day Years Used Date Smoking Tobacco: Never Assessed Home Health Assessment: Transportation Answer Date Recorded Lack of Transportation (Medical) No 04/09/2023 Lack of Transportation (Non-Medical) No 04/09/2023 Patient Unable or Declines to Respond No 04/09/2023 Education Answer Date Recorded Are you interested in more education? Not on scott e 03/09/2023 Are you concerned about learning? Not on file 03/09/2023 No 03/09/2023 No 03/09/2023 Digital Access Answer Date Recorded No 03/09/2023 No 03/09/2023 Reliable internet access at home? Not on file 03/09/2023 Device with a working camera? Not on file Sex and Gender Information Value Date Recorded Sex Assigned at Not on file Legal Sex Male 1:36 PM EDT Gender Identity Not on file Sexual Orientation Not on file Last Filed Vital Signs Vital Sign Reading Time Taken Comments Blood Pressure 138/70 04/09/2023 9:28 AM EDT Pulse 76 04/09/2023 9:28 AM EDT Temperature 36.9 C (98.5 F) 04/09/2023 9:28 AM EDT Respiratory Rate 14 04/01/2023 9:11 AM EDT Oxygen Saturation 96% 04/09/2023 9:28 AM EDT Inhaled Oxygen Concentration - - Weight - - Height - - Body Mass Index - - Plan of Treatment Health Maintenance Due Date Last Done Comments Adult Td,Tdap Booster 1958 CREATININE LEVEL 1958 LIPID PANEL 1958 DEPRESSION SCREENING 1970 SMOKING Hx and SMOKELESS TOB ACCO SCREENING 1971 HEPATITIS C SCREENING 1976 COLOGUARD 2003 COLONOSCOPY 2003 COLORECTAL CANCER SCREENING 2003 FIT TEST 2003 FOBT 2003 SIGMOIDOSCOPY 2003 VIRTUAL COLONOSCOPY 2003 PNEUMOCOCCAL VACCINES (50+ y ears) (1 of 1 - PCV) 2008 ZOSTER VACCINES (1 of 2) 2008 RSV VACCINE (1 - Risk 60-74 years 1-dose series) 2018 COVID-19 VACCINE (1 - 2023-2 5 season) 2024 HEPATITIS A VACCINES Aged Out No long er eligible based on patient's age to complete this topic HIB VACCINES Aged Out No longer eligi ble based on patient's age to complete this topic MENINGOCOCCAL VACCINES (ACWY) Aged Out No longer eligible based on patient's age to complete this topic MENINGOCOCCAL VACCINES (B) Aged Out N o longer eligible based on patient's age to complete this topic Medical Devices Not on file Insurance [facility] [place], [place] [address] [place], [place] [address] Additional Source Comments The information contained in this document represents components of the legal health record. It is not the complete legal health record.[facility]
== END 2025-01-05 11:05 | disposition home or self-care (01) ==
LOC: HO.HUSH 10:18
PROVIDERS: PCP Internal Medicine; Visit Provider Urology
DX: N40.1 Benign prostatic hyperplasia with lower urinary tract symptoms (principal); N32.81 Overactive bladder; R97.20 Elevated prostate specific antigen [PSA]; Z13.9 Encounter for screening, unspecified
CPT/HCPCS: 99213; G2211

== ENCOUNTER → 2025-01-05 10:17 | Outpatient (BNVA) | payer MEDICARE, SELFPAY | PROVIDERS: PCP Internal Medicine; Visit Provider Urology | DX: N40.1 Benign prostatic hyperplasia with lower urinary tract symptoms (principal); N13.8 Other obstructive and reflux uropathy; N32.81 Overactive bladder; R97.20 Elevated prostate specific antigen [PSA] | CPT/HCPCS: 51798; 81003; 99212 ==

== ENCOUNTER 2025-02-08 13:54 | Outpatient (AMB) | payer MEDICARE, SELFPAY ==
--- NOTE | 2025-02-08 13:55 | A.OFFVIS_ITS ---
Vital Signs 02/08/25 13:56 Height 5 ft 6 in Weight 265 lb 8 oz BMI 42.8 BP 138/80 Blood Pressure Location Rt brachial Position Sitting Pulse 87 Pulse Source Pulse Oximeter Pulse Oximetry (%) 98 Oxygen Delivery Method Room Air Intake Visit Reasons: follow up Tremors Intake Note: Follow up Parkinson's disease without dyskinesia Chilling Hood Operator Required: No Accompanied by: Self / Same As Patient Allergies erythromycin base (ERYTHROMYCIN BASE) Allergy (Unknown, Verified 02/08/25 13:56) DIARRHEA spironolactone (Aldactone) Allergy (Unknown, Verified 02/08/25 13:56) stomach upset dust, mold, grass Allergy (Unknown, Uncoded 11/02/24 10:03) sneezing Medication List - Last Reconciled 02/08/25 by Amirah Tompkins MD amlodipine 10 mg PO DAILY aspirin (Adult Low Dose Aspirin) 81 mg PO DAILY atorvastatin 20 mg PO DAILY azelastine 1 spray intranasal BID carvedilol 25 mg PO BID cyanocobalamin (vitamin B-12) 1,000 mcg PO DAILY dapagliflozin propanediol (Farxiga) 10 mg PO DAILY fexofenadine 180 mg PO DAILY finasteride 5 mg PO DAILY 90 days melatonin 3 mg PO BEDTIME metformin 1,000 mg PO BID OneTouch Delica Plus Lancet (lancets) Test blood sugar once a day NS OneTouch Verio Flex meter (blood-glucose meter) As directed NS OneTouch Verio test strips (blood sugar diagnostic) test blood sugar once a day NS rasagiline 1 mg PO DAILY sacubitril-valsartan 97-103 mg 1 tab PO BID tadalafil 5 mg PO DAILY 90 days Trulicity (dulaglutide) 1.5 mg (0.5 mL) subcut QWEEK 1 month NS HPI Comments Details: 64y/o right handed male comes here for follow up of Parkinsons. His FELIX scan was abnormal with bilateral decreased uptake .He feels his left hand tremors have worsened. He is on rasagiline but feels he needs more meds. He is slower, gait and balance are worse, he has drooling .No falls. He has left shoulder tightness. His REM behavior disorder- vivid dreams, not aware of screaming . he lives alone.. He also has Vit B 12 deficiency and is on supplements. He is independent in all his ADLS. Mood - depressed Bowel movements are good Cognition - Ok mild short term issues No hallucinations He rarely exercises. Past History-He started noticing tremors in his left hand in 2020 He denies any handwriting changes, dressing , eating, showering but feels his left hand tires quickly.He reports poor balance for 2-3 years.He had 2 falls - when he stands and bends forward he feels like his body cannot stop shifting forward. No change in speech or drooling. He has occasional swallowing issues.He has sleep apnea on CPAP.No sleep talking or acting out in his sleep. No memory issues. He denies depression or anxiety. No family history of tremors He denies head or neck injury. No exposure to neuroleptics. He denies constipation. FOR[facility]LY [facility] Medical History Diabetes mellitus with microalbuminuria, without long-term current use of insulin History of cardiomyopathy Seasonal and perennial allergic rhinitis Annual visit for general adult medical examination with abnormal findings Vitamin B12 deficiency Parkinson's disease without dyskinesia or fluctuating manifestations Parkinsons disease Gait abnormality Tremor of left hand Type 2 diabetes mellitus without complication, with no history of insulin use Vitamin D deficiency History of COVID-19 Nocturia Benign non-nodular prostatic hyperplasia with lower urinary tract symptoms Elevated PSA Trigger finger, right middle finger Type 2 diabetes mellitus without complication, with no history of insulin use Osteoarthritis of knees, bilateral Cardiomyopathy Hx of thyroid nodule Dyslipidemia GIN on CPAP Essential hypertension Morbid obesity Diabetes mellitus with hyperglycemia, without long-term current use of insulin Surgical History H/O total knee replacement Hx of colonoscopy History of lobectomy of thyroid Status post lateral meniscus repair Family History Father Diabetes mellitus Cancer of prostate Myocardial infarction Mother HTN (hypertension) Diabetes mellitus CAD (coronary artery disease) Paternal Grandfather Cancer of prostate Brother No problems noted. Brother No problems noted. Sister No problems noted. Sister No problems noted. Social History Housing: House Alcohol intake: never Patient Tobacco Use Status: Never used Tobacco e-Cigarette/Vaping Use: Never Used Second Hand Smoke Exposure: No service: Yes Current occupational status: retired Current occupation: [employer] Current occupational exposures/hazards: Yes Cognitive needs: No Hearing needs: No Vision needs: Yes Physical Exam Vital Signs: Last Vital Signs Pulse 87 02/08/25 13:56 BP 138/80 02/08/25 13:56 Pulse Ox 98 02/08/25 13:56 Oxygen Delivery Method Room Air 02/08/25 13:56 BMI result Body Mass Index 42.8 Const General: cooperative, healthy appearing and comfortable Nutritional Appearance: obese Orientation/consciousness: patient oriented x3 HEENT Head: Yes normal to inspection and Yes normocephalic Eyes Pupils: Equal, round and reactive pupils present Neuro Other: moderate decreased facial expression and blink left hand rest tremors today Gait - slow , mild decreased arm swings L>R Left UE cogwheel rigidity 1 + FFM and foot taps decreased eloisa L>R General: patient oriented x3 and moves all extremities Cranial nerves: Yes Facial sensation intact/muscles of mastication intact, Yes Equal, round and reactive pupils present, Yes Bilaterally intact EOM present, Yes Nystagmus not present, Yes Normal facial strength present, Yes Midline tongue present and Yes Symmetric palate elevation present Cognition (Neuro): normal cognition Motor exam (neuro): 5/5 motor strength present throughout Psych Appearance: grossly normal Assessment & Plan Assessment & Plan (1) Parkinson's disease without dyskinesia or fluctuating manifestations: Code(s): G20.A1 - Parkinson's disease without dyskinesia, without mention of fluctuations Category: Medical (2) Vitamin B12 deficiency: Code(s): E53.8 - Deficiency of other specified B group vitamins Category: Medical (3) Gait abnormality: Code(s): R26.9 - Unspecified abnormalities of gait and mobility Category: Medical Plan Discussed FELIX scan results and various medications available for parkinsons disease. Continue rasagiline 1mg qd I will trial him on carbidopa/levodopa 25/100 bid . Interaction with protein discussed. Continue CPAP Continue exercises Melatonin 3mg qhs Continue aspirin 81mg qd Vit B 12 supplementation Orders: Orders PWR Program Eval and Treat Today G20.A1 - Parkinson's disease without dys kinesia, without mention of fluctuations Medications: New carbidopa-levodopa 25-100 mg (Sinemet) 1 tab PO BID 60 tabs 6RF Coding Level of Care Code Est Pt Level 4 (29504) Complex EM visit Add On G2211 Diagnoses Parkinson's disease without dyskinesia or fluctuating manifestations G20.A1 Vitamin B12 deficiency E53.8 Gait abnormality R26.9
[2025-02-08 13:56] VITALS: BP 138/80; PULSE 87; O2SAT 98; BMI 42.8
--- OUTSIDE RECORDS SUMMARY | 2025-02-08 14:02 | XMS_ITS | Clinical Summary ---
Author Organization [facility] Address [address] [address] Phone Care Team Providers Care Garment Mender Name Role Phone Unavailable Primary Care Provider [...] topic Medical Devices Not on file Insurance [facility] [place] [address] [place] [address] [place], [place] [address] Additional Source Comments The information contained in this document represents components of the legal health record. It is not the complete legal health record.[facility]
--- OUTSIDE RECORDS SUMMARY | 2025-02-08 14:03 | XMS_ITS | Patient Health Record ---
Author Organization [facility] Address [address] [place] [address] Care Team Providers Care Wharf Laborer Name Role Phone Garo CONDE, Lakshmi Primary [...] Notes Problem Hemorrhage of rectum and anus (966387766) Hemorrhage of rectum and anus (569.3) Active confirmed Problem [id number] Colon cancer screening (Z12.11) Active confirmed Problem [id number] Encounter for other preprocedural examination (Z01.818) Active confirmed Problem 947980793 Long-term use of aspirin therapy (Z79.82) Active confirmed Plan Of Treatment Future Test Test Name Order Date COLONOSCOPY 08/07/2011 COLONOSCOPY 10/03/2021 Insurance Providers Payer Name Payer Address Payer Phone Subscriber Number Group Number Insured Name Patient Relationship to Insured Coverage Start Date Coverage End Date [facility] [address] [place] [phone] [id number] UVALDO AMEZCUA Self - patient is the insured Medical (General) History Medical History History ICD Code hypertension diabetes mellitus elevated cholesterol environmental allergies degenerative joint disease GIN/CPAP congestive heart failure Elevated BMI Surgical History Surgery Date(Month/Year) knee surgery wisdom teeth extraction thyroid surgery
--- OUTSIDE RECORDS SUMMARY | 2025-02-08 14:03 | XMS_ITS | Patient Health Record ---
Author Organization [facility] Address [address] [place] [address] Care Team Providers Care Literacy Coach Name Role Phone Garo CONDE, Lakshmi Kovacs Primary Care Provider Un available Nakul Rizzo Unavailable [phone] Allergies Allergen (clinical drug ingredient) Drug/Non Drug [...] Problem Acquired hammer toe of right foot (355635976891 9105) Other hammer toe(s) (acquired), right foot (M20.41) Active confirmed Problem Acquired hammer toe of left foot (426709400675 9103) Other hammer toe(s) (acquired), left foot (M20.42) Active confirmed Problem Type 2 diabetes mellitus without complication (E11.9) Active confirmed Vital Signs Blood pressure diastolic 65 mm Hg 12/19/2024 Height 5ft6in in 12/19/2024 Blood pressure systolic 126 mm Hg 12/19/2024 Weight 256 lbs 12/19/2024 BMI 41.31 kg/m2 12/19/2024 Procedures Procedure Date Ordered Date Performed Result Body Sit e 97438-NEXQEOM NAIL, 6 OR MORE 04/04/2024 N/A 14023-SZPRZZL NAIL, 6 OR MORE 06/13/2024 N/A 37441-EDZWSMZ NAIL, 6 OR MORE 09/15/2024 N/A 82253-NGFXJYM NAIL, 6 OR MORE 12/19/2024 N/A Encounters Encounter Location Date Provider Diagnosis [address] [address] 04/04/2024 Nakul Matthias Pain in right toe(s) M79.674 ; Tinea unguium B35.1 ; Pain in left toe(s) M79.675 and Type 2 diabetes mellitus without complication E11.[address] [address] 06/13/2024 Nakul Matthias Tinea unguium B35.1 ; Other hammer toe(s) (acquired), right foot M20.41 ; Pain in right toe(s) M79.674 ; Pain in left toe(s) M79.675 ; Type 2 diabetes mellitus without complication E11.9 and Other hammer toe(s) (acquired), left foot M20.[address] [address] 09/15/2024 Nakul Matthias Tinea unguium B35.1 ; Other hammer toe(s) (acquired), right foot M20.41 ; Pain in right toe(s) M79.674 ; Pain in left toe(s) M79.675 ; Type 2 diabetes mellitus without complication E11.9 and Other hammer toe(s) (acquired), left foot M20.[address] [address] 12/19/2024 Nakul Matthias Tinea unguium B35.1 ; [...] Treatment Pending Test Test Name Order Date 10111-LJXASTK NAIL, 6 OR MORE 03/10/2023 53291-HKEKEPE NAIL, 6 OR MORE 05/18/2023 66018-EIQRHVB NAIL, 6 OR MORE 08/03/2023 89698-NIHJWGB NAIL, 6 OR MORE 10/19/2023 36310-YJZIIHG NAIL, 6 OR MORE 01/04/2024 31361-XZTRGPP NAIL, 6 OR MORE 04/04/2024 70745-VQUBPXQ NAIL, 6 OR MORE 06/13/2024 55786-NTZIOCQ NAIL, 6 OR MORE 09/15/2024 60396-MZERLPU NAIL, 6 OR MORE 12/19/2024 34123-Hwwhmcua Plate 01/04/2024 Next Appt Details Provider Name:Nakul Rizzo , 03/27/2025 11:00:00 AM, [address] [place] [address], [phone], Insurance Providers Payer Name Payer Address Payer Phone Subscriber Number Group Number Insured Name Patient Relationship to Insured Coverage Start Date Coverage End Date [employer] [address] [place] [phone] [id number] Albert Becerra Self - patient is the insured Medical (General) History Medical History History ICD Code Arthritis asthma Back,Hip,and Knee pain Broken bones Cataracts covid-19 Diabetic Heart disease High blood pressure Parkinsons disease Measles Mumps Chicken pox Sleep apnea CHF BPH Surgical History Surgery Date(Month/Year) knee replacement surgery, right 03/2023
== END 2025-02-08 14:40 | disposition home or self-care (01) ==
LOC: HO.HSMS 13:55
PROVIDERS: PCP Internal Medicine; Visit Provider Psychiatry & Neurology Neurology
DX: G20.A1 Parkinson's disease without dyskinesia, without mention of fluctuations (principal); E53.8 Deficiency of other specified B group vitamins; R26.9 Unspecified abnormalities of gait and mobility
CPT/HCPCS: 99214; G2211

== ENCOUNTER → 2025-02-08 13:54 | Outpatient (BNVA) | payer MEDICARE, SELFPAY | PROVIDERS: PCP Internal Medicine; Visit Provider Psychiatry & Neurology Neurology | DX: G20.A1 Parkinson's disease without dyskinesia, without mention of fluctuations (principal); R26.9 Unspecified abnormalities of gait and mobility; E53.8 Deficiency of other specified B group vitamins | CPT/HCPCS: 99212 ==

== ENCOUNTER 2025-02-15 09:38 | Outpatient (AMB) | payer MEDICARE, SELFPAY ==
--- NOTE | 2025-02-15 10:31 | A.OFFPC_ITS ---
Vital Signs 02/15/25 10:32 Height 5 ft 6 in Weight 268 lb BMI 43.3 BP 134/64 Blood Pressure Location Rt brachial Position Sitting Respiration 16 Pulse 75 Pulse Source Pulse Oximeter Temp 98.3 F Temp Source Oral Pulse Oximetry (%) 96 Oxygen Delivery Method Room Air Intake Visit Reasons: PE/ per AE Allergies erythromycin base (ERYTHROMYCIN BASE) Allergy (Unknown, Verified 02/15/25 10:44) DIARRHEA spironolactone (Aldactone) Allergy (Unknown, Verified 02/15/25 10:44) stomach upset dust, mold, grass Allergy (Unknown, Uncoded 02/15/25 10:44) sneezing Medication List - Last Reconciled 02/15/25 by Lakshmi Wyman MD amlodipine 10 mg PO DAILY aspirin (Adult Low Dose Aspirin) 81 mg PO DAILY atorvastatin 20 mg PO DAILY azelastine 1 spray intranasal BID carbidopa-levodopa 25-100 mg (Sinemet) 1 tab PO BID carvedilol 25 mg PO BID cyanocobalamin (vitamin B-12) 1,000 mcg PO DAILY dapagliflozin propanediol (Farxiga) 10 mg PO DAILY fexofenadine 180 mg PO DAILY finasteride 5 mg PO DAILY 90 days melatonin 3 mg PO BEDTIME metformin 1,000 mg PO BID OneTouch Delica Plus Lancet (lancets) Test blood sugar once a day NS OneTouch Verio Flex meter (blood-glucose meter) As directed NS OneTouch Verio test strips (blood sugar diagnostic) test blood sugar once a day NS rasagiline 1 mg PO DAILY sacubitril-valsartan 97-103 mg 1 tab PO BID tadalafil 5 mg PO DAILY 90 days Trulicity (dulaglutide) 1.5 mg (0.5 mL) subcut QWEEK 1 month NS Tobacco use date assessed: 02/15/25 Fall risk assessment: No Falls in past year Last assessed Fall Risk: 02/15/25 Dental Screening Dental Screen Date: 02/15/25 Did you have a dental visit in the last 12 months?: No Did you have a dental problem in the last 6 months where you did not have access to dental care?: No Was dental information given to patient?: Patient has dentist [facility] Medical History (Updated 02/15/25 @ 11:20 by Lakshmi Wyman MD) Depression Diabetes mellitus with microalbuminuria, without long-term current use of insulin History of cardiomyopathy Seasonal and perennial allergic rhinitis Annual visit for general adult medical examination with abnormal findings Vitamin B12 deficiency Parkinson's disease without dyskinesia or fluctuating manifestations Parkinsons disease Gait abnormality Tremor of left hand Type 2 diabetes mellitus without complication, with no history of insulin use Vitamin D deficiency History of COVID-19 Nocturia Benign non-nodular prostatic hyperplasia with lower urinary tract symptoms Elevated PSA Trigger finger, right middle finger Type 2 diabetes mellitus without complication, with no history of insulin use Osteoarthritis of knees, bilateral Cardiomyopathy Hx of thyroid nodule Dyslipidemia GIN on CPAP Essential hypertension Morbid obesity Diabetes mellitus with hyperglycemia, without long-term current use of insulin Surgical History H/O total knee replacement Hx of colonoscopy History of lobectomy of thyroid Status post lateral meniscus repair Family History Father Diabetes mellitus Cancer of prostate Myocardial infarction Mother HTN (hypertension) Diabetes mellitus CAD (coronary artery disease) Paternal Grandfather Cancer of prostate Brother No problems noted. Brother No problems noted. Sister No problems noted. Sister No problems noted. Social History Housing: House Alcohol intake: never Patient Tobacco Use Status: Never used Tobacco e-Cigarette/Vaping Use: Never Used Second Hand Smoke Exposure: No service: Yes Current occupational status: retired Current occupation: [employer] Current occupational exposures/hazards: Yes Cognitive needs: No Hearing needs: No Vision needs: Yes Questionnaire PHQ-9 Over the last 2 weeks, how often have you been bothered by any of the following problems? 1. Little interest or pleasure in doing things: several days 2. Feeling down, depressed, or hopeless: several days 3. Trouble falling or staying asleep, or sleeping too much: not at all 4. Feeling tired or having little energy: several days 5. Poor appetite or overeating: not at all 6. Feeling bad about yourself - or that you are a failure or have let yourself or your family down: several days 7. Trouble concentrating on things, such as reading the newspaper or watching television: not at all 8. Moving or speaking so slowly that other people could have noticed. Or the opposite - being so fidgety or restless that you have been moving around a lot more than usual: several days 9. Thoughts that you would be better off or of hurting yourself in some way: not at all Total score: 5 Depression Screening Interpretation: Positive (Referred for therapy) Depression Screening Follow-up: Community Mental Health Worker F/U Depression Screening Done: Yes 93581 - PHQ-9 Billing: Yes Source: Developed by Drs. Teo Smith, Mario Spain and colleagues, with an educational dion from [employer]. Thrive Questionnaire Date Thrive assessed: 07/25/24 I am a: Patient What is your living situation today?: I have a steady place to live Within the past 12 months, did the food you bought not last and you didn't have the money to get more?: Never true Within the past 12 months, did you worry whether your food would run out before you got money to buy more?: Never true Do you have trouble paying for medicines?: No Do you have trouble getting transportation to medical appointments?: No Do you have trouble paying your heating and electricity bill?: No Do you have trouble taking care of your child, family member or friend?: No Do you have trouble with day-to-day activities such as bathing, preparing meals, shopping, managing finances, etc.?: No Are you currently unemployed and looking for a job?: No Are you interested in more education?: No Please select the resources that you would like help with: None Currently or been in a relationship where the following occur: No concerns reported THRIVE Score: 0 GM-7 AMB Questionnaire GM-7 Date GM - 7 assessed: 07/31/24 Source: Developed by Drs. Teo Smith, Parris Verdugo, Mario Shipley and colleagues, with an educational dion from [employer]. Review of Systems Const Denies chills and Denies fever(s) Card Reports no additional complaints and Denies syncope Resp Denies cough GI Denies abdominal pain and Denies heartburn Reports as per HPI and Denies change in libido Neuro Denies syncope and Denies Sensory deficit (Neuro) Psych Denies change in libido Endo Denies change in libido Physical exam (Primary Care) Vital Signs: Last Vital Signs Temp 98.3 F 02/15/25 10:32 Pulse 75 02/15/25 10:32 Resp 16 02/15/25 10:32 BP 134/64 02/15/25 10:32 Pulse Ox 96 02/15/25 10:32 Oxygen Delivery Method Room Air 02/15/25 10:32 BMI result Body Mass Index 43.3 BMI Assessment/Plan discussion: High BMI High, discussed plan: lifestyle, weight reduction, dietary and physical activity Tobacco/Smoking Status: Tobacco use Status Tobacco use date assessed 02/15/25 02/15/25 10:37 Patient Tobacco Use Status Never used Tobacco 02/15/25 10:31 e-Cigarette/Vaping Use Never Used 02/15/25 10:31 Depression Screening Interpretation: Positive (Referred for therapy) Depression Screening Follow-up: Community Mental Health Worker F/U Thrive Assessment: Date of Thrive Assessment Date Thrive assessed 07/25/24 02/15/25 10:31 Currently or been in a relationship where the following occur: No concerns reported Const General: comfortable and no acute distress Nutritional Appearance: obese morbidly obese Orientation/consciousness: patient oriented x3 HENMT Face and sinus: Yes normal facial exam and Yes face symmetric Mouth: Normal oral and palatal mucosa present, oropharynx normal and moist mucous membranes Eyes General: appearance normal, both eyes and all related structures Neck Neck: Yes full ROM and Yes no lymphadenopathy Resp Effort & Inspection: normal respiratory effort and able to speak in complete sentences Auscultation: clear to auscultation bilaterally Cardio Rate: regular rate Rhythm: regular rhythm Heart sounds: S1 normal heart sound present and S2 normal heart sound present GI Inspection: Yes obesity Palpation (GI): Soft to palpation, nontender, no guarding and no pulsatile masses Auscultation: normal bowel sounds General: Yes no CVA tenderness Back/Spine/Pelvis Back: no CVA tenderness and No back tenderness Skin General skin exam: no rashes or lesions noted Neuro Other: Positive intention tremors present in both hands General: patient oriented x3 Cognition (Neuro): normal cognition Gait exam (Neuro): Other gait observations present (Slow gait) Motor exam (neuro): 5/5 motor strength present throughout Sensory Exam: No Sensory deficit (Neuro) Extrem General: Yes normal to inspection, Yes full ROM and Yes no pedal edema Psych Appearance: grossly normal and well kempt Mental Status: mental status grossly normal Speech and movement: Normal speech and movement present Affect: normal affect Attitude: cooperative Results AMB Hemoglobin A1c AMB Hemoglobin A1c 6.4 % Last Edit by Brissa Blakely CMA on 02/15/25 10:57 Results Reviewed Results Reviewed: Name: Albert Becerra Age/Sex: 64/M : 1960 Unit#: [id number] Attend Dr: Lakshmi Wyman MD Re10/31/24 Status: DEP [facility]: SPEC : [id number] ROCHELLE: 10/31/24 STATUS: COMP REQ : [id number] RECD: 10/31/24-[address]: Lakshmi Wyman MD COMP: 10/31/24 ENTERED: 10/31/[address]: ORDERED: Met Prof Fast, AST, ALT, Lipid Panel Test Result Flag Reference Sodium 141 135-145 mmol/L Potassium 4.1 3.3-5.1 mmol/L CL 106 96-108 mmol/L CO2 22 22-29 mmol/L Gap 17 12-20 BUN 13 9-16 mg/dL Creat 1.01 0.5-1.4 mg/dL eGFR > 60 Chronic Kidney Disease: Estimated GFR < 60 mL/min/1.73m2 Severe Kidney Disease: Estimated GFR < 15 mL/min/1.73m2 FBS 99 60-99 mg/dL CA 9.1 8.4-10.2 mg/dL AST (GOT) 26 5-37 U/L ALT (GPT) 15 0-40 U/L Triglyceride 98 <150 mg/dL Desirable Triglyceride: less than 150 mg/dL Borderline High Triglyceride 150-199 mg/dL High Triglyceride: 200-499 mg/dL Very High Triglyceride: greater than or equal to 5OO mg/dL Cholesterol 105 <200 mg/dL Desirable Cholesterol: less than 200 mg/dL Borderline High Cholesterol: 200-239 mg/dL High Cholesterol: greater than 239 mg/dL LDL Calculated 49 <100 mg/dL Desirable LDL: less than 100 mg/dL Near Optimal/Above Optimal LDL: 110-129 mg/dL Borderline High LDL: 130-159 mg/dL High LDL: 160-189 mg/dL Very High LDL: greater than or equal to 190 mg/dL HDL 37 L >40 mg/dL Desirable HDL: greater than 40 mg/dL Note: This HDL assay may give artificially low results in patients with liver disease. Coding Level of Care Code Est Pt Prev Care >65y(31485) Diagnoses Diabetes mellitus with microalbuminuria, without long-term current use of insulin E11.29; R80.9 Dyslipidemia E78.5 History of cardiomyopathy Z86.79 Essential hypertension I10 Benign non-nodular prostatic hyperplasia with lower urinary tract symptoms N40.1 Parkinson's disease without dyskinesia or fluctuating manifestations G20.A1 Cardiomyopathy, unspecified type I42.9 Cardiomyopathy type: unspecified Seasonal and perennial allergic rhinitis J30.89; J30.2 Morbid obesity E66.01 GIN on CPAP G47.33; Z99.89 Depression F32.A Annual visit for general adult medical examination with abnormal findings Z00.01 Advance directive discussed with patient Z71.89 Additional Codes PHQ-9 - 30116 - PHQ-9 Billing: Yes ([id number]) Assessment & Plan Assessment & Plan (1) Diabetes mellitus with microalbuminuria, without long-term current use of insulin: Code(s): E11.29 - Type 2 diabetes mellitus with other diabetic kidney complication; R80.9 - Proteinuria, unspecified Category: Medical (2) Dyslipidemia: Code(s): E78.5 - Hyperlipidemia, unspecified Category: Medical (3) History of cardiomyopathy: Code(s): Z86.79 - Personal history of other diseases of the circulatory system Category: Medical (4) Essential hypertension: Code(s): I10 - Essential (primary) hypertension Category: Medical (5) Benign non-nodular prostatic hyperplasia with lower urinary tract symptoms: Code(s): N40.1 - Benign prostatic hyperplasia with lower urinary tract symptoms Category: Medical (6) Parkinson's disease without dyskinesia or fluctuating manifestations: Code(s): G20.A1 - Parkinson's disease without dyskinesia, without mention of fluctuations Category: Medical (7) Cardiomyopathy: Comment: Ff'd by [facility] Code(s): I42.9 - Cardiomyopathy, unspecified Category: Medical Qualifiers: Cardiomyopathy type: unspecified Qualified Code(s): I42.9 - Cardiomyopathy, unspecified (8) Seasonal and perennial allergic rhinitis: Code(s): J30.89 - Other allergic rhinitis; J30.2 - Other seasonal allergic rhinitis Category: Medical (9) Morbid obesity: Code(s): E66.01 - Morbid (severe) obesity due to excess calories Category: Medical (10) GIN on CPAP: Code(s): G47.33 - Obstructive sleep apnea (adult) (pediatric); Z99.89 - Dependence on other enabling machines and devices Category: Medical (11) Depression: Code(s): F32.A - Depression, unspecified Category: Medical (12) Annual visit for general adult medical examination with abnormal findings: Code(s): Z00.01 - Encounter for general adult medical examination with abnormal findings (13) Advance directive discussed with patient: Code(s): Z71.89 - Other specified counseling Orders: Orders AMB Hemoglobin A1c Today . - Type 2 diabetes mellitus with other diabetic kidney complication, R80.9 - Proteinuria, unspecified Hemoglobin A1c 3 Months E11. - Type 2 diabetes mellitus with other diabetic kidney complication, I10 - Essential (primary) hypertension, I42.9 - Cardiomyopathy, unspecified, R80.9 - Proteinuria, unspecified, Z86.39 - Personal history of other endocrine, nutritional and metabolic disease Aspartate Amino Transferase 3 Months E11. - Type 2 diabetes mellitus with other diabetic kidney complication, I10 - Essential (primary) hypertension, I42.9 - Cardiomyopathy, unspecified, R80.9 - Proteinuria, unspecified, Z86.39 - Personal history of other endocrine, nutritional and metabolic disease Alanine Aminotransferase 3 Months E11. - Type 2 diabetes mellitus with other diabetic kidney complication, I10 - Essential (primary) hypertension, I42.9 - Cardiomyopathy, unspecified, R80.9 - Proteinuria, unspecified, Z86.39 - Personal history of other endocrine, nutritional and metabolic disease Vitamin D 25-OH Total 3 Months E11. - Type 2 diabetes mellitus with other diabetic kidney complication, I10 - Essential (primary) hypertension, I42.9 - Cardiomyopathy, unspecified, R80.9 - Proteinuria, unspecified, Z86.39 - Personal history of other endocrine, nutritional and metabolic disease Vitamin B12 and Folate 3 Months Z86.39 - Personal history of other endocrine, nutritional and metabolic disease Basic Metabolic Panel Fasting 3 Months E11. - Type 2 diabetes mellitus with other diabetic kidney complication, I10 - Essential (primary) hypertension, I42.9 - Cardiomyopathy, unspecified, R80.9 - Proteinuria, unspecified, Z86.39 - Personal history of other endocrine, nutritional and metabolic disease
[2025-02-15 10:32] VITALS: BP 134/64; PULSE 75; RESP 16; TEMP 36.8; O2SAT 96; BMI 43.3
--- OUTSIDE RECORDS SUMMARY | 2025-02-15 10:44 | XMS_ITS | Patient Health Record ---
Author Organization [facility] Address [address] [place] [address] Care Team Providers Care Science Tutor Name Role Phone Garo CONDE, Lakshmi Primary [...] rectum and anus (569.3) Active confirmed Problem [id number] Colon cancer screening (Z12.11) Active confirmed Problem 797453598 Encounter for other preprocedural examination (Z01.818) Active confirmed Problem 917875235 Long-term use of aspirin therapy (Z79.82) Active confirmed Plan Of Treatment Future Test Test Name Order Date COLONOSCOPY 08/07/2011 COLONOSCOPY 10/03/2021 Insurance Providers Payer Name Payer Address Payer Phone Subscriber Number Group Number Insured Name Patient Relationship to Insured Coverage Start Date Coverage End Date [facility] [address] [place] [phone] [id number] UVALDO AMEZCUA Self - patient is the insured Medical (General) History Medical History History ICD Code hypertension diabetes mellitus elevated cholesterol environmental allergies degenerative joint disease GIN/CPAP congestive heart failure Elevated BMI Surgical History Surgery Date(Month/Year) knee surgery wisdom teeth extraction thyroid surgery
--- OUTSIDE RECORDS SUMMARY | 2025-02-15 10:44 | XMS_ITS | Patient Health Record ---
Author Organization [facility] Address [address] [place] [address] Care Team Providers Care Dot Net Architect Name Role Phone Garo CONDE, Lakshmi Kovacs Primary Care Provider Un available Nakul Rizzo Unavailable [phone] Allergies Allergen (clinical drug ingredient) Drug/Non Drug [...] Problem Acquired hammer toe of right foot (154840213583839 5) Other hammer toe(s) (acquired), right foot (M20.41) Active confirmed Problem Acquired hammer toe of left foot (345868541236306 3) Other hammer toe(s) (acquired), left foot (M20.42) Active confirmed Problem Type II diabetes mellitus without complication (516418210) Type 2 diabetes mellitus without complication (E11.9) Active confirmed Vital Signs Blood pressure diastolic 65 mm Hg 12/19/2024 Height 5ft6in in 12/19/2024 Blood pressure systolic 126 mm Hg 12/19/2024 Weight 256 lbs 12/19/2024 BMI 41.31 kg/m2 12/19/2024 Procedures Procedure Date Ordered Date Performed Result Body Sit e 34056-MNKVPTD NAIL, 6 OR MORE 04/04/2024 N/A [id number] NAIL, 6 OR MORE 06/13/2024 N/A 48987-THYMZWW NAIL, 6 OR MORE 09/15/2024 N/A 98018-SKGUTKF NAIL, 6 OR MORE 12/19/2024 N/A Encounters Encounter Location Date Provider Diagnosis [address] [address] 04/04/2024 Nakul Matthias Pain in right toe(s) M79.674 ; Tinea unguium B35.1 ; Pain in left toe(s) M79.675 and Type 2 diabetes mellitus without complication E11.[address] [address] 06/13/2024 Nakul Matthias Tinea unguium B35.1 ; Other hammer toe(s) (acquired), right foot M20.41 ; Pain in right toe(s) M79.674 ; Pain in left toe(s) M79.675 ; Type 2 diabetes mellitus without complication E11.9 and Other hammer toe(s) (acquired), left foot M20.[address] [address] 09/15/2024 Nakul Matthias Tinea unguium B35.1 ; Other hammer toe(s) (acquired), right foot M20.41 ; Pain in right toe(s) M79.674 ; Pain in left toe(s) M79.675 ; Type 2 diabetes mellitus without complication E11.9 and Other hammer toe(s) (acquired), left foot M20.[address] [address] 12/19/2024 Nakul Matthias Tinea unguium B35.1 ; [...] Treatment Pending Test Test Name Order Date [id number] NAIL, 6 OR MORE 03/10/2023 [id number] NAIL, 6 OR MORE 05/18/2023 67493-DXEADUX NAIL, 6 OR MORE 08/03/2023 46924-TCZSEDJ NAIL, 6 OR MORE 10/19/2023 41039-VXQKAOO NAIL, 6 OR MORE 01/04/2024 10606-PQUHIXF NAIL, 6 OR MORE 04/04/2024 [id number] NAIL, 6 OR MORE 06/13/2024 45371-IZAXCDG NAIL, 6 OR MORE 09/15/2024 29283-CTNTVIJ NAIL, 6 OR MORE 12/19/2024 03439-Ytillgoz Plate 01/04/2024 Next Appt Details Provider Name:Nakul Rizzo , 03/27/2025 11:00:00 AM, [address] [facility], [place], [address], Insurance Providers Payer Name Payer Address Payer Phone Subscriber Number Group Number Insured Name Patient Relationship to Insured Coverage Start Date Coverage End Date [employer] [address] [place] [address] [phone] [id number] Albert Becerra Self - patient is the insured Medical (General) History Medical History History ICD Code Arthritis asthma Back,Hip,and Knee pain Broken bones Cataracts covid-19 Diabetic Heart disease High blood pressure Parkinsons disease Measles Mumps Chicken pox Sleep apnea CHF BPH Surgical History Surgery Date(Month/Year) knee replacement surgery, right 03/2023
--- OUTSIDE RECORDS SUMMARY | 2025-02-15 10:44 | XMS_ITS | Clinical Summary ---
Author Organization [facility] Address [address] [address] Phone Care Team Providers Care Senior Telecommunications Specialist Name Role Phone Unavailable Primary Care Provider [...] topic Medical Devices Not on file Insurance [facility] H[place] [address] [place] [address] [place], [place] [address]O [facility] HMO [facility] HMO Additional Source Comments The information contained in this document represents components of the legal health record. It is not the complete legal health record.[facility]
== END 2025-02-15 11:30 | disposition home or self-care (01) ==
LOC: HO.HMCC 09:39
PROVIDERS: PCP Internal Medicine; Visit Provider Internal Medicine
DX: E11.29 Type 2 diabetes mellitus with other diabetic kidney complication (principal); R80.9 Proteinuria, unspecified

== ENCOUNTER → 2025-02-15 09:38 | Outpatient (BNVA) | payer MEDICARE, SELFPAY | PROVIDERS: PCP Internal Medicine; Visit Provider Internal Medicine | DX: Z00.01 Encounter for general adult medical examination with abnormal findings (principal); G20.A1 Parkinson's disease without dyskinesia, without mention of fluctuations; E78.5 Hyperlipidemia, unspecified; E11.29 Type 2 diabetes mellitus with other diabetic kidney complication; R80.9 Proteinuria, unspecified; I10 Essential (primary) hypertension; N40.1 Benign prostatic hyperplasia with lower urinary tract symptoms; I42.9 Cardiomyopathy, unspecified; J30.89 Other allergic rhinitis; J30.2 Other seasonal allergic rhinitis; E66.01 Morbid (severe) obesity due to excess calories; G47.33 Obstructive sleep apnea (adult) (pediatric); F32.A Depression, unspecified; Z71.89 Other specified counseling; Z86.79 Personal history of other diseases of the circulatory system; Z99.89 Dependence on other enabling machines and devices | CPT/HCPCS: 83036; 96127; 99397 ==

== ENCOUNTER 2025-05-15 09:33 | Outpatient (REF) | payer MEDICARE, SELFPAY ==
--- OUTSIDE RECORDS SUMMARY | 2025-05-15 11:04 | XMS_ITS | Clinical Summary ---
Author Organization [facility] Address [address] [address] Phone Care Team Providers Care Informatics Nurse Specialist Name Role Phone Unavailable Primary Care [...] ears) (1 of 1 - PCV) 2008 RSV VACCINE (1 - Risk 50-74 years 1-dose series) 2008 ZOSTER VACCINES (1 of 2) 2008 INFLUENZA VACCINE (#1) 2025 COVID-19 VACCINE (1 - 2024-2 6 season) 2025 HEPATITIS A VACCINES Aged Out No long [...] topic Medical Devices Not on file Insurance [place] [address] [place] [address] [place] [address] [place] [address] [place] [place] [address] [facility] H[facility] Member Subscriber Plan / Payer (Ef fective 2018-Present) Name:Albert Becerra Relation to Subscriber:Self Name:Albert Becerra Payer ID:Not on file Type:HMO Address: [place] [id number] [place] [address] HMO Additional Source Comments The information contained in this document represents components of the legal health record. It is not the complete legal health record.[facility]
[2025-05-15 14:49] LABS: Alanine Aminotransferase 13 U/L (0-40); Anion Gap 12 (12-20); Aspartate Amino Transferase 23 U/L (5-37); Blood Urea Nitrogen 13 mg/dL (9-16); Calcium 9.1 mg/dL (8.4-10.2); Carbon Dioxide 25 mmol/L (22-29); Chloride 108 mmol/L (96-108); Estimated Glomerular Filt Rate > 60; Potassium 4.1 mmol/L (3.3-5.1); Sodium 141 mmol/L (135-145)
[2025-05-15 15:20] LABS: Folate 7.1 ng/mL (> or = 4.0); Vitamin B12 303 pg/mL (200-900)
== END 2025-05-15 09:34 | disposition home or self-care (01) ==
LOC: HO.HMGCLDS 09:33
PROVIDERS: PCP Internal Medicine; Visit Provider Internal Medicine
DX: I10 Essential (primary) hypertension (principal); I42.9 Cardiomyopathy, unspecified; E11.29 Type 2 diabetes mellitus with other diabetic kidney complication; R80.9 Proteinuria, unspecified; Z86.39 Personal history of other endocrine, nutritional and metabolic disease; Z13.21 Encounter for screening for nutritional disorder
CPT/HCPCS: 36415; 80048; 82306; 82607; 82746; 83036; 84450; 84460

== ENCOUNTER 2025-05-21 11:38 | Outpatient (AMB) | payer MEDICARE, SELFPAY ==
[2025-05-21 11:55] VITALS: BP 132/80; PULSE 70; RESP 16; TEMP 36.6; O2SAT 97; BMI 43.7
--- NOTE | 2025-05-21 11:55 | MHC.PC.OV ---
Vital Signs 05/21/25 11:55 Height 5 ft 6 in Weight 271 lb BMI 43.7 BP 132/80 Blood Pressure Location Lt brachial Position Sitting Respiration 16 Pulse 70 Pulse Source Pulse Oximeter Temp 97.8 F Temp Source Oral Pulse Oximetry (%) 97 Oxygen Delivery Method Room Air Intake Visit Reasons: 3m follow up Intake Note: Pt is here today for his 3mo. f/u Shellfish Checker Required: No Allergies erythromycin base (ERYTHROMYCIN BASE) Allergy (Unknown, Verified 05/21/25 12:12) DIARRHEA spironolactone (Aldactone) Allergy (Unknown, Verified 05/21/25 12:12) stomach upset dust, mold, grass Allergy (Unknown, Uncoded 05/21/25 12:12) sneezing Medication List - Last Reconciled 05/21/25 by Lakshmi Wyman MD amlodipine 10 mg PO DAILY aspirin (Adult Low Dose Aspirin) 81 mg PO DAILY atorvastatin 20 mg PO DAILY azelastine 1 spray intranasal BID carbidopa-levodopa 25-100 mg (Sinemet) 1 tab PO BID carvedilol 25 mg PO BID cyanocobalamin (vitamin B-12) 1,000 mcg PO DAILY dapagliflozin propanediol (Farxiga) 10 mg PO DAILY fexofenadine 180 mg PO DAILY finasteride 5 mg PO DAILY 90 days melatonin 3 mg PO BEDTIME metformin 1,000 mg PO BID OneTouch Delica Plus Lancet (lancets) Test blood sugar once a day NS OneTouch Verio Flex meter (blood-glucose meter) As directed NS OneTouch Verio test strips (blood sugar diagnostic) test blood sugar once a day NS rasagiline 1 mg PO DAILY sacubitril-valsartan 97-103 mg 1 tab PO BID tadalafil 5 mg PO DAILY 90 days Trulicity (dulaglutide) 1.5 mg (0.5 mL) subcut QWEEK 1 month NS Tobacco use date assessed: 05/21/25 Fall risk assessment: No Falls in past year Last assessed Fall Risk: 05/21/25 Dental Screening Dental Screen Date: 05/21/25 Did you have a dental visit in the last 12 months?: Yes Did you have a dental problem in the last 6 months where you did not have access to dental care?: No Was dental information given to patient?: Patient has dentist HPI HPI Comments History of Present Illness Details The patient is a 65 year old individual presenting for a follow-up visit for management of chronic conditions. has type 2 diabetes mellitus, with latest HBA1c at 6.3 %. The patient remains on Farxiga, metformin, and Trulicity 1.5 mg. Blood pressure controlled on amlodipine, carvedilol, and Entresto. The last cardiology appointment was in March of the previous year, at which time the patient was advised to follow-up again in 2025. The patient denies any symptoms of congestive heart failure, such as shortness of breath, no legs well, no dyspnea on exertion or orthopnea. Latest fasting lipids are within normal limits, currently taking atorvastatin 20 mg daily. He is up-to-date on influenza, COVID, and Prevnar 20 immunizations. The patient's last tetanus vaccination was in 2015, making the patient due for a booster next year. The patient has not yet had the shingles vaccine. An eye exam in February done at the [facility] showed immature cataracts but no retinopathy, macular degeneration, or glaucoma. The last thyroid check was two years ago and was noted to be on the lower limit of normal. REPLACED BY [facility] Medical History (Updated 05/21/25 @ 13:02 by Lakshmi Wyman MD) Depression Diabetes mellitus with microalbuminuria, without long-term current use of insulin Seasonal and perennial allergic rhinitis Parkinson's disease without dyskinesia or fluctuating manifestations Gait abnormality Tremor of left hand History of COVID-19 Benign non-nodular prostatic hyperplasia with lower urinary tract symptoms Trigger finger, right middle finger Osteoarthritis of knees, bilateral Cardiomyopathy Hx of thyroid nodule Dyslipidemia GIN on CPAP Essential hypertension Morbid obesity Surgical History (Updated 05/21/25 @ 13:11 by Lakshmi Wyman MD) H/O total knee replacement Hx of colonoscopy History of lobectomy of thyroid Status post lateral meniscus repair Family History Father Diabetes mellitus Cancer of prostate Myocardial infarction Mother HTN (hypertension) Diabetes mellitus CAD (coronary artery disease) Paternal Grandfather Cancer of prostate Brother No problems noted. Brother No problems noted. Sister No problems noted. Sister No problems noted. Social History Housing: House Alcohol intake: never Patient Tobacco Use Status: Never used Tobacco e-Cigarette/Vaping Use: Never Used Second Hand Smoke Exposure: No service: Yes Current occupational status: retired Current occupation: [employer] Current occupational exposures/hazards: Yes Cognitive needs: No Hearing needs: No Vision needs: Yes Questionnaire Thrive Questionnaire Date Thrive assessed: 07/25/24 I am a: Patient What is your living situation today?: I have a steady place to live Within the past 12 months, did the food you bought not last and you didn't have the money to get more?: Never true Within the past 12 months, did you worry whether your food would run out before you got money to buy more?: Never true Do you have trouble paying for medicines?: No Do you have trouble getting transportation to medical appointments?: No Do you have trouble paying your heating and electricity bill?: No Do you have trouble taking care of your child, family member or friend?: No Do you have trouble with day-to-day activities such as bathing, preparing meals, shopping, managing finances, etc.?: No Are you currently unemployed and looking for a job?: No Are you interested in more education?: No Please select the resources that you would like help with: None Currently or been in a relationship where the following occur: No concerns reported THRIVE Score: 0 GM-7 AMB Questionnaire GM-7 Date GM - 7 assessed: 07/31/24 Source: Developed by Drs. Teo Smith, Parris Verdugo, Mario Shipley and colleagues, with an educational dion from [employer] Review of Systems Narrative Review of Systems - General: Reports feeling less active than usual. - HEENT: Reports seeing halos around lights when driving at night. - Cardiovascular: Denies chest pain or symptoms of congestive heart failure. Reports some leg swelling. - Respiratory: Reports postnasal drip and some phlegm, as well as getting short of breath more easily than usual. - Neurological: Reports having very vivid and detailed dreams. Denies the dreams are frightening. Const Details: [facility], 02/2025 , no retinopathy no macular degeneration or glaucoma seen, beginning cataracts OU Denies chills and Denies fever(s) Eyes Reports no additional complaints ENT Reports no additional complaints and Reports post nasal drip Card Reports no additional complaints and Denies syncope Resp Reports as per HPI and Denies cough GI Denies abdominal pain and Denies heartburn Reports as per HPI and Denies change in libido Musc Reports as per HPI Skin/Breast Denies rash Neuro Denies syncope and Denies Sensory deficit (Neuro) Psych Denies change in libido Endo Denies change in libido Mick/Lymph Reports no additional complaints Aller/Immun Reports no additional complaints Physical exam (Primary Care) Vital Signs: Last Vital Signs Temp 97.8 F 05/21/25 11:55 Pulse 70 05/21/25 11:55 Resp 16 05/21/25 11:55 BP 132/80 05/21/25 11:55 Pulse Ox 97 05/21/25 11:55 Oxygen Delivery Method Room Air 05/21/25 11:55 BMI result Body Mass Index 43.7 Tobacco/Smoking Status: Tobacco use Status Tobacco use date assessed 05/21/25 05/21/25 12:00 Patient Tobacco Use Status Never used Tobacco 05/21/25 12:00 e-Cigarette/Vaping Use Never Used 05/21/25 12:00 Thrive Assessment: Date of Thrive Assessment Date Thrive assessed 07/25/24 05/21/25 12:00 Currently or been in a relationship where the following occur: No concerns reported Narrative Physical Exam - Cardiovascular: Auscultation reveals no rubs. - Pulmonary: Lungs are clear to auscultation bilaterally; no wheezing noted. - Extremities: Mild edema noted. Const General: comfortable and no acute distress Nutritional Appearance: obese morbidly obese Orientation/consciousness: patient oriented x3 HENMT Face and sinus: Yes normal facial exam and Yes face symmetric Mouth: Normal oral and palatal mucosa present and moist mucous membranes Eyes General: appearance normal, both eyes and all related structures Neck Neck: Yes full ROM and Yes no lymphadenopathy Resp Effort & Inspection: normal respiratory effort and able to speak in complete sentences Auscultation: clear to auscultation bilaterally Cardio Rate: regular rate Rhythm: regular rhythm Heart sounds: S1 normal heart sound present and S2 normal heart sound present GI Inspection: Yes obesity Palpation (GI): Soft to palpation, nontender, no guarding and no pulsatile masses Auscultation: normal bowel sounds General: Yes no CVA tenderness Back/Spine/Pelvis Back: no CVA tenderness and No back tenderness Neuro Other: mild resting tremors present in both hands General: patient oriented x3 Cognition (Neuro): normal cognition Gait exam (Neuro): Other gait observations present (Slow gait) Motor exam (neuro): 5/5 motor strength present throughout Sensory Exam: No Sensory deficit (Neuro) Extrem General: Yes normal to inspection, Yes full ROM and Yes no pedal edema Psych Appearance: grossly normal and well kempt Mental Status: mental status grossly normal Speech and movement: Normal speech and movement present Affect: normal affect Results Reviewed Results Reviewed: Name: Albert Becerra Age/Sex: 65/M : 1960 Unit#: [id number] Attend Dr: Lakshmi Wyman MD Re05/15/25 Status: DEP REF Location: [facility] Disch: SPEC : [id number] ROCHELLE: 05/15/25 STATUS: COMP REQ : [id number] RECD: 05/15/[address]: Lakshmi Wyman MD COMP: 05/15/25 ENTERED: 05/15/25 [facility] DR: ORDERED: Met Prof Fast, AST, ALT, Vitamin D 25-OH Test Result Flag Reference Sodium 141 135-145 mmol/L Potassium 4.1 3.3-5.1 mmol/L CL 108 96-108 mmol/L CO2 25 22-29 mmol/L Gap 12 12-20 BUN 13 9-16 mg/dL Creat 1.12 0.5-1.4 mg/dL eGFR > 60 Chronic Kidney Disease: Estimated GFR < 60 mL/min/1.73m2 Severe Kidney Disease: Estimated GFR < 15 mL/min/1.73m2 FBS 97 60-99 mg/dL CA 9.1 8.4-10.2 mg/dL AST (GOT) 23 5-37 U/L ALT (GPT) 13 0-40 U/L Vitamin D 25-OH 53.4 >30 ng/mL Health Based Reference Values* < 20 ng/mL Deficient 20-30 ng/mL Insufficient > 30 ng/mL Sufficient Laboratory Tests 07/27/24 10/31/24 12/25/24 10:30 09:54 11:43 Estimat Average Glucose 128 Hemoglobin A1c % 6.1 H Prostate Specific Ag 2.39 Urine Creatinine 40.12 Urine Microalbumin 19.0 Microalb/Creat Ratio 47.3 H 05/15/25 09:42 Estimat Average Glucose 134 Hemoglobin A1c % 6.3 H Prostate Specific Ag Urine Creatinine Urine Microalbumin Microalb/Creat Ratio Coding Level of Care Code Est Pt Level 4 (97492) Diagnoses Diabetes mellitus with microalbuminuria, without long-term current use of insulin E11.29; R80.9 Dyslipidemia E78.5 Essential hypertension I10 History of cardiomyopathy Z86.79 Parkinson's disease without dyskinesia or fluctuating manifestations G20.A1 History of lobectomy of thyroid Z90.09 Assessment & Plan Assessment & Plan (1) Diabetes mellitus with microalbuminuria, without long-term current use of insulin: Code(s): E11.29 - Type 2 diabetes mellitus with other diabetic kidney complication; R80.9 - Proteinuria, unspecified Category: Medical Plan: Recent lab results reviewed with patient, with sugar and hemoglobin A1c stable and at goal continue with Trulicity, metformin and Farxiga at same dose. continue to check fasting blood sugar at home, maintain log and bring to next appointment for review. Reinforced diabetic diet and regular exercise with patient. Counseled regarding importance of yearly diabetes retinopathy screening, goes to [facility].. Patient advised to inspect feet daily, for any signs of injury, callus or infection. Compliance with diet and regular exercise again stressed. Blood pressure goal is less than 130/80, goal LDL is less than 100 and goal hemoglobin A1c is less than 7% follow-up appointment made in--5-months, after fasting labs done. (2) Dyslipidemia: Code(s): E78.5 - Hyperlipidemia, unspecified Category: Medical Plan: Fasting labs checked in October 2024 were within normal limits, continued on atorvastatin 20 mg daily (3) Essential hypertension: Code(s): I10 - Essential (primary) hypertension Category: Medical (4) History of cardiomyopathy: Code(s): Z86.79 - Personal history of other diseases of the circulatory system Category: Medical Plan: Followed at [facility] cardiology, continued on Entresto, carvedilol. (5) Parkinson's disease without dyskinesia or fluctuating manifestations: Code(s): G20.A1 - Parkinson's disease without dyskinesia, without mention of fluctuations Category: Medical Plan: The patient reports some benefit from using melatonin for vivid dreams. The patient has an upcoming sleep study in June and a follow-up with neurologist Dr. Ty in June. Continue rasagiline (6) History of lobectomy of thyroid: Comment: right thyroid lobectomy and reimplantation of right parathyroid gland by Dr Brasher +raz cells Code(s): Z90.09 - Acquired absence of other part of head and neck Category: Surgical Plan Assessment and Plan 1. Type 2 Diabetes Mellitus The patient's condition is stable with a slight improvement in A1c. Plan is to continue the current regimen of Farxiga, metformin, and Trulicity 1.5 mg. Will monitor with fasting labs prior to the next visit. 2. Hypertension Blood pressure is well-controlled. The patient will continue amlodipine, carvedilol, and Entresto. The mild leg swelling is likely a side effect of the amlodipine 10 mg. 3. Cardiovascular Disease The patient is clinically stable. The patient will continue management under cardiology, with a routine follow-up scheduled in two years per their recommendation. An echocardiogram is also planned at that time. Cardiology recommended yearly BMPs, which will be continued. 4. Parkinson's Disease with Sleep Disturbance The patient reports some benefit from using melatonin for vivid dreams. The patient has an upcoming sleep study in June and a follow-up with neurologist Dr. Chacko in June. 5. Postnasal Drip The symptom persists despite the use of Azelastine nasal spray. The patient will continue the current treatment. 6. Immature Cataracts The patient was diagnosed with immature cataracts on a recent eye exam and reports seeing halos at night. Recommended using yellow-tinted sunglasses to reduce glare while driving. The patient will continue with routine ophthalmology follow-up. 7. Health Maintenance Vaccinations: Discussed the shingles vaccine, which the patient plans to get. The patient is due for a tetanus booster next year. Screening: Per patient request, a thyroid panel will be added to the next set of labs, as the last result two years ago was on the low end of normal. Follow-up: The patient will return for a follow-up visit in early September. Fasting labs will be ordered for August to be done prior to the visit. Patient was informed and verbally consented to the use of an ambient scribe for clinic note documentation during this visit. Discussion Notes We discussed the patient's chronic conditions, noting that diabetes and hypertension are stable on the current medication regimen. I acknowledged that the mild leg swelling is a likely side effect of amlodipine. We reviewed the cardiology recommendation for a follow-up in two years. I advised the patient to get the shingles vaccine and discussed potential side effects like body aches, suggesting Tylenol for management. We also noted that a tetanus booster will be due next year. The patient declined the RSV vaccine at this time. Regarding the new symptom of seeing halos around lights at night, which is related to the diagnosed immature cataracts, I suggested trying yellow-tinted sunglasses to help with glare when driving. I agreed to the patient's request to check thyroid function with the next lab draw, given the past result was on the lower side of normal. We scheduled a follow-up appointment in early September, and I will place an order for fasting labs, including lipids and a thyroid panel, to be completed in August before the visit. Patient was informed and verbally consented to the use of an ambient scribe for clinic note documentation during this visit. Orders: Orders Basic Metabolic Panel Fasting 09/19/25 E11. - Type 2 diabetes mellitus with other diabetic kidney complication, E78.5 - Hyperlipidemia, unspecified, I10 - Essential (primary) hypertension, R80.9 - Proteinuria, unspecified, Z86.79 - Personal history of other diseases of the circulatory system, Z90.09 - Acquired absence of other part of head and neck Aspartate Amino Transferase 09/19/25 E11. - Type 2 diabetes mellitus with other diabetic kidney complication, E78.5 - Hyperlipidemia, unspecified, I10 - Essential (primary) hypertension, R80.9 - Proteinuria, unspecified, Z86.79 - Personal history of other diseases of the circulatory system, Z90.09 - Acquired absence of other part of head and neck Alanine Aminotransferase 09/19/25 E11. - Type 2 diabetes mellitus with other diabetic kidney complication, E78.5 - Hyperlipidemia, unspecified, I10 - Essential (primary) hypertension, R80.9 - Proteinuria, unspecified, Z86.79 - Personal history of other diseases of the circulatory system, Z90.09 - Acquired absence of other part of head and neck Microalbumin, Random (w Creat) 09/19/25 E11. - Type 2 diabetes mellitus with other diabetic kidney complication, E78.5 - Hyperlipidemia, unspecified, I10 - Essential (primary) hypertension, R80.9 - Proteinuria, unspecified, Z86.79 - Personal history of other diseases of the circulatory system, Z90.09 - Acquired absence of other part of head and neck Vitamin D 25-OH Total 09/19/25 E11.29 - Type 2 diabetes mellitus with other diabetic kidney complication, E78.5 - Hyperlipidemia, unspecified, I10 - Essential (primary) hypertension, R80.9 - Proteinuria, unspecified, Z86.79 - Personal history of other diseases of the circulatory system, Z90.09 - Acquired absence of other part of head and neck Thyroid Stimulating Hormone 09/19/25 E11. - Type 2 diabetes mellitus with other diabetic kidney complication, E78.5 - Hyperlipidemia, unspecified, I10 - Essential (primary) hypertension, R80.9 - Proteinuria, unspecified, Z86.79 - Personal history of other diseases of the circulatory system, Z90.09 - Acquired absence of other part of head and neck Triiodothyronine T3 Free 09/19/25. - Type 2 diabetes mellitus with other diabetic kidney complication, E78.5 - Hyperlipidemia, unspecified, I10 - Essential (primary) hypertension, R80.9 - Proteinuria, unspecified, Z86.79 - Personal history of other diseases of the circulatory system, Z90.09 - Acquired absence of other part of head and neck Lipid Panel 09/19/25 E11. - Type 2 diabetes mellitus with other diabetic kidney complication, E78.5 - Hyperlipidemia, unspecified, I10 - Essential (primary) hypertension, R80.9 - Proteinuria, unspecified, Z86.79 - Personal history of other diseases of the circulatory system, Z90.09 - Acquired absence of other part of head and neck Hemoglobin A1c 09/19/25 E11.29 - Type 2 diabetes mellitus with other diabetic kidney complication, E78.5 - Hyperlipidemia, unspecified, I10 - Essential (primary) hypertension, R80.9 - Proteinuria, unspecified, Z86.79 - Personal history of other diseases of the circulatory system, Z90.09 - Acquired absence of other part of head and neck Free T4 (Free Thyroxine) 09/19/25. - Type 2 diabetes mellitus with other diabetic kidney complication, E78.5 - Hyperlipidemia, unspecified, I10 - Essential (primary) hypertension, R80.9 - Proteinuria, unspecified, Z86.79 - Personal history of other diseases of the circulatory system, Z90.09 - Acquired absence of other part of head and neck
--- OUTSIDE RECORDS SUMMARY | 2025-05-21 15:20 | XMS_ITS | Clinical Summary ---
Author Organization [facility] Address [address] [address] Phone Care Team Providers Care Seo Marketing Specialist Name Role Phone Unavailable Primary Care [...] Medical Devices Not on file Insurance [place] [address] [place], [place] [id number] [place] [address] [place], [place] [id number] [facility] HMO Member Subscriber Plan / Payer (Ef fective 2018-Present) Name:Albert Becerra Relation to Subscriber:Self Name:Albert Becerra Payer ID:Not on file Type:HMO Address: [place] [id number] [place] [address] HMO Additional Source Comments The information contained in this document represents components of the legal health record. It is not the complete legal health record.[facility]
== END 2025-05-21 12:40 | disposition home or self-care (01) ==
LOC: HO.HMCC 11:38
PROVIDERS: PCP Internal Medicine; Visit Provider Internal Medicine
DX: E11.29 Type 2 diabetes mellitus with other diabetic kidney complication (principal); R80.9 Proteinuria, unspecified; G20.A1 Parkinson's disease without dyskinesia, without mention of fluctuations; E78.5 Hyperlipidemia, unspecified; I10 Essential (primary) hypertension; Z86.79 Personal history of other diseases of the circulatory system; Z90.09 Acquired absence of other part of head and neck

== ENCOUNTER → 2025-05-21 11:38 | Outpatient (BNVA) | payer MEDICARE, SELFPAY | PROVIDERS: PCP Internal Medicine; Visit Provider Internal Medicine | DX: E11.29 Type 2 diabetes mellitus with other diabetic kidney complication (principal); R80.9 Proteinuria, unspecified; E78.5 Hyperlipidemia, unspecified; I10 Essential (primary) hypertension; G20.A1 Parkinson's disease without dyskinesia, without mention of fluctuations; Z90.09 Acquired absence of other part of head and neck; Z86.79 Personal history of other diseases of the circulatory system; R09.82 Postnasal drip | CPT/HCPCS: 99212 ==

== ENCOUNTER 2025-06-12 09:00 | Outpatient (RCR) | payer MEDICARE, SELFPAY ==
--- NOTE | 2025-04-11 15:15 | MHC.OT.EP ---
[facility] Office [address] [phone] F: [phone] F: [phone] Occupational Therapy Plan of Care Patient Name: Albert Becerra Date of Evaluation: 04/11/25 Diagnosis: Parkinsons disease without dyskinesia Pain Location: Low back; left side Pain Score: 3 Pain Scale Used: Numeric (0 - 10) Aggravating Factors: Prolonged standing, lifting Alleviating Factors: Stretching, rest Assessment: Albert is a 65 y/o right hand dominant male referred to OT w/ Parkinson's disease. He currently presents with progressive motor symptoms consistent with his diagnosis, including L UE tremor (onset 2020), decreased balance, flexibility, and reduced step length. Patient is motivated and appropriate candidate for PWR! program to address amplitude deficits and motor control. OT intervention will focus on functional mobility training, therapeutic exercise for core/L UE strengthening, balance training, energy conservation techniques, and home program education to maximize independence with ADLs and reduce fall risk. Frequency and Duration: The patient will be seen 2x/wk for 8 weeks Short Term Goals: Identify and demonstrate posture correction strategies with min cues Complete PWR! moves (weight shift, twist, reach) with reduced loss of balance and min A Demo improved step length and reduced shuffling with min verbal cues [employer] Goals: IND w/ PWR! home program to maintain/improve functional mobility and reduce fall risk Improve L hand coordination as evidenced by >6 sec improvement on [employer] L UE strength/endurance to 5/5 to improve ability to perform bilateral functional tasks (dressing, meal prep, transfers) IND'ly roll from supine to side-lying bilaterally using proper body mechanics Treatment Plan: Therapeutic Exercise Therapeutic Activity Neuro Re-ed Patient Education ADL Training Other (see comments) PWR! Program Electronically Signed By: Cortney Chi MS OTR/L Please Sign and return to therapist. Thank you once again for your referral.
--- NOTE | 2025-06-12 12:24 | MHC.OT.DC ---
[facility] Office [address] [phone] F: [phone] F: [phone] Occupational Therapy Discharge Note Patient Name: Albert Becerra Provider: Amirah Tompkins Diagnosis: Parkinsons disease without dyskinesia Date of Evaluation: 04/11/25 Date of Discharge: 06/12/25 Treatments to Date: 13 Discharge Status: Achieved Goals Improved Function Independent with HEP Discharge Summary: Albert has been seen by OT for 13 tx sessions focusing on improving flexibility, strength, and coordination through the [employer]! moves program. Pt demonstrated improvements with ease of functional transfers, increased awareness of step length and arm swing, and improved coordination with exercise routine. Pt was very receptive to completing home exercise videos at home after discharge. Emailed pt. resource for home. At this time, pt has met all LTG's set on admission and was instructed to f/u with any questions and concerns. Electronically Signed By: Cortney Chi MS OTR/L Reviewed/agree with student documentation: Therapist: Please Sign and return to therapist, thank you for your referral.
== END 2025-06-12 12:24 | disposition home or self-care (01) ==
LOC: HO.OTS 09:00
PROVIDERS: PCP Internal Medicine; Visit Provider Psychiatry & Neurology Neurology
DX: G20.A1 Parkinson's disease without dyskinesia, without mention of fluctuations (principal)
CPT/HCPCS: 97110; 97112; 97166